=== PATIENT | male | born 1940 | race Caucasian/White ===

== ENCOUNTER 2017-02-25 21:48 | Emergency (ER) | payer BC ==
[~2017-02-25] VITALS: Ht 177.8 cm; Wt 108.8 kg
[2017-02-25 21:54] VITALS: TEMP 36.4; Ht 177.8 cm; Wt 108.8 kg
[2017-02-25 22:50] LABS: BASO % 0.1 %; BASO ABS # 0.01 K/uL (0-0.2); COMPLETE YES; EOS % 1.3 %; HEMATOCRIT 41.9 % (42-52); IG% 0.3 %; LYMPH % 16.7 %; LYMPH ABS # 1.24 K/uL (1.2-3.4); MEAN CELL VOLUME 100.7 fL (80-100); MEAN CORPUSCULAR HEMOGLOBIN 33.9 pg (25-34); MEAN CORPUSCULAR HGB CONC 33.7 g/dl (32-36); MEAN PLATELET VOLUME 8.9 fL (7.4-10.4); MONO % 9.5 %; NEUT % 72.1 %; PLATELET COUNT 187 K/uL (130-400); RED BLOOD COUNT 4.16 M/uL (4.7-6.1); WHITE BLOOD COUNT 7.44 K/uL (4.8-10.8)
[2017-02-25] MEDS ORDERED: ONDANSETRON INJ 2 MG/ML 2 ML VIAL IV STA (22:54)
[2017-02-25] MEDS ORDERED: MoRPHine SULFATE 4 MG/ML 1 ML CARP\\VIAL IV STA (22:54)
[2017-02-25 22:56] LABS: URINE APPEARANCE CLEAR (CLEAR); URINE BILIRUBIN NEG (NEG); URINE COLOR YELLOW; URINE EPITHELIAL CELL AUTO 0-5 /lpf (0-5); URINE NITRITE NEG (NEG); URINE SPECIFIC GRAVITY 1.021 (1.000-1.030); UROBILINOGEN NEG (NEG); ZZUR CULT IF INDIC CLEAN CATCH NO
[2017-02-25 22:57] LABS: MANUAL MICROSCOPIC REQUIRED? NO; REVIEW REQ? YES
[2017-02-25] MEDS ORDERED: FINA5TAB PO (23:01)
[2017-02-25] MEDS ORDERED: ONDA4TAB46 PO (23:01)
[2017-02-25] MEDS ORDERED: LISI-461 PO (23:01)
[2017-02-25] MEDS ORDERED: HYDR-5688 PO (23:01)
[2017-02-25] MEDS ORDERED: ALLO300T2 PO (23:01)
[2017-02-25] MEDS ORDERED: TAMS0.4C38 PO (23:01)
[2017-02-25 23:10] LABS: BUN/CREATININE RATIO 11.4 (10-20); CALCIUM 9.4 mg/dl (8.5-10.1); CREATININE 1.3 mg/dl (0.60-1.40); POTASSIUM 4.2 mmol/L (3.5-5.1)
--- NOTE | 2017-02-26 00:10 | DIAGNOSTIC IMAGING REPORT ---
ULTRASOUND KIDNEYS AND BLADDER CLINICAL HISTORY: Right flank pain. COMPARISON STUDY: KUB dated 02/25/2017. TECHNIQUE: Real-time, grayscale, and color flow sonography of the kidneys and bladder is performed. Images are reviewed in the transverse and longitudinal planes. FINDINGS: Kidneys: The kidneys demonstrate cortical. The right kidney measures 13.4 x 5.2 x 7.3 cm and the left kidney measures 12.7 x 4.5 x 6.0 cm. There is mild to moderate right-sided hydronephrosis secondary to an obstructing right ureteral calculus which was shown by x-ray. No hydronephrosis is seen on the left. Additional small calculi are suggested in both kidneys. Subcentimeter cysts are noted in both kidneys There is no sonographic evidence of solid mass lesion. No perinephric fluid is identified. Bladder: The bladder is decompressed and grossly normal in morphology. Only a left ureteral jet was seen. IMPRESSION: 1. There is mild to moderate right-sided hydronephrosis secondary to an obstructing right ureteral calculus. 2. There is no left-sided hydronephrosis. 3. Additional nonobstructing stones are suggested in both kidneys. Electronically signed by: Romain Victor M.D. 02/26/2017 12:09 AM Dictated Date/Time: 02/26/2017 12:06 AM
--- NOTE | 2017-02-26 00:12 | DIAGNOSTIC IMAGING REPORT ---
KUB CLINICAL HISTORY: Right sided nephrolithiasis. FINDINGS: 2 AP supine abdominal radiographs are obtained. No prior studies are available for comparison at the time of dictation. There is a nonobstructed abdominal bowel gas pattern. A 7 mm calculus projects along the course of the right ureter at the level of L3. This likely represents a ureteral stone. Additional nonobstructing calculi are present in both kidneys. No calcifications project over the left ureter. Pelvic phleboliths are observed. The skeletal structures are osteopenic. Lumbosacral spondylosis is noted. IMPRESSION: 1. A 7 mm right ureteral calculus projects at the level of L3. 2. Additional nonobstructing stones are seen in both kidneys. Electronically signed by: Romain Victor M.D. 02/26/2017 12:10 AM Dictated Date/Time: 02/26/2017 12:09 AM
[2017-02-26] MEDS ORDERED: OXYC1TAB3 PO (00:28)
[2017-02-26 00:46] VITALS: BP 128/70; PULSE 74; O2SAT 95
--- NOTE | 2017-02-26 00:46 | EMERGENCY ROOM VISIT NOTE ---
History Report prepared by Swetha: Timothy Nesbitt Under the Supervision of: Dr. Darian Dyson D.O. First contact with patient: 22:39 Chief Complaint: KIDNEY STONE Stated Complaint: KIDNEY STONE History of Present Illness The patient is a 76 year old male who presents to the Emergency Room with complaints of waxing and waning right sided flank pain starting two days ago due to a 5mm kidney stone. Patient was seen at [facility] had a CT done at that time which showed a 5 mm right ureteral stone with hydronephrosis. Following this he scheduled an appointment with his urologist on this coming Monday. The patient states that he has had a kidney stone before in 1988, and he still has his appendix and gall bladder. Additionally, he states that he had prostate cancer. Pt denies headache, change in vision, fevers, chest pain, shortness of breath, nausea, vomiting, diarrhea, pain with urination, hematuria , and melena. Source of History: patient Onset: two days ago Position: other (right flank) Quality: other (kidney stone) Timing: waxes/wanes Associated Symptoms: No fevers, No nausea, No vomiting, No urinary symptoms Review of Systems See HPI for pertinent positives & negatives. A total of 10 systems reviewed and were otherwise negative. Past Medical & Surgical Medical Problems: (1) Kidney stone Social History Smoking Status: Former Smoker Marital Status: Housing Status: lives with family Occupation Status: employed Current/Historical Medications Scheduled Allopurinol (Zyloprim), 300 MG PO DAILY Finasteride (Proscar), 5 MG PO DAILY Hydrocodone/Acetaminophen 5MG/325MG ([place] 5MG/325MG), 1 TABLET PO Q4 Lisinopril (Zestril), 10 MG PO DAILY Tamsulosin Hcl (Flomax), 0.4 MG PO DAILY Scheduled PRN Ondansetron Hcl (Zofran), 4 MG PO Q8 PRN for Nausea Oxycodone Immediate Rel Tab (Roxicodone Ir), 5 MG PO Q6H PRN for Pain Allergies Coded Allergies: NO KNOWN DRUG ALLERGIES (Verified Allergy, Unknown, none, 02/25/17) Physical Exam Vital Signs Date Time Temp Pulse Resp B/P (MAP) Pulse Ox O2 Delivery O2 Flow Rate FiO2 02/25/17 23:13 64 20 129/75 98 Room Air 02/25/17 21:54 36.4 68 18 163/88 96 Room Air Physical Exam GENERAL:Sitting up in bed, disheveled, no distress, non-toxic EYE EXAM: normal conjunctiva OROPHARYNX: no exudate, no erythema, lips, buccal mucosa, and tongue normal and mucous membranes are moist NECK: supple, no nuchal rigidity, no adenopathy, non-tender LUNGS: Clear to auscultation. Normal chest wall mechanics HEART: no murmurs, S1 normal and S2 normal ABDOMEN: abdomen soft, non-tender, normo-active bowel sounds, no masses, no rebound or guarding. BACK: Back is symmetrical on inspection and there is no deformity, no midline tenderness, no CVA tenderness. SKIN: no rashes and no bruising UPPER EXTREMITIES: upper extremities are grossly normal. LOWER EXTREMITIES: No pitting edema. NEURO EXAM: Normal sensorium, cranial nerves II-XII grossly intact, normal speech, no gross weakness of arms, no gross weakness of legs. Medical Decision & Procedures ER Provider Diagnostic Interpretation: Radiology report from [facility]: CT Abdomen: Kidneys and ureters: The right kidney shows mild pelviectasis with mild perinephric stranding, with a 5.8mm intraureteral calculus at the mid L3 level. Left mid-upper renal lateral 4.7mm calyceal calculus. Right mid renal lateral 2.0mm calyceal calculus. Focal low attenuation left renal lower pole nephrocalcinosis measuring 8mm. Radiology results as stated below per my review and the radiologist's interpretation: ULTRASOUND KIDNEYS AND BLADDER CLINICAL HISTORY: Right flank pain. COMPARISON STUDY: KUB dated 02/25/2017. TECHNIQUE: Real-time, grayscale, and color flow sonography of the kidneys and bladder is performed. Images are reviewed in the transverse and longitudinal planes. FINDINGS: Kidneys: The kidneys demonstrate cortical. The right kidney measures 13.4 x 5.2 x 7.3 cm and the left kidney measures 12.7 x 4.5 x 6.0 cm. There is mild to moderate right-sided hydronephrosis secondary to an obstructing right ureteral calculus which was shown by x-ray. No hydronephrosis is seen on the left. Additional small calculi are suggested in both kidneys. Subcentimeter cysts are noted in both kidneys There is no sonographic evidence of solid mass lesion. No perinephric fluid is identified. Bladder: The bladder is decompressed and grossly normal in morphology. Only a left ureteral jet was seen. IMPRESSION: 1. There is mild to moderate right-sided hydronephrosis secondary to an obstructing right ureteral calculus. 2. There is no left-sided hydronephrosis. 3. Additional nonobstructing stones are suggested in both kidneys. Electronically signed by: Romain Victor M.D. 02/26/2017 12:09 AM Dictated Date/Time: 02/26/2017 12:06 AM KUB CLINICAL HISTORY: Right sided nephrolithiasis. FINDINGS: 2 AP supine abdominal radiographs are obtained. No prior studies are available for comparison at the time of dictation. There is a nonobstructed abdominal bowel gas pattern. A 7 mm calculus projects along the course of the right ureter at the level of L3. This likely represents a ureteral stone. Additional nonobstructing calculi are present in both kidneys. No calcifications project over the left ureter. Pelvic phleboliths are observed. The skeletal structures are osteopenic. Lumbosacral spondylosis is noted. IMPRESSION: 1. A 7 mm right ureteral calculus projects at the level of L3. 2. Additional nonobstructing stones are seen in both kidneys. Electronically signed by: Romain Victor M.D. 02/26/2017 12:10 AM Dictated Date/Time: 02/26/2017 12:09 AM Laboratory Results 02/25/17 22:20 Red Blood Count 4.16, Mean Corpuscular Volume 100.7, Mean Corpuscular Hemoglobin 33.9, Mean Corpuscular Hemoglobin Concent 33.7, Mean Platelet Volume 8.9, Neutrophils (%) (Auto) 72.1, Lymphocytes (%) (Auto) 16.7, Monocytes (%) ( Auto) 9.5, Eosinophils (%) (Auto) 1.3, Basophils (%) (Auto) 0.1, Neutrophils # ( Auto) 5.36, Lymphocytes # (Auto) 1.24, Monocytes # (Auto) 0.71, Eosinophils # ( Auto) 0.10, Basophils # (Auto) 0.01 02/25/17 22:20 Test 02/25/17 22:05 02/25/17 22:20 Urine Color YELLOW Urine Appearance CLEAR (CLEAR) Urine pH 5.0 (4.5-7.5) Urine Specific [place] 1.021 (1.000-1.030) Urine Protein NEG (NEG) Urine Glucose (UA) NEG (NEG) Urine Ketones NEG (NEG) Urine Occult Blood TRACE (NEG) Urine Nitrite NEG (NEG) Urine Bilirubin NEG (NEG) Urine Urobilinogen NEG (NEG) Urine Leukocyte Esterase NEG (NEG) Urine WBC (Auto) 1-5 /hpf (0-5) Urine RBC (Auto) 0-4 /hpf (0-4) Urine Hyaline Casts (Auto) 0 /lpf (0-5) Urine Epithelial Cells (Auto) 0-5 /lpf (0-5) Urine Bacteria (Auto) NEG (NEG) Urine Crystals CALCIUM OXALATE (NONE White Blood Count 7.44 K/uL (4.8-10.8) Red Blood Count 4.16 M/uL (4.7-6.1) Hemoglobin 14.1 g/dL (14.0-18.0) Hematocrit 41.9 % (42-52) Mean Corpuscular Volume 100.7 fL (80-100) Mean Corpuscular Hemoglobin 33.9 pg (25-34) Mean Corpuscular Hemoglobin Concent 33.7 g/dl (32-36) Platelet Count 187 K/uL (130-400) Mean Platelet Volume 8.9 fL (7.4-10.4) Neutrophils (%) (Auto) 72.1 % Lymphocytes (%) (Auto) 16.7 % Monocytes (%) (Auto) 9.5 % Eosinophils (%) (Auto) 1.3 % Basophils (%) (Auto) 0.1 % Neutrophils # (Auto) 5.36 K/uL (1.4-6.5) Lymphocytes # (Auto) 1.24 K/uL (1.2-3.4) Monocytes # (Auto) 0.71 K/uL (0.11-0.59) Eosinophils # (Auto) 0.10 K/uL (0-0.5) Basophils # (Auto) 0.01 K/uL (0-0.2) RDW Standard Deviation 51.3 fL (36.4-46.3) RDW Coefficient of Variation 13.9 % (11.5-14.5) Immature Granulocyte % (Auto) 0.3 % Immature Granulocyte # (Auto) 0.02 K/uL (0.00-0.02) Anion Gap 2.0 mmol/L (3-11) Est Creatinine Clear Calc Drug Dose 60.6 ml/min Estimated GFR () 61.9 Estimated GFR (Non- 53.4 BUN/Creatinine Ratio 11.4 (10-20) Calcium Level 9.4 mg/dl (8.5-10.1) Total Bilirubin 0.5 mg/dl (0.2-1) Direct Bilirubin 0.1 mg/dl (0-0.2) Aspartate Amino Transf (AST/SGOT) 37 U/L (15-37) Alanine Aminotransferase (ALT/SGPT) 60 U/L (12-78) Alkaline Phosphatase 78 U/L (45-117) Total Protein 6.7 gm/dl (6.4-8.2) Albumin 3.3 gm/dl (3.4-5.0) Lipase 132 U/L (73-393) Laboratory results per my review. Medications Administered Medications (Trade) Dose Ordered Sig/[facility] Route Start Time Stop Time Status Last Admin Dose Admin Morphine Sulfate (MoRPHine SULFATE INJ) 4 mg NOW STAT IV 02/25/17 22:54 02/25/17 22:55 DC 02/25/17 23:10 4 MG Ondansetron HCl (Zofran Inj) 4 mg NOW STAT IV 02/25/17 22:54 02/25/17 22:55 DC 02/25/17 23:09 4 MG ED Course ED COURSE: Vital signs were reviewed and showed tachycardia The patients medical record was reviewed The above diagnostic studies were performed and reviewed. ED treatments and interventions as stated above. 2239: The patient was evaluated in room B2. A complete history and physical examination was performed. 2254: Zofran Inj 4mg IV, Morphine Sulfate 4mg IV 0024: Upon reevaluation, the patient is feeling better.I discussed my findings with the patient and he understands and agrees with the treatment plan. Based on the patients age, coexisting illnesses, exam and lab findings the decision to treat as an outpatient was made. The patient remained stable while under my care. The patient appeared well at the time of discharge. Medical Decision Differential diagnoses includes but is not limited to gastritis, peptic ulcer disease, GERD, gallbladder disease, pancreatitis, small bowel obstruction, acute coronary syndrome, pericarditis, ischemic bowel, irritable bowel disease, irritable bowel syndrome, appendicitis, diverticulitis, malignancy, hernia, urinary tract infection, torsion, perforation, trauma, infectious. Patient is a 76-year-old male who presents the ER for right sided flank pain. He notes this started several days ago and was evaluated at outside hospital and found to have a 5.8 mm right ureteral stone at the level of L3. He denies any fevers. He has been taking OxyIR intermittently with improvement of his pain. CBC along with BMP, LFTs, bilirubin and lipase is unremarkable. UA was unremarkable. No signs of infection. Pain was controlled with IV morphine. He had absolutely no pain on reevaluation. KUB showed stone at the level of L3 and renal ultrasound showed multiple moderate right hydro-process consistent with a right renal stone. He has an appointment with his urologist on Monday. PDMP was reviewed and showed 1 recent prescription for narcotics for 8 tabs. I do not believe this is enough to get him through for the next 3 days consequently he was given additional prescription for 10 tabs of OxyIR. Patient family were updated at bedside. He is discharged follow-up with urology on Monday and PCP on Monday. Discussed with Pt concerning signs and symptoms to watch out for. Pt was instructed to follow up with their PCP and discussed with the patient their option to return to the ED at anytime for persistent or worsening symptoms. The appropriate anticipatory guidance and out- patient management, including indications for return to the emergency department , were explained at length to the patient and understood. [place] Drug Monitoring Program Search Results: patient reviewed within database Drug Monitoring Findings: The patient got 8 Oxy IR on the Medication Reconcilliation Current Medication List: was personally reviewed by me Blood Pressure Screening Patient's blood pressure: Elevated blood pressure Blood pressure disposition: Elevated BP felt to be situational Impression Primary Impression: Renal colic Scribe Attestation The scribe's documentation has been prepared under my direction and personally reviewed by me in its entirety. I confirm that the note above accurately reflects all work, treatment, procedures, and medical decision making performed by me. Departure Information Dispostion Home / Self-Care Prescriptions Oxycodone Immediate Rel Tab (ROXICODONE IR) 5 Mg Tab 5 MG PO Q6H Y for Pain, #10 TAB Prov: Darian Dyson, DO 02/26/17 Referrals Mike Fitch M.D. (PCP) Forms HOME CARE DOCUMENTATION FORM, IMPORTANT VISIT INFORMATION Patient Instructions ED Stone Renal W Colic, My [facility] Additional Instructions Please follow up with your primary care doctor or if you are a student, [facility] with in the next 24 hours. Any worsening of your symptoms, please return to the ED immediately. This includes any fevers greater than 100.4, worsening pain, chest pain, shortness breath, persistent nausea, vomiting, unable to eat or drink, or any other concerning signs or symptoms from your standpoint. You were given medications during this visit that will inhibit your ability to drive, operate machinery and work. Please do NOT drive, operate machinery or work for the next 12hrs. You were also given a prescription for a narcotic. While taking this medication you should also not drive, operate machinery and or work. You were found to have a blood pressure greater than 120 systolic over 90 diastolic. Due to the new Medicare guidelines, we are now recommending that you follow up with your primary care doctor in regards to this elevated blood pressure. Please follow up with urology on Monday. Again any fevers greater than 100.4 please return immediately to the closest ER.
[2017-03-03] MEDS ORDERED: OXYC-57 PO (08:32)
== END 2017-02-26 00:48 | disposition home or self-care (01) ==
LOC: C.EDB 21:50
DX: N20.1 Calculus of ureter (principal); N13.30 Unspecified hydronephrosis; Z87.442 Personal history of urinary calculi; Z87.891 Personal history of nicotine dependence; Z79.899 Other long term (current) drug therapy

== ENCOUNTER → 2017-02-28 | Outpatient (CLI) | payer BC ==
[~2017-02-28] MED LIST: ALLO300T2 PO; FINA5TAB PO; HYDR-5688 PO; LISI-461 PO; ONDA4TAB46 PO; OXYC-57 PO; OXYC1TAB3 PO; TAMS0.4C38 PO
== END | disposition home or self-care (01) ==
LOC: C.LABSPEC 17:03
PROVIDERS: ATTEND Nurse Practitioner Family
DX: N20.0 Calculus of kidney (principal)

== ENCOUNTER → 2017-02-28 | Outpatient (CLI) | payer BC ==
--- NOTE | 2017-02-28 11:18 | DIAGNOSTIC IMAGING REPORT ---
CHEST 2 VIEWS ROUTINE CLINICAL HISTORY: 76 years-old Male presenting with nephrolithiasis. TECHNIQUE: PA and lateral views of the chest were obtained. COMPARISON: None. FINDINGS: Elevation of the right hemidiaphragm with resultant mildly low right lung volume. Tortuosity of the descending thoracic aorta. Lungs and pleural spaces clear. Degenerative changes of the thoracic spine. Upper abdomen normal. IMPRESSION: 1. No acute cardiopulmonary disease. Electronically signed by: Paulie Quintero M.D. 02/28/2017 11:17 AM Dictated Date/Time: 02/28/2017 11:16 AM
== END | disposition home or self-care (01) ==
LOC: C.CPL 10:34
PROVIDERS: ATTEND Nurse Practitioner Family
DX: N20.0 Calculus of kidney (principal)

== ENCOUNTER → 2017-03-02 | Outpatient (CLI) | payer BC ==
--- NOTE | 2017-03-02 18:28 | DIAGNOSTIC IMAGING REPORT ---
KUB CLINICAL HISTORY: Right sided nephrolithiasis. FINDINGS: 2 AP supine abdominal radiographs are compared to study dated 02/26/2017 and correlated with abdominal CT dated 02/23/2017. There is a nonobstructed abdominal bowel gas pattern. A 7 mm calculus projects along the course of the right ureter just below the right transverse process of L3. This is consistent with a ureteral stone. Additional nonobstructing calculi are present in both kidneys. No calcifications project over the left ureter. Pelvic phleboliths are observed. The skeletal structures are osteopenic. Lumbosacral spondylosis is noted. IMPRESSION: 1. No significant change in the appearance of a 7 mm right ureteral calculus which projects just below the transverse process of L3. 2. Additional nonobstructing stones are seen in both kidneys. Electronically signed by: Romain Victor M.D. 03/02/2017 6:27 PM Dictated Date/Time: 03/02/2017 6:25 PM
== END | disposition home or self-care (01) ==
LOC: C.RAD 17:45
PROVIDERS: ATTEND Nurse Practitioner Family
DX: N20.0 Calculus of kidney (principal)

== ENCOUNTER → 2017-03-03 | Day surgery (SDC) | payer BC ==
[2017-02-28 16:46] VITALS: Ht 177.8 cm; Wt 107.3 kg
[~2017-03-03] VITALS: Ht 177.8 cm; Wt 107.3 kg
[~2017-03-03] MED LIST changes: +ATROPINE SULFATE 0.1 MG/ML 5ML SYR IV PRN; +CIPROFLOXACIN 400MG / D5W IV SCH; +DEXAMETHASONE SOD INJ 4 MG/ML VIAL ONE; +EpHEDrine SULFATE INJ 50 MG/ML AMP IV PRN; +EpHEDrine SULFATE INJ 50 MG/ML AMP ONE; +FENTANYL CITRATE INJ 50 MCG/1 ML 2 ML VIAL IV PRN; +FENTANYL CITRATE INJ 50 MCG/1 ML 2 ML VIAL ONE; +FLUMAZENIL 0.1 MG/1 ML 10 ML VIAL IV PRN; +HYDROmorphone INJ 2 MG/ML SYR/VIAL IV PRN; +LABETALOL HCL IV 5 MG/ML 20ML IV PRN; +LACTATED RINGER'S 1000ML 1,000 ML IV SCH; +LIDOCAINE HCL 2% 2 ML VIAL (20MG/ML) ONE; +MEPERIDINE HCL 25 MG/ML CARP IV PRN; +NALOXONE HCL 0.4 MG/1 ML VIAL/CARP IV PRN; +ONDANSETRON INJ 2 MG/ML 2 ML VIAL IV PRN; +ONDANSETRON INJ 2 MG/ML 2 ML VIAL ONE; +PHENYLEPHRINE 100MCG/ML 5ML SYR IV PRN; +PROPOFOL IV EMULSION 10 MG/ML 20 ML VIAL IV ONE
--- NOTE | 2017-03-03 06:59 | History & Physical Bridge - SC ---
H&P Re-Evaluation Bridge Note: I have examined the patient, reviewed the History & Physical and in the interval since the performance of the History & Physical I have noted the following changes of clinical significance: No changes noted
--- NOTE | 2017-03-03 07:53 | Discharge Instructions-SurgCtr ---
Discharge Instructions Date of Service Mar 03, 2017. Visit Reason for Visit: Stones Discharge Discharge Diagnosis / Problem: right ureteral stone Discharge Goals Goal(s): Decrease discomfort, Improve function, Increase independence, Improve disease control Activity Recommendations Activity Limitations: per Instructions/Follow-up section (no driving on narcotics) Anesthesia . Post Anesthesia Instructions: If you have had General Anesthesia or IV Sedation: * Do not drive today. * Resume driving when surgeon permits. * Do not make important decisions or sign legal documents today. * Call surgeon for: 1. Temperature elevations greater than 101 degrees F. 2. Uncontrollable pain. 3. Excessive bleeding. 4. Persistent nausea and vomiting. 5. Medication intolerance (nausea, vomiting or rash). * For nausea and vomiting use only clear liquids such as: tea, soda, bouillon until nausea subsides, then gradually increase diet as tolerated. * If you have any concerns or questions, call your surgeon's office. If physician is unavailable and it is an emergency, call 911 or go to the nearest emergency room. . Diet Recommendations Home Diet: resume previous diet Procedures Procedures Performed: Right Extracorporeal Shock Wave Lithotripsy - Ureteral Pending Studies Studies pending at discharge: no Medical Emergencies . Who to Call and When: Medical Emergencies: If at any time you feel your situation is an emergency, please call 911 immediately. . Non-Emergent Contact Non-Emergency issues call your: Urologist . . "Provider Documentation" section prepared by Alvarado Israel. .
[2017-03-03 08:28] VITALS: TEMP 36.5
--- NOTE | 2017-03-03 08:53 | Anesthesia Progress Nt - [facility] ---
Anesthesia Post Op Note Date & Time Mar 03, 2017 at 08:52 Vital Signs Pain Intensity: 4 Vital Signs Past 12 Hours Date Time Temp Pulse Resp B/P (MAP) Pulse Ox O2 Delivery O2 Flow Rate FiO2 03/03/17 08:28 36.5 70 20 116/72 (87) 94 Room Air 03/03/17 08:22 73 14 94 03/03/17 08:22 73 14 03/03/17 08:21 36.8 18 94 Room Air 03/03/17 08:20 116/73 03/03/17 08:17 77 23 03/03/17 08:17 77 23 95 03/03/17 08:16 77 18 93 03/03/17 08:16 76 18 03/03/17 08:15 120/71 03/03/17 08:11 73 22 97 03/03/17 08:11 73 22 03/03/17 08:10 119/70 03/03/17 08:06 74 19 97 03/03/17 08:06 74 19 03/03/17 08:05 116/73 03/03/17 08:02 81 27 03/03/17 08:02 81 27 95 03/03/17 08:00 126/75 03/03/17 07:57 80 03/03/17 07:57 80 136/75 94 03/03/17 07:57 36.8 81 16 136/78 95 Mask 6 03/03/17 06:29 36.6 60 16 177/97 (123) 95 Notes Mental Status: alert / awake / arousable, participated in evaluation Pt Amnestic to Procedure: Yes Nausea / Vomiting: adequately controlled Pain: adequately controlled Airway Patency, RR, SpO2: stable & adequate BP & HR: stable & adequate Hydration State: stable & adequate Anesthetic Complications: no major complications apparent
--- NOTE | 2017-03-03 08:57 | [facility] Post Operative Brief Note ---
Immediate Operative Summary Operative Date Mar 03, 2017. Pre-Operative Diagnosis Right Ureteral Calculi Post-Operative Diagnosis Same as pre-op Procedure(s) Performed Right Extracorporeal Shock Wave Lithotripsy - Ureteral Surgeon Dr. Jamaal Israel Corpsman Surgeon(s) None Estimated Blood Loss 0 mL Findings l ureteral stone Specimens None Disposition Recovery Room / PACU
[2017-03-03 08:58] VITALS: BP 115/68; PULSE 66; O2SAT 95
--- NOTE | 2017-03-03 12:17 | OPERATIVE REPORT ---
DATE OF OPERATION: 03/03/2017 PREOPERATIVE DIAGNOSIS: Right ureteral stone. POSTOPERATIVE DIAGNOSIS: Same. SURGEON: Dr. Alvarado Israel. PROCEDURE PERFORMED: Right ureteral ESWL. ANESTHESIA: General. INDICATIONS: The patient is a 77-year-old male with a history of a right ureteral stone who was to elective ESWL. DESCRIPTION OF THE PROCEDURE: The patient was given Venodyne stockings prior to the procedure and IV antibiotics. He was taken to the operating room and placed on the operating table. He was in the supine position. He was given general anesthesia. The stone was visualized from above in 2 views and he was given 3000 shocks, 1500 at level 6. At the end of the procedure, the patient was transferred to the recovery room in stable condition. I attest to the content of the Intraoperative Record and any orders documented therein. Any exception s are noted below.
== END | disposition home or self-care (01) ==
LOC: X.SURG 06:09
PROVIDERS: ATTEND Urology
DX: N20.1 Calculus of ureter (principal); C61 Malignant neoplasm of prostate; I10 Essential (primary) hypertension; Z87.442 Personal history of urinary calculi

== ENCOUNTER → 2017-03-14 | Outpatient (CLI) | payer BC ==
[~2017-03-14] MED LIST changes: -ATROPINE SULFATE 0.1 MG/ML 5ML SYR IV PRN; -CIPROFLOXACIN 400MG / D5W IV SCH; -DEXAMETHASONE SOD INJ 4 MG/ML VIAL ONE; -EpHEDrine SULFATE INJ 50 MG/ML AMP IV PRN; -EpHEDrine SULFATE INJ 50 MG/ML AMP ONE; -FENTANYL CITRATE INJ 50 MCG/1 ML 2 ML VIAL IV PRN; -FENTANYL CITRATE INJ 50 MCG/1 ML 2 ML VIAL ONE; -FLUMAZENIL 0.1 MG/1 ML 10 ML VIAL IV PRN; -HYDROmorphone INJ 2 MG/ML SYR/VIAL IV PRN; -LABETALOL HCL IV 5 MG/ML 20ML IV PRN; -LACTATED RINGER'S 1000ML 1,000 ML IV SCH; -LIDOCAINE HCL 2% 2 ML VIAL (20MG/ML) ONE; -MEPERIDINE HCL 25 MG/ML CARP IV PRN; -NALOXONE HCL 0.4 MG/1 ML VIAL/CARP IV PRN; -ONDANSETRON INJ 2 MG/ML 2 ML VIAL IV PRN; -ONDANSETRON INJ 2 MG/ML 2 ML VIAL ONE; -PHENYLEPHRINE 100MCG/ML 5ML SYR IV PRN; -PROPOFOL IV EMULSION 10 MG/ML 20 ML VIAL IV ONE
--- NOTE | 2017-03-14 13:13 | DIAGNOSTIC IMAGING REPORT ---
KUB CLINICAL HISTORY: Nephrolithiasis. COMPARISON STUDY: KUB March 02, [address] of the abdomen and pelvis February 23, 2017. FINDINGS: Pelvic calcifications were shown to represent phleboliths on prior CT. Note is made of a 6 mm left renal calculus and a 4 mm right renal calculus. These are unchanged. The right ureteral calculus shown on exam of March 02, 2017 is no longer visualized. IMPRESSION: 1. Nonvisualization of the right ureteral calculus shown on prior exam of March 02, 2017. 2. Bilateral nephrolithiasis. Electronically signed by: Luis Vitale M.D. 03/14/2017 1:12 PM Dictated Date/Time: 03/14/2017 1:10 PM
== END | disposition home or self-care (01) ==
LOC: C.RAD 11:45
PROVIDERS: ATTEND Nurse Practitioner Family
DX: N20.0 Calculus of kidney (principal); N20.1 Calculus of ureter

== ENCOUNTER → 2017-03-14 | Outpatient (CLI) | payer BC | END | disposition home or self-care (01) | LOC: C.LABSPEC 17:10 | PROVIDERS: ATTEND Nurse Practitioner Family | DX: N20.1 Calculus of ureter (principal) ==

== ENCOUNTER 2017-06-03 10:33 | Emergency (ER) | payer BC ==
[~2017-06-03] VITALS: Ht 177.8 cm; Wt 110.7 kg
[2017-06-03 10:35] VITALS: TEMP 36.5; Ht 177.8 cm; Wt 110.7 kg
--- NOTE | 2017-06-03 11:45 | DIAGNOSTIC IMAGING REPORT ---
L WRIST MIN 3 VIEWS ROUTINE CLINICAL HISTORY: Left wrist pain and swelling following injury. COMPARISON: None FINDINGS: Alignment of the left wrist is anatomic. There is no acute fracture. There is severe arthritis of the left first carpometacarpal joint. There is mild arthritis of the radiocarpal articulation. Moderate vascular calcification is present. IMPRESSION: 1. No acute fracture or dislocation of the left wrist. 2. 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 Electronically signed by: Luis Vitale M.D. 06/03/2017 11:43 AM Dictated Date/Time: 06/03/2017 11:43 AM
--- NOTE | 2017-06-03 11:46 | DIAGNOSTIC IMAGING REPORT ---
L HAND MIN 3 VIEWS ROUTINE CLINICAL HISTORY: Left hand and wrist pain following injury. COMPARISON: None FINDINGS: There is severe osteoarthritis of the left first carpometacarpal joint. There is no acute fracture within the left hand. IMPRESSION: 1. No acute fracture or dislocation within the left hand. 2. 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 Electronically signed by: Luis Vitale M.D. 06/03/2017 11:45 AM Dictated Date/Time: 06/03/2017 11:44 AM
--- NOTE | 2017-06-03 12:10 | EMERGENCY ROOM VISIT NOTE ---
ED Visit Note First contact with patient: 10:40 I have seen and examined this patient with Yousif Patel and generally agree with the treatment plan as discussed. Current/Historical Medications Scheduled Allopurinol (Zyloprim), 300 MG PO QAM Finasteride (Proscar), 5 MG PO QAM Lisinopril (Zestril), 10 MG PO QAM Tamsulosin Hcl (Flomax), 0.4 MG PO QAM Allergies Coded Allergies: No Known Allergies (Unverified , 06/03/17) Vital Signs Date Time Temp Pulse Resp B/P (MAP) Pulse Ox O2 Delivery O2 Flow Rate FiO2 06/03/17 10:35 36.5 66 18 158/92 91 Room Air Departure Information Referrals Bg Burnette M.D. (PCP) Patient Instructions My [facility]
[2017-06-03 12:18] VITALS: BP 145/89; PULSE 68; O2SAT 96
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
== END 2017-06-03 12:32 | disposition home or self-care (01) ==
LOC: C.EDB 10:34 → C.EDC 12:32
DX: M79.642 Pain in left hand (principal); M25.532 Pain in left wrist; S60.222A Contusion of left hand, initial encounter; W22.8XXA Striking against or struck by other objects, initial encounter; M18.12 Unilateral primary osteoarthritis of first carpometacarpal joint, left hand; I10 Essential (primary) hypertension; Z87.442 Personal history of urinary calculi; Z85.46 Personal history of malignant neoplasm of prostate

== ENCOUNTER → 2017-10-02 | Outpatient (CLI) | payer BC ==
[~2017-10-02] MED LIST changes: -HYDR-5688 PO; -ONDA4TAB46 PO; -OXYC-57 PO; -OXYC1TAB3 PO
--- NOTE | 2017-10-02 12:21 | DIAGNOSTIC IMAGING REPORT ---
KUB CLINICAL HISTORY: Nephrolithiasis. COMPARISON STUDY: KUB March 14, 2017. FINDINGS: A 4 mm right renal calculus and a 5 mm left renal calculus are similar to previous exam of March 14, 2017. Pelvic calcifications reflect phleboliths. No ureteral calculi identified. Bowel gas pattern is normal. IMPRESSION: 1. No change in bilateral nephrolithiasis. 2. No ureteral calculi identified. Electronically signed by: Luis Vitale M.D. 10/02/2017 12:19 PM Dictated Date/Time: 10/02/2017 12:17 PM
== END | disposition home or self-care (01) ==
LOC: C.RAD 11:23
PROVIDERS: ATTEND Urology
DX: N20.0 Calculus of kidney (principal)

== ENCOUNTER 2021-11-02 23:29 | Inpatient (IN) ==
[2021-11-02] MEDS ORDERED: SODIUM CHLORIDE 0.9% 500 ML IV STA (23:47)
[2021-11-02] MEDS ORDERED: SODIUM CHLORIDE 0.9% 1000ML 1,000 ML IV ONE (23:47)
[2021-11-02] MEDS ORDERED: ONDANSETRON INJ 2 MG/ML 2 ML VIAL IV STA (23:47)
[2021-11-02] MEDS ORDERED: MoRPHine SULFATE 4 MG/ML 1 ML CARP\\VIAL IV STA (23:47)
--- NOTE | 2021-11-02 23:49 | Emergency Department Note ---
Impression & Plan Right kidney stone ADMIT ED Provider Note HPI: The patient is a 80-year-old gentleman who presents the emergency department with a chief complaint of right sided abdominal pain. Patient states that the pain began acutely about 3 to 4 hours prior to arrival to the emergency department. He states it occurred after he ate a large dinner including half a rack of barbecue ribs. On arrival patient states he does have some nausea but he has not had any vomiting, denies any diarrhea. He is noted to be hypertensive on arrival but otherwise is hemodynamically stable and in no acute distress on my initial evaluation. ROS: -GI: Right-sided abdominal pain *10 point review systems was conducted and is otherwise negative unless stated above *Outpatient medications and allergy history reviewed PE: General: Alert, NAD HEENT: Normocephalic, atraumatic Eyes: Extraocular eye movement is intact, no scleral erythema Pulmonary: Clear to auscultation bilaterally, no wheezing Cardio: Regular rate and rhythm GI: Abdomen is soft, there is tenderness to palpation in the right side of the abdomen and the right flank area : No suprapubic tenderness MSK: No evidence of trauma or malformation of the extremities, no edema Skin: No evidence of rash Neuro: Alert, no focal deficits 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 Mild bilateral lower lobe atelectasis. Normal cardiac size. Large cyst within the right temporal lobe measuring 9.4 x 8.5 cm, otherwise normal liver. Unremarkable gallbladder and biliary system. Normal pancreas, spleen and bilateral adrenal glands. Small bilateral simple renal cyst, largest on the right measuring 1.6 cm and on the left measuring 1.2 cm. Mild right hydronephrosis with enlargement of the right renal pelvis due to a stone at the right UP junction measuring 10.9 mm. No left hydronephrosis. Left upper renal pole stone measuring 4.3 mm. Atherosclerotic disease of aorta with no aneurysm. Unremarkable stomach and small bowel. Normal appendix. Diverticulosis more so through the sigmoid and descending colon with no signs of diverticulitis. No bowel obstruction. Unremarkable urinary bladder. Prostate enlargement. Degenerative disease of the spine. Radiologist: Deepika Quispe MD US GALLBLADDER: Exam is limited due to gas artifact in the bowel. The pancreas is obscured. The liver measures 16.2 cm with diffuse fatty infiltration. There is a large cyst within the right liver lobe measuring 8.2 x 9.4 x 7.7 cm. The gallbladder is over distended with no distinct stones. Gallbladder wall measures 2 mm. Negative Alaniz sign. The common bile that measures 3 mm, within normal limits. Right kidney measures 12.9 cm with mild fullness of the right renal pelvis suggestive of mild hydronephrosis. There is no evidence of intrarenal stone. Radiologist: Deepika Quispe MD Medical Decision Making: The patient is a very pleasant 80-year-old gentleman who presented to the emergency department with a chief complaint of right-sided abdominal pain. He states this began shortly after he ate a meal. IV was established, lab work obtained, ultrasound imaging of the gallbladder was ordered as well as CT imaging of the abdomen pelvis. CT imaging of the abdomen pelvis was obtained and shows evidence of a 11 mm kidney stone within the right UPJ, there is associated hydronephrosis, no evidence of acute kidney injury on the patient's lab work, urinalysis does not show any evidence of infection. Ultrasound imaging of the gallbladder does not show any evidence of acute cholecystitis. Patient was given IV morphine and IV Zofran for pain here in the ED, he did get some transient relief however pain returned and he was given a dose of IV Toradol. On my reassessment he states that he is continuing to have pain and therefore he will be admitted to the hospitalist service for further management, I did discuss all the above with on-call urology, Dr. Mcgowan, who stated that the patient can be admitted if he is having intractable pain. Patient states that this time he prefers admission for urology consultation as an inpatient given his ongoing pain. Patient was in agreement to the above plan he was admitted in stable condition. Diagnosis: 1. Acute onset abdominal pain 2. Right-sided kidney stone with associated hydronephrosis Disposition: Admission Josse Chacon DO Emergency Medicine Past Med/Surg History Medical History Cardiac murmur Diverticular disease Gout Hearing deficit Hypertension Kidney stones Prostate cancer Surgical History History of colonoscopy History of lithotripsy History of prostate biopsy History of tonsillectomy and adenoidectomy History of tooth extraction Family History Other No family history of adverse response to anesthesia Social History Smoking Status: Former smoker Tobacco Type: Cigarettes Second Hand Exposure: No; Hx Alcohol Use: Yes Alcohol type: beer Hx Substance Use: No Preferred Language: Romanian Communication Ability: Effective Puffer Tender Required: No Beliefs That Will Affect Care: None Current Living Situation: Spouse and Family Current Living Situation Comment: lives with and 1 son Feels Safe at Home: Yes Assistive Devices: Glasses and Hearing Aid - Bilateral Allergies Allergies Allergy/AdvReac Type Severity Reaction Status Date / Time No Known Allergies Allergy Verified 11/03/21 01:22 Home Meds Home Medications Medication Instructions Recorded Confirmed allopurinol 300 mg tablet 300 mg PO QAM 09/24/18 11/03/21 linaclotide 145 mcg capsule 145 mcg PO QAM 09/24/18 11/03/21 (Linzess) lisinopril 10 mg tablet 10 mg PO QAM 09/24/18 11/03/21 Previous Rx's Medication Instructions Recorded tamsulosin 0.4 mg capsule 0.4 mg PO DAILY #90 cap 05/12/21 Results & Data (ED) Vital Signs Vital Signs - 24 hr 11/02/21 23:32 11/03/21 00:00 11/03/21 01:20 Temperature 36.5 C Temperature Source Temporal Artery Scan Pulse Rate 73 70 Pulse Rate [Finger] 72 Respiratory Rate 16 18 18 Respiratory Effort / Characteristics Non-Labored Spontaneous Respiratory Depth Normal Blood Pressure 202/98 H Blood Pressure [Left Arm] 150/89 H Blood Pressure Mean 132 Blood Pressure Mean [Left Arm] 109 Pulse Oximetry 93 95 95 Oxygen Delivery Method Room Air Room Air Room Air Oxygen Flow Rate Sepsis Recent Fever Within 48 Hours No Sepsis New/Unexplained Change in Mental Status N/A Sepsis Action Taken by Nursing No Action Required Oxygen Flow Rate - Titration Pulse Oximetry Post Tiitration 11/03/21 02:23 11/03/21 02:47 11/03/21 03:16 Temperature Temperature Source Pulse Rate Pulse Rate [Finger] 80 84 Respiratory Rate 18 18 Respiratory Effort / Characteristics Respiratory Depth Blood Pressure Blood Pressure [Left Arm] 149/92 H 156/99 H Blood Pressure Mean Blood Pressure Mean [Left Arm] 111 118 Pulse Oximetry 91 88 L 95 Oxygen Delivery Method Room Air Nasal Cannula Nasal Cannula Oxygen Flow Rate 0 2 Sepsis Recent Fever Within 48 Hours Sepsis New/Unexplained Change in Mental Status Sepsis Action Taken by Nursing Oxygen Flow Rate - Titration 2 Pulse Oximetry Post Tiitration 93 Laboratory Data Result diagrams: 11/02/21 00:05 11/03/21 00:05 Lab Results 11/02/21 11/03/21 11/03/21 Range/Units 00:05 00:05 00:05 WBC 8.27 (4.8-10.8) K/uL RBC 4.52 L (4.7-6.1) M/uL Hgb 15.3 (14.0-18.0) g/dL Hct 46.5 (42-52) % MCV 102.9 H (80-100) fL MCH 33.8 (25-34) pg MCHC 32.9 (32-36) g/dL RDW Std Deviation 53.4 H (36.4-46.3) fL RDW Coeff of Kalani 14.2 (11.5-14.5) % Plt Count 219 (130-400) K/uL MPV 9.3 (7.4-10.4) fL Immature Gran % (Auto) 0.4 % Neut % (Auto) 80.9 % Lymph % (Auto) 11.2 % Archuleta % (Auto) 6.8 % Eos % (Auto) 0.6 % Baso % (Auto) 0.1 % Neut # (Auto) 6.69 H (1.4-6.5) K/uL Lymph # (Auto) 0.93 L (1.2-3.4) K/uL Archuleta # (Auto) 0.56 (0.11-0.59) K/uL Eos # (Auto) 0.05 (0-0.5) K/uL Baso # (Auto) 0.01 (0-0.2) K/uL Immature Gran # (Auto) 0.03 H (0.00-0.02) K/uL PT 10.4 (9.0-12.0) Seconds INR 1.0 (0.9-1.1) Sodium 142 (136-145) mmol/L Potassium 4.0 (3.5-5.1) mmol/L Chloride 104 (98-107) mmol/L Carbon Dioxide 32 (21-32) mmol/L Anion Gap 6 (3-11) BUN 14 (6-23) mg/dl Creatinine 1.08 (0.6-1.4) mg/dl Est Cr Clr Drug Dosing 68.6 ml/min Est GFR ( Amer) 75.3 ml/min Est GFR (Non-Af Amer) 64.9 ml/min BUN/Creatinine Ratio 13.0 (10-20) Glucose 132 H (70-99(Fasting)) mg/dl Calcium 10.9 H (8.5-10.1) mg/dl Total Bilirubin 0.5 (0.2-1.0) mg/dl AST 20 (13-39) U/L ALT 22 (7-52) U/L Alkaline Phosphatase 66 (34-104) U/L Total Protein 7.2 (6.0-8.3) gm/dl Albumin 4.2 (3.4-5.0) gm/dl Globulin 3.0 (2.5-4.0) gm/dl Albumin/Globulin Ratio 1.4 (0.9-2) Lipase 21 (11-82) U/L Urine Color Urine Appearance (Clear) Urine pH (4.5-7.5) Ur Specific [place] (1.000-1.030) Urine Protein (Negative) Urine Glucose (UA) (Negative) Urine Ketones (Negative) Urine Blood (Negative) Urine Nitrite (Negative) Urine Bilirubin (Negative) Urine Urobilinogen (Negative) Ur Leukocyte Esterase (Negative) Urine WBC (Auto) (0-5) /hpf Urine RBC (Auto) (0-4) /hpf U Hyaline Cast (Auto) (0-5) /lpf U Epithel Cells (Auto) (0-5) /lpf Urine Bacteria (Auto) (Negative) Urine Crystals Calcium Oxalate Crystal (None Prsent) Urine Mucus (None Prsent) SARS-CoV-2, RNA, NAAT (NEGATIVE) 11/03/21 11/03/21 Range/Units 00:05 02:18 WBC (4.8-10.8) K/uL RBC (4.7-6.1) M/uL Hgb (14.0-18.0) g/dL Hct (42-52) % MCV (80-100) fL MCH (25-34) pg MCHC (32-36) g/dL RDW Std Deviation (36.4-46.3) fL RDW Coeff of Kalani (11.5-14.5) % Plt Count (130-400) K/uL MPV (7.4-10.4) fL Immature Gran % (Auto) % Neut % (Auto) % Lymph % (Auto) % Archule[place] % (Auto) % Eos % (Auto) % Baso % (Auto) % Neut # (Auto) (1.4-6.5) K/uL Lymph # (Auto) (1.2-3.4) K/uL [place] # (Auto) (0.11-0.59) K/uL Eos # (Auto) (0-0.5) K/uL Baso # (Auto) (0-0.2) K/uL Immature Gran # (Auto) (0.00-0.02) K/uL PT (9.0-12.0) Seconds INR (0.9-1.1) Sodium (136-145) mmol/L Potassium (3.5-5.1) mmol/L Chloride (98-107) mmol/L Carbon Dioxide (21-32) mmol/L Anion Gap (3-11) BUN (6-23) mg/dl Creatinine (0.6-1.4) mg/dl Est Cr Clr Drug Dosing ml/min Est GFR ( Amer) ml/min Est GFR (Non-Af Amer) ml/min BUN/Creatinine Ratio (10-20) Glucose (70-99(Fasting)) mg/dl Calcium (8.5-10.1) mg/dl Total Bilirubin (0.2-1.0) mg/dl AST (13-39) U/L ALT (7-52) U/L Alkaline Phosphatase (34-104) U/L Total Protein (6.0-8.3) gm/dl Albumin (3.4-5.0) gm/dl Globulin (2.5-4.0) gm/dl Albumin/Globulin Ratio (0.9-2) Lipase (11-82) U/L Urine Color Yellow Urine Appearance Clear (Clear) Urine pH 5.5 (4.5-7.5) Ur Specific [place] 1.024 (1.000-1.030) Urine Protein 1+ H (Negative) Urine Glucose (UA) Negative (Negative) Urine Ketones Trace H (Negative) Urine Blood 1+ H (Negative) Urine Nitrite Negative (Negative) Urine Bilirubin Negative (Negative) Urine Urobilinogen Negative (Negative) Ur Leukocyte Esterase Negative (Negative) Urine WBC (Auto) 1-5 (0-5) /hpf Urine RBC (Auto) 5-10 H (0-4) /hpf U Hyaline Cast (Auto) 0 (0-5) /lpf U Epithel Cells (Auto) 20-30 H (0-5) /lpf Urine Bacteria (Auto) Negative (Negative) Urine Crystals Not Reportable Calcium Oxalate Crystal Present A (None Prsent) Urine Mucus Present A (None Prsent) SARS-CoV-2, RNA, NAAT NEGATIVE (NEGATIVE) Administered Medications Discontinued Medications Sodium Chloride (Nss 1000ml) 1,000 mls @ 999 mls/hr IV .Q1H1M ONE Stop: 11/03/21 00:47 Last Infusion: 11/03/21 00:42 Dose: 0 mls/hr Documented by: [id number] Admin: 11/03/21 00:03 Dose: 999 mls/hr Documented by: [id number] Sodium Chloride (Nss) 500 mls @ 999 mls/hr IV .Q31M STA Stop: 11/03/21 00:17 Last Infusion: 11/03/21 01:19 Dose: 0 mls/hr Documented by: [id number] Admin: 11/03/21 00:42 Dose: 999 mls/hr Documented by: [id number] Ioversol (Optiray 320 100ml) 100 ml IV ONCE ONE Stop: 11/03/21 01:25 Last Admin: 11/03/21 01:24 Dose: 93 ml Documented by: [id number] Ketorolac Tromethamine (Ketorolac Tromethamine 15 Mg/Ml Vial) 15 mg IV NOW ONE Stop: 11/03/21 03:01 Last Admin: 11/03/21 03:15 Dose: 15 mg Documented by: [id number] Morphine Sulfate (Morphine Sulfate 4 Mg/Ml 1 Ml Carp\Vial) 4 mg IV NOW STA Stop: 11/02/21 23:48 Last Admin: 11/03/21 00:03 Dose: 4 mg Documented by: [id number] Ondansetron HCl (Ondansetron Inj 2 Mg/Ml 2 Ml Vial) 4 mg IV NOW STA Stop: 11/02/21 23:48 Last Admin: 11/03/21 00:03 Dose: 4 mg Documented by: [id number] Discharge Plan Visit Data Chief Complaint: Flank Pain Stated Complaint: FLANK PAIN ED Provider: Josse Chacon Discharge Problem: Right kidney stone Forms Stand Alone Forms: [facility] Prescriptions Prescriptions: No Action tamsulosin 0.4 mg capsule 0.4 mg PO DAILY Qty: 90 RF: 3 allopurinol 300 mg Tablet 300 mg PO QAM RF: 0 Linzess 145 mcg Capsule 145 mcg PO QAM RF: 0 lisinopril 10 mg Tablet 10 mg PO QAM RF: 0 Referrals Referrals: Bobby Diaz, ASHLEE [Primary Care Provider] -
[2021-11-03 00:25] LABS: Basophils # (auto) 0.01 K/uL (0-0.2); Basophils % (auto) 0.1 %; Eosinophils # (auto) 0.05 K/uL (0-0.5); Eosinophils % (auto) 0.6 %; Hematocrit (blood only) 46.5 % (42-52); Hemoglobin 15.3 g/dL (14.0-18.0); Immature Granulocytes # (auto) 0.03 K/uL (0.00-0.02); Immature Granulocytes % (auto) 0.4 %; Lymphocytes # (auto) 0.93 K/uL (1.2-3.4); Lymphocytes % (auto) 11.2 %; Mean Corpuscular Hemoglobin 33.8 pg (25-34); Mean Corpuscular Hgb Conc 32.9 g/dL (32-36); Mean Corpuscular Volume 102.9 fL (80-100); Mean Platelet Volume 9.3 fL (7.4-10.4); Monocytes # (auto) 0.56 K/uL (0.11-0.59); Monocytes % (auto) 6.8 %; Neutrophils # (auto) 6.69 K/uL (1.4-6.5); Neutrophils % (auto) 80.9 %; Platelet Count 219 K/uL (130-400); RDW Coefficient of Variation 14.2 % (11.5-14.5); RDW Standard Deviation 53.4 fL (36.4-46.3); Red Blood Count 4.52 M/uL (4.7-6.1); White Blood Count 8.27 K/uL (4.8-10.8)
[2021-11-03 00:47] LABS: Prothrombin Time 10.4 Seconds (9.0-12.0)
[2021-11-03 00:57] LABS: Albumin Globulin Ratio 1.4 (0.9-2); Albumin Level 4.2 gm/dl (3.4-5.0); Bilirubin,Total 0.5 mg/dl (0.2-1.0); Calcium 10.9 mg/dl (8.5-10.1); Creatinine Clr Calc Pharmacy 68.6 ml/min; Est GFR (African American) 75.3 ml/min; Est GFR (Non-African American) 64.9 ml/min; Total Protein 7.2 gm/dl (6.0-8.3)
[2021-11-03 01:15] LABS: Appearance Urine Clear (Clear); Bacteria Urine Automated Negative (Negative); Bilirubin Urine Negative (Negative); Blood Urine 1+ (Negative); Cast Urine Automated 0 /lpf (0-5); Color Urine Yellow; Epithelial Cell Urine Auto 20-30 /lpf (0-5); Glucose Urine UA Negative (Negative); Ketones Urine Trace (Negative); Leukocyte Esterase Urine Negative (Negative); Nitrite Urine Negative (Negative); Protein Urine 1+ (Negative); Specific Gravity Urine 1.024 (1.000-1.030); Urobilinogen Urine Negative (Negative); pH Urine 5.5 (4.5-7.5)
[2021-11-03] MEDS ORDERED: OPTIRAY 320 100ml IV ONE (01:24)
[2021-11-03 01:53] LABS: Calcium Oxalate Crystals Urine Present (None Prsent)
[2021-11-03 01:54] LABS: Mucus Urine Present (None Prsent)
[2021-11-03] MEDS ORDERED: KETOROLAC TROMETHAMINE 15 MG/ML VIAL IV ONE (03:00)
--- NOTE | 2021-11-03 04:14 | History & Physical Report ---
Date of Service November 03, 2021 Assessment & Plan (1) Right kidney stone: Plan: Right ureteropelvic junction calculus 10.9 mm/mild right hydronephrosis- N.p.o. for possible ureteral stent procedure Follow urine culture and sensitivity Ceftriaxone 2 g IV daily Zofran 4 mg IV every 6 hours as needed Famotidine 20 mg IV every 12 hours IV fluids Ilfeld 5/325, 1 p.o. every 6 hours as needed moderate pain Ilfeld 5/325, 2 p.o. every 6 hours as needed severe pain Dilaudid 0.25 mg IV every 3 hours as needed moderate pain Dilaudid 0.5 mg IV every 3 hours as needed severe pain Consult urology, follows with Dr. Mcgowan as an outpatient (2) Ureteropelvic junction calculus: Plan: See above (3) Hydronephrosis of right kidney: Plan: See above (4) Hypertension: Plan: Hold lisinopril (5) Irritable bowel syndrome with constipation: Plan: Hold Linzess (6) Gout: Plan: Resume allopurinol after no longer n.p.o. (7) Liver cyst: Plan: Can be followed with serial imaging studies as outpatient (8) Prostate cancer: History of Present Illness Chief Complaint: The patient presents to the emergency department after he had acute onset of right flank pain and nausea after eating out at a local restaurant earlier this evening Primary Care Provider: Bobby Diaz This is a 80-year-old male with a history of prostate cancer, nephrolithiasis, hypertension, gout who presented to [facility] for evaluation of flank pain. In the ED, patient was found to be hypertensive to 200/100 with otherwise normal vital signs. Afebrile. He was found to have a normal white count. Chemistries revealing of BUN 14/creatinine 1.08. Urinalysis demonstrating 1+ protein, trace ketones, 1+ blood, 5-10 RBCs, calcium oxalate crystal, urine mucus. STAT Rad CT- A/P: " Large cyst within the right lobe measuring 9.4X 8.5 cm, otherwise normal liver Unremarkable gallbladder and biliary system Small bilateral simple renal cysts, largest on the right measuring 1.6 cm and on the left measuring 1.2 cm. Mild right hydronephrosis with enlargement of the right renal pelvis due to stone at the right UP junction measuring 10.9 mm. No left hydronephrosis. Left upper renal pole stone measuring 4.3 cm. Prostate enlargement." STAT Rad US RUQ: " The liver measures 16.2 cm with diffuse fatty infiltration. There is a large cyst within the right liver lobe measuring 8.2 X9.4X 7.7 cm. The gallbladder is overdistended with no distinct stones... Negative Alaniz sign. Right kidney measures 12.9 cm with mild fullness on the right renal pelvis suggestive mild hydronephrosis." He was given morphine, Zofran, 1500 cc NSS, Toradol. Allergies Allergy/AdvReac Type Severity Reaction Status Date / Time No Known Allergies Allergy Verified 11/03/21 01:22 Home Medications Medication Instructions Recorded Confirmed Type allopurinol 300 mg tablet 300 mg PO QAM 09/24/18 11/03/21 History linaclotide 145 mcg capsule 145 mcg PO QAM 09/24/18 11/03/21 History (Linzess) lisinopril 10 mg tablet 10 mg PO QAM 09/24/18 11/03/21 History tamsulosin 0.4 mg capsule 0.4 mg PO DAILY #90 cap 05/12/21 11/03/21 Rx Past Med/Surg History Medical History (Updated 11/03/21 @ 05:08 by Nathanael Diaz MD) Cardiac murmur Diverticular disease Gout Hearing deficit Hypertension Kidney stones 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 Surgical History History of colonoscopy History of lithotripsy History of prostate biopsy malignant History of tonsillectomy and adenoidectomy History of tooth extraction Family History Other No family history of adverse response to anesthesia Social History Smoking Status: Former smoker Tobacco Type: Cigarettes Second Hand Exposure: No; Hx Alcohol Use: Yes Alcohol type: beer Hx Substance Use: No Preferred Language: Malian Communication Ability: Effective Medical Records Library Professor Required: No Beliefs That Will Affect Care: None Current Living Situation: Spouse and Family Current Living Situation Comment: lives with and 1 son Feels Safe at Home: Yes Assistive Devices: Glasses and Hearing Aid - Bilateral Review of Systems Review of Systems: The patient denies chest pain, palpitations, shortness of breath, dyspnea on exertion, cough, lower extremity swelling, sore throat, fevers, chills, sweats, vomiting, diarrhea , constipation, blood in stool, lightheadedness, dizziness, headache, memory loss, loss of consciousness, rash, imbalance, focal or generalized weakness, numbness or tingling in arms or legs, generalized arthralgias or myalgias, neck pain, or night sweats. The review of systems is otherwise negative other than for that already noted above, and at least 10 systems have been reviewed. Physical Exam Physical Exam: The patient is awake, alert and oriented 3, well developed and well nourished, normocephalic and atraumatic, lying in bed and in no acute distress after receiving IV pain medications HEENT--PERRL, EOMI, mucous membranes and oropharynx normal. Neck--supple. No JVD. No bruits. Thyroid normal, trachea midline, no adenopathy. Heart--normal S1 and S2. No murmurs, rubs or gallops. Lungs--clear bilaterally, no respiratory distress, no accessory muscle use. Abdomen--normal bowel sounds and soft. Nontender. Nondistended. Morbidly obese Extremities--no cyanosis or clubbing. No edema. Dermatologic--normal skin turgor, normal color, no abnormal lymph nodes, no rash. Neurologic--cranial nerves II through XII grossly intact. Rheumatologic--normal range of motion. Psychiatric--normal affect. Results & Data Results & Data ([facility]) Vital Signs (Past 12 Hours) Vital Signs Temp Pulse Pulse Resp BP BP Pulse Ox 11/03/21 03:16 84 18 156/99 H 95 11/03/21 02:47 88 L 11/03/21 02:23 80 18 149/92 H 91 11/03/21 01:20 72 18 150/89 H 95 11/03/21 00:00 70 18 95 11/02/21 23:32 36.5 C 73 16 202/98 H 93 Laboratory Results Laboratory Results WBC 8.27 K/uL (4.8-10.8) 11/02/21 00:05 RBC 4.52 M/uL (4.7-6.1) L 11/02/21 00:05 Hgb 15.3 g/dL (14.0-18.0) 11/02/21 00:05 Hct 46.5 % (42-52) 11/02/21 00:05 MCV 102.9 fL (80-100) H 11/02/21 00:05 MCH 33.8 pg (25-34) 11/02/21 00:05 MCHC 32.9 g/dL (32-36) 11/02/21 00:05 RDW Std Deviation 53.4 fL (36.4-46.3) H 11/02/21 00:05 RDW Coeff of Kalani 14.2 % (11.5-14.5) 11/02/21 00:05 Plt Count 219 K/uL (130-400) 11/02/21 00:05 MPV 9.3 fL (7.4-10.4) 11/02/21 00:05 Immature Gran % (Auto) 0.4 % 11/02/21 00:05 Neut % (Auto) 80.9 % 11/02/21 00:05 Lymph % (Auto) 11.2 % 11/02/21 00:05 [place] % (Auto) 6.8 % 11/02/21 00:05 Eos % (Auto) 0.6 % 11/02/21 00:05 Baso % (Auto) 0.1 % 11/02/21 00:05 Neut # (Auto) 6.69 K/uL (1.4-6.5) H 11/02/21 00:05 Lymph # (Auto) 0.93 K/uL (1.2-3.4) L 11/02/21 00:05 [place] # (Auto) 0.56 K/uL (0.11-0.59) 11/02/21 00:05 Eos # (Auto) 0.05 K/uL (0-0.5) 11/02/21 00:05 Baso # (Auto) 0.01 K/uL (0-0.2) 11/02/21 00:05 Immature Gran # (Auto) 0.03 K/uL (0.00-0.02) H 11/02/21 00:05 PT 10.4 Seconds (9.0-12.0) 11/03/21 00:05 INR 1.0 (0.9-1.1) 11/03/21 00:05 Sodium 142 mmol/L (136-145) 11/03/21 00:05 Potassium 4.0 mmol/L (3.5-5.1) 11/03/21 00:05 Chloride 104 mmol/L (98-107) 11/03/21 00:05 Carbon Dioxide 32 mmol/L (21-32) 11/03/21 00:05 Anion Gap 6 (3-11) 11/03/21 00:05 BUN 14 mg/dl (6-23) 11/03/21 00:05 Creatinine 1.08 mg/dl (0.6-1.4) 11/03/21 00:05 Est Cr Clr Drug Dosing 68.6 ml/min 11/03/21 00:05 Est GFR ( Amer) 75.3 ml/min 11/03/21 00:05 Est GFR (Non-Af Amer) 64.9 ml/min 11/03/21 00:05 BUN/Creatinine Ratio 13.0 (10-20) 11/03/21 00:05 Glucose 132 mg/dl (70-99(Fasting)) H 11/03/21 00:05 Calcium 10.9 mg/dl (8.5-10.1) H 11/03/21 00:05 Total Bilirubin 0.5 mg/dl (0.2-1.0) 11/03/21 00:05 AST 20 U/L (13-39) 11/03/21 00:05 ALT 22 U/L (7-52) 11/03/21 00:05 Alkaline Phosphatase 66 U/L (34-104) 11/03/21 00:05 Total Protein 7.2 gm/dl (6.0-8.3) 11/03/21 00:05 Albumin 4.2 gm/dl (3.4-5.0) 11/03/21 00:05 Globulin 3.0 gm/dl (2.5-4.0) 11/03/21 00:05 Albumin/Globulin Ratio 1.4 (0.9-2) 11/03/21 00:05 Lipase 21 U/L (11-82) 11/03/21 00:05 Urine Color Yellow 11/03/21 00:05 Urine Appearance Clear (Clear) 11/03/21 00:05 Urine pH 5.5 (4.5-7.5) 11/03/21 00:05 Ur Specific [place] 1.024 (1.000-1.030) 11/03/21 00:05 Urine Protein 1+ (Negative) H 11/03/21 00:05 Urine Glucose (UA) Negative (Negative) 11/03/21 00:05 Urine Ketones Trace (Negative) H 11/03/21 00:05 Urine Blood 1+ (Negative) H 11/03/21 00:05 Urine Nitrite Negative (Negative) 11/03/21 00:05 Urine Bilirubin Negative (Negative) 11/03/21 00:05 Urine Urobilinogen Negative (Negative) 11/03/21 00:05 Ur Leukocyte Esterase Negative (Negative) 11/03/21 00:05 Urine WBC (Auto) 1-5 /hpf (0-5) 11/03/21 00:05 Urine RBC (Auto) 5-10 /hpf (0-4) H 11/03/21 00:05 U Hyaline Cast (Auto) 0 /lpf (0-5) 11/03/21 00:05 U Epithel Cells (Auto) 20-30 /lpf (0-5) H 11/03/21 00:05 Urine Bacteria (Auto) Negative (Negative) 11/03/21 00:05 Urine Crystals Not Reportable 11/03/21 00:05 Calcium Oxalate Crystal Present (None Prsent) A 11/03/21 00:05 Urine Mucus Present (None Prsent) A 11/03/21 00:05 SARS-CoV-2, RNA, NAAT NEGATIVE (NEGATIVE) 11/03/21 02:18 Diagnostic Findings [facility] Patient: FLAVIA NEGRO (Male) : 42 Status: ER Date: 11/03/21 02:16 Room #: History: RUQ pain Slices: 49 Priors: Tech: Kenia Mckay @ [phone] Exams: US GALLBLADDER Contrast: Accession Numbers: [id number] Referring Physician: REFERRED SELF Preliminary Findings Only See Final Report For Complete Findings US GALLBLADDER: Exam is limited due to gas artifact in the bowel. The pancreas is obscured. The liver measures 16.2 cm with diffuse fatty infiltration. There is a large cyst within the right liver lobe measuring 8.2 x 9.4 x 7.7 cm. The gallbladder is over distended with no distinct stones. Gallbladder wall measures 2 mm. Negative Alaniz sign. The common bile that measures 3 mm, within normal limits. Right kidney measures 12.9 cm with mild fullness of the right renal pelvis suggestive of mild hydronephrosis. There is no evidence of intrarenal stone. Radiologist: Deepika Quispe MD Study ready at 02:20 and initial results transmitted at 03:13 *This report constitutes a preliminary interpretation only. Non-acute findings felt to be unrelated to the clinical presentation may not be discussed in this report. The study will be interpreted and a final report will be generated by the local Radiologist the following shift. To reach the [facility] radiology department call [phone]. If a discrepancy is found between the preliminary and final interpretations of this study, please notify us via our Client Portal at [email or web address], under QA Exams. You can also fax this report with a description of the discrepancy, or include the final report, to our daytime fax number [phone]. If faxing, please indicate the severity of discrepancy using one of the following categories: [ ] 1 - Agree/Informational [ ] 2 - Unlikely to Affect Management [ ] 3 - Possible Eventual Change of Management [ ] 4 - Probable Immediate Change of Management For all other patient related information, please fax us at [phone]. [id number] [facility] Patient: FLAVIA NEGRO (Male) : 42 Status: ER Date: 11/03/21 01:27 Room #: History: PAIN AT RIGHT SIDE OF ABD, DIARRHEA Slices: 825 Priors: Tech: Mario Donaldson @ [phone] Exams: CT ABDOMEN & PELVIS With Contrast Contrast: IV Amt: 93 ML OPTIRAY 320 Accession Numbers: [id number] Referring Physician: REFERRED SELF Preliminary Findings Only See Final Report For Complete Findings CT ABDOMEN & PELVIS With Contrast: Comparison: . Mild bilateral lower lobe atelectasis. Normal cardiac size. Large cyst within the right temporal lobe measuring 9.4 x 8.5 cm, otherwise normal liver. Unremarkable gallbladder and biliary system. Normal pancreas, spleen and bilateral adrenal glands. Small bilateral simple renal cyst, largest on the right measuring 1.6 cm and on the left measuring 1.2 cm. Mild right hydronephrosis with enlargement of the right renal pelvis due to a stone at the right UP junction measuring 10.9 mm. No left hydronephrosis. Left upper renal pole stone measuring 4.3 mm. Atherosclerotic disease of aorta with no aneurysm. Unremarkable stomach and small bowel. Normal appendix. Diverticulosis more so through the sigmoid and descending colon with no signs of diverticulitis. No bowel obstruction. Unremarkable urinary bladder. Prostate enlargement. Degenerative disease of the spine. Radiologist: Deepika Quispe MD Study ready at 01:36 and initial results transmitted at 01:55 *This report constitutes a preliminary interpretation only. Non-acute findings felt to be unrelated to the clinical presentation may not be discussed in this report. The study will be interpreted and a final report will be generated by the local Radiologist the following shift. To reach the [facility] radiology department call [phone]. If a discrepancy is found between the preliminary and final interpretations of this study, please notify us via our Client Portal at [email or web address], under QA Exams. You can also fax this report with a description of the discrepancy, or include the final report, to our daytime fax number [phone]. If faxing, please indicate the severity of discrepancy using one of the following categories: [ ] 1 - Agree/Informational [ ] 2 - Unlikely to Affect Management [ ] 3 - Possible Eventual Change of Management [ ] 4 - Probable Immediate Change of Management For all other patient related information, please fax us at [phone]. [id number] Code Status & VTE Plan Code Status Full code
[2021-11-03] MEDS ORDERED: HYDROCODONE/ACETAMOPHEN 5/325MG TAB PO PRN ×2 (05:10)
[2021-11-03] MEDS ORDERED: HYDROmorphone INJ 0.5 MG/0.5 ML SYR IV PRN ×2 (05:10)
[2021-11-03] MEDS ORDERED: KETOROLAC TROMETHAMINE 15 MG/ML VIAL IV PRN (05:12)
--- NOTE | 2021-11-03 05:13 | Billing Data ---
Date of Service November 03, 2021 Coding Level of Care Code 48261 Initial Inpt Care Lvl 3
[2021-11-03] MEDS: cefTRIAXone SODIUM 2,000 MG in DEXTROSE 5% 50 ML IV SCH (06:07)
--- NOTE | 2021-11-03 07:31 | Ultrasound Report ---
ULTRASOUND RIGHT UPPER QUADRANT ABDOMEN CLINICAL HISTORY: Right upper quadrant abdominal pain. COMPARISON STUDY: Abdominal CT performed the same day 11/03/2021. TECHNIQUE: Real-time, grayscale, and color flow sonography of the right upper quadrant of the abdomen was performed. Images are reviewed in the transverse and longitudinal planes. FINDINGS: Liver: The liver is normal in size and demonstrates heterogeneously increased echotexture suggesting steatosis. There is no intrahepatic biliary ductal dilatation. The main portal vein is patent. A 9.4 cm hepatic cyst is seen in the right lobe. Gallbladder: The gallbladder is distended. No shadowing gallstones are identified. There is no gallbl adder wall thickening or pericholecystic fluid. A sonographic Alaniz's sign is reportedly absent. The common bile duct measures up to 0.3 cm in diameter. Pancreas: Not visualized due to overlying bowel gas. Right kidney: Survey images of the right kidney demonstrate mild cortical atrophy. Echotexture is nor mal. There is no hydronephrosis. Ascites: None. IMPRESSION: 1. Distended gallbladder with no shadowing gallstones identified and no sonographic evidence of acute cholecystitis. 2. Hepatic steatosis. 3. Nonvisualization of the pancreas. ACT 112: Negative or not required by law. Electronically signed by: Romain Victor M.D. 11/03/2021 7:30 AM
--- NOTE | 2021-11-03 08:24 | CT Scan Report ---
CT SCAN OF THE ABDOMEN AND PELVIS WITH IV CONTRAST CLINICAL HISTORY: Right-sided abdominal pain. COMPARISON STUDY: Abdominal CT dated 02/23/2017. TECHNIQUE: Following the IV administration of 93 cc of Optiray 320, CT scan of the abdomen and pelvi s is performed from the lung bases to the proximal femora. Images are reviewed in the axial, sagittal , and coronal planes. IV contrast was administered without complication. A dose lowering technique wa s utilized adhering to the principles of ALARA. CT DOSE: 1409.51 mGy.cm FINDINGS: Lung bases: The heart is enlarged and without pericardial effusion. The coronary arteries are densely calcified. There is elevation of the right hemidiaphragm with bibasilar scarring/atelectasis. No air space consolidation typical for pneumonia or pleural effusion is identified. Liver: The contrast-enhanced liver is normal in size, contour, and attenuation. There is no intrahepa tic biliary ductal dilatation. The hepatic veins and portal veins are patent. A 9.7 cm simple cyst is noted in the right lobe. Gallbladder: The gallbladder is distended with mild surrounding infiltration. Spleen: Normal in size and attenuation. Pancreas: Moderately atrophic and grossly unremarkable. Adrenal glands: Unremarkable. Kidneys: The contrast enhanced kidneys demonstrate cortical atrophy and are without hydronephrosis. T here is a 13 mm calculus at the right ureteropelvic junction seen on image #274. There is fullness of the right renal pelvis, with associated urothelial thickening and surrounding inflammation. A 6 mm n onobstructing calculus is noted in the left kidney. The kidneys enhance symmetrically. There is a 2.1 cm indeterminant lesion in the anterior interpolar right kidney seen on image #263. Enhancing lesion is not excluded. Renal cysts measure up to 2.2 cm. Additional subcentimeter cortical hypodensities a lso likely represent cysts but are too small for definitive characterization. Abdominal vasculature: The abdominal aorta is normal in course and caliber noting moderate atheroscle rotic calcification. Bowel: There is moderate colonic diverticulosis without CT evidence of acute diverticulitis. No bowel obstruction is seen. Mild fecal retention is seen throughout the colon. The appendix is well-visual ized and normal. Peritoneum: There is no intraperitoneal free air or abdominal ascites. Lymphadenopathy: None. Pelvic viscera: The prostate gland is enlarged and heterogeneous noting median lobe hypertrophy. The bladder wall is thickened and trabeculated indicating chronic outlet obstruction. Skeletal structures: The skeletal structures are osteopenic. There is [id number] lumbosacral sp ondylosis. No lytic or blastic lesions are seen. IMPRESSION: 1. There is a 13 mm calculus at the right ureteropelvic junction. There is associated fullness of the right renal pelvis with urothelial thickening/enhancement and surrounding inflammation. This may cau se low-grade/intermittent obstruction. Correlate with clinical findings and urinalysis for evidence o f superimposed urinary tract infection. 2. There is no hydronephrosis. 3. There is an additional nonobstructing left renal calculus. 4. The gallbladder is distended with minimal surrounding infiltration. Correlate with right upper marsha drant ultrasound. 5. There is a subtle 2.1 cm indeterminant lesion in the anterior interpolar right kidney. An enhancin g renal lesion/mass is not excluded. Follow-up with a nonemergent renal protocol MRI is recommended f or further evaluation. 6. Prostatomegaly with evidence of chronic bladder outlet obstruction. 7. Colonic diverticulosis without CT evidence of acute diverticulitis. 8. Cardiomegaly. 9. Additional findings as above. ACT 112: Positive. There are findings on this exam that require communication between the performing entity and the patient following Patient Test Result Information Act ([place] Act 112) guidelines. Electronically signed by: Romain Victor M.D. 11/03/2021 8:22 AM
--- NOTE | 2021-11-03 08:28 | Urology Consultation ---
Date of Consultation November 03, 2021 Assessment & Plan (1) Ureteropelvic junction calculus: 80yo M admitted with right flank pain and associated nausea secondary to a right UPJ stone - Plan of care reviewed with Dr. Mcgowan, on-call urologist. - CTAP reviewed and notable for a 13 mm calculus at the right UPJ with associated fullness of the right renal pelvis with urothelial thickening/enhancement and surrounding inflammation which may cause low- grade/intermittent obstruction. - KUB this AM noted interval stability of multiple stones including a right UPJ stone. - Pt afebrile, hemodynamically stable, non-toxic appearing. - Labs reviewed - Wbc and creatinine normal. - UA on admission demonstrated 1+ blood, 5-10 RBCs, calcium oxalate crystal, urine mucus, Urine culture pending. On IV Ceftriaxone, follow culture. - Discussed options for acute stone management with cystoscopy and stent placement. Discussed ESWL. Risks and benefits of each were discussed. - Stone free rates were also discussed as well as possibility of multiple procedures. Ureteral stents were discussed as well as post-operative issues and pain management. - Patient prefers to proceed with outpatient ESWL. - No acute intervention planned today. Ok to have a diet back. - Will schedule him for Right ESWL this Monday. - Reviewed risks/benefits of ESWL as per consent, all questions were answered. - Pt not currently on any anticoagulants. Advised him to hold off on taking any further NSAIDS. Pt verbalized an understanding. - Ok for discharge from perspective. Recommend home with Tamsulosin and prn pain control. - Reviewed in detail signs/symptoms that would warrant return to the hospital, patient verbalized an understanding. - Pt agreeable to plan, all questions were answered. Thank you for allowing us to participate in the acute care of Mr. Roman. Please reconsult us with additional questions, concerns or changes in patient status. History of Present Illness Reason for Consultation: Kidney stone Attending Physician: Ozzie Santos History of Present Illness 80 year-old male with a past medical history of prostate cancer, nephrolithiasis, hypertension, gout who presented to the ED for evaluation of flank pain with associated nausea. On presentation, the patient was found to be hypertensive with otherwise normal vital signs. He was afebrile with a normal white count and creatinine. Urinalysis demonstrated 1+ protein, trace ketones, 1+ blood, 5-10 RBCs, calcium oxalate crystal, urine mucus. A CT abdomen pelvis was obtained and notable for a 13 mm calculus at the right ureteropelvic junction with associated fullness of the right renal pelvis with urothelial thickening/enhancement and surrounding inflammation, no hydronephrosis. He was given morphine, Zofran, IVF, and Toradol and admitted by medicine service for further management. CT abdomen pelvis - 1. There is a 13 mm calculus at the right ureteropelvic junction. There is associated fullness of the right renal pelvis with urothelial thickening/enhancement and surrounding inflammation. This may cause low-grade/intermittent obstruction. Correlate with clinical findings and urinalysis for evidence of superimposed urinary tract infection. 2. There is no hydronephrosis. 3. There is an additional nonobstructing left renal calculus. 4. The gallbladder is distended with minimal surrounding infiltration. Correlate with right upper quadrant ultrasound. 5. There is a subtle 2.1 cm indeterminant lesion in the anterior interpolar right kidney. An enhancing renal lesion/mass is not excluded. Follow-up with a nonemergent renal protocol MRI is recommended for further evaluation. 6. Prostatomegaly with evidence of chronic bladder outlet obstruction. 7. Colonic diverticulosis without CT evidence of acute diverticulitis. 8. Cardiomegaly. Urology consulted for kidney stone. Pt is known to our service, follows with Dr. Mcgowan. Hx of Prostate cancer status post radiation and Nephrolithiasis with prior ESWL. Pt examined at bedside this AM. Awake, resting in bed on arrival. No acute distress. Still with right flank discomfort, but reports pain has improved. Currently rates pain 4/10. No fevers or chills. Denies nausea or vomiting. Has been NPO. Voiding without issues. No hematuria or dysuria. Feels he is emptying his bladder well. Offered no additional complaints at time of exam. Allergies Allergy/AdvReac Type Severity Reaction Status Date / Time No Known Allergies Allergy Verified 11/03/21 01:22 Home Medications Medication Instructions Recorded Confirmed Type allopurinol 300 mg tablet 300 mg PO QAM 09/24/18 11/03/21 History linaclotide 145 mcg capsule 145 mcg PO QAM 09/24/18 11/03/21 History (Linzess) lisinopril 10 mg tablet 10 mg PO QAM 09/24/18 11/03/21 History tamsulosin 0.4 mg capsule 0.4 mg PO DAILY #90 cap 05/12/21 11/03/21 Rx Patient History Medical History Cardiac murmur Diverticular disease Gout Hearing deficit Hypertension Kidney stones 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 Surgical History History of colonoscopy History of lithotripsy History of prostate biopsy malignant History of tonsillectomy and adenoidectomy History of tooth extraction Family History Other No family history of adverse response to anesthesia Social History Smoking Status: Former smoker Tobacco Type: Cigarettes Second Hand Exposure: No; Hx Alcohol Use: No Hx Substance Use: No Preferred Language: Pakistani Communication Ability: Effective 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 Feels Safe at Home: Yes Assistive Devices: None Review of Systems Review of Systems: All systems reviewed & are unremarkable except as noted in HPI & below Physical Exam Constitutional: well developed and well nourished; no acute distress and not ill appearing Neck: normal visual inspection Respiratory: normal respiratory effort and able to speak in complete sentences; no labored breathing and no audible wheezes Cardiovascular: Extremities: no calf tenderness Gastrointestinal (Abdomen): Inspection/Auscultation: abdomen normal to inspection; abdomen not distended Percussion/Palpation: abdomen soft; abdomen nontender and no guarding Musculoskeletal: Head/Neck/Chest: normocephalic Skin: No visible rashes or lesions to exposed skin areas Neurologic: moves all extremities and awake Psychiatric: Orientation: alert, oriented x 3 and cooperative Genitourinary: Mild right flank tenderness with palpation Results & Data ([facility]) Vital Signs (Past 12 Hours) Vital Signs Temp Pulse Pulse Resp BP BP Pulse Ox 11/03/21 05:15 36.7 C 93 H 18 145/92 H 93 11/03/21 04:30 90 24 122/86 97 11/03/21 04:00 93 H 24 147/89 H 94 11/03/21 03:16 84 18 156/99 H 95 11/03/21 02:47 88 L 11/03/21 02:23 80 18 149/92 H 91 11/03/21 01:20 72 18 150/89 H 95 11/03/21 00:00 70 18 95 11/02/21 23:32 36.5 C 73 16 202/98 H 93 PG Care Time/CCT Total # of Minutes Spent Total Time Spent with Patient: Total time spent is greater than 50% in coordination of care (as documented) at patient's floor/unit and/or counseling patient: Coding Level of Care Code 74678 Initial Inpt Care Lvl 2 Diagnoses Ureteropelvic junction calculus N20.1
[2021-11-03] MEDS ORDERED: lisinopril 10 MG TAB PO SCH (09:00)
--- NOTE | 2021-11-03 09:38 | XRay Report ---
XR KUB/Abdomen 1 view CLINICAL HISTORY: Right UPJ stone TECHNIQUE: 1 view of the abdomen was obtained. Comparison: Comparison is made to abdomen radiograph 10/12/2018 FINDINGS: Calcific densities are unchanged from prior exam including the right UPJ stone. Phleboliths are noted in the pelvis. The osseous structures are grossly unremarkable. The bowel gas pattern is nonobstruct quiana. A moderate amount of stool is noted within the large bowel. IMPRESSION: Interval stability of multiple stones including a right UPJ stone. ACT 112: Negative or not required by law. Electronically signed by: Martin Ellis M.D. 11/03/2021 9:37 AM
[2021-11-03] MEDS: FAMOTIDINE 20 MG in SYRINGE 3 ML IV SCH ×2 (10:06→20:47)
[2021-11-03] MEDS: LINACLOTIDE 145 MCG CAPSULE PO SCH (10:06)
[2021-11-03] MEDS: allopurinoL 300 MG TAB PO SCH (10:06)
[2021-11-03] MEDS: TAMSULOSIN HCL 0.4 MG CAP PO SCH (10:06)
--- NOTE | 2021-11-03 14:03 | XRay Report ---
XR chest 2V PA/lateral CLINICAL HISTORY: pre op. Evaluate cardiopulmonary status COMPARISON STUDY: No previous studies for comparison. TECHNIQUE: 2 views of the chest FINDINGS: Frontal and lateral radiographs of the chest demonstrate the cardiomediastinal silhouette to be withi n normal limits. There is asymmetric elevation of the right hemidiaphragm. The lungs are clear of liza eolar opacities. There is no evidence for effusion bilaterally. There is no evidence for vascular con gestion. There is no acute osseous pathology. IMPRESSION: 1. No acute cardiopulmonary disease. ACT 112: Negative or not required by law. Electronically signed by: Jordon Bauer M.D. 11/03/2021 2:02 PM
[2021-11-03] MEDS: SODIUM CHLORIDE 0.9% 1000ML 1,000 ML IV SCH (15:24)
[2021-11-03 16:11] LABS: Hematocrit (blood only) 44.4 % (42-52); Hemoglobin 15.1 g/dL (14.0-18.0); Mean Corpuscular Hemoglobin 34.6 pg (25-34); Mean Corpuscular Volume 101.6 fL (80-100); Mean Platelet Volume 9.1 fL (7.4-10.4); Platelet Count 177 K/uL (130-400); RDW Coefficient of Variation 14.2 % (11.5-14.5); RDW Standard Deviation 52.6 fL (36.4-46.3); Red Blood Count 4.37 M/uL (4.7-6.1); White Blood Count 11.34 K/uL (4.8-10.8)
[2021-11-03 16:33] LABS: BUN Creatinine Ratio 14.4 (10-20); Creatinine Clr Calc Pharmacy 81.9 ml/min; Est GFR (African American) 93.8 ml/min; Est GFR (Non-African American) 80.9 ml/min
--- NOTE | 2021-11-03 17:15 | Electrocardiogram Report ---
Test Reason : Blood Pressure : / mmHG Vent. Rate : 081 BPM Atrial Rate : 081 BPM P-R Int : 198 ms QRS Dur : 108 ms QT Int : 352 ms P-R-T Axes : 036 -27 061 degrees QTc Int : 408 ms Sinus rhythm with occasional Premature ventricular complexes Leftward axis Nonspecific ST abnormality Abnormal ECG When compared with ECG of 28-FEB-2017 11:16, Premature ventricular complexes are now Present T wave inversion no longer evident in Inferior leads Confirmed by Kristofer Carter ([id number]) on 11/03/2021 5:14:29 PM Referred By: REFERRED SELF Confirmed By:Kristofer Carter
--- NOTE | 2021-11-03 20:57 | Hospitalist Progress Note ---
Date of Service November 03, 2021 Assessment & Plan (1) Ureteropelvic junction calculus: Plan: 13mm stone at the UPJ on right. mild inflammation of the right urinary tract from such. low-grade fever this afternoon worrisome for brewing UTI in the setting of this stone. initial plan was d/c home with outpatient lithotripsy on Monday. however, given the temperature elevation, plan to cancel d/c, keep NPO after MN tonight, and potential urological intervention in the am by [facility] urology. in meantime - IV fluids, IV antibiotics, send blood cx's x 2 sets, pain meds, flomax. (2) UTI (urinary tract infection): Plan: suspected based on low-grade fever. continue rocephin 2gm IV daily. follow urine cx. send blood cx's. (3) Hypercalcemia: Plan: total calcium level of 10.9 at time of admission. I don't have previous BMPs to compare except for 1 scanned document from 12/2020 showing normal calcium at that time. repeat total calcium level this afternoon is improved s/p copious hydration since admission. trend the calcium. given #1 it may be dey to check an intact PTH level as this could predispose him to stone formation. (4) Hypertension: Plan: Hold lisinopril (5) Irritable bowel syndrome with constipation: Plan: Hold Linzess (6) Gout: Plan: Cont allopurinol (7) Liver cyst: Plan: Can be followed with serial imaging studies as outpatient (8) Prostate cancer: (9) MARIBEL (obstructive sleep apnea): Plan: BIPAP ordered until brings his home unit Admission and Anticipated Discharge Date Admission Date: November 03, 2021 Subjective c/o ongoing, mild, right lower quadrant abd pain appetite is poor today no vomiting feels tired states he is on BIPAP at home for MARIBEL - he is uncertain about his pressures states she can bring home unit tomorrow he is unaware of any prior high calcium level Physical Exam Physical Exam: gen - obese, flushed, tired appearing mouth - MM dry neck - no JVD heart - RRR, s1 s2 lungs - CTA b/l abd - modest amount of tenderness RLQ, otherwise soft, BS+, ND ext - no edema, pulses 2+ b/l Results & Data Results & Data ([facility]) Vital Signs (Past 12 Hours) Vital Signs Temp Pulse Resp BP Pulse Ox 11/03/21 14:26 37.6 C H 93 H 16 135/71 90 11/03/21 11:52 36.7 C 86 20 152/87 H 89 L Laboratory Results Laboratory Results - last 24 hr 11/02/21 11/03/21 11/03/21 00:05 00:05 00:05 WBC 8.27 RBC 4.52 L Hgb 15.3 Hct 46.5 MCV 102.9 H MCH 33.8 MCHC 32.9 RDW Std Deviation 53.4 H RDW Coeff of Kalani 14.2 Plt Count 219 MPV 9.3 Immature Gran % (Auto) 0.4 Neut % (Auto) 80.9 Lymph % (Auto) 11.2 Alfalfa % (Auto) 6.8 Eos % (Auto) 0.6 Baso % (Auto) 0.1 Neut # (Auto) 6.69 H Lymph # (Auto) 0.93 L Alfalfa # (Auto) 0.56 Eos # (Auto) 0.05 Baso # (Auto) 0.01 Immature Gran # (Auto) 0.03 H PT 10.4 INR 1.0 Sodium 142 Potassium 4.0 Chloride 104 Carbon Dioxide 32 Anion Gap 6 BUN 14 Creatinine 1.08 Est Cr Clr Drug Dosing 68.6 Est GFR ( Amer) 75.3 Est GFR (Non-Af Amer) 64.9 BUN/Creatinine Ratio 13.0 Glucose 132 H POC Glucose Calcium 10.9 H Total Bilirubin 0.5 AST 20 ALT 22 Alkaline Phosphatase 66 Total Protein 7.2 Albumin 4.2 Globulin 3.0 Albumin/Globulin Ratio 1.4 Lipase 21 Urine Color Urine Appearance Urine pH Ur Specific [place] Urine Protein Urine Glucose (UA) Urine Ketones Urine Blood Urine Nitrite Urine Bilirubin Urine Urobilinogen Ur Leukocyte Esterase Urine WBC (Auto) Urine RBC (Auto) U Hyaline Cast (Auto) U Epithel Cells (Auto) Urine Bacteria (Auto) Urine Crystals Calcium Oxalate Crystal Urine Mucus SARS-CoV-2, RNA, NAAT 11/03/21 11/03/21 11/03/21 00:05 02:18 12:02 WBC RBC Hgb Hct MCV MCH MCHC RDW Std Deviation RDW Coeff of Kalani Plt Count MPV Immature Gran % (Auto) Neut % (Auto) Lymph % (Auto) Alfalfa % (Auto) Eos % (Auto) Baso % (Auto) Neut # (Auto) Lymph # (Auto) Alfalfa # (Auto) Eos # (Auto) Baso # (Auto) Immature Gran # (Auto) PT INR Sodium Potassium Chloride Carbon Dioxide Anion Gap BUN Creatinine Est Cr Clr Drug Dosing Est GFR ( Amer) Est GFR (Non-Af Amer) BUN/Creatinine Ratio Glucose POC Glucose 104 H Calcium Total Bilirubin AST ALT Alkaline Phosphatase Total Protein Albumin Globulin Albumin/Globulin Ratio Lipase Urine Color Yellow Urine Appearance Clear Urine pH 5.5 Ur Specific [place] 1.024 Urine Protein 1+ H Urine Glucose (UA) Negative Urine Ketones Trace H Urine Blood 1+ H Urine Nitrite Negative Urine Bilirubin Negative Urine Urobilinogen Negative Ur Leukocyte Esterase Negative Urine WBC (Auto) 1-5 Urine RBC (Auto) 5-10 H U Hyaline Cast (Auto) 0 U Epithel Cells (Auto) 20-30 H Urine Bacteria (Auto) Negative Urine Crystals Not Reportable Calcium Oxalate Crystal Present A Urine Mucus Present A SARS-CoV-2, RNA, NAAT NEGATIVE 11/03/21 11/03/21 15:44 15:44 WBC 11.34 H RBC 4.37 L Hgb 15.1 Hct 44.4 MCV 101.6 H MCH 34.6 H MCHC 34.0 RDW Std Deviation 52.6 H RDW Coeff of Kalani 14.2 Plt Count 177 MPV 9.1 Immature Gran % (Auto) Neut % (Auto) Lymph % (Auto) Alfalfa % (Auto) Eos % (Auto) Baso % (Auto) Neut # (Auto) Lymph # (Auto) Alfalfa # (Auto) Eos # (Auto) Baso # (Auto) Immature Gran # (Auto) PT INR Sodium 140 Potassium 4.0 Chloride 106 Carbon Dioxide 28 Anion Gap 6 BUN 13 Creatinine 0.90 Est Cr Clr Drug Dosing 81.9 Est GFR ( Amer) 93.8 Est GFR (Non-Af Amer) 80.9 BUN/Creatinine Ratio 14.4 Glucose 130 H POC Glucose Calcium 10.0 Total Bilirubin AST ALT Alkaline Phosphatase Total Protein Albumin Globulin Albumin/Globulin Ratio Lipase Urine Color Urine Appearance Urine pH Ur Specific [place] Urine Protein Urine Glucose (UA) Urine Ketones Urine Blood Urine Nitrite Urine Bilirubin Urine Urobilinogen Ur Leukocyte Esterase Urine WBC (Auto) Urine RBC (Auto) U Hyaline Cast (Auto) U Epithel Cells (Auto) Urine Bacteria (Auto) Urine Crystals Calcium Oxalate Crystal Urine Mucus SARS-CoV-2, RNA, NAAT PG Care Time/CCT Total # of Minutes Spent Total Time Spent with Patient: Total time spent is greater than 50% in coordination of care (as documented) at patient's floor/unit and/or counseling patient: Coding Level of Care Code None Diagnoses Ureteropelvic junction calculus N20.1 Hypertension I10 Irritable bowel syndrome with constipation K58.1 Gout M10.9 Liver cyst K76.89 Prostate cancer C61 UTI (urinary tract infection) N39.0 Hypercalcemia E83.52 MARIBEL (obstructive sleep apnea) G47.33
[2021-11-04] MEDS: SODIUM CHLORIDE 0.9% 1000ML 1,000 ML IV SCH ×2 (00:49→10:34)
[2021-11-04] MEDS: cefTRIAXone SODIUM 2,000 MG in DEXTROSE 5% 50 ML IV SCH (05:23)
[2021-11-04 06:32] LABS: Basophils # (auto) 0.01 K/uL (0-0.2); Basophils % (auto) 0.1 %; Eosinophils # (auto) 0.02 K/uL (0-0.5); Eosinophils % (auto) 0.2 %; Hemoglobin 13.2 g/dL (14.0-18.0); Immature Granulocytes # (auto) 0.04 K/uL (0.00-0.02); Immature Granulocytes % (auto) 0.3 %; Lymphocytes # (auto) 1.14 K/uL (1.2-3.4); Lymphocytes % (auto) 8.7 %; Mean Corpuscular Hemoglobin 33.8 pg (25-34); Mean Corpuscular Volume 102.3 fL (80-100); Mean Platelet Volume 9.2 fL (7.4-10.4); Monocytes % (auto) 9.9 %; Neutrophils # (auto) 10.65 K/uL (1.4-6.5); Neutrophils % (auto) 80.8 %; Platelet Count 162 K/uL (130-400); RDW Coefficient of Variation 14.3 % (11.5-14.5); Red Blood Count 3.91 M/uL (4.7-6.1); White Blood Count 13.16 K/uL (4.8-10.8)
[2021-11-04 06:54] LABS: BUN Creatinine Ratio 14.6 (10-20); Calcium 8.8 mg/dl (8.5-10.1); Creatinine Clr Calc Pharmacy 89.9 ml/min; Est GFR (African American) 97.5 ml/min; Est GFR (Non-African American) 84.1 ml/min; Potassium 3.8 mmol/L (3.5-5.1)
[2021-11-04 07:28] LABS: Estimated Average Glucose 123 mg/dl; Hemoglobin A1C 5.9 % (4.5-5.6)
[2021-11-04] MEDS: HYDROCODONE/ACETAMOPHEN 5/325MG TAB PO PRN ×3 (08:00→20:53)
[2021-11-04] MEDS: LINACLOTIDE 145 MCG CAPSULE PO SCH (08:01)
[2021-11-04] MEDS: allopurinoL 300 MG TAB PO SCH (08:01)
[2021-11-04] MEDS: FAMOTIDINE 20 MG in SYRINGE 3 ML IV SCH ×2 (08:01→20:47)
--- NOTE | 2021-11-04 08:52 | Urology Progress Note ---
Date of Service November 04, 2021 Assessment & Plan (1) Ureteropelvic junction calculus: Plan: 80yo M admitted with right flank pain and associated nausea secondary to a right UPJ stone. Initial plan was d/c home yesterday with outpatient lithotripsy on Monday. However, pt developed low-grade fever of 37.6 yesterday afternoon worrisome for UTI in the setting of the stone. - Plan of care reviewed with Dr. Gregg, on-call urologist. - Pt afebrile this morning, hemodynamically stable. - Labs reviewed - Wbc 13.16 this morning, Creatinine 0.82 - Urine and blood cultures pending, on IV Ceftriaxone, follow cultures. - Given the concern for possible infection in the context of a 13mm right UPJ stone, will proceed with OR for cystoscopy, right retrograde pyelogram, right ureteral stent insertion. - Risks and benefits to be reviewed with patient by Dr. Gregg. OR notified. Preoperative CXR and EKG in chart. Covid test negative. Covered with scheduled IV Ceftriaxone. - Keep NPO. - Continue supportive care, antibiotic therapy, and pain management. - Will continue to follow Admission and Anticipated Discharge Date Admission Date: November 03, 2021 Supervising Physician Co-Signing Physician Notes I have discussed Jessie's case with ALISA De Luna and agree with the above documentation. In the setting of increasing leukocytosis and low- grade fevers, obstructed infection cannot be ruled out even though initial urinalysis was not terribly suspicious for infection. We discussed cystoscopy, right retrograde pyelogram and right ureteral stent placement. We reviewed the risks and benefits of this procedure. Specifically we discussed the risks of bleeding, infection, injury to the urinary tract, inability to place stent. He expressed understanding and agreed to proceed with this surgery. We will plan for right ureteral stent placement today. Subjective Pt examined at bedside this AM. Awake, resting in bed on arrival. No acute distress. No fevers overnight. Still with mild right flank/ RLQ pain. Denies nausea/vomiting. Voiding without issue. No hematuria. Reports mild dysuria this morning with first void. Has been NPO. Review of Systems Constitutional: as per Subjective / HPI Gastrointestinal: as per Subjective / HPI Genitourinary: + as per Subjective / HPI Physical Exam Constitutional: well developed and well nourished; no acute distress and not ill appearing Neck: normal visual inspection Respiratory: normal respiratory effort and able to speak in complete sentences; no labored breathing and no audible wheezes Cardiovascular: Extremities: no calf tenderness Gastrointestinal (Abdomen): Percussion/Palpation: abdomen soft Mild RLQ tenderness with palpation Musculoskeletal: Head/Neck/Chest: normocephalic Skin: No visible rashes or lesions to exposed skin areas Neurologic: moves all extremities and awake Psychiatric: Orientation: alert, oriented x 3 and cooperative Genitourinary: Mild right flank tenderness with palpation Results & Data ([facility]) Vital Signs (Past 12 Hours) Vital Signs Temp Pulse Resp BP Pulse Ox 11/04/21 07:29 37.1 C 72 16 119/62 91 11/03/21 22:26 37.0 C 72 16 102/55 L 91 PG Care Time/CCT Total # of Minutes Spent Total Time Spent with Patient: Total time spent is greater than 50% in coordination of care (as documented) at patient's floor/unit and/or counseling patient: Coding Level of Care Code 50356 Subseq Hosp Care Lvl 2 Diagnoses Ureteropelvic junction calculus N20.1
[2021-11-04] MEDS: TAMSULOSIN HCL 0.4 MG CAP PO SCH (09:02)
[2021-11-04] MEDS ORDERED: PROPOFOL IV EMULSION 10 MG/ML 20 ML VIAL IV ONE (12:03)
[2021-11-04] MEDS ORDERED: fentaNYL citrate 100 MCG/2 ML VIAL ONE (12:03)
--- NOTE | 2021-11-04 12:03 | Anesthesiology Consultation ---
Date of Service November 04, 2021 Assessment & Plan (1) Encounter for pre-operative examination: Chart Review Chart Review: Acceptable Risk for Surgery History Surgery Operation Date: 11/04/21 09:15 Proposed Procedures p Cystoscopy, Right Retrograde Pyelogram, Right Stent Insertion - Pradip Gregg MD Height/Weight Height: 5 ft 10 in Weight: 108 kg Allergies Allergy/AdvReac Type Severity Reaction Status Date / Time No Known Allergies Allergy Verified 11/03/21 01:22 Medications Home Medications Medication Instructions Recorded Confirmed Last Taken allopurinol 300 mg tablet 300 mg PO QAM 09/24/18 11/03/21 04/27/20 linaclotide 145 mcg capsule 145 mcg PO QAM 09/24/18 11/03/21 04/27/20 (Linzess) lisinopril 10 mg tablet 10 mg PO QAM 09/24/18 11/03/21 04/27/20 tamsulosin 0.4 mg capsule 0.4 mg PO DAILY #90 cap 05/12/21 11/03/21 Unknown Active Medications Generic Name Dose Route Start Last Admin Trade Name Freq PRN Reason Stop Dose Admin Hydrocodone Bitart/Acetaminophen 1 tab 11/03/21 20:58 11/04/21 08:00 Hydrocodone/Acetamophen 5/325mg Tab PO 11/17/21 05:09 1 tab Q4H PRN Administration Pain Allopurinol 300 mg 11/03/21 09:00 11/04/21 08:01 Allopurinol 300 Mg Tab PO 12/03/21 08:59 300 mg QAM GWEN Administration Famotidine 20 mg/ Syringe 5 mls @ 2.5 mls/min 11/03/21 09:00 11/04/21 08:01 IV 12/03/21 08:59 2.5 mls/min Q12 GWEN Administration Ceftriaxone Sodium 2,000 mg/ 70 mls @ 100 mls/hr 11/03/21 06:00 11/04/21 06:07 Dextrose IV 11/13/21 05:59 Infused Q24H GWEN Infusion Protocol Sodium Chloride 1,000 mls @ 100 mls/hr 11/03/21 15:15 11/04/21 10:34 Nss 1000ml IV 12/03/21 15:14 100 mls/hr .Q10H GWEN Administration Linaclotide 145 mcg 11/03/21 09:00 11/04/21 08:01 Linaclotide 145 Mcg Capsule PO 12/03/21 08:59 145 mcg DAILY GWEN Administration Lisinopril 10 mg 11/03/21 09:00 11/03/21 10:06 Lisinopril 10 Mg Tab PO 12/03/21 08:59 10 mg QAM GWEN Administration Tamsulosin HCl 0.4 mg 11/03/21 09:00 11/04/21 09:02 Tamsulosin Hcl 0.4 Mg Cap PO 12/03/21 08:59 0.4 mg DAILY GWEN Administration Past Medical History Medical History Cardiac murmur Diverticular disease Gout Hearing deficit Hypertension Kidney stones 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 Past Family History Family History Other No family history of adverse response to anesthesia Past Surgical History Surgical History History of colonoscopy History of lithotripsy History of prostate biopsy malignant History of tonsillectomy and adenoidectomy History of tooth extraction Social History Smoking Status: Former smoker Hx Alcohol Use: No Alcohol type: beer alcohol intake frequency: holidays/special occasions only Hx Substance Use: No substance use type: does not use Physical Exam Vital Signs Last Vital Signs Temp 37.1 C 11/04/21 07:29 Pulse 72 11/04/21 07:29 Resp 16 11/04/21 07:29 BP 119/62 11/04/21 07:29 Pulse Ox 91 11/04/21 07:29 Testing Laboratory Results 11/04/21 05:39 11/04/21 05:39 PT 10.4 Seconds (9.0-12.0) 11/03/21 00:05 INR 1.0 (0.9-1.1) 11/03/21 00:05 Hemoglobin A1c 5.9 % (4.5-5.6) H 11/04/21 05:39 Urine Color Yellow 11/03/21 00:05 Urine Appearance Clear (Clear) 11/03/21 00:05 Urine pH 5.5 (4.5-7.5) 11/03/21 00:05 Ur Specific [place] 1.024 (1.000-1.030) 11/03/21 00:05 Urine Protein 1+ (Negative) H 11/03/21 00:05 Urine Glucose (UA) Negative (Negative) 11/03/21 00:05 Urine Ketones Trace (Negative) H 11/03/21 00:05 Urine Nitrite Negative (Negative) 11/03/21 00:05 Ur Leukocyte Esterase Negative (Negative) 11/03/21 00:05 Urine WBC (Auto) 1-5 /hpf (0-5) 11/03/21 00:05 Urine RBC (Auto) 5-10 /hpf (0-4) H 11/03/21 00:05 U Hyaline Cast (Auto) 0 /lpf (0-5) 11/03/21 00:05 U Epithel Cells (Auto) 20-30 /lpf (0-5) H 11/03/21 00:05 Urine Bacteria (Auto) Negative (Negative) 11/03/21 00:05 11/03/21 11:06 Urine Culture - Preliminary Urine,Clean Catch Electrocardiogram Date: 11/03/21 Findings: + NSR @ (81 with PVC's) Echocardiogram Date: 12/21/20 LV Function: normal Valvular Disease: + no significant valvular disease
[2021-11-04] MEDS ORDERED: fentaNYL citrate 100 MCG/2 ML VIAL IV PRN (12:41)
[2021-11-04] MEDS ORDERED: ATROPINE SULFATE 0.1 MG/ML 10ML SYR IV PRN (12:41)
[2021-11-04] MEDS ORDERED: ONDANSETRON INJ 2 MG/ML 2 ML VIAL IV PRN (12:41)
[2021-11-04] MEDS ORDERED: PHENYLEPHRINE HCL 10 MG/ML VIAL ONE (13:05)
[2021-11-04] MEDS ORDERED: DIATRIZOATE MEGLUMINE 30% 100ML VIAL INSTIL ONE (13:10)
--- NOTE | 2021-11-04 13:15 | Post Operative Brief Note ---
PG Immediate Post Op with CF Date of Surgery November 04, 2021 Pre & Post Diagnosis Operation Date: 11/04/21 09:15 Pre-Op Diagnosis: Nephrolithiasis Post-Op Diagnosis: Nephrolithiasis I identified the patient and participated in the time-out.: Yes Procedure Operation Date: 11/04/21 09:15 Actual Procedures p Cystoscopy, Right Retrograde Pyelogram, Right Stent Insertion(Right) - Pradip Gregg MD Surgeon Pradip Gregg MD Medical Detail Representative none Estimated Blood Loss 0 Findings Consistent with Post-Op Diagnosis Specimens Specimen Description: None per surgeon Anesthesia Type MAC Complications none Disposition Disposition: Recovery Room
--- NOTE | 2021-11-04 13:17 | Operative Report ---
PG Post Operative Report Pre & Post Diagnosis Operation Date: 11/04/21 09:15 Pre-Op Diagnosis: Nephrolithiasis Post-Op Diagnosis: Nephrolithiasis I identified the patient and participated in the time-out.: Yes Procedure Operation Date: 11/04/21 09:15 Actual Procedures p Cystoscopy, Right Retrograde Pyelogram, Right Stent Insertion(Right) - Pradip Gregg MD Surgeon Pradip Gregg MD Gullet Slitter none Estimated Blood Loss 0 Findings Consistent with Post-Op Diagnosis Specimens None Drains 6 Finnish by 26 cm double-J ureteral stent in the right ureter Anesthesia Type MAC Complications none Disposition Disposition: Recovery Room Indications This is a 80-year-old male with history of nephrolithiasis, recently admitted to the hospital with right-sided flank pain. White count has been gradually increasing and he had a low-grade fever, raising concern for possible obstructed urinary tract infection. He is being brought to the OR for right ureteral stent placement to allow maximal drainage of the right kidney. Description of Procedure The patient was identified in the holding area and informed consent was confirmed. They were marked on the right side, then were taken to the operating room where general anesthesia was initiated. They were placed in the dorsal lithotomy position with all pressure points appropriately padded. They were prepped and draped in the usual sterile fashion and a preoperative timeout was performed. A well-lubricated cystoscope was inserted per urethra and panendoscopy was performed. The pendulous urethra was normal with no strictures or mucosal abnormalities. His prostate was somewhat enlarged. His bladder was mildly enlarged as well mildly trabeculated. Ureteral orifices were in orthotopic position. The right ureteral orifice was identified and cannulated with a 5 Finnish open- ended catheter. A retrograde pyelogram was performed demonstrating normal course and caliber of the right ureter. There was some mild hydronephrosis and there was a filling defect suspicious for the stone A 0.038" ZIPwire was advanced to the level of the kidney under fluoroscopic guidance. Over the wire, a 6 Finnish x 26 centimeter double-J ureteral stent was advanced. When the wire was removed, the proximal curl was visualized in the kidney with x-ray, and the distal curl visualized in the bladder with the cystoscope. At this point the bladder was drained and all instrumentation was removed. The patient was then awakened from anesthesia and was brought to the PACU in stable condition. I attest to the content of the Intraoperative Record and any orders documented therein. Any exceptions are noted below.
--- NOTE | 2021-11-04 13:21 | Fluoroscopy Report ---
FL retrograde includes kub CLINICAL HISTORY: RT CYSTO STENT COMPARISON STUDY: Abdomen and pelvis CT 11/03/2021. FLUOROSCOPY TIME: 5.5 seconds. FINDINGS: A single fluoroscopic spot images of the abdomen demonstrates opacification of the right re nal collecting system with placement of a right ureteral stent. Only proximal portion of the stent is identified but likely good position. IMPRESSION: Fluoroscopic assistance provided for right ureteral stent placement. ACT 112: Negative or not required by law. Electronically signed by: Yung Fulton M.D. 11/04/2021 1:20 PM
--- NOTE | 2021-11-04 14:49 | Anesthesiology Progress Note ---
Date of Service November 04, 2021 Anesthesia Post Procedure Vital Signs Vital Signs: Temp Pulse Pulse Resp BP BP Pulse Ox 11/04/21 14:43 36.6 C 80 18 120/73 96 11/04/21 14:15 36.8 C 82 18 120/72 97 11/04/21 14:00 36.9 C 79 16 164/60 H 95 11/04/21 13:40 37.4 C 74 24 118/69 95 11/04/21 13:30 81 24 121/63 97 11/04/21 13:20 38 C H 80 12 108/61 92 11/04/21 11:50 37.1 C 78 20 115/65 92 11/04/21 07:29 37.1 C 72 16 119/62 91 11/03/21 22:26 37.0 C 72 16 102/55 L 91 Pain Intensity Right Flank: Pain Intensity: 3 Transfer of Care Handoff Completed per policy Notes Mental Status: alert / awake / arousable Patient Amnestic to Procedure: Yes Nausea / Vomiting: adequately controlled Pain: adequately controlled Airway Patency, RR, SpO2: stable & adequate BP & HR: stable & adequate Hydration State: stable & adequate Anesthetic Complications: no major complications apparent
--- NOTE | 2021-11-04 18:59 | Hospitalist Progress Note ---
Date of Service November 04, 2021 Assessment & Plan (1) Ureteropelvic junction calculus: Plan: 13mm stone at the UPJ on right. s/p cystoscopy today with ureteral stent placement on right by Dr Gregg - appreciate his assistance. remains on IV rocephin for possible UTI. thus far urine/blood cx's are negative. continue pain meds. continue supportive care, IV abx, etc. repeat BMP in am. (2) UTI (urinary tract infection): Plan: suspected based on low-grade fever hospital day #1, leukocytosis, etc. continue rocephin 2gm IV daily. follow urine cx. follow blood cx's. (3) Hypercalcemia: Plan: total calcium level of 10.9 at time of admission. I don't have previous BMPs to compare except for 1 scanned document from 12/2020 showing normal calcium at that time. repeat total calcium following IV fluids was 10. today it is even better. intact PTH normal. phos mildly low. trend the calcium. (4) Hypertension: Plan: cont to hold lisinopril (5) Irritable bowel syndrome with constipation: Plan: Hold Linzess (6) Gout: Plan: Cont allopurinol (7) Liver cyst: Plan: Can be followed with serial imaging studies as outpatient (8) Prostate cancer: (9) MARIBEL (obstructive sleep apnea): Plan: BIPAP from home HS (10) Macrocytosis: Plan: check b12/folate in am for completeness sake Plan: home tomorrow if doing well and ok with urology?? suspect lithotripsy would be outpatient in near-future Admission and Anticipated Discharge Date Admission Date: November 03, 2021 Subjective saw the patient post-cystoscopy was resting comfortably the "sharp" pains he had been having in the RLQ are resolved he is just having some mild achiness/stent pain in the RLQ had a couple episodes of mild gross hematuria and has had frequency/urgency with urination no fevers did eat dinner and kept everything down without difficulty Review of Systems Review of Systems: gen - no fevers or chills today cv - no cp, no orthopnea pulm - no cough or dyspnea; did bring BIPAP unit in from home GI - no N/V Physical Exam Physical Exam: gen - obese, NAD mouth - MMM neck - no JVD heart - RRR, s1 s2, no murmur lungs - CTA b/l abd - mild distension but NT, BS+, no HSM ext - no edema, pulses 2+ b/l psych - a/o x 3 Results & Data Results & Data ([facility]) Vital Signs (Past 12 Hours) Vital Signs Temp Pulse Pulse Resp BP BP Pulse Ox 11/04/21 17:06 70 16 105/63 92 11/04/21 15:58 37.4 C 16 130/67 92 11/04/21 15:07 79 16 124/63 97 11/04/21 14:43 36.6 C 80 18 120/73 96 11/04/21 14:15 36.8 C 82 18 120/72 97 11/04/21 14:00 36.9 C 79 16 164/60 H 95 11/04/21 13:40 37.4 C 74 24 118/69 95 11/04/21 13:30 81 24 121/63 97 11/04/21 13:20 38 C H 80 12 108/61 92 11/04/21 11:50 37.1 C 78 20 115/65 92 11/04/21 07:29 37.1 C 72 16 119/62 91 Laboratory Results WBC 13 Cr 0.8 calcium well below 10 MCV > 100 urine cx pending blood cx's negative to date PG Care Time/CCT Total # of Minutes Spent Total Time Spent with Patient: Total time spent is greater than 50% in coordination of care (as documented) at patient's floor/unit and/or counseling patient: Coding Level of Care Code 16445 Subseq Hosp Care Lvl 3 Diagnoses Ureteropelvic junction calculus N20.1 UTI (urinary tract infection) N39.0 Hypercalcemia E83.52 Hypertension I10 Irritable bowel syndrome with constipation K58.1 Gout M10.9 Liver cyst K76.89 Prostate cancer C61 MARIBEL (obstructive sleep apnea) G47.33 Macrocytosis D75.89
[2021-11-05] MEDS: HYDROCODONE/ACETAMOPHEN 5/325MG TAB PO PRN (03:37)
[2021-11-05 06:09] LABS: Hematocrit (blood only) 40.3 % (42-52); Hemoglobin 13.1 g/dL (14.0-18.0); Mean Corpuscular Hemoglobin 34.1 pg (25-34); Mean Corpuscular Hgb Conc 32.5 g/dL (32-36); Mean Corpuscular Volume 104.9 fL (80-100); Mean Platelet Volume 9.5 fL (7.4-10.4); Platelet Count 164 K/uL (130-400); RDW Coefficient of Variation 14.4 % (11.5-14.5); RDW Standard Deviation 55.5 fL (36.4-46.3); Red Blood Count 3.84 M/uL (4.7-6.1); White Blood Count 12.55 K/uL (4.8-10.8)
[2021-11-05] MEDS: cefTRIAXone SODIUM 2,000 MG in DEXTROSE 5% 50 ML IV SCH (06:25)
[2021-11-05 06:35] LABS: BUN Creatinine Ratio 21.3 (10-20); Calcium 8.9 mg/dl (8.5-10.1); Creatinine Clr Calc Pharmacy 120.8 ml/min; Est GFR (African American) 110.1 ml/min; Potassium 3.9 mmol/L (3.5-5.1)
[2021-11-05 06:57] LABS: Folate (Folic Acid) 10.59 ng/ml (>5.38)
--- NOTE | 2021-11-05 08:04 | Urology Progress Note ---
Date of Service November 05, 2021 Assessment & Plan (1) Ureteropelvic junction calculus: (2) S/P ureteral stent placement: Plan: 80yo M admitted with right flank pain and associated nausea secondary to a right UPJ stone. Initial plan was d/c home with outpatient lithotripsy, however pt developed low-grade fever of 37.6 worrisome for UTI in the setting of the stone. - POD #1 s/p Cystoscopy, Right Retrograde Pyelogram, Right Stent Insertion with Dr. Gregg. - Tolerating the ureteral stent with minimal bother. - Afebrile, hemodynamically stable. - Labs reviewed - Wbc 12.55, Creatinine 0.61 - UCx final no growth; BCx prelim no growth x 24 hours. On IV Ceftriaxone, follow cultures. - OK for discharge from perspective. -Recommend Tamsulosin, prn Pyridium and prn pain medication for stent management. - Will arrange outpatient follow-up with our service for definitive stone management. - Expected clinical course reviewed, all questions answered. - Of note, a 2.1 cm indeterminant lesion in the anterior interpolar right kidney was noted on CT imaging. A non urgent renal protocol MRI is recommended. Discussed with pt. Will work-up as outpatient. - Thank you for allowing us to participate in the acute care of Mr. Roman. Please reconsult us with additional questions, concerns or changes in patient status. Admission and Anticipated Discharge Date Admission Date: November 03, 2021 Subjective Pt examined at bedside this AM. Awake, resting in bed on arrival. No acute distress. No fevers. Reports an improvement in his right sided pain today. Still with some right flank/RLQ discomfort, but the sharp pains he was having have resolved. Voiding without issue. Feels he is emptying his bladder well. Denies hematuria or dysuria this morning. Denies urgency/freq. Tolerating diet, no nausea or vomiting. Feels he needs to move his bowels, reports last BM was Monday. Review of Systems Constitutional: as per Subjective / HPI Gastrointestinal: as per Subjective / HPI Genitourinary: + as per Subjective / HPI Physical Exam Constitutional: well developed and well nourished; no acute distress Respiratory: no respiratory distress and no labored breathing Cardiovascular: Extremities: no calf tenderness Gastrointestinal (Abdomen): Mild RLQ tenderness with palpation Musculoskeletal: Head/Neck/Chest: normocephalic Skin: No visible rashes or lesions to exposed skin areas Neurologic: moves all extremities and awake Psychiatric: Orientation: alert, oriented x 3 and cooperative Genitourinary: no CVA tenderness Results & Data ([facility]) Vital Signs (Past 12 Hours) Vital Signs Temp Pulse Resp BP BP Pulse Ox 11/05/21 07:41 36.8 C 67 18 122/73 97 11/05/21 03:41 36.8 C 83 18 146/75 H 93 11/04/21 22:15 36.9 C 76 18 107/67 87 L PG Care Time/CCT Total # of Minutes Spent Total Time Spent with Patient: Total time spent is greater than 50% in coordination of care (as documented) at patient's floor/unit and/or counseling patient: Coding Level of Care Code 81877 Subseq Hosp Care Lvl 2 Diagnoses Ureteropelvic junction calculus N20.1 S/P ureteral stent placement Z96.0
[2021-11-05] MEDS: TAMSULOSIN HCL 0.4 MG CAP PO SCH (09:42)
[2021-11-05] MEDS: FAMOTIDINE 20 MG in SYRINGE 3 ML IV SCH ×3 (09:42→21:29)
[2021-11-05] MEDS: allopurinoL 300 MG TAB PO SCH (09:42)
[2021-11-05] MEDS: CYANOCOBALAMIN (B-12) 500 MCG TABLET PO SCH (09:42)
[2021-11-05] MEDS: LINACLOTIDE 145 MCG CAPSULE PO SCH (09:42)
[2021-11-05] MEDS: ACETAMINOPHEN 500 MG TAB PO PRN (14:10)
--- NOTE | 2021-11-05 14:39 | Hospitalist Progress Note ---
Date of Service November 05, 2021 Assessment & Plan (1) Cholecystitis: Plan: no obvious gallstones on CT x 2 or his recent RUQ u/s. [id number] could have acalculous cholecystitis. his ongoing low-grade fevers, persistent leukocytosis, poor appetite, and pain did not seem to fit with ongoing urinary tract issues especially since urine cx was negative. the CT today showing the cholecystitis would explain the above symptoms. lactate, lfts, lipase did return normal this afternoon. Plan - I spoke with Dr Ohara from gen surgery who will consult. Unfortunately unable to obtain HIDA over the weekend. NPO except meds. Restart IV fluids. Change rocephin IV to zosyn q8h. Repeat labs am. Pain meds prn. Gen surg PA to see patient this evening in consult. I tried to call the pt's x 2 this evening to update her w/ care plan. no answer either time. I did leave a message stating I would attempt to call her tomorrow. (2) Ureteropelvic junction calculus: Plan: 13mm stone at the UPJ on right. POD #1 - s/p cystoscopy with ureteral stent placement on right by Dr Gregg - appreciate his assistance. urine cx neg and blood cx's neg. due to low-grade fever today I repeated his ua - there is bacteria on that microscopy. repeat urine cx sent. he will be on zosyn for #1 above which will provide more than enough urinary coverage. continue pain meds. continue supportive care. repeat BMP in am. (3) UTI (urinary tract infection): Plan: suspected but initial culture negative. repeat culture sent today. see above. (4) Hypercalcemia: Plan: total calcium level of 10.9 at time of admission. I don't have previous BMPs to compare except for 1 scanned document from 12/2020 showing normal calcium at that time. repeat total calcium since the initial one has been normal. intact PTH wnl. will need a BMP with calcium after d/c to ensure it stays normal. (5) Hypertension: Plan: cont to hold lisinopril (6) Irritable bowel syndrome with constipation: Plan: Hold Linzess (7) Gout: Plan: Cont allopurinol (8) Liver cyst: Plan: Can be followed with serial imaging studies as outpatient (9) Prostate cancer: Plan: noted history of (10) MARIBEL (obstructive sleep apnea): Plan: BIPAP from home HS (11) Macrocytosis: Plan: folate wnl b12 deficient - see below (12) Vitamin B12 deficiency: Plan: likely the cause of #11 start Vitamin B12 1000mcg daily will need Rx for 1 year (13) Acute respiratory distress: Plan: suspect this is due to SIRS in the setting of #1 above CTA chest without definitive PE No acute CHF No acute pneumonia He has significant crowding of the right lung with atelectasis as a result of #14 below ordered flutter + incentive sandro NC o2 as needed ?left-sided PE but likely artifactual could consider a repeat CTA study later on or dopplers of legs but suspicion for VTE is very low (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 When I entered his room he was visibly dyspneic. He seemed a little confused. He had just returned from the bathroom. He endorsed feeling short of breath but blamed it "on the bed." He admitted to simply feeling unwell. He has little appetite. He continues with mild lower right-sided abdominal pain but no nausea/vomiting. He continues with urinary urgency. Hematuria has resolved. During my assessment he was tachycardic. Temp was 37.8. He was satting upper 80s in room air, improving to mid 90s with 2 L NC O2. Review of Systems Review of Systems: gen - fever, feels unwell, no appetite cv - no chest pain pulm - pt reports long-standing dyspnea on exertion with heavy exertion, hunting in the [place], etc; he has been short of breath today but no cough GI - mild right-sided abd pain, bloating - hematuria improved Physical Exam Physical Exam: gen - obese, looks unwell, mildly confused, dyspneic, flushed mouth - MMM neck - no JVD heart - RRR, s1 s2, no murmur lungs - CTA b/l except mild bilateral basilar dry rales; mild tachypnea but no retractions/accessory muscle use abd - mild distension, mild tenderness RLQ over location of his renal stone; mild RUQ pain but neg Alaniz's; BS+, no HSM ext - no edema, pulses 2+ b/l psych - awake, alert - but slightly confused skin - no icterus Results & Data Results & Data ([facility]) Vital Signs (Past 12 Hours) Vital Signs Temp Pulse Resp BP BP Pulse Ox 11/05/21 14:03 37.8 C H 113 H 22 153/75 H 92 11/05/21 11:40 78 18 91 11/05/21 11:22 37.6 C H 81 24 129/76 94 11/05/21 07:41 36.8 C 67 18 122/73 97 11/05/21 03:41 36.8 C 83 18 146/75 H 93 Laboratory Results CBC - leukocytosis Creatinine stable LFTs wnl lipase wnl lactate wnl Diagnostic Findings Chest X-Ray 11/05/21 14:37 XR chest 1V portable HISTORY: Right-sided chest pain. dyspnea, hypoxia COMPARISON: Chest 11/03/2021. FINDINGS: No pneumothorax. Low lung volumes with chronic elevation of the right hemidiaphragm. A few bibasilar linear densities consistent with subsegmental atelectasis. This is similar to the prior study. No new focal lung consolidations to suggest pneumonia. The heart remains mildly enlarged. No evidence for pulmonary edema. IMPRESSION: No significant change compared to the prior study. No acute process. Low lung volumes and chronic elevation of the right hemidiaphragm persists. ACT 112: Negative or not required by law. Electronically signed by: Yung Fulton M.D. 11/05/2021 2:56 PM Chest CTA 11/05/21 16:00 CT ANGIOGRAM OF THE CHEST CLINICAL HISTORY: Dyspnea. Hypoxia. Recent surgery. COMPARISON STUDY: Chest x-ray dated 11/05/2021. Abdominal CT dated 11/03/2021. TECHNIQUE: Following the IV administration of 120 cc of Optiray 320, CT angiogram of the chest was performed from the upper abdomen to the thoracic inlet utilizing the pulmonary embolus protocol. Images are reviewed in the axial, sagittal, and coronal planes. 3-D MIPS images are created and assessed. IV contrast was administered without complication. A dose lowering technique was utilized adhering to the principles of ALARA. CT DOSE: 698.39 mGy.cm FINDINGS: Thyroid: Imaged portions of the thyroid gland are normal in size and attenuation. Thoracic aorta: There is atherosclerotic calcification of the thoracic aorta, which is normal in caliber and demonstrates bovine variant arch anatomy. No dissection is seen. Pulmonary vasculature: The main pulmonary arteries are dilated suggesting pulmonary artery hypertension. Examination is significantly degraded by motion artifact. There is an apparent filling defect within a branch of the left upper lobe pulmonary artery on image #147. This may be artifactual as there is significant motion in this region. No additional filling defects identified in the main, lobar, or proximal segmental vessels to suggest pulmonary embolus. The segmental and subsegmental vessels are not well assessed due to significant motion artifact. Heart: The heart is enlarged and and without pericardial effusion. There are coronary artery calcifications. Lungs and pleural spaces: Evaluation of the lung parenchyma is significantly degraded by motion artifact. The trachea and central airways appear clear. There is chronic elevation and bibasilar scarring/atelectasis. Trace pleural effusions are noted. No airspace consolidation is seen typical for pneumonia. Mediastinum: There is no mediastinal lymphadenopathy. Nia: Clear. Axillae: There is no axillary lymphadenopathy. Upper abdomen: The gallbladder is distended and thick-walled. There is surrounding inflammation and fluid. Findings are consistent with acute cholecystitis. There is a tiny hiatal hernia. A 10 cm cyst is noted in the right lobe of liver. Skeletal structures: The skeletal structures are osteopenic. Degenerative changes noted throughout the thoracic spine. No lytic or blastic bony lesions are seen. IMPRESSION: 1. Acute cholecystitis. Surgical assessment is advised. 2. There is no definitive evidence of central pulmonary embolus in the main, lobar, or proximal segmental pulmonary arteries. An apparent filling defect within a branch of the left upper lobe pulmonary artery is likely related to motion artifact. If there is strong clinical concern for pulmonary embolus a short-term follow-up examination should be considered. 3. Cardiomegaly and trace pleural effusions. Pleural effusions are new from 11/03/2021. 4. There is no airspace consolidation typical for pneumonia. 5. Additional findings as above. ACT 112: Negative or not required by law. Electronically signed by: Romain Victor M.D. 11/05/2021 6:27 PM PG Care Time/CCT Total # of Minutes Spent Total Time Spent with Patient: Total time spent is greater than 50% in coordination of care (as documented) at patient's floor/unit and/or counseling patient: Prolonged Care Time Prolonged Care Time: Yes 75 Coding Level of Care Code 82429 Subseq Hosp Care Lvl 3 (25 - SIGNIFICANT, SEPARATELY IDENTIFIABLE ) Diagnoses Ureteropelvic junction calculus N20.1 UTI (urinary tract infection) N39.0 Hypercalcemia E83.52 Hypertension I10 Irritable bowel syndrome with constipation K58.1 Gout M10.9 Liver cyst K76.89 Prostate cancer C61 MARIBEL (obstructive sleep apnea) G47.33 Macrocytosis D75.89 Cholecystitis K81.9 Vitamin B12 deficiency E53.8 Acute respiratory distress R06.03 Elevated hemidiaphragm J98.6 Additional Codes Prolonged Care Time - Prolonged Care Time: Yes ([id number]) Time Spent (min) 75
--- NOTE | 2021-11-05 14:57 | XRay Report ---
XR chest 1V portable HISTORY: Right-sided chest pain. dyspnea, hypoxia COMPARISON: Chest 11/03/2021. FINDINGS: No pneumothorax. Low lung volumes with chronic elevation of the right hemidiaphragm. A few bibasilar linear densities consistent with subsegmental atelectasis. This is similar to the prior blaine dy. No new focal lung consolidations to suggest pneumonia. The heart remains mildly enlarged. No evid ence for pulmonary edema. IMPRESSION: No significant change compared to the prior study. No acute process. Low lung volumes and chronic katherine vation of the right hemidiaphragm persists. ACT 112: Negative or not required by law. Electronically signed by: Yung Fulton M.D. 11/05/2021 2:56 PM
[2021-11-05 15:18] LABS: Appearance Urine Clear (Clear); Bilirubin Urine Negative (Negative); Blood Urine 3+ (Negative); Color Urine Dark Yellow; Epithelial Cell Urine Auto >30 /lpf (0-5); Glucose Urine UA Negative (Negative); Ketones Urine Trace (Negative); Leukocyte Esterase Urine Trace (Negative); Nitrite Urine Negative (Negative); Protein Urine 2+ (Negative); RBC Urine Automated >30 /hpf (0-4); Specific Gravity Urine 1.022 (1.000-1.030); Urobilinogen Urine Negative (Negative); pH Urine 5.5 (4.5-7.5)
[2021-11-05 15:34] LABS: Bacteria Urine Automated 1+ (Negative)
--- NOTE | 2021-11-05 16:02 | Electrocardiogram Report ---
Test Reason : Blood Pressure : / mmHG Vent. Rate : 113 BPM Atrial Rate : 113 BPM P-R Int : 172 ms QRS Dur : 108 ms QT Int : 308 ms P-R-T Axes : -01 -30 065 degrees QTc Int : 422 ms Sinus tachycardia with Premature supraventricular complexes Left axis deviation Left ventricular hypertrophy with repolarization abnormality Abnormal ECG When compared with ECG of 03-NOV-2021 15:36, Premature ventricular complexes are no longer Present Premature supraventricular complexes are now Present Confirmed by Kristofer Carter ([id number]) on 11/05/2021 4:01:51 PM Referred By: REFERRED SELF Confirmed By:Kristofer Carter
[2021-11-05] MEDS ORDERED: OPTIRAY 320 125ml IV ONE (17:39)
--- NOTE | 2021-11-05 18:29 | CT Scan Report ---
CT ANGIOGRAM OF THE CHEST CLINICAL HISTORY: Dyspnea. Hypoxia. Recent surgery. COMPARISON STUDY: Chest x-ray dated 11/05/2021. Abdominal CT dated 11/03/2021. TECHNIQUE: Following the IV administration of 120 cc of Optiray 320, CT angiogram of the chest was pe rformed from the upper abdomen to the thoracic inlet utilizing the pulmonary embolus protocol. Images are reviewed in the axial, sagittal, and coronal planes. 3-D MIPS images are created and assessed. I V contrast was administered without complication. A dose lowering technique was utilized adhering to the principles of ALARA. CT DOSE: 698.39 mGy.cm FINDINGS: Thyroid: Imaged portions of the thyroid gland are normal in size and attenuation. Thoracic aorta: There is atherosclerotic calcification of the thoracic aorta, which is normal in [place] yolanda and demonstrates bovine variant arch anatomy. No dissection is seen. Pulmonary vasculature: The main pulmonary arteries are dilated suggesting pulmonary artery hypertensi on. Examination is significantly degraded by motion artifact. There is an apparent filling defect wit hin a branch of the left upper lobe pulmonary artery on image #147. This may be artifactual as there is significant motion in this region. No additional filling defects identified in the main, lobar, or proximal segmental vessels to suggest pulmonary embolus. The segmental and subsegmental vessels are not well assessed due to significant motion artifact. Heart: The heart is enlarged and and without pericardial effusion. There are coronary artery calcific ations. Lungs and pleural spaces: Evaluation of the lung parenchyma is significantly degraded by motion artif act. The trachea and central airways appear clear. There is chronic elevation and bibasilar scarring/ atelectasis. Trace pleural effusions are noted. No airspace consolidation is seen typical for pneumon ia. Mediastinum: There is no mediastinal lymphadenopathy. Nia: Clear. Axillae: There is no axillary lymphadenopathy. Upper abdomen: The gallbladder is distended and thick-walled. There is surrounding inflammation and f luid. Findings are consistent with acute cholecystitis. There is a tiny hiatal hernia. A 10 cm cyst i s noted in the right lobe of liver. Skeletal structures: The skeletal structures are osteopenic. Degenerative changes noted throughout th e thoracic spine. No lytic or blastic bony lesions are seen. IMPRESSION: 1. Acute cholecystitis. Surgical assessment is advised. 2. There is no definitive evidence of central pulmonary embolus in the main, lobar, or proximal segme ntal pulmonary arteries. An apparent filling defect within a branch of the left upper lobe pulmonary artery is likely related to motion artifact. If there is strong clinical concern for pulmonary embolu s a short-term follow-up examination should be considered. 3. Cardiomegaly and trace pleural effusions. Pleural effusions are new from 11/03/2021. 4. There is no airspace consolidation typical for pneumonia. 5. Additional findings as above. ACT 112: Negative or not required by law. Electronically signed by: Romain Victor M.D. 11/05/2021 6:27 PM
[2021-11-05] MEDS ORDERED: PIPERACILL/TAZOBAC CONSULT ACTIVE PRN (18:49)
[2021-11-05] MEDS ORDERED: PIPERACILLIN/TAZOBACTAM 3.375 GM in DEXTROSE 5% 100 ML IV STA (19:08)
[2021-11-05] MEDS: LACTATED RINGER'S 1,000 ML IV SCH (19:23)
[2021-11-05 20:01] LABS: Bilirubin Direct 0.1 mg/dl (0-0.2); Bilirubin,Total 0.6 mg/dl (0.2-1.0); Total Protein 5.7 gm/dl (6.0-8.3)
[2021-11-05] MEDS: HYDROmorphone INJ 0.5 MG/0.5 ML SYR IV PRN (20:07)
--- NOTE | 2021-11-05 21:20 | Surgery Consultation ---
Date of Consultation November 05, 2021 Assessment & Plan (1) Cholecystitis: It appears that the patient's abdominal pain be related to cholecystitis. We therefore recommend proceeding as follows: Provide analgesics Provide antiemetics Hydration measures with IV fluids to be employed N.p.o. status to be maintained Antibiotics have been initiated in the form of Zosyn which should continue We will tentatively plan on cholecystectomy tomorrow with Dr. Ohara. Prior to proceeding with cholecystectomy will discuss further with the medical service to make sure that there are no contraindications. It is nowhere the mention that the patient has had recent general anesthesia due to his urologic condition and he tolerated this well. Additional recommendations be forthcoming based on his clinical course as it unfolds Supervising Physician Co-Signing Physician Notes I personally saw and evaluated the patient with Vito Kam PA-C and agree with the assessment and plan. 80-year-old male with recent kidney stone status post ureteral stent, now with CT findings concerning for acute cholecystitis CT chest images and results personally viewed by me He does have inflammation around the gallbladder however this is not completely visualized We will order a CT abdomen pelvis for further clarification and to make sure the kidney does not look any worse We will follow-up these results History of Present Illness Reason for Consultation: Cholecystitis Attending Physician: Ozzie Santos History of Present Illness This is a 80-year-old male who was admitted to [facility] on 11/02/2021. Patient was admitted secondary to a right kidney stone causing hydronephrosis. Patient ultimately underwent a cystoscopy with a right ureteral stent placement by Dr. Gregg on 11/04/2021. Patient was doing well following his urologic procedure and tentative plans were in place for patient to be discharged home on 11/06/2021, however, the patient developed some vague abdominal pain that he notes was greatest in the right upper quadrant with some radiation up to his chest with associated shortness of breath prompting further diagnostic evaluation. It should be noted that when patient originally came into the hospital he underwent a CT scan of the abdomen and pelvis that showed the patient had a distended gallbladder with some infiltration surrounding it. He was also noted to have a 13 mm kidney stone at the right ureteropelvic junction. Patient did also have a gallbladder ultrasound on this date that showed a distended gallbladder with no gallstones noted. There is no sonographic evidence of kurt cystitis at this time. He did have a chest x-ray that showed no evidence of pneumonia. Due to the patient's abdominal pain radiating to his chest with shortness of breath he did undergo a CT angiogram of the chest on 11/05/2021. This study showed findings concerning for acute cholecystitis. The gallbladder was noted to be distended and thick-walled on this study. Is also noteworthy mention that there is no definitive evidence of pulmonary emboli on this study. Patient has had EKGs performed this admission with one earlier today that showed sinus tachycardia. I did question patient on his abdominal pain and he notes that he has never had abdominal surgery before. He does note that over the past several months he would get some intermittent abdominal pain that would self resolve. He notes it has been unrelated to meals and he never sought medical attention for it. He notes with his current episode of pain he had pain most pronounced in the right upper quadrant of his abdomen with radiation up into his chest and substernal area. He did have associated shortness of breath with this. He noted that his pain this time was unrelated to meals. He did not note any modifying factors other than pain medications that were administered. Patient's labs were reviewed and his most recent labs were from today revealing a CBC with a white blood cell count of 12.5. His hemoglobin and hematocrit were 13.1 and 40.3. His platelet count was noted to be normal. Chemistry profile showed sodium, potassium, BUN, and creatinine were all normal. He did not have an elevated lactic acid level. His total and direct bilirubin were both normal. His transaminases and alkaline phosphatase were also noted to be normal. There is no elevation of his lipase. Patient has had a COVID test on 11/03/2021 which was noted to be negative. At the time of my interview he was resting comfortably in bed and he was in no distress. 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 Surgical History History of colonoscopy History of lithotripsy History of prostate biopsy malignant History of tonsillectomy and adenoidectomy History of tooth extraction Family History Other No family history of adverse response to anesthesia Social History Smoking Status: Former smoker Tobacco Type: Cigarettes Second Hand Exposure: No; Hx Alcohol Use: No Hx Substance Use: No Preferred Language: Malaysian Communication Ability: Effective 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 Feels Safe at Home: Yes Assistive Devices: None Review of Systems Constitutional: no fever and no chills Eyes: no diplopia Ear, Nose, Mouth, Throat: no ear pain Respiratory: + dyspnea; no cough Cardiovascular: + chest pain (Radiating from his abdomen) Gastrointestinal: + abdominal pain; no nausea and no vomiting Genitourinary: no dysuria Musculoskeletal: no back pain Integumentary: no rash Neurologic: no localized weakness Physical Exam Constitutional: WD/WN, vitals as above Eyes: no conjunctival abnormality ENMT: Ears: no hearing impairment and no external ear abnormality Mouth: no oropharynx abnormality Neck: trachea midline Respiratory: normal respiratory effort; no respiratory distress and no labored breathing Cardiovascular: Rate/Rhythm: regular rate and regular rhythm Gastrointestinal (Abdomen): Abdomen is noted to have minimal distention. Bowel sounds are present. Patient did have marked tenderness with palpation in the right upper quadrant. Musculoskeletal: No calf tenderness Skin: no rashes Neurologic: moves all extremities Psychiatric: A+Ox3, euthymic affect Results & Data ([facility]) Vital Signs (Past 12 Hours) Vital Signs Temp Pulse Resp BP BP Pulse Ox 11/05/21 19:48 79 141/77 H 94 11/05/21 15:44 37.4 C 88 18 125/66 91 11/05/21 14:03 37.8 C H 113 H 22 153/75 H 92 11/05/21 11:40 78 18 91 11/05/21 11:22 37.6 C H 81 24 129/76 94 PG Care Time/CCT Total # of Minutes Spent Total Time Spent with Patient: Total time spent is greater than 50% in coordination of care (as documented) at patient's floor/unit and/or counseling patient: Coding Level of Care Code 46804 Inpt Consult Level 5 Diagnoses Cholecystitis K81.9
[2021-11-06] MEDS: HYDROmorphone INJ 0.5 MG/0.5 ML SYR IV PRN (00:03)
[2021-11-06] MEDS: PIPERACILLIN/TAZOBACTAM 3.375 GM in DEXTROSE 5% 100 ML IV SCH ×3 (00:04→16:10)
[2021-11-06] MEDS: LACTATED RINGER'S 1,000 ML IV SCH ×3 (02:14→23:53)
--- NOTE | 2021-11-06 05:29 | Surgery Progress Note ---
Date of Service November 06, 2021 Assessment & Plan (1) Cholecystitis: Plan: The patient had initial imaging at time of presentation did not reveal cholecystitis, but due to the events of last evening he had a CT scan of the chest which showed concern for cholecystitis. We recommend proceeding as follows: Continue analgesics Continue antiemetics Continue hydration measures with IV fluids Continue n.p.o. status Continue antibiotics in the form of Zosyn Repeat labs for this morning are pending which we will follow up on Patient has tentatively been placed on the operating room schedule for a cholecystectomy today by Dr. Ohara. Admission and Anticipated Discharge Date Admission Date: November 03, 2021 Supervising Physician Co-Signing Physician Notes I personally saw and evaluated the patient with Vito Kam PA-C and agree with the assessment and plan. 80-year-old male with recent kidney stone status post ureteral stent, now with CT findings concerning for acute cholecystitis CT abdomen pelvis images and results personally viewed by me He does look like he has acute cholecystitis, acalculus in nature We will proceed with laparoscopic cholecystectomy, possible open, possible intraoperative cholangiogram Consent obtained, risks discussed including bleeding, infection, bile leak, kami mary anne injury Subjective Since my initial surgical consultation with this patient he has not had any recurrent episodes of his abdominal pain. He denies any shortness of breath. He denies any fevers, shakes, chills. He denies any nausea or vomiting. Physical Exam Gastrointestinal (Abdomen): Abdomen is soft with minimal distention. Bowel sounds are present. At the time of my exam this morning the patient did not have any pain with palpation of the right upper quadrant. Results & Data ([facility]) Vital Signs (Past 12 Hours) Vital Signs Temp Pulse Resp BP BP Pulse Ox 11/05/21 22:45 36.5 C 64 18 139/82 95 11/05/21 19:48 79 141/77 H 94 PG Care Time/CCT Total # of Minutes Spent Total Time Spent with Patient: Total time spent is greater than 50% in coordination of care (as documented) at patient's floor/unit and/or counseling patient: Coding Level of Care Code 73212 Subseq Hosp Care Lvl 1 Diagnoses Cholecystitis K81.9
[2021-11-06 06:38] LABS: Basophils # (auto) 0.01 K/uL (0-0.2); Basophils % (auto) 0.1 %; Eosinophils # (auto) 0.03 K/uL (0-0.5); Eosinophils % (auto) 0.3 %; Hematocrit (blood only) 39.2 % (42-52); Hemoglobin 12.7 g/dL (14.0-18.0); Immature Granulocytes # (auto) 0.03 K/uL (0.00-0.02); Immature Granulocytes % (auto) 0.3 %; Lymphocytes # (auto) 0.92 K/uL (1.2-3.4); Lymphocytes % (auto) 7.7 %; Mean Corpuscular Hemoglobin 32.9 pg (25-34); Mean Corpuscular Volume 101.6 fL (80-100); Mean Platelet Volume 9.4 fL (7.4-10.4); Monocytes # (auto) 0.86 K/uL (0.11-0.59); Monocytes % (auto) 7.2 %; Neutrophils # (auto) 10.11 K/uL (1.4-6.5); Neutrophils % (auto) 84.4 %; Platelet Count 176 K/uL (130-400); RDW Coefficient of Variation 14.2 % (11.5-14.5); RDW Standard Deviation 52.5 fL (36.4-46.3); Red Blood Count 3.86 M/uL (4.7-6.1); White Blood Count 11.96 K/uL (4.8-10.8)
[2021-11-06 06:45] LABS: Mean Corpuscular Hgb Conc 32.4 g/dL (32-36)
[2021-11-06 07:08] LABS: Albumin Level 2.9 gm/dl (3.4-5.0); BUN Creatinine Ratio 14.6 (10-20); Bilirubin,Total 0.9 mg/dl (0.2-1.0); Creatinine Clr Calc Pharmacy 89.9 ml/min; Est GFR (African American) 97.5 ml/min; Est GFR (Non-African American) 84.1 ml/min; Globulin 2.8 gm/dl (2.5-4.0); Total Protein 5.7 gm/dl (6.0-8.3)
[2021-11-06] MEDS: CYANOCOBALAMIN (B-12) 500 MCG TABLET PO SCH (07:42)
[2021-11-06] MEDS: LINACLOTIDE 145 MCG CAPSULE PO SCH (07:43)
[2021-11-06] MEDS: TAMSULOSIN HCL 0.4 MG CAP PO SCH (07:43)
[2021-11-06] MEDS: allopurinoL 300 MG TAB PO SCH (07:43)
[2021-11-06] MEDS ORDERED: ROCURONIUM BROMIDE 10 MG/ML 5 ML VIAL IV ONE (08:00)
[2021-11-06] MEDS ORDERED: LIDOCAINE 2% 2 ML VIAL/AMP(20MG/ML) INFIL ONE (08:00)
[2021-11-06] MEDS ORDERED: PROPOFOL IV EMULSION 10 MG/ML 20 ML VIAL IV ONE (08:00)
[2021-11-06] MEDS ORDERED: fentaNYL citrate 100 MCG/2 ML VIAL ONE ×5 (08:01→13:17)
[2021-11-06] MEDS ORDERED: OPTIRAY 320 100ml IV ONE (08:48)
[2021-11-06] MEDS ORDERED: cephALEXin 500 MG CAP PO SCH (09:00)
[2021-11-06] MEDS ORDERED: cefTRIAXone SODIUM 2,000 MG in DEXTROSE 5% 50 ML IV SCH (09:00)
[2021-11-06] MEDS ORDERED: ONDANSETRON INJ 2 MG/ML 2 ML VIAL ONE (09:13)
[2021-11-06] MEDS ORDERED: NEOSTIGMINE METHYLSULFATE 1 MG/ML 10ML VIAL ONE (09:13)
[2021-11-06] MEDS ORDERED: GLYCOPYRROLATE 0.2 MG/ML VIAL ONE (09:13)
--- NOTE | 2021-11-06 09:15 | CT Scan Report ---
ABDOMEN AND PELVIS CT WITH IV CONTRAST CT DOSE: 1405.95 mGy.cm HISTORY: Acute generalized abdominal pain with distention abdomnal pain/distended GB TECHNIQUE: Multiaxial CT images of the abdomen and pelvis were performed following the IV administrat ion of 94 cc of Optiray, A dose lowering technique was utilized adhering to the principles of ALARA. COMPARISON STUDY: CTA chest 11/05/2021, CT abdomen and pelvis 11/03/2021 FINDINGS: Cardiomegaly with trace pericardial effusion and coronary artery calcifications. Trace pleu ral effusions with bibasilar opacities suggestive of atelectasis. Mild right hemidiaphragmatic elevat ion no pneumatosis or pneumoperitoneum. The spleen, adrenal glands and mildly atrophic pancreas are unremarkable. Distended gallbladder demon strates wall thickening with pericholecystic edema. There is trace free fluid along the left hepatic lobe. Unchanged 1.7 cm cyst of the posterior right hepatic lobe. Patency of the portal vein. There is circumferential wall thickening involving the distal stomach and proximal duodenum with adjacent inf lammatory stranding. This is new from the prior study. There are a few cysts noted within the bilateral kidneys measuring up to 2.3 cm within the inferior p ole right kidney. 9 mm nonobstructing calculus of the superior pole left kidney. Punctate layering ca lcifications noted involving a cyst within the inferior pole right kidney. Mild right-sided pelviecta sis with persistent urothelial thickening and mild peripelvic stranding. Unchanged positioning of the 1.3 cm calculus within the right renal pelvis. Satisfactory positioning of the right ureteral stent. Prostamegaly. Urinary bladder wall thickening suggestive of chronic bladder outlet obstruction. Athe rosclerosis of the aorta without aneurysm. No lymphadenopathy. No bowel obstruction. Colonic diverticulosis without acute diverticulitis. Mild wall thickening of th e hepatic flexure. Normal appendix. Unremarkable soft tissues. The bones appear grossly intact. Degen erative changes of the spine, pelvis and hips. IMPRESSION: 1. Distended gallbladder with mild wall thickening and pericholecystic infiltration redemonstrated. A dditionally, there is wall thickening involving the distal stomach and proximal duodenum with adjacen t inflammatory stranding. Findings may be secondary to an acute gastritis/duodenitis and could be cor related with endoscopy. Reactive changes secondary to acute cholecystitis is an additional differenti al consideration. Correlate clinically. 2. Satisfactory positioning of the right ureteral stent with persistent pelvocaliectasis and urotheli al thickening. There is unchanged positioning of the 1.3 cm calculus of the right renal pelvis. 3. Nonobstructing left nephrolithiasis. 4. Trace pleural effusions with mild bibasilar atelectasis. 5. Colonic diverticulosis. ACT 112: Negative or not required by law. The above report was generated using voice recognition software. It may contain grammatical, syntax o r spelling errors. Electronically signed by: Cleveland Meyer M.D. 11/06/2021 9:13 AM
[2021-11-06] MEDS: FAMOTIDINE 20 MG in SYRINGE 3 ML IV SCH ×2 (11:04→21:45)
[2021-11-06] MEDS ORDERED: BUPIVACAINE/EPINEPHRINE 0.25% 1:200,000 30 ML VIAL ONE (11:46)
--- NOTE | 2021-11-06 11:58 | Hospitalist Progress Note ---
Date of Service November 06, 2021 Assessment & Plan (1) Cholecystitis: Plan: concern for acalculous cholecystitis. CT a/p x [address] chest along with RUQ u/s without stones. CT a/p from this am with ongoing signs of acute cholecystitis. There is now gastric & duodenal inflammation - suspect reactive to the cholecystitis. No evidence radiographically or clinically/biochemically of acute pancreatitis. WBC count still high this am. remains on zosyn IV with IVF. lactate, lfts, lipase all remain normal/negative. plan - To OR this am with Dr Ohara from gen surgery for lap kurt From a cardiopulmonary standpoint he is optimized for surgery He reports chronic TELLEZ during hunting trips and peak activity but no prior history of CAD EKG without ischemic changes I believe that pausing to pursue additional cardiac w/u (stress test, etc) could place him in harm's way as it appears that the gall bladder disease may be severe based on imaging it may be prudent to place him on PCU post-op as a precautionary measure (2) Ureteropelvic junction calculus: Plan: 13mm stone at the UPJ on right. POD #2 - s/p cystoscopy with ureteral stent placement on right by Dr Gregg - appreciate his assistance. urine cx neg and blood cx's neg. CT a/p with properly positioned stent and unchanged position of stone; no other urological changes seen continue pain meds. continue supportive care. Creatinine remains stable. (3) UTI (urinary tract infection): Plan: suspected but initial culture negative. repeat culture from 11/05 pending. remains on zosyn for #1 which will cover the urine just fine. (4) Acute respiratory distress: Plan: developed such on 11/05/21 in the midst of fever/SIRS he has mild tachypnea at times - suspect it is reactive to #1, due to SIRS, due to pain, etc CTA chest without definitive PE No acute CHF No acute pneumonia He has significant crowding of the right lung with atelectasis as a result of his right hemidiaphragmatic elevation cont flutter + incentive sandro NC o2 as needed ?left-sided PE but likely artifactual per radiology could consider a repeat CTA study later on or dopplers of legs but suspicion for VTE is still very low (5) Hypercalcemia: Plan: resolved, transient total calcium level of 10.9 at time of admission. 1 scanned document from 12/2020 from his PCP's office showed normal calcium at that time. repeat total calcium levels since the initial one have been normal. intact PTH wnl. BMP today again wnl. 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 also with this discussed this with patient and his incentive sandro flutter valve Plan: care d/w gen surg care d/w pt's at bedside this am to the OR shortly for lap kurt depending on intra-op findings may need GI consult for the gastric/duodenal inflammation seen on CT this am Admission and Anticipated Discharge Date Admission Date: November 03, 2021 Subjective last evening pt had an episode b/l shoulder pain, then the left shoulder pain stopped, then went to the right shoulder EKG obtained - my reading - NSR, no ST changes, PACs slept ok overnight used his BIPAP from home this am his abdominal pain is similar to yesterday - no better, no worse pain is in 2 locations - RLQ, and upper abdomen (high epigastric region/RUQ) no nausea no emesis no orthopnea no no cough he has mild dyspnea with moving around - no change no urinary symptoms today was present at bedside and she is up to date with plan of care Review of Systems Review of Systems: gen - no fever/chills overnight; fatigued cv - no orthopnea; no chest pain pulm - no cough, mild dyspnea GI - abd pain, bloating; no N/V/D - no gross hematuria Physical Exam Physical Exam: gen - obese, looks similar to yesterday; laying flat in bed comfortably without orthopnea; ?minimal dyspnea but speaks in full sentences mouth - MMM neck - no JVD heart - RRR, s1 s2, no murmur lungs - mild bilateral basilar dry rales; decreased BS right base; no wheezes; no increased work of breathing abd - mild distension, mild tenderness RLQ over location of his renal stone; mild RUQ and high epigastric discomfort - unchanged; no peritoneal signs ext - no edema, pulses 2+ b/l psych - awake, alert, oriented today Results & Data Results & Data ([facility]) Vital Signs (Past 12 Hours) Vital Signs Temp Pulse Resp BP Pulse Ox 11/06/21 07:32 37.5 C 67 18 138/81 94 Laboratory Results Laboratory Results - last 24 hr 11/05/21 11/05/21 11/05/21 15:00 19:32 19:32 WBC RBC Hgb Hct MCV MCH MCHC RDW Std Deviation RDW Coeff of Kalani Plt Count MPV Immature Gran % (Auto) Neut % (Auto) Lymph % (Auto) [place] % (Auto) Eos % (Auto) Baso % (Auto) Neut # (Auto) Lymph # (Auto) [place] # (Auto) Eos # (Auto) Baso # (Auto) Immature Gran # (Auto) Sodium Potassium Chloride Carbon Dioxide Anion Gap BUN Creatinine Est Cr Clr Drug Dosing Est GFR ( Amer) Est GFR (Non-Af Amer) BUN/Creatinine Ratio Glucose Lactate 1.4 Calcium Total Bilirubin 0.6 Direct Bilirubin 0.1 AST 14 ALT 12 Alkaline Phosphatase 55 Total Protein 5.7 L Albumin 3.0 L Globulin Albumin/Globulin Ratio Lipase 14 Urine Color Dark Yellow Urine Appearance Clear Urine pH 5.5 Ur Specific [place] 1.022 Urine Protein 2+ H Urine Glucose (UA) Negative Urine Ketones Trace H Urine Blood 3+ H Urine Nitrite Negative Urine Bilirubin Negative Urine Urobilinogen Negative Ur Leukocyte Esterase Trace H Urine WBC (Auto) 1-5 Urine RBC (Auto) >30 H U Hyaline Cast (Auto) 1-5 U Epithel Cells (Auto) >30 H Urine Bacteria (Auto) 1+ H Ur Renal Epithelial Cell Not Reportable 11/06/21 11/06/21 06:15 06:15 WBC 11.96 H RBC 3.86 L Hgb 12.7 L Hct 39.2 L MCV 101.6 H MCH 32.9 MCHC 32.4 RDW Std Deviation 52.5 H RDW Coeff of Kalani 14.2 Plt Count 176 MPV 9.4 Immature Gran % (Auto) 0.3 Neut % (Auto) 84.4 Lymph % (Auto) 7.7 [place] % (Auto) 7.2 Eos % (Auto) 0.3 Baso % (Auto) 0.1 Neut # (Auto) 10.11 H Lymph # (Auto) 0.92 L [place] # (Auto) 0.86 H Eos # (Auto) 0.03 Baso # (Auto) 0.01 Immature Gran # (Auto) 0.03 H Sodium 139 Potassium 4.0 Chloride 104 Carbon Dioxide 30 Anion Gap 5 BUN 12 Creatinine 0.82 Est Cr Clr Drug Dosing 89.9 Est GFR ( Amer) 97.5 Est GFR (Non-Af Amer) 84.1 BUN/Creatinine Ratio 14.6 Glucose 127 H Lactate Calcium 9.0 Total Bilirubin 0.9 Direct Bilirubin AST 14 ALT 11 Alkaline Phosphatase 51 Total Protein 5.7 L Albumin 2.9 L Globulin 2.8 Albumin/Globulin Ratio 1.0 Lipase 8 L Urine Color Urine Appearance Urine pH Ur Specific [place] Urine Protein Urine Glucose (UA) Urine Ketones Urine Blood Urine Nitrite Urine Bilirubin Urine Urobilinogen Ur Leukocyte Esterase Urine WBC (Auto) Urine RBC (Auto) U Hyaline Cast (Auto) U Epithel Cells (Auto) Urine Bacteria (Auto) Ur Renal Epithelial Cell Diagnostic Findings blood cx's from admission neg urine cx from admissioni neg urine cx from 11/05 pending PG Care Time/CCT Total # of Minutes Spent Total Time Spent with Patient: Total time spent is greater than 50% in coordination of care (as documented) at patient's floor/unit and/or counseling patient: Coding Level of Care Code 46138 Subseq Hosp Care Lvl 3 Diagnoses Cholecystitis K81.9 Ureteropelvic junction calculus N20.1 UTI (urinary tract infection) N39.0 Hypercalcemia E83.52 Hypertension I10 Irritable bowel syndrome with constipation K58.1 Gout M10.9 Liver cyst K76.89 Prostate cancer C61 MARIBEL (obstructive sleep apnea) G47.33 Macrocytosis D75.89 Vitamin B12 deficiency E53.8 Acute respiratory distress R06.03 Elevated hemidiaphragm J98.6
--- NOTE | 2021-11-06 12:06 | Anesthesiology Consultation ---
Date of Service November 06, 2021 Assessment & Plan Chart Review Chart Review: Acceptable Risk for Surgery and Patient NOT seen in Pre Admission Testing Consults Requested none ASA ASA4 Proposed Anesthesia Anesthesia Type: General Risk / Benefits Reviewed With: PT / POA / Parent / Guardian, Accepts Plan and Informed Consent Obtained Additional Comments: covid test neg. History Surgery Operation Date: 11/04/21 09:15 Proposed Procedures p Cystoscopy, Right Retrograde Pyelogram, Right Stent Insertion - Pradip Gregg MD Operation Date: 11/06/21 15:00 Proposed Procedures p Laparoscopic Cholecystectomy - Akin Ohara DO Height/Weight Height: 5 ft 10 in Weight: 108 kg Allergies Allergy/AdvReac Type Severity Reaction Status Date / Time No Known Allergies Allergy Verified 11/03/21 01:22 Medications Home Medications Medication Instructions Recorded Confirmed Last Taken allopurinol 300 mg tablet 300 mg PO QAM 09/24/18 11/03/21 04/27/20 linaclotide 145 mcg capsule 145 mcg PO QAM 09/24/18 11/03/21 04/27/20 (Linzess) lisinopril 10 mg tablet 10 mg PO QAM 09/24/18 11/03/21 04/27/20 Active Medications Generic Name Dose Route Start Last Admin Trade Name Freq PRN Reason Stop Dose Admin Acetaminophen 1,000 mg 11/03/21 19:11 11/05/21 14:10 Acetaminophen 500 Mg Tab PO 12/03/21 19:10 1,000 mg Q6H PRN Administration pain or temp >38 C Hydrocodone Bitart/Acetaminophen 1 tab 11/03/21 20:58 11/05/21 03:37 Hydrocodone/Acetamophen 5/325mg Tab PO 11/17/21 05:09 1 tab Q4H PRN Administration Pain Allopurinol 300 mg 11/03/21 09:00 11/06/21 07:43 Allopurinol 300 Mg Tab PO 12/03/21 08:59 300 mg QAM GWEN Administration Cyanocobalamin 1,000 mcg 11/05/21 09:00 11/06/21 07:42 Cyanocobalamin (B-12) 500 Mcg Tablet PO 12/05/21 08:59 1,000 mcg QAM GWEN Administration Hydromorphone HCl 0.5 mg 11/03/21 05:12 11/06/21 00:03 Hydromorphone Inj 0.5 Mg/0.5 Ml Syr IV 11/17/21 05:11 0.5 mg Q4H PRN Administration Severe Pain Lactated Ringer's 1,000 mls @ 125 mls/hr 11/05/21 19:00 11/06/21 11:33 Lr IV 12/05/21 18:59 0 mls/hr .Q8H GWEN Infusion Piperacillin Sod/Tazobactam 115 mls @ 28.75 mls/hr 11/06/21 00:00 11/06/21 11:32 Sod 3.375 gm/ Dextrose IV 11/15/21 00:00 Infused Q8H GWEN Infusion Protocol Famotidine 20 mg/ Syringe 5 mls @ 2.5 mls/min 11/05/21 21:00 11/06/21 11:04 IV 12/05/21 20:59 2.5 mls/min BID GWEN Administration Linaclotide 145 mcg 11/03/21 09:00 11/06/21 07:43 Linaclotide 145 Mcg Capsule PO 12/03/21 08:59 145 mcg DAILY GWEN Administration Lisinopril 10 mg 11/03/21 09:00 11/03/21 10:06 Lisinopril 10 Mg Tab PO 12/03/21 08:59 10 mg QAM GWEN Administration Tamsulosin HCl 0.4 mg 11/03/21 09:00 11/06/21 07:43 Tamsulosin Hcl 0.4 Mg Cap PO 12/03/21 08:59 0.4 mg DAILY GWEN Administration NPO Date Last Intake of Fluids: 11/05/21 Time Last Intake of Fluids: 22:00 Date Last Intake of Solids: 11/05/21 Time Last Intake of Solids: 22:00 Past Medical History Medical History Cardiac murmur Diverticular disease Gout Hearing deficit Hypertension Kidney stones 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 Exercise / Class Metabolic Activity III < 4 Walking/Shop/Light housework Past Family History Family History Other No family history of adverse response to anesthesia Past Surgical History Surgical History History of colonoscopy History of lithotripsy History of prostate biopsy malignant History of tonsillectomy and adenoidectomy History of tooth extraction Past Anesthesia History No Hx of Anesthesia Complications and No Family Hx of Anesthesia Complications History of PONV No Hx of PONV and No Hx of Motion Sickness Social History Smoking Status: Former smoker Hx Alcohol Use: No Alcohol type: beer alcohol intake frequency: holidays/special occasions only Hx Substance Use: No substance use type: does not use Physical Exam Vital Signs Last Vital Signs Temp 37.5 C 11/06/21 07:32 Pulse 67 11/06/21 07:32 Resp 18 11/06/21 07:32 BP 138/81 11/06/21 07:32 Pulse Ox 94 11/06/21 07:32 Constitutional + obese ENMT Mouth: no dentition abnormality Thyromental Distance: < 3.5 Finger Breadths Mallampati Class: III Neck normal visual inspection and trachea midline; neck extension not limited Respiratory normal respiratory effort Auscultation: + diminished lung sounds and + wheezes Cardiovascular Rate/Rhythm: regular rate and regular rhythm Heart Sounds: no murmur Vessels: no carotid bruit Musculoskeletal Spine: normal cervical ROM Extremities: extremities normal to inspection Neurologic moves all extremities Motor/Sensory: no sensory deficit Psychiatric Orientation: alert and oriented x 3 Testing Laboratory Results 11/06/21 06:15 11/06/21 06:15 PT 10.4 Seconds (9.0-12.0) 11/03/21 00:05 INR 1.0 (0.9-1.1) 11/03/21 00:05 Hemoglobin A1c 5.9 % (4.5-5.6) H 11/04/21 05:39 Urine Color Dark Yellow 11/05/21 15:00 Urine Appearance Clear (Clear) 11/05/21 15:00 Urine pH 5.5 (4.5-7.5) 11/05/21 15:00 Ur Specific [place] 1.022 (1.000-1.030) 11/05/21 15:00 Urine Protein 2+ (Negative) H 11/05/21 15:00 Urine Glucose (UA) Negative (Negative) 11/05/21 15:00 Urine Ketones Trace (Negative) H 11/05/21 15:00 Urine Nitrite Negative (Negative) 11/05/21 15:00 Ur Leukocyte Esterase Trace (Negative) H 11/05/21 15:00 Urine WBC (Auto) 1-5 /hpf (0-5) 11/05/21 15:00 Urine RBC (Auto) >30 /hpf (0-4) H 11/05/21 15:00 U Hyaline Cast (Auto) 1-5 /lpf (0-5) 11/05/21 15:00 U Epithel Cells (Auto) >30 /lpf (0-5) H 11/05/21 15:00 Urine Bacteria (Auto) 1+ (Negative) H 11/05/21 15:00 11/03/21 15:56 Aerobic Blood Culture - Preliminary Blood No growth in Aerobic bottle after 48 hours. Anaerobic Blood Culture - Preliminary No growth in Anaerobic bottle after 48 hours. 11/03/21 15:53 Aerobic Blood Culture - Preliminary Blood No growth in Aerobic bottle after 48 hours. Anaerobic Blood Culture - Preliminary No growth in Anaerobic bottle after 48 hours. 11/03/21 11:06 Urine Culture - Final Urine,Clean Catch No growth - less than 1,000 colonies/mL. Electrocardiogram Date: 11/05/21 Findings: + NSR @ (@ 74 w / occas. PVC's), + LVH and + NSST changes Chest X-Ray Date: 11/05/21 Findings: + NAD and + cardiomegaly Echocardiogram Date: 12/21/20 EF: 55% LV Function: normal RWMA: + none Other Findings: + LVH Valvular Disease: + AI (mild) TR-mild mild Ao root dilation
[2021-11-06] MEDS ORDERED: CISATRACURIUM BESYLATE IV SOLN 2 MG/ML 10 ML VIAL IV ONE (12:49)
[2021-11-06] MEDS ORDERED: DEXAMETHASONE SOD INJ 4 MG/ML VIAL ONE (12:50)
[2021-11-06] MEDS ORDERED: ESMOLOL HCL INJ 10 MG/ML 10ML VIAL IV ONE (12:58)
--- NOTE | 2021-11-06 13:52 | Post Operative Brief Note ---
PG Immediate Post Op with CF Date of Surgery November 06, 2021 Pre & Post Diagnosis Operation Date: 11/06/21 15:00 Pre-Op Diagnosis: Acute acalculous cholecystitis Post-Op Diagnosis: Acute gangrenous acalculous cholecystitis I identified the patient and participated in the time-out.: Yes Procedure Operation Date: 11/06/21 15:00 Actual Procedures p Laparoscopic Fenestrated Cholecystectomy(Not Applicable) - Akin Ohara DO Surgeon Akin Ohara DO Children'S Entertainer none Estimated Blood Loss 50 Findings See Below Acutely inflamed gangrenous gallbladder with phlegmon at the martin hepatis Specimens Specimen Description: a. Gallbladder Drains Jt-[place] Drain (19 akin) Anesthesia Type MAC Complications none None Disposition Disposition: Recovery Room
--- NOTE | 2021-11-06 13:57 | Operative Report ---
PG Post Operative Report Pre & Post Diagnosis Operation Date: 11/06/21 15:00 Pre-Op Diagnosis: Acute acalculous cholecystitis Post-Op Diagnosis: Acute acalculous gangrenous cholecystitis I identified the patient and participated in the time-out.: Yes Procedure Operation Date: 11/06/21 15:00 Actual Procedures p Laparoscopic Fenestrated Cholecystectomy(Not Applicable) - Akin Ohara DO Surgeon Akin Ohara DO Chief Librarian Extension Department none Estimated Blood Loss 50 Findings See Below Acutely inflamed thickened, gangrenous gallbladder wall with phlegmon at the martin hepatis Fluids see anesthesia record Specimens Gallbladder to pathology Drains 19 Finnish Akin drain in the gallbladder fossa Anesthesia Type MAC Complications none Disposition Disposition: Recovery Room Indications 80-year-old male with acute acalculous cholecystitis Description of Procedure The patient was brought to the operating room and placed in the supine position with both arms extended. At this time she underwent general endotracheal anesthesia without any problems. He was given appropriate pre-operative antibiotics. His abdomen prepped and draped in the usual sterile fashion. A timeout was called, the procedure was verified as Laparoscopic cholecystectomy, possible open, possible intra-operative cholangiogram. Surgical, nursing and anesthesia teams agreed and the procedure was begun. After injection of 0.25% Marcaine with epinephrine, a supraumbilical vertical incision was made and carried down to the fascia using S-retractors. The abdominal wall was then elevated with towel clamps and abdomen entered using the Veress needle confirming position using the saline drop test. Pneumoperitoneum was established. 5mm trocar was placed. Laparoscope was introduced. No injury from entry into the abdomen was visualized after inspection of the abdomen. Three further ports were placed under direct visualization. One 11mm in the subxiphoid region and two 5mm in the RUQ. At this time the abdomen was inspected and the gallbladder identified. There were dense omental adhesions to the fundus of the gallbladder that were carefully peeled down bluntly off of the gallbladder. The gallbladder fundus was grasped and retracted cephalad. We got about two th[address] way down the gallbladder until we reached a rockhard phlegmonous area that was extending into the martin. This was unable to be dissected with a [place] dissector or bluntly with suction. At this point the decision was made to proceed with a fenestrated cholecystectomy. The anterior portion of the gallbladder wall was transected using a harmonic scalpel. This was taken back to the liver bed. The rest the gallbladder was then removed using a combination of the harmonic scalpel and electrocautery. A portion of the gallbladder remaining in the abdomen was left open. The portion of the ga llbladder removed was placed in Endo Catch bag and removed through the subxiphoid port. Any oozing from the liver bed was stopped using electrocautery. The liver bed was then inspected and no bile leak or bleeding was evident. A 19 Finnish Akin drain was placed in the abdomen from the xiphoid port and brought out through the right lateral abdominal stab incision and placed into the gallbladder fossa. The trocars were then removed under direct visualization and no bleeding was present. The subxiphoid port was then closed using 0-Vicryl at the fascial level. The skin was then closed using 4-0 Monocryl in a subcuticular fashion. Surgical glue was applied. Needle and sponge counts were correct x 2. At this time the patient was awoken from anesthesia and extubated having remained stable throughout the entire case. The patient was then transported to PACU in stable condition. I attest to the content of the Intraoperative Record and any orders documented therein. Any exceptions are noted below.
[2021-11-06] MEDS ORDERED: LABETALOL HCL IV 5 MG/ML 20ML IV PRN (14:17)
[2021-11-06] MEDS ORDERED: NALOXONE HCL 0.4 MG/1 ML VIAL/CARP IV PRN (14:17)
[2021-11-06] MEDS ORDERED: ATROPINE SULFATE 0.1 MG/ML 10ML SYR IV PRN (14:17)
[2021-11-06] MEDS ORDERED: ONDANSETRON INJ 2 MG/ML 2 ML VIAL IV PRN (14:17)
[2021-11-06] MEDS ORDERED: PROMETHAZINE HCL 12.5 MG in SODIUM CHLORIDE 0.9% 50 ML IV PRN (14:17)
[2021-11-06] MEDS ORDERED: ePHEDrine sulfate 50 MG/ML AMP IV PRN (14:17)
[2021-11-06] MEDS: fentaNYL citrate 100 MCG/2 ML VIAL IV PRN ×2 (14:55→15:00)
--- NOTE | 2021-11-06 15:57 | Anesthesiology Progress Note ---
Date of Service November 06, 2021 Anesthesia Post Procedure Vital Signs Vital Signs: Temp Pulse Pulse Resp BP BP Pulse Ox 11/06/21 15:50 37.7 C H 83 20 128/82 89 L 11/06/21 15:25 88 18 121/75 92 11/06/21 15:15 36.9 C 90 18 119/74 92 11/06/21 15:05 92 H 18 125/68 91 11/06/21 14:55 101 H 19 147/84 H 91 11/06/21 14:45 118 H 20 113/56 L 91 11/06/21 14:35 96 H 20 129/80 90 11/06/21 14:25 111 H 18 151/90 H 90 11/06/21 14:15 105 H 18 148/95 H 90 11/06/21 14:09 37.2 C 110 H 18 161/85 H 90 11/06/21 07:32 37.5 C 67 18 138/81 94 11/05/21 22:45 36.5 C 64 18 139/82 95 11/05/21 19:48 79 141/77 H 94 Pain Intensity Right Flank: Pain Intensity: 3 Transfer of Care Handoff Completed per policy Notes Mental Status: alert / awake / arousable and participated in evaluation Patient Amnestic to Procedure: Yes Nausea / Vomiting: adequately controlled Pain: adequately controlled Airway Patency, RR, SpO2: stable & adequate BP & HR: stable & adequate Hydration State: stable & adequate Anesthetic Complications: no major complications apparent and Pt Satisfied with anesthetic care
[2021-11-06] MEDS: ACETAMINOPHEN 500 MG TAB PO PRN (18:50)
[2021-11-06 19:16] LABS: Hemoglobin 12.7 g/dL (14.0-18.0); Mean Corpuscular Hemoglobin 33.1 pg (25-34); Mean Corpuscular Hgb Conc 32.6 g/dL (32-36); Mean Corpuscular Volume 101.6 fL (80-100); Mean Platelet Volume 9.4 fL (7.4-10.4); Platelet Count 185 K/uL (130-400); RDW Standard Deviation 51.9 fL (36.4-46.3); Red Blood Count 3.84 M/uL (4.7-6.1); White Blood Count 11.14 K/uL (4.8-10.8)
[2021-11-06 19:21] LABS: Base Excess VBG 3.3 mEq/L; Oxygen Saturation VBG 71.7 %; pH VBG 7.37 (7.36-7.41)
[2021-11-06] MEDS: HYDROCODONE/ACETAMOPHEN 5/325MG TAB PO PRN (19:33)
[2021-11-06 19:42] LABS: BUN Creatinine Ratio 17.1 (10-20); Calcium 8.9 mg/dl (8.5-10.1); Creatinine Clr Calc Pharmacy 89.9 ml/min; Est GFR (African American) 97.5 ml/min; Est GFR (Non-African American) 84.1 ml/min; Potassium 4.1 mmol/L (3.5-5.1)
[2021-11-06 19:45] LABS: Troponin I High Sensitivity 85.5 pg/ml (0-20)
[2021-11-07] MEDS: PIPERACILLIN/TAZOBACTAM 3.375 GM in DEXTROSE 5% 100 ML IV SCH ×3 (00:20→17:04)
[2021-11-07] MEDS: HYDROCODONE/ACETAMOPHEN 5/325MG TAB PO PRN (01:24)
[2021-11-07] MEDS: HYDROmorphone INJ 0.5 MG/0.5 ML SYR IV PRN (03:55)
--- NOTE | 2021-11-07 05:41 | Surgery Progress Note ---
Date of Service November 07, 2021 Assessment & Plan (1) Cholecystitis: Plan: Patient is status post laparoscopic cholecystectomy on 11/06/2021 (postop day #1) Continue clear liquid for the present time Continue analgesics Continue antiemetics Continue BAN drain which is draining serosanguineous fluid I suspect patient's left shoulder pain may be related to CO2 that was insufflated into his abdomen. Elevated troponin noted on postoperative labs. This is being managed by the medical service but appears to be downtrending at the present time. Will await further recommendations from medical service. Admission and Anticipated Discharge Date Admission Date: November 03, 2021 Supervising Physician Co-Signing Physician Notes I personally saw and evaluated the patient with Vito Kam PA-C and agree with the assessment and plan. 80-year-old male with acute acalculous gangrenous cholecystitis, status post laparoscopic fenestrated cholecystectomy Continue clears for today and monitor drain output His labs are all stable and he is feeling pretty well If he does well with the clears today we will likely advance him to regular diet tomorrow and will still continue to monitor the drain output If this turns frankly bilious, we will get GI involved for consideration of an ERCP and stent placement Subjective Patient is resting comfortably in bed. He denies any nausea or vomiting. He does note pain at his surgical incisions. He does note pain in his left shoulder. Physical Exam Gastrointestinal (Abdomen): Abdomen is noted to be slightly distended. Pat ient has appropriate pain near surgical incisions. Results & Data ([facility]) Vital Signs (Past 12 Hours) Vital Signs Temp Pulse Pulse Pulse Resp BP Pulse Ox 11/07/21 03:00 36.5 C 71 20 159/88 H 94 11/06/21 23:00 36.5 C 60 61 20 130/75 94 11/06/21 19:03 36.5 C 71 18 122/75 91 11/06/21 18:44 94 11/06/21 18:20 69 20 162/83 H 95 PG Care Time/CCT Total # of Minutes Spent Total Time Spent with Patient: Total time spent is greater than 50% in coordination of care (as documented) at patient's floor/unit and/or counseling patient: Coding Level of Care Code None Diagnoses Cholecystitis K81.9
[2021-11-07] MEDS: LACTATED RINGER'S 1,000 ML IV SCH ×2 (06:47→12:11)
[2021-11-07 06:57] LABS: Albumin Level 2.8 gm/dl (3.4-5.0); BUN Creatinine Ratio 22.4 (10-20); Bilirubin,Total 0.5 mg/dl (0.2-1.0); Calcium 8.8 mg/dl (8.5-10.1); Est GFR (African American) 100.6 ml/min; Est GFR (Non-African American) 86.8 ml/min; Globulin 2.7 gm/dl (2.5-4.0); Potassium 4.2 mmol/L (3.5-5.1); Total Protein 5.5 gm/dl (6.0-8.3)
[2021-11-07] MEDS: allopurinoL 300 MG TAB PO SCH (08:08)
[2021-11-07] MEDS: LINACLOTIDE 145 MCG CAPSULE PO SCH (08:08)
[2021-11-07] MEDS: TAMSULOSIN HCL 0.4 MG CAP PO SCH (08:08)
[2021-11-07] MEDS: CYANOCOBALAMIN (B-12) 500 MCG TABLET PO SCH (08:08)
[2021-11-07] MEDS: FAMOTIDINE 20 MG in SYRINGE 3 ML IV SCH ×2 (08:10→20:16)
--- NOTE | 2021-11-07 12:40 | Hospitalist Progress Note ---
Date of Service November 07, 2021 Assessment & Plan (1) Gangrenous cholecystitis: Plan: POD #1 s/p lap kurt for acalculous gangrenous cholecystitis. Entirety of gall bladder unable to be completely removed due to the severe nature of the gall bladder. Fortunately he remains stable, not septic, hemodynamically stable, and no peritonitis. Remains on zosyn IV with IVF. Appreciate all of gen surg efforts/assistance. Clears started by surgery. Cont IVF but lower rate to 75cc/hr. Pain meds. (2) Chest discomfort: Plan: May have been subdiaphragmatic irritation from insufflated air from his laparoscopy with referred pain but need to r/o PE, etc. Recheck Chest CTA, r/o PE. Trop was scantly elevated - peaked, quickly came down, and EKG w/o ischemic changes. I don't believe the pain was ischemic. [id number] obtain echo - check LV function and wall motion. I did talk to him about outpatient stress test (+family history, chronic TELLEZ, etc). Await chest CT. (3) Ureteropelvic junction calculus: Plan: 13mm stone at the UPJ on right. POD #3 - s/p cystoscopy with ureteral stent placement on right by Dr Gregg - appreciate his assistance. urine cx neg and blood cx's neg. most recent CT a/p with properly positioned stent and unchanged position of stone; no other urological changes seen continue pain meds. continue supportive care. Creatinine remains stable. (4) UTI (urinary tract infection): Plan: suspected but initial culture and repeat culture negative. remains on zosyn for #1 which will cover the urine easily. (5) Acute respiratory distress: Plan: developed such on 11/05/21 in the midst of fever/SIRS resolved. CTA chest without definitive PE (?SCOTT filling defect but felt to be artifactual per radiology) on 11/05 No acute CHF No acute pneumonia He has significant crowding of the right lung with atelectasis as a result of his right hemidiaphragmatic elevation cont flutter + incentive sandro NC o2 as needed obtaining repeat Chest CTA today due to #2 and this will also clear up issue of the ?SCOTT abnormality (6) Hypercalcemia: Plan: resolved, transient total calcium level of 10.9 at time of admission. 1 scanned document from 12/2020 from his PCP's office showed normal calcium at that time. repeat total calcium levels since the initial one have been normal. intact PTH wnl. BMP today again wnl. 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 also with this discussed this with patient and his incentive sandro flutter valve (16) Multifocal atrial tachycardia: Plan: as seen on EKG yesterday nothing recurrent since cont tele no a.fib or flutter seen monitor (17) Elevated troponin: Plan: likely myocardial demand ischemia in setting of #1 and his surgery I do not believe he had ACS see above discussion Plan: updated pt's by phone this evening needs PT/OT Admission and Anticipated Discharge Date Admission Date: November 03, 2021 Subjective tele with episodes of tachycardia and ectopy (PVCs) no junctional rhythm (reported by anesthesia during his lap kurt & in PACU but I have not seen any strips of such) patient had an episode last night of significant abd pain this was followed by b/l shoulder pain and upper L chest pain pleuritic the L shoulder pain resolved but the R shoulder pain lasted a bit longer finally resolved, and has had no shoulder/chest symptoms since his original RLQ abd pain is resolved no RUQ pain this am just mild incisional pain no nausea or emesis breathing is comfortable today passing some flatus but no stool tolerating clears Review of Systems Review of Systems: gen - no fevers or chills cv - see HPI pulm - no cough GI - no vomiting; no stool yet Physical Exam Physical Exam: gen - obese, looks better today, comfortable, no dyspnea mouth - MMM neck - no JVD heart - RRR, s1 s2, no murmur lungs - mild bilateral basilar dry rales unchanged; decreased BS right base; no wheezes; no increased work of breathing abd - mild-moderate distension, BS+; no tenderness ext - no edema, pulses 2+ b/l psych - awake, alert, oriented x 3 today Results & Data Results & Data ([facility]) Vital Signs (Past 12 Hours) Vital Signs Temp Pulse Pulse Resp BP BP Pulse Ox 11/07/21 12:15 36.4 C L 64 16 124/73 91 11/07/21 08:02 37.0 C 63 20 125/78 96 11/07/21 03:00 36.5 C 71 20 159/88 H 94 Laboratory Results cbc acceptable bmp acceptable trop - scantly high EKG - yesterday afternoon - MAT PG Care Time/CCT Total # of Minutes Spent Total Time Spent with Patient: Total time spent is greater than 50% in coordination of care (as documented) at patient's floor/unit and/or counseling patient: Coding Level of Care Code 21110 Subseq Hosp Care Lvl 3 Diagnoses Ureteropelvic junction calculus N20.1 UTI (urinary tract infection) N39.0 Acute respiratory distress R06.03 Hypercalcemia E83.52 Hypertension I10 Irritable bowel syndrome with constipation K58.1 Gout M10.9 Liver cyst K76.89 Prostate cancer C61 MARIBEL (obstructive sleep apnea) G47.33 Macrocytosis D75.89 Vitamin B12 deficiency E53.8 Elevated hemidiaphragm J98.6 Multifocal atrial tachycardia I47.1 Elevated troponin R77.8 Gangrenous cholecystitis K81.0 Chest discomfort R07.89
[2021-11-07] MEDS ORDERED: OPTIRAY 320 125ml IV ONE (12:58)
--- NOTE | 2021-11-07 13:34 | CT Scan Report ---
CT ANGIOGRAM OF THE CHEST CLINICAL HISTORY: Atypical chest pain. Follow-up chest CT. COMPARISON STUDY: Chest CT dated 11/05/2021. TECHNIQUE: Following the IV administration of 120 cc of Optiray 320, CT angiogram of the chest was pe rformed from the upper abdomen to the thoracic inlet utilizing the pulmonary embolus protocol. Images are reviewed in the axial, sagittal, and coronal planes. 3-D MIPS images are created and assessed. I V contrast was administered without complication. A dose lowering technique was utilized adhering to the principles of ALARA. The examination is degraded by motion artifact. CT DOSE: 766.81 mGy.cm FINDINGS: Thyroid: Imaged portions of the thyroid gland are normal in size and attenuation. Thoracic aorta: There is atherosclerotic calcification of the thoracic aorta, which is normal in [place] yolanda and demonstrates bovine variant arch anatomy. No dissection is seen. Pulmonary vasculature: The pulmonary trunk is dilated measuring 4.2 cm diameter. This suggests pulmon mayelin artery hypertension. There are no filling defects identified within the main, lobar, or segmental pulmonary branches to indicate pulmonary embolus. Heart: The heart is enlarged and and without pericardial effusion. There are coronary artery calcific ations. Lungs and pleural spaces: Evaluation of the lung parenchyma is degraded by motion artifact. The trach ea and central airways appear clear. There is chronic elevation of the right hemidiaphragm with bibas ilar scarring/atelectasis. There are trace pleural effusions, right larger than left. No airspace con solidation is seen typical for pneumonia. Mediastinum: There is no mediastinal lymphadenopathy. Nia: Clear. Axillae: There is no axillary lymphadenopathy. Upper abdomen: There is postoperative change from interval cholecystectomy. Inflammatory stranding an d a surgical drain are present in the gallbladder fossa. There is a tiny hiatal hernia. A 10 cm cyst is again noted in the right lobe of the liver. Tiny foci of intraperitoneal free air in the upper abd omen are likely due to recent surgery. Skeletal structures: The skeletal structures are osteopenic. Degenerative change is noted throughout the thoracic spine. No lytic or blastic bony lesions are seen. IMPRESSION: 1. There is no evidence of pulmonary embolus in the main, lobar, or segmental pulmonary arteries. The left upper lobe filling defect questioned on 11/05/2021 was artifactual. 2. There is no airspace consolidation typical for pneumonia. 3. Cardiomegaly and trace pleural effusions. 4. There is evidence of interval cholecystectomy. Inflammatory change and a surgical drain are presen t in the gallbladder fossa. 5. Tiny foci of intraperitoneal free air in the upper abdomen are likely related to recent surgery. 6. Additional findings as above. ACT 112: Negative or not required by law. Electronically signed by: Romain Victor M.D. 11/07/2021 1:32 PM
--- NOTE | 2021-11-07 21:46 | XCELERA ---
[id number]
[2021-11-08] MEDS: PIPERACILLIN/TAZOBACTAM 3.375 GM in DEXTROSE 5% 100 ML IV SCH ×4 (01:23→23:13)
[2021-11-08] MEDS: LACTATED RINGER'S 1,000 ML IV SCH ×3 (06:10→20:51)
--- NOTE | 2021-11-08 06:12 | Electrocardiogram Report ---
Test Reason : Blood Pressure : / mmHG Vent. Rate : 073 BPM Atrial Rate : 073 BPM P-R Int : 192 ms QRS Dur : 114 ms QT Int : 374 ms P-R-T Axes : 025 -28 028 degrees QTc Int : 412 ms Poor data quality, interpretation may be adversely affected Sinus rhythm with occasional Premature ventricular complexes Moderate voltage criteria for LVH, may be normal variant Nonspecific ST abnormality Abnormal ECG When compared with ECG of 05-NOV-2021 14:18, Premature ventricular complexes are now Present Premature supraventricular complexes are no longer Present Vent. rate has decreased BY 40 BPM Confirmed by Alvarado Barakat ([id number]) on 11/08/2021 6:12:03 AM Referred By: REFERRED SELF Confirmed By:Alvarado Barakat
--- NOTE | 2021-11-08 06:35 | Electrocardiogram Report ---
Test Reason : Blood Pressure : / mmHG Vent. Rate : 110 BPM Atrial Rate : 110 BPM P-R Int : 188 ms QRS Dur : 108 ms QT Int : 334 ms P-R-T Axes : 012 -35 064 degrees QTc Int : 452 ms Multifocal atrial tachycardia with occasional , and consecutive Premature ventricular complexes and F usion complexes Left axis deviation Left ventricular hypertrophy with repolarization abnormality Abnormal ECG When compared with ECG of 05-NOV-2021 20:02, (unconfirmed) Fusion complexes are now Present Multifocal atrial tachycardia is now Present Vent. rate has increased BY 37 BPM Confirmed by Alvarado Barakat ([id number]) on 11/08/2021 6:35:06 AM Referred By: REFERRED SELF Confirmed By:Alvarado Barakat
[2021-11-08 06:57] LABS: Hematocrit (blood only) 36.1 % (42-52); Hemoglobin 11.7 g/dL (14.0-18.0); Mean Corpuscular Hemoglobin 32.5 pg (25-34); Mean Corpuscular Hgb Conc 32.4 g/dL (32-36); Mean Corpuscular Volume 100.3 fL (80-100); Mean Platelet Volume 9.6 fL (7.4-10.4); Platelet Count 227 K/uL (130-400); RDW Standard Deviation 51.3 fL (36.4-46.3); White Blood Count 9.75 K/uL (4.8-10.8)
[2021-11-08 07:21] LABS: BUN Creatinine Ratio 24.3 (10-20); Calcium 8.6 mg/dl (8.5-10.1); Creatinine Clr Calc Pharmacy 99.6 ml/min; Est GFR (African American) 101.7 ml/min; Est GFR (Non-African American) 87.7 ml/min; Potassium 3.8 mmol/L (3.5-5.1)
[2021-11-08] MEDS: FAMOTIDINE 20 MG in SYRINGE 3 ML IV SCH ×2 (08:17→20:51)
[2021-11-08] MEDS: LINACLOTIDE 145 MCG CAPSULE PO SCH (08:17)
[2021-11-08] MEDS: CYANOCOBALAMIN (B-12) 500 MCG TABLET PO SCH (08:17)
[2021-11-08] MEDS: TAMSULOSIN HCL 0.4 MG CAP PO SCH (08:17)
[2021-11-08] MEDS: allopurinoL 300 MG TAB PO SCH (08:17)
[2021-11-08] MEDS: HYDROCODONE/ACETAMOPHEN 5/325MG TAB PO PRN (10:04)
--- NOTE | 2021-11-08 10:37 | Surgery Progress Note ---
Date of Service November 08, 2021 Assessment & Plan (1) Gangrenous cholecystitis: Plan: Patient is POD#2 laparoscopic fenestrated cholecystectomy for gangrenous cholecystititis Today WBC 9 BAN drain starting to put out bilious drainage and he is having + pain in the RUQ Will consult GI for consideration of ERCP + stent placement given fenestrated lap kurt and + bile in drain He is on clear liquids for now Continue IV abx Admission and Anticipated Discharge Date Admission Date: November 03, 2021 Supervising Physician Co-Signing Physician Notes I personally saw and evaluated the patient with Tiffany Richard PA-C and agree with the assessment and plan. 80-year-old male with acute acalculous gangrenous cholecystitis, status post laparoscopic fenestrated cholecystectomy Can continue clear liquids His drain output has increased over the last 24 hours and is bilious His labs are all stable and he is feeling pretty well We will consult GI for consideration of ERCP and stent placement for his bile leak considering fenestrated cholecystectomy was performed We will continue to follow Subjective Patient having some abdominal pain on the R side, but is feeling better overall. Tolerating clear liquids. Physical Exam Physical Exam: awake/alert, sitting up in chair Gastrointestinal (Abdomen): Inspection/Auscultation: + abdomen distended and + abdominal surgical incision Percussion/Palpation: + abdomen tender (dereck incisionally and RUQ region) and abdomen soft BAN drain with bilious output Results & Data ([facility]) Vital Signs (Past 12 Hours) Vital Signs Temp Pulse Pulse Resp BP Pulse Ox 11/08/21 07:41 36.8 C 59 L 18 134/69 97 11/08/21 05:02 36.6 C 59 L 18 138/84 91 11/08/21 00:10 36.6 C 58 L 19 167/86 H 90 11/07/21 23:00 56 L PG Care Time/CCT Total # of Minutes Spent Total Time Spent with Patient: Total time spent is greater than 50% in coordination of care (as documented) at patient's floor/unit and/or counseling patient: Coding Level of Care Code None Diagnoses Gangrenous cholecystitis K81.0
--- NOTE | 2021-11-08 10:54 | Gastrointestinal Consultation ---
Date of Consultation November 08, 2021 Assessment & Plan (1) Gangrenous cholecystitis: 80 year old male s/p CCY for gangrenous cholecystitis, GI asked to evaluate given concern for bile in drain NPO Tentative ERCP today Supervising Physician Co-Signing Physician Notes Patient sitting up in chair near [place], in no acute distress. PE - slightly reddened face in no acute distress, no jaundice noted, abd soft nt nd, ofelia drain with dark fluid draining Labs reviewed - lft's normal including bilirubin Admitted late october for flank pain found to have a kidney stone with plans initially for outpt lithotripsy but then developed a fever, so right ureteral stent placed on 11/04, then with continued abdominal pain and s/p fenestrated cholecystectomy on 11/06, with ofelia drain output thereafter with dark fluid. Abdomen without peritoneal signs. Op note reviewed- multiple adhesions noted with the gallbladder. ? Bile leak. Will plan for ercp later today, please keep npo. Not on blood thinners. History of Present Illness Reason for Consultation: ercp Requesting Physician: Tom Attending Physician: Ozzie Santos History of Present Illness 80 year old male with history of prostate cancer, nephrolithiasis, hypertension, gout admitted with ureter stone, cholecystitis, POD #2 for gangrenous gb. GI asked to evaluate for ERCP given bile in OFELIA drain. Pt notes that he did have abd pain post ccy but since has been feeling better. He notes since the procedure he has had dark output in drain. No abd pain, nausea, vomiting. Passing gas but no BM. Ate liquid breakfast, broth, jello and juice at 0900 LFTs normal Not on AC CTA 2021: There is no evidence of pulmonary embolus in the main, lobar, or segmental pulmonary arteries. The left upper lobe filling defect questioned on 11/05/2021 was artifactual. There is no airspace consolidation typical for pneumonia.Cardiomegaly and trace pleural effusions. There is evidence of interval cholecystectomy. Inflammatory change and a surgical drain are present in the gallbladder fossa. Tiny foci of intraperitoneal free air in the upper abdomen are likely related to recent surgery. Additional findings as above. CTAP 2021: . Distended gallbladder with mild wall thickening and pericholecystic infiltration redemonstrated. Additionally, there is wall thickening involving the distal stomach and proximal duodenum with adjacent inflammatory stranding. Findings may be secondary to an acute gastritis/duodenitis and could be correlated with endoscopy. Reactive changes secondary to acute cholecystitis is an additional differential consideration. Correlate clinically.Satisfactory positioning of the right ureteral stent with persistent pelvocaliectasis and urothelial thickening. There is unchanged positioning of the 1.3 cm calculus of the right renal pelvis. Nonobstructing left nephrolithiasis. Trace pleural effusions with mild bibasilar atelectasis. Colonic diverticulosis. 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 Surgical History History of colonoscopy History of lithotripsy History of prostate biopsy malignant History of tonsillectomy and adenoidectomy History of tooth extraction Family History Other No family history of adverse response to anesthesia Social History Smoking Status: Former smoker Tobacco Type: Cigarettes Second Hand Exposure: No; Hx Alcohol Use: No Hx Substance Use: No Preferred Language: Argentine Communication Ability: Effective Operational Review Sergeant Required: No Beliefs That Will Affect Care: None Current Living Situation: Spouse Current Living Situation Comment: 1 story house with . Feels Safe at Home: Yes Assistive Devices: None Review of Systems Review of Systems: All systems reviewed & are unremarkable except as noted in HPI & below Physical Exam Constitutional: WD/WN, vitals as above Neck: trachea midline, no thyromegaly Respiratory: normal respiratory effort, lungs clear to auscultation Chest (Breasts): normal inspection/palpation of breasts Gastrointestinal (Abdomen): normal bowel sounds, soft, nontender, no hepatosplenomegaly OFELIA drain in place, dark output noted Skin: no rashes, warm and dry Results & Data ([facility]) Vital Signs (Past 12 Hours) Vital Signs Temp Pulse Pulse Resp BP Pulse Ox 11/08/21 07:41 36.8 C 59 L 18 134/69 97 11/08/21 05:02 36.6 C 59 L 18 138/84 91 11/08/21 00:10 36.6 C 58 L 19 167/86 H 90 11/07/21 23:00 56 L Laboratory Results 11/08/21 11/08/21 Range/Units 05:49 05:49 WBC 9.75 (4.8-10.8) K/uL RBC 3.60 L (4.7-6.1) M/uL Hgb 11.7 L (14.0-18.0) g/dL Hct 36.1 L (42-52) % MCV 100.3 H (80-100) fL MCH 32.5 (25-34) pg MCHC 32.4 (32-36) g/dL RDW Std Deviation 51.3 H (36.4-46.3) fL RDW Coeff of Kalani 14.0 (11.5-14.5) % Plt Count 227 (130-400) K/uL MPV 9.6 (7.4-10.4) fL Sodium 143 (136-145) mmol/L Potassium 3.8 (3.5-5.1) mmol/L Chloride 107 (98-107) mmol/L Carbon Dioxide 33 H (21-32) mmol/L Anion Gap 3 (3-11) BUN 18 (6-23) mg/dl Creatinine 0.74 (0.6-1.4) mg/dl Est Cr Clr Drug Dosing 99.6 ml/min Est GFR ( Amer) 101.7 ml/min Est GFR (Non-Af Amer) 87.7 ml/min BUN/Creatinine Ratio 24.3 H (10-20) Glucose 94 (70-99(Fasting)) mg/dl Calcium 8.6 (8.5-10.1) mg/dl
[2021-11-08] MEDS: ACETAMINOPHEN 500 MG TAB PO PRN (14:03)
[2021-11-08] MEDS ORDERED: DEXAMETHASONE SOD INJ 4 MG/ML VIAL ONE (14:50)
[2021-11-08] MEDS ORDERED: MIDAZOLAM HCL 1 MG/ML 2ML VIAL ONE (14:50)
[2021-11-08] MEDS ORDERED: ONDANSETRON INJ 2 MG/ML 2 ML VIAL ONE (14:50)
[2021-11-08] MEDS ORDERED: LIDOCAINE 2% 2 ML VIAL/AMP(20MG/ML) INFIL ONE (14:50)
[2021-11-08] MEDS ORDERED: PROPOFOL IV EMULSION 10 MG/ML 20 ML VIAL IV ONE (14:50)
[2021-11-08] MEDS ORDERED: fentaNYL citrate 100 MCG/2 ML VIAL ONE (14:50)
--- NOTE | 2021-11-08 15:09 | Anesthesiology Consultation ---
Date of Service November 08, 2021 Assessment & Plan (1) Encounter for pre-operative examination: Chart Review Chart Review: Acceptable Risk for Surgery and Patient NOT seen in Pre Admission Testing Consults Requested none History Surgery Operation Date: 11/04/21 09:15 Proposed Procedures p Cystoscopy, Right Retrograde Pyelogram, Right Stent Insertion - Pradip Gregg MD Operation Date: 11/06/21 15:00 Proposed Procedures p Laparoscopic Cholecystectomy - Akin Ohara DO Operation Date: 11/08/21 14:15 Proposed Procedures p Endoscopic Retrograde Cholangiopancreatogram - Alex Anne MD Height/Weight Height: 5 ft 10 in Weight: 108 kg Allergies Allergy/AdvReac Type Severity Reaction Status Date / Time No Known Allergies Allergy Verified 11/03/21 01:22 Medications Home Medications Medication Instructions Recorded Confirmed Last Taken allopurinol 300 mg tablet 300 mg PO QAM 09/24/18 11/03/21 04/27/20 linaclotide 145 mcg capsule 145 mcg PO QAM 09/24/18 11/03/21 04/27/20 (Linzess) lisinopril 10 mg tablet 10 mg PO QAM 09/24/18 11/03/21 04/27/20 Active Medications Generic Name Dose Route Start Last Admin Trade Name Freq PRN Reason Stop Dose Admin Acetaminophen 1,000 mg 11/03/21 19:11 11/08/21 14:03 Acetaminophen 500 Mg Tab PO 12/03/21 19:10 1,000 mg Q6H PRN Administration pain or temp >38 C Hydrocodone Bitart/Acetaminophen 1 tab 11/03/21 20:58 11/08/21 10:04 Hydrocodone/Acetamophen 5/325mg Tab PO 11/17/21 05:09 1 tab Q4H PRN Administration Pain Allopurinol 300 mg 11/03/21 09:00 11/08/21 08:17 Allopurinol 300 Mg Tab PO 12/03/21 08:59 300 mg QAM GWEN Administration Cyanocobalamin 1,000 mcg 11/05/21 09:00 11/08/21 08:17 Cyanocobalamin (B-12) 500 Mcg Tablet PO 12/05/21 08:59 1,000 mcg QAM GWEN Administration Hydromorphone HCl 0.5 mg 11/03/21 05:12 11/07/21 03:55 Hydromorphone Inj 0.5 Mg/0.5 Ml Syr IV 11/17/21 05:11 0.5 mg Q4H PRN Administration Severe Pain Lactated Ringer's 1,000 mls @ 75 mls/hr 11/05/21 19:00 11/08/21 12:45 Lr IV 12/05/21 18:59 125 mls/hr .[id number] GWEN Administration Piperacillin Sod/Tazobactam 115 mls @ 28.75 mls/hr 11/06/21 00:00 11/08/21 12:30 Sod 3.375 gm/ Dextrose IV 11/15/21 00:00 Infused Q8H GWEN Infusion Protocol Famotidine 20 mg/ Syringe 5 mls @ 2.5 mls/min 11/05/21 21:00 11/08/21 08:17 IV 12/05/21 20:59 2.5 mls/min BID GWEN Administration Linaclotide 145 mcg 11/03/21 09:00 11/08/21 08:17 Linaclotide 145 Mcg Capsule PO 12/03/21 08:59 145 mcg DAILY GWEN Administration Tamsulosin HCl 0.4 mg 11/03/21 09:00 11/08/21 08:17 Tamsulosin Hcl 0.4 Mg Cap PO 12/03/21 08:59 0.4 mg DAILY GWEN Administration NPO Date Last Intake of Fluids: 11/05/21 Time Last Intake of Fluids: 22:00 Date Last Intake of Solids: 11/05/21 Time Last Intake of Solids: 22:00 Past Medical History Medical History Cardiac murmur Diverticular disease Gout Hearing deficit Hypertension Kidney stones 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 Past Family History Family History Other No family history of adverse response to anesthesia Past Surgical History Surgical History History of colonoscopy History of lithotripsy History of prostate biopsy malignant History of tonsillectomy and adenoidectomy History of tooth extraction Social History Smoking Status: Former smoker Hx Alcohol Use: No Alcohol type: beer alcohol intake frequency: holidays/special occasions only Hx Substance Use: No substance use type: does not use Physical Exam Vital Signs Last Vital Signs Temp 98.2 F 11/08/21 12:07 Pulse 77 11/08/21 12:07 Resp 20 11/08/21 12:07 BP 129/66 11/08/21 12:07 Pulse Ox 98 11/08/21 12:07 Testing Laboratory Results 11/08/21 05:49 11/08/21 05:49 PT 10.4 Seconds (9.0-12.0) 11/03/21 00:05 INR 1.0 (0.9-1.1) 11/03/21 00:05 Hemoglobin A1c 5.9 % (4.5-5.6) H 11/04/21 05:39 Urine Color Dark Yellow 11/05/21 15:00 Urine Appearance Clear (Clear) 11/05/21 15:00 Urine pH 5.5 (4.5-7.5) 11/05/21 15:00 Ur Specific Reeder 1.022 (1.000-1.030) 11/05/21 15:00 Urine Protein 2+ (Negative) H 11/05/21 15:00 Urine Glucose (UA) Negative (Negative) 11/05/21 15:00 Urine Ketones Trace (Negative) H 11/05/21 15:00 Urine Nitrite Negative (Negative) 11/05/21 15:00 Ur Leukocyte Esterase Trace (Negative) H 11/05/21 15:00 Urine WBC (Auto) 1-5 /hpf (0-5) 11/05/21 15:00 Urine RBC (Auto) >30 /hpf (0-4) H 11/05/21 15:00 U Hyaline Cast (Auto) 1-5 /lpf (0-5) 11/05/21 15:00 U Epithel Cells (Auto) >30 /lpf (0-5) H 11/05/21 15:00 Urine Bacteria (Auto) 1+ (Negative) H 11/05/21 15:00 11/05/21 14:41 Urine Culture - Final Urine,Clean Catch No growth - less than 1,000 colonies/mL. 11/03/21 15:56 Aerobic Blood Culture - Preliminary Blood No growth in Aerobic bottle after 48 hours. Anaerobic Blood Culture - Preliminary No growth in Anaerobic bottle after 48 hours. 11/03/21 15:53 Aerobic Blood Culture - Preliminary Blood No growth in Aerobic bottle after 48 hours. Anaerobic Blood Culture - Preliminary No growth in Anaerobic bottle after 48 hours. 11/03/21 11:06 Urine Culture - Final Urine,Clean Catch No growth - less than 1,000 colonies/mL.
--- NOTE | 2021-11-08 15:15 | History & Physical Bridge Note ---
Date of Service November 08, 2021 History & Physical Bridge Note I have examined the patient, reviewed the History & Physical and in the interval since the performance of the History & Physical I have noted the following changes of clinical significance: no changes noted ERCP for bile leak Patient was explained in detail regarding risks, benefits, limitations and alternatives of the above endoscopic procedure. Risks of intravenous sedation used for procedure were also explained. Risks include, but not limited to perforation, bleeding, infection, respiratory distress, cardiac arrest and . Patient is also aware about the possibility of missed lesion. Patient's questions were answered. The patient verbalized understanding the information and agreed to undergo the procedure.
[2021-11-08] MEDS ORDERED: fentaNYL citrate 100 MCG/2 ML VIAL IV PRN (15:16)
[2021-11-08] MEDS ORDERED: ONDANSETRON INJ 2 MG/ML 2 ML VIAL IV PRN (15:16)
[2021-11-08] MEDS ORDERED: ePHEDrine sulfate 50 MG/ML AMP IV PRN (15:16)
[2021-11-08] MEDS ORDERED: ATROPINE SULFATE 0.1 MG/ML 10ML SYR IV PRN (15:16)
[2021-11-08] MEDS ORDERED: INDOMETHACIN 50 MG SUPP PR ONE (15:45)
[2021-11-08] MEDS ORDERED: SUCCINYLCHOLINE CHLORIDE 20 MG/ML 10 ML VIAL IV ONE (15:53)
--- NOTE | 2021-11-08 16:17 | Operative Report ---
Post Operative Report Pre & Post Diagnosis Operation Date: 11/04/21 09:15 Pre-Op Diagnosis: Nephrolithiasis Post-Op Diagnosis: Nephrolithiasis Operation Date: 11/06/21 15:00 Pre-Op Diagnosis: (1) Cholecystitis: Post-Op Diagnosis: (1) Cholecystitis: Operation Date: 11/08/21 14:15 <No data on this case meets the specified criteria> I identified the patient and participated in the time-out.: Yes Procedure Operation Date: 11/04/21 09:15 Actual Procedures p Cystoscopy, Right Retrograde Pyelogram, Right Stent Insertion(Right) - Pradip Gregg MD Operation Date: 11/06/21 15:00 Actual Procedures p Laparoscopic Fenestrated Cholecystectomy(Not Applicable) - Akin Ohara DO Operation Date: 11/08/21 14:15 <No data on this case meets the specified criteria> Surgeon Alex Anne MD Technical Delivery Manager none Estimated Blood Loss 50 Findings See Below (Bile leak from the Gallbladder remnant. Stent placed.) Specimens None Description of Procedure ERCP I attest to the content of the Intraoperative Record and any orders documented therein. Any exceptions are noted below.
--- NOTE | 2021-11-08 16:24 | GI REPORT ---
Patient Name: Aleks Roman Procedure Date: 11/08/2021 3:34 PM Date of : 1940 Admit Type: Inpatient Age: 80 Gender: Male Attending MD: Alex Anne MD Procedure: ERCP Providers: Alex Anne MD Referring MD: Vito Kam Indications: Treatment of bile leak Medicines: General Anesthesia Complications: No immediate complications. Estimated Blood Loss: Estimated blood loss: none. Procedure: Pre-Anesthesia Assessment: - Prior to the procedure, a History and Physical was performed, and patient medications, allergies and sensitivities were reviewed. The patient's tolerance of previous anesthesia was reviewed. - The risks and benefits of the procedure and the sedation options and risks were discussed with the patient. All questions were answered and informed consent was obtained. - Patient identification and proposed procedure were verified prior to the procedure by the physician and the nurse. The procedure was verified in the procedure room. - Pre-procedure physical examination revealed no contraindications to sedation. After obtaining informed consent, the scope was passed under direct vision. Throughout the procedure, the patient's blood pressure, pulse, and oxygen saturations were monitored continuously. The Duodenoscope was introduced through the mouth, and advanced to the duodenum and used to inject contrast into the bile duct. The ERCP was accomplished without difficulty. The patient tolerated the procedure well. Findings: A statistical analyst film of the abdomen was obtained. One percutaneous drain ending in the Right upper quadrant was seen. The esophagus was successfully intubated under direct vision. The scope was advanced to a normal major papilla in the descending duodenum without detailed examination of the pharynx, larynx and associated structures, and upper GI tract. The upper GI tract was grossly normal. A 0.035 inch straight standard wire was passed into the ventral pancreatic duct. The ventral pancreatic duct was then deeply cannulated with the short-nosed traction sphincterotome. Contrast was injected. I personally interpreted the pancreatic duct images. A 0.025 inch x 270 cm angled Visiglide wire was passed into the biliary tree. The Fusion OMNI sphincterotome was passed over the guidewire and the bile duct was then deeply cannulated. Contrast was injected. Opacification of the entire biliary tree was successful. The maximum diameter of the ducts was 6 mm. Extravasation of contrast originating from the gallbladder was observed. Biliary sphincterotomy was made with a monofilament traction (standard) sphincterotome using ERBE electrocautery. There was no post-sphincterotomy bleeding. The biliary tree was swept with a 12 mm balloon starting at the bifurcation. Nothing was found. Dilation of the common bile duct with a 6 mm balloon dilator was successful. One 5 Fr by 9 cm plastic pancreatic stent with a single external pigtail and no internal flaps was placed into the ventral pancreatic duct. Clear fluid flowed through the stent. The stent was in good position. One 10 Fr by 9 cm plastic biliary stent with a single external flap and a single internal flap was placed into the common bile duct. Bile flowed through the stent. The stent was in good position. Indomethacin 100 mg was given via suppository to decrease the risk of post-ERCP pancreatitis (PEP). Impression: - A bile leak was found from the gallbladder remnant. - A biliary sphincterotomy was performed. - One plastic pancreatic stent was placed into the ventral pancreatic duct. - One plastic biliary stent was placed into the common bile duct. Recommendation: - [facility]. - Repeat ERCP in 8 weeks to remove stent. Alex Anne MD 11/08/2021 4:23:52 PM This report has been signed electronically. Note Initiated On: 11/08/2021 3:34 PM Number of Addenda: 0 I attest to the content of the Intraoperative Record and orders documented therein, exceptions below {[id number]}
--- NOTE | 2021-11-08 16:49 | Anesthesiology Progress Note ---
Date of Service November 08, 2021 Anesthesia Post Procedure Vital Signs Vital Signs: Temp Pulse Pulse Pulse Resp BP BP 11/08/21 15:05 98.1 F 56 L 20 149/91 H 11/08/21 12:07 98.2 F 77 20 129/66 11/08/21 07:41 98.2 F 59 L 18 134/69 11/08/21 05:02 97.9 F 59 L 18 138/84 11/08/21 00:10 97.9 F 58 L 19 167/86 H 11/07/21 23:00 56 L 11/07/21 19:00 98.2 F 61 20 166/92 H 11/07/21 17:48 98.1 F 60 20 114/96 Pulse Ox 11/08/21 15:05 92 11/08/21 12:07 98 11/08/21 07:41 97 11/08/21 05:02 91 11/08/21 00:10 90 11/07/21 23:00 11/07/21 19:00 91 11/07/21 17:48 92 Pain Intensity Right Flank: Pain Intensity: 2 Transfer of Care Handoff Completed per policy Notes Mental Status: alert / awake / arousable and participated in evaluation Patient Amnestic to Procedure: Yes Nausea / Vomiting: adequately controlled Pain: adequately controlled Airway Patency, RR, SpO2: stable & adequate BP & HR: stable & adequate Hydration State: stable & adequate Anesthetic Complications: no major complications apparent and Pt Satisfied with anesthetic care
--- NOTE | 2021-11-08 17:14 | Fluoroscopy Report ---
[place] ERCP biliary ductal CLINICAL HISTORY: ERCP COMPARISON STUDY: CT of the abdomen and pelvis October 10, 2021. FLUOROSCOPY TIME: 3 minutes and 20 seconds. FLUOROSCOPIC IMAGES: 10 FINDINGS: Fluoroscopy was provided during ERCP. These images demonstrate cannulation of the common bi le duct as well as the main pancreatic duct. Filling defects within the cystic duct are noted. These could reflect gas bubbles or calculi. There is contrast extravasation from the remaining portion of t he gallbladder. Surgical drain is in place. There are suspected contrast within the drain. Subsequent images demonstrate placement of stents within the common bile duct and the main pancreatic duct. IMPRESSION: Fluoroscopy provided during ERCP. Images demonstrate contrast extravasation from remaini ng portions of the gallbladder. Placement of biliary and pancreatic stents. ACT 112: Negative or not required by law. Electronically signed by: Luis Vitale M.D. 11/08/2021 5:13 PM
--- NOTE | 2021-11-09 | Hospitalist Progress Note ---
Date of Service November 08, 2021 Assessment & Plan (1) Gangrenous cholecystitis: Plan: POD #2 s/p lap kurt for acalculous gangrenous cholecystitis. Entirety of gall bladder unable to be completely removed due to the severe nature of the gall bladder. Remains on zosyn IV with IVF. Unfortunately has developed a bile leak - see below. Appreciate all of gen surg efforts/assistance. NPO for ERCP today. Cont IVF at 75/hr. Diet advancement per gen surg/GI. (2) Bile leak, postoperative: Plan: [facility] GI to perform ERCP today with likely stent placement to contain the leak. Check LFTs in am. (3) Chest discomfort: Plan: On POD #1 developed b/l shoulder pain and left upper chest discomfort. May have been subdiaphragmatic irritation from insufflated air from his laparoscopy with referred pain. CTA chest yesterday without PE or other pathology to explain those symptoms. Trop was scantly elevated - peaked, quickly came down, and EKG w/o ischemic changes. echo - EF and wall motion wnl. Symptoms have not recurred. I did talk to him about outpatient stress test (+family history, chronic TELLEZ, etc). (4) Ureteropelvic junction calculus: Plan: 13mm stone at the UPJ on right. POD #4 - s/p cystoscopy with ureteral stent placement on right by Dr Gregg - yulisa preciate his assistance. urine cx neg and blood cx's neg. most recent CT a/p with properly positioned stent and unchanged position of stone; no other urological changes seen continue pain meds. continue supportive care. creatinine remains stable. (5) UTI (urinary tract infection): Plan: suspected but initial culture and repeat culture negative. remains on zosyn for #1 which will cover the urine easily. (6) Acute respiratory distress: Plan: developed such on 11/05/21 in the midst of fever/SIRS resolved. has not recurred. CTA chest without definitive PE (?SCOTT filling defect but felt to be artifactual per radiology) on 11/05/21 No acute CHF No acute pneumonia He has significant crowding of the right lung with atelectasis as a result of his right hemidiaphragmatic elevation repeat Chest CTA yesterday did NOT show any PE or other pathology (7) Hypercalcemia: Plan: resolved, transient total calcium level of 10.9 at time of admission. 1 scanned document from 12/2020 from his PCP's office showed normal calcium at that time. repeat total calcium levels since the initial one have been normal. intact PTH wnl. BMP today again wnl. 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 from several years ago also with this incentive sandro flutter valve (17) Multifocal atrial tachycardia: Plan: as seen on EKG on the day of his lap kurt nothing recurrent since on telemetry no a.fib or flutter seen monitor (18) Elevated troponin: Plan: likely myocardial demand ischemia in setting of his illness & surgery no evidence of ACS Plan: updated pt's by phone this evening once again needs PT/OT labs in am Admission and Anticipated Discharge Date Admission Date: November 03, 2021 Subjective patient developed recurrent RUQ pain overnight this am gen surg detected that his BAN drain showed bilious fluid he has not had any nausea/emesis is passing flatus but no stool yet tele overnight wnl ; no dysrhythmia Review of Systems Review of Systems: gen - no fever cv - no cp pulm - no dyspnea at rest GI - no RLQ abd pain - no hematuria Physical Exam Physical Exam: gen - obese, comfortable, awake/alert mouth - MMM neck - no JVD heart - RRR, s1 s2, no murmur lungs - minimal bilateral basilar dry rales unchanged; decreased BS right base; no wheezes; no increased work of breathing abd - mild-moderate distension, tender RUQ to palpation, BS+ ext - no edema, pulses 2+ b/l psych - awake, alert, oriented x 3 skin - no jaundice, abdominal wall incisions c/d/i Results & Data Results & Data ([facility]) Vital Signs (Past 12 Hours) Vital Signs Temp Pulse Pulse Resp BP BP Pulse Ox 11/08/21 22:30 36.5 C 58 L 18 157/89 H 94 11/08/21 18:56 36.6 C 58 L 18 139/69 97 11/08/21 17:56 36.8 C 58 L 20 142/78 H 92 11/08/21 17:05 36.4 C L 63 21 142/87 H 93 11/08/21 16:55 36.4 C L 69 23 146/87 H 93 11/08/21 16:45 75 24 130/84 95 11/08/21 16:35 72 22 144/88 H 94 11/08/21 16:26 36 C L 70 23 152/87 H 93 11/08/21 15:05 36.7 C 56 L 20 149/91 H 92 11/08/21 12:07 36.8 C 77 20 129/66 98 Laboratory Results Laboratory Results - last 24 hr 11/08/21 11/08/21 05:49 05:49 WBC 9.75 RBC 3.60 L Hgb 11.7 L Hct 36.1 L MCV 100.3 H MCH 32.5 MCHC 32.4 RDW Std Deviation 51.3 H RDW Coeff of Kalani 14.0 Plt Count 227 MPV 9.6 Sodium 143 Potassium 3.8 Chloride 107 Carbon Dioxide 33 H Anion Gap 3 BUN 18 Creatinine 0.74 Est Cr Clr Drug Dosing 99.6 Est GFR ( Amer) 101.7 Est GFR (Non-Af Amer) 87.7 BUN/Creatinine Ratio 24.3 H Glucose 94 Calcium 8.6 PG Care Time/CCT Total # of Minutes Spent Total Time Spent with Patient: Total time spent is greater than 50% in coordination of care (as documented) at patient's floor/unit and/or counseling patient: Coding Level of Care Code 87088 Subseq Hosp Care Lvl 2 Diagnoses Gangrenous cholecystitis K81.0 Chest discomfort R07.89 Ureteropelvic junction calculus N20.1 UTI (urinary tract infection) N39.0 Acute respiratory distress R06.03 Hypercalcemia E83.52 Hypertension I10 Irritable bowel syndrome with constipation K58.1 Gout M10.9 Liver cyst K76.89 Prostate cancer C61 MARIBEL (obstructive sleep apnea) G47.33 Macrocytosis D75.89 Vitamin B12 deficiency E53.8 Elevated hemidiaphragm J98.6 Multifocal atrial tachycardia I47.1 Elevated troponin R77.8 Bile leak, postoperative K91.89; K83.8
[2021-11-09 06:05] LABS: Hematocrit (blood only) 34.7 % (42-52); Hemoglobin 11.4 g/dL (14.0-18.0); Mean Corpuscular Hemoglobin 32.7 pg (25-34); Mean Corpuscular Hgb Conc 32.9 g/dL (32-36); Mean Corpuscular Volume 99.4 fL (80-100); Mean Platelet Volume 9.3 fL (7.4-10.4); Platelet Count 234 K/uL (130-400); RDW Coefficient of Variation 13.8 % (11.5-14.5); RDW Standard Deviation 49.5 fL (36.4-46.3); Red Blood Count 3.49 M/uL (4.7-6.1)
[2021-11-09 06:38] LABS: Albumin Globulin Ratio 1.1 (0.9-2); Albumin Level 2.5 gm/dl (3.4-5.0); Bilirubin,Total 0.5 mg/dl (0.2-1.0); Calcium 8.4 mg/dl (8.5-10.1); Creatinine Clr Calc Pharmacy 92.6 ml/min; Est GFR (Non-African American) 86.3 ml/min; Globulin 2.3 gm/dl (2.5-4.0); Phosphorus 3.5 mg/dl (2.5-4.9); Potassium 4.1 mmol/L (3.5-5.1); Total Protein 4.8 gm/dl (6.0-8.3)
[2021-11-09] MEDS: LACTATED RINGER'S 1,000 ML IV SCH (08:11)
[2021-11-09] MEDS: TAMSULOSIN HCL 0.4 MG CAP PO SCH (08:12)
[2021-11-09] MEDS: LINACLOTIDE 145 MCG CAPSULE PO SCH (08:12)
[2021-11-09] MEDS: CYANOCOBALAMIN (B-12) 500 MCG TABLET PO SCH (08:12)
[2021-11-09] MEDS: allopurinoL 300 MG TAB PO SCH (08:12)
[2021-11-09] MEDS: PIPERACILLIN/TAZOBACTAM 3.375 GM in DEXTROSE 5% 100 ML IV SCH ×2 (08:14→17:05)
[2021-11-09] MEDS: FAMOTIDINE 20 MG in SYRINGE 3 ML IV SCH ×2 (08:14→19:53)
--- NOTE | 2021-11-09 08:42 | Gastroenterology Progress Note ---
Date of Service November 09, 2021 Assessment & Plan (1) Bile leak, postoperative: Plan: 80 year old male s/p CCY for gangrenous cholecystitis s/p ERCP yesterday for bile leak, clinically improving, requesting diet No GI contraindication to advancing diet Repeat ERCP for stent removal in 8 weeks GI to sign off Thank you for allowing us to participate in the care of this patient. Please call with any acute changes, questions or concerns. Please see addendum below with additional recommendation from my supervising physician. Admission and Anticipated Discharge Date Admission Date: November 03, 2021 Supervising Physician Co-Signing Physician Notes s/p ercp yesterday PE - well nourished male in nad, abd soft ofelia drain with mild drainage labs reviewed agree with further plan of care. Subjective Feeling well s/p ERCP yesterday. Did initially have some discomfort, since resolved. Is pain free, denies nausea, vomiting. Is hungry. ERCP 2021: - A bile leak was found from the gallbladder remnant. - A biliary sphincterotomy was performed. - One plastic pancreatic stent was placed into the ventral pancreatic duct. - One plastic biliary stent was placed into the common bile duct. Review of Systems Review of Systems: All systems reviewed & are unremarkable except as noted in HPI & below Physical Exam Constitutional: WD/WN, vitals as above Respiratory: normal respiratory effort, lungs clear to auscultation Cardiovascular: RRR, no murmur, no edema Gastrointestinal (Abdomen): normal bowel sounds, soft, nontender, no hepatosplenomegaly Skin: no rashes, warm and dry Results & Data ([facility]) Vital Signs (Past 12 Hours) Vital Signs Temp Pulse Pulse Resp BP BP Pulse Ox 11/09/21 06:58 36.9 C 54 L 20 125/70 98 11/09/21 03:56 36.5 C 52 L 20 141/70 H 95 11/09/21 00:05 56 L 11/08/21 22:30 36.5 C 58 L 18 157/89 H 94 Laboratory Results 11/09/21 11/09/21 Range/Units 05:51 05:51 WBC 8.60 (4.8-10.8) K/uL RBC 3.49 L (4.7-6.1) M/uL Hgb 11.4 L (14.0-18.0) g/dL Hct 34.7 L (42-52) % MCV 99.4 (80-100) fL MCH 32.7 (25-34) pg MCHC 32.9 (32-36) g/dL RDW Std Deviation 49.5 H (36.4-46.3) fL RDW Coeff of Kalani 13.8 (11.5-14.5) % Plt Count 234 (130-400) K/uL MPV 9.3 (7.4-10.4) fL Sodium 144 (136-145) mmol/L Potassium 4.1 (3.5-5.1) mmol/L Chloride 108 H (98-107) mmol/L Carbon Dioxide 32 (21-32) mmol/L Anion Gap 4 (3-11) BUN 20 (6-23) mg/dl Creatinine 0.77 (0.6-1.4) mg/dl Est Cr Clr Drug Dosing 92.6 ml/min Est GFR ( Amer) 100.0 ml/min Est GFR (Non-Af Amer) 86.3 ml/min BUN/Creatinine Ratio 26.0 H (10-20) Glucose 104 H (70-99(Fasting)) mg/dl Calcium 8.4 L (8.5-10.1) mg/dl Phosphorus 3.5 (2.5-4.9) mg/dl Magnesium 2.0 (1.7-2.4) mg/dl Total Bilirubin 0.5 (0.2-1.0) mg/dl AST 13 (13-39) U/L ALT 14 (7-52) U/L Alkaline Phosphatase 43 (34-104) U/L Total Protein 4.8 L (6.0-8.3) gm/dl Albumin 2.5 L (3.4-5.0) gm/dl Globulin 2.3 L (2.5-4.0) gm/dl Albumin/Globulin Ratio 1.1 (0.9-2)
--- NOTE | 2021-11-09 09:00 | Surgery Progress Note ---
Date of Service November 09, 2021 Assessment & Plan (1) Gangrenous cholecystitis: Plan: POD 1 ERCP POD 3 lap kurt/fenestration WBC 8 continue BAN begin advancing diet seen with Dr. Ohara Admission and Anticipated Discharge Date Admission Date: November 03, 2021 Supervising Physician Co-Signing Physician Notes I personally saw and evaluated the patient with Miguel Angel Dejesus PA-C and agree with the assessment and plan. 80-year-old male with acute acalculous gangrenous cholecystitis, status post laparoscopic fenestrated cholecystectomy and ERCP for bile leak Advance diet as tolerated Monitor drain output and character He is stable status post laparoscopic fenestrated cholecystectomy and ERCP We will continue to follow Subjective no complaints, hungry Physical Exam Gastrointestinal (Abdomen): Inspection/Auscultation: + abdominal surgical incision (clean, dry) and + abdominal surgical drain present (25 cc overnight, bilious) Results & Data ([facility]) Vital Signs (Past 12 Hours) Vital Signs Temp Pulse Pulse Resp BP BP Pulse Ox 11/09/21 06:58 36.9 C 54 L 20 125/70 98 11/09/21 03:56 36.5 C 52 L 20 141/70 H 95 11/09/21 00:05 56 L 11/08/21 22:30 36.5 C 58 L 18 157/89 H 94 PG Care Time/CCT Total # of Minutes Spent Total Time Spent with Patient: Total time spent is greater than 50% in coordination of care (as documented) at patient's floor/unit and/or counseling patient: Coding Level of Care Code None Diagnoses Gangrenous cholecystitis K81.0
--- NOTE | 2021-11-09 14:26 | Hospitalist Progress Note ---
Date of Service November 09, 2021 Assessment & Plan (1) Gangrenous cholecystitis: Plan: S/p lap kurt for acalculous gangrenous cholecystitis on 11/[address] Ohara. Entirety of gall bladder unable to be completely removed due to the severe nature of the gall bladder. - Remains on zosyn IV with IVF. - Unfortunately has developed a bile leak - see below. - S/p ERCP with Dr. Anne on 11/08 with 2 stents placed. Plan to remove them in 8 weeks. Advancing diet as able. (2) Bile leak, postoperative: Plan: S/p ERCP with likely stent placement to contain the leak. - Check LFTs in am. (3) Chest discomfort: Plan: On POD #1 developed b/l shoulder pain and left upper chest discomfort. May have been subdiaphragmatic irritation from insufflated air from his laparoscopy with referred pain. CTA chest without PE or other pathology to explain those symptoms. Trop was scantly elevated - peaked, quickly came down, and EKG w/o ischemic changes. Echo - EF and wall motion wnl. - Can consider outpatient stress test (+family history, chronic TELLEZ, etc) with PCP. (4) Ureteropelvic junction calculus: Plan: 13mm stone at the UPJ on right. S/p cystoscopy with ureteral stent placement on right by Dr Gregg on 11/04 - appreciate his assistance. urine cx neg and blood cx's neg. most recent CT a/p with properly positioned stent and unchanged position of stone; no other urological changes seen continue pain meds. continue supportive care. creatinine remains stable. (5) UTI (urinary tract infection): Plan: suspected but initial culture and repeat culture negative. remains on zosyn for #1 which will cover the urine easily. (6) Acute respiratory distress: Plan: developed such on 11/05/21 in the midst of fever/SIRS resolved. has not recurred. (7) Hypercalcemia: Plan: Resolved, transient. Total calcium level of 10.9 at time of admission. 1 scanned document from 12/2020 from his PCP's office showed normal calcium at that time. repeat total calcium levels since the initial one have been normal. intact PTH wnl. BMP today again wnl. (8) Hypertension: Plan: BP today is 145/80. - Cont to hold lisinopril -> Will restart tomorrow if he is tolerating diet. (9) Irritable bowel syndrome with constipation: Plan: Hold Linzess (10) Gout: Plan: Cont allopurinol (11) Liver cyst: Plan: Can be followed with serial imaging studies as outpatient (12) Prostate cancer: Plan: noted history of (13) MARIBEL (obstructive sleep apnea): Plan: cont BIPAP from home HS (14) Macrocytosis: Plan: folate wnl b12 deficient - see below (15) Vitamin B12 deficiency: Plan: likely the cause of anemia. 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 Minimal pain. Drain has some bilious drainage. Hungry. Reports no fevers/chills, chest pain, shortness of breath, nausea, or vomiting. Physical Exam Constitutional: WD/WN, vitals as above Eyes: EOM intact bilaterally; no conjunctival abnormality ENMT: external ear and nose normal, oropharynx normal Neck: trachea midline, no thyromegaly normal visual inspection Respiratory: normal respiratory effort, lungs clear to auscultation no respiratory distress Cardiovascular: RRR, no murmur, no edema Gastrointestinal (Abdomen): Inspection/Auscultation: + abdominal surgical incision and + abdominal surgical drain present; abdomen not distended Percussion/Palpation: abdomen soft; abdomen nontender, no guarding and abdomen not rigid Musculoskeletal: no cyanosis or clubbing, extremities motor strength 5/5 Skin: no rashes, warm and dry Neurologic: moves all extremities and awake Psychiatric: Orientation: alert, oriented to person and cooperative Results & Data Results & Data ([facility]) Vital Signs (Past 12 Hours) Vital Signs Temp Pulse Pulse Resp BP Pulse Ox 11/09/21 11:07 36.9 C 51 L 18 144/81 H 96 05/03/22 06:58 36.9 C 54 L 20 125/70 98 11/09/21 06:13 52 L 11/09/21 03:56 36.5 C 52 L 20 141/70 H 95 PG Care Time/CCT Total # of Minutes Spent Total Time Spent with Patient: Total time spent is greater than 50% in coordination of care (as documented) at patient's floor/unit and/or counseling patient: Coding Level of Care Code 46632 Subseq Hosp Care Lvl 3 Diagnoses Gangrenous cholecystitis K81.0 Bile leak, postoperative K91.89; K83.8 Chest discomfort R07.89 Ureteropelvic junction calculus N20.1 UTI (urinary tract infection) N39.0 Acute respiratory distress R06.03 Hypercalcemia E83.52 Hypertension I10 Irritable bowel syndrome with constipation K58.1 Gout M10.9 Liver cyst K76.89 Prostate cancer C61 MARIBEL (obstructive sleep apnea) G47.33 Macrocytosis D75.89 Vitamin B12 deficiency E53.8 Elevated hemidiaphragm J98.6 Multifocal atrial tachycardia I47.1 Elevated troponin R77.8
[2021-11-09] MEDS: ACETAMINOPHEN 500 MG TAB PO PRN (21:29)
[2021-11-09] MEDS ORDERED: PANTOprazole 40 MG in SYRINGE 0 ML IV ONE (22:00)
[2021-11-10] MEDS: PIPERACILLIN/TAZOBACTAM 3.375 GM in DEXTROSE 5% 100 ML IV SCH ×4 (00:11→23:59)
[2021-11-10 07:19] LABS: Hematocrit (blood only) 38.1 % (42-52); Hemoglobin 12.4 g/dL (14.0-18.0); Mean Corpuscular Hemoglobin 32.7 pg (25-34); Mean Corpuscular Hgb Conc 32.5 g/dL (32-36); Mean Corpuscular Volume 100.5 fL (80-100); Mean Platelet Volume 9.4 fL (7.4-10.4); Platelet Count 309 K/uL (130-400); RDW Coefficient of Variation 14.2 % (11.5-14.5); RDW Standard Deviation 51.7 fL (36.4-46.3); Red Blood Count 3.79 M/uL (4.7-6.1); White Blood Count 8.07 K/uL (4.8-10.8)
[2021-11-10 07:42] LABS: Albumin Globulin Ratio 1.1 (0.9-2); Albumin Level 2.7 gm/dl (3.4-5.0); BUN Creatinine Ratio 18.3 (10-20); Bilirubin,Total 0.7 mg/dl (0.2-1.0); Calcium 8.4 mg/dl (8.5-10.1); Creatinine Clr Calc Pharmacy 91.5 ml/min; Est GFR (African American) 97.5 ml/min; Est GFR (Non-African American) 84.1 ml/min; Globulin 2.4 gm/dl (2.5-4.0); Potassium 3.5 mmol/L (3.5-5.1); Total Protein 5.1 gm/dl (6.0-8.3)
[2021-11-10] MEDS: LINACLOTIDE 145 MCG CAPSULE PO SCH (08:13)
[2021-11-10] MEDS: allopurinoL 300 MG TAB PO SCH (08:13)
[2021-11-10] MEDS: TAMSULOSIN HCL 0.4 MG CAP PO SCH (08:13)
[2021-11-10] MEDS: CYANOCOBALAMIN (B-12) 500 MCG TABLET PO SCH (08:13)
[2021-11-10] MEDS: FAMOTIDINE 20 MG in SYRINGE 3 ML IV SCH ×2 (08:17→20:50)
[2021-11-10] MEDS ORDERED: oxyCODONE/ACETAMINOPHEN 5mg/325mg TAB PO PRN ×2 (08:58)
--- NOTE | 2021-11-10 09:00 | Surgery Progress Note ---
Date of Service November 10, 2021 Assessment & Plan (1) Gangrenous cholecystitis: Plan: POD 2 ERCP POD 4 lap kurt/fenestration continue BAN until less than 40 cc/day advance diet seen with Dr. Ohara Admission and Anticipated Discharge Date Admission Date: November 03, 2021 Supervising Physician Co-Signing Physician Notes I personally saw and evaluated the patient with Miguel Angel Dejesus PA-C and agree with the assessment and plan. 80-year-old male with acute acalculous gangrenous cholecystitis, status post laparoscopic fenestrated cholecystectomy and ERCP for bile leak Advance diet as tolerated Monitor drain output and character He is recovering well, if he tolerates his diet today we will he stable for discharge from a surgical standpoint We will leave drain in place until output is less than 35 mL in a 24-hour period. We will continue to follow Subjective multiple BMs, some pain last night, on clears Physical Exam Gastrointestinal (Abdomen): Inspection/Auscultation: + abdominal surgical drain present (10 cc overnight); abdomen not distended Results & Data ([facility]) Vital Signs (Past 12 Hours) Vital Signs Temp Pulse Pulse Resp BP BP Pulse Ox 11/10/21 07:57 36.6 C 62 20 149/60 H 97 11/10/21 03:55 36.4 C L 53 L 18 159/85 H 96 11/10/21 00:18 56 L 11/09/21 23:03 36.7 C 57 L 18 150/80 H 92 PG Care Time/CCT Total # of Minutes Spent Total Time Spent with Patient: Total time spent is greater than 50% in coordination of care (as documented) at patient's floor/unit and/or counseling patient: Coding Level of Care Code None Diagnoses Gangrenous cholecystitis K81.0
--- NOTE | 2021-11-10 13:59 | Hospitalist Progress Note ---
Date of Service November 10, 2021 Assessment & Plan (1) Gangrenous cholecystitis: Plan: S/p lap kurt for acalculous gangrenous cholecystitis on 11/[address] Ohara. Entirety of gall bladder unable to be completely removed due to the severe nature of the gall bladder. - Remains on Zosyn IV. - Unfortunately has developed a bile leak - see below. - S/p ERCP with Dr. Anne on 11/08 with 2 stents placed. Plan to remove them in 8 weeks. Advanced diet to low fiber today per surgery. Likely discharge home tomorrow with HH and close surgery follow-up. (2) Bile leak, postoperative: Plan: S/p ERCP with likely stent placement to contain the leak. - Improving; drain seems to be outputting less. Surgery will remove when it is <60 mL/day. (3) Chest discomfort: Plan: On POD #1 developed b/l shoulder pain and left upper chest discomfort. May have been subdiaphragmatic irritation from insufflated air from his laparoscopy with referred pain. CTA chest without PE or other pathology to explain those symptoms. Trop was scantly elevated - peaked, quickly came down, and EKG w/o ischemic changes. Echo - EF and wall motion wnl. - Can consider outpatient stress test (+family history, chronic TELLEZ, etc) with PCP. (4) Ureteropelvic junction calculus: Plan: 13mm stone at the UPJ on right. S/p cystoscopy with ureteral stent placement on right by Dr Gregg on 11/04 - appreciate his assistance. urine cx neg and blood cx's neg. most recent CT a/p with properly positioned stent and unchanged position of stone; no other urological changes seen continue pain meds. continue supportive care. creatinine remains stable. -> outpatient follow up. (5) UTI (urinary tract infection): Plan: suspected but initial culture and repeat culture negative. remains on zosyn for #1 which will cover the urine easily. (6) Acute respiratory distress: Plan: developed such on 11/05/21 in the midst of fever/SIRS resolved. has not recurred. (7) Hypercalcemia: Plan: Resolved, transient. Total calcium level of 10.9 at time of admission. 1 scanned document from 12/2020 from his PCP's office showed normal calcium at that time. repeat total calcium levels since the initial one have been normal. intact PTH wnl. BMP today again wnl. (8) Hypertension: Plan: BP today is 130/60. - Restart lisinopril (9) Irritable bowel syndrome with constipation: Plan: Hold Linzess (10) Gout: Plan: Cont allopurinol (11) Liver cyst: Plan: Can be followed with serial imaging studies as outpatient (12) Prostate cancer: Plan: noted history of (13) MARIBEL (obstructive sleep apnea): Plan: Cont BIPAP from home HS (14) Macrocytosis: Plan: folate wnl b12 deficient - see below (15) Vitamin B12 deficiency: Plan: likely the cause of anemia. started Vitamin B12 1000mcg daily will need Rx for 1 year (16) Elevated hemidiaphragm: Plan: RIGHT sided chronic previous cxr from several years ago also with this incentive sandro flutter valve (17) Multifocal atrial tachycardia: Plan: as seen on EKG on the day of his lap kurt nothing recurrent since on telemetry no a.fib or flutter seen monitor (18) Elevated troponin: Plan: likely myocardial demand ischemia in setting of his illness & surgery no evidence of ACS Admission and Anticipated Discharge Date Admission Date: November 03, 2021 Subjective Doing great today. Have some BMs and doing well. Reports no fevers/chills, chest pain, shortness of breath, abdominal pain, nausea, or vomiting. Physical Exam Constitutional: WD/WN, vitals as above Eyes: EOM intact bilaterally; no conjunctival abnormality ENMT: external ear and nose normal, oropharynx normal Neck: trachea midline, no thyromegaly normal visual inspection Respiratory: normal respiratory effort, lungs clear to auscultation no respiratory distress Cardiovascular: RRR, no murmur, no edema Gastrointestinal (Abdomen): Inspection/Auscultation: + abdominal surgical incision and + abdominal surgical drain present; abdomen not distended Percussion/Palpation: abdomen soft; abdomen nontender, no guarding and abdomen not rigid Musculoskeletal: no cyanosis or clubbing, extremities motor strength 5/5 Skin: no rashes, warm and dry Neurologic: moves all extremities and awake Psychiatric: Orientation: alert, oriented to person and cooperative Results & Data Results & Data ([facility]) Vital Signs (Past 12 Hours) Vital Signs Temp Pulse Pulse Resp BP BP Pulse Ox 11/10/21 12:00 36.7 C 65 16 127/60 97 11/10/21 07:57 36.6 C 62 20 149/60 H 97 11/10/21 06:13 55 L 11/10/21 03:55 36.4 C L 53 L 18 159/85 H 96 PG Care Time/CCT Total # of Minutes Spent Total Time Spent with Patient: Total time spent is greater than 50% in coordination of care (as documented) at patient's floor/unit and/or counseling patient: Coding Level of Care Code 56983 Subseq Hosp Care Lvl 2 Diagnoses Gangrenous cholecystitis K81.0 Bile leak, postoperative K91.89; K83.8 Chest discomfort R07.89 Ureteropelvic junction calculus N20.1 UTI (urinary tract infection) N39.0 Acute respiratory distress R06.03 Hypercalcemia E83.52 Hypertension I10 Irritable bowel syndrome with constipation K58.1 Gout M10.9 Liver cyst K76.89 Prostate cancer C61 MARIBEL (obstructive sleep apnea) G47.33 Macrocytosis D75.89 Vitamin B12 deficiency E53.8 Elevated hemidiaphragm J98.6 Multifocal atrial tachycardia I47.1 Elevated troponin R77.8
[2021-11-11] MEDS: PIPERACILLIN/TAZOBACTAM 3.375 GM in DEXTROSE 5% 100 ML IV SCH (07:48)
[2021-11-11] MEDS: FAMOTIDINE 20 MG in SYRINGE 3 ML IV SCH (07:50)
[2021-11-11] MEDS: allopurinoL 300 MG TAB PO SCH (07:54)
[2021-11-11] MEDS: LINACLOTIDE 145 MCG CAPSULE PO SCH (07:55)
[2021-11-11] MEDS: CYANOCOBALAMIN (B-12) 500 MCG TABLET PO SCH (07:55)
[2021-11-11] MEDS: TAMSULOSIN HCL 0.4 MG CAP PO SCH (07:56)
--- NOTE | 2021-11-11 09:44 | Surgery Progress Note ---
Date of Service November 11, 2021 Assessment & Plan (1) Gangrenous cholecystitis: Plan: POD 3 ERCP POD 5 lap kurt/fenestration tolerating diet. pain controlled per RN drain put out 40cc overnight, will likely keep in place and can f/u in clinic when <35cc over 24 hours f/u in clinic with Dr. Ohara in 1-2 weeks otherwise okay for discharge Admission and Anticipated Discharge Date Admission Date: November 03, 2021 Supervising Physician Co-Signing Physician Notes I personally saw and evaluated the patient with Tiffany Richard PA-C and agree with the assessment and plan. 80-year-old male with acute acalculous gangrenous cholecystitis, status post laparoscopic fenestrated cholecystectomy and ERCP for bile leak Continue diet as tolerated Monitor drain output and character Stable for discharge from a surgical standpoint We will leave drain in place upon discharge and have him follow-up with me next week to evaluate for removal We will continue to follow Subjective Patient feeling well. Tolerating a diet. Pain is controlled. No nausea. Physical Exam Physical Exam: awake/alert Gastrointestinal (Abdomen): Inspection/Auscultation: + abdomen distended and + abdominal surgical incision (c/d/i with steri strips) Percussion/Palpation: abdomen soft BAN drain bilious Results & Data ([facility]) Vital Signs (Past 12 Hours) Vital Signs Temp Pulse Pulse Resp BP BP Pulse Ox 11/11/21 08:51 62 11/11/21 07:40 36.6 C 65 20 172/93 H 95 11/11/21 03:00 36.5 C 55 L 22 165/79 H 93 11/10/21 22:52 57 L 11/10/21 22:49 36.4 C L 64 18 153/83 H 92 PG Care Time/CCT Total # of Minutes Spent Total Time Spent with Patient: Total time spent is greater than 50% in coordination of care (as documented) at patient's floor/unit and/or counseling patient: Coding Level of Care Code None Diagnoses Gangrenous cholecystitis K81.0
--- NOTE | 2021-11-11 18:26 | Discharge Summary ---
Date of Service November 11, 2021 Principal Diagnosis Gangrenous cholecystitis Discharge Exam gen - obese, comfortable, awake/alert mouth - MMM neck - no JVD heart - RRR, s1 s2, no murmur lungs - minimal bilateral basilar dry rales unchanged; decreased BS right base; no wheezes; no increased work of breathing abd - mild-moderate distension, tender RUQ to palpation, BS+ ext - no edema, pulses 2+ b/l psych - awake, alert, oriented x 3 skin - no jaundice, abdominal wall incisions c/d/i Constitutional WD/WN, vitals as above Eyes EOM intact bilaterally; no conjunctival abnormality ENMT external ear and nose normal, oropharynx normal Neck trachea midline, no thyromegaly normal visual inspection Respiratory normal respiratory effort, lungs clear to auscultation no respiratory distress Cardiovascular RRR, no murmur, no edema Gastrointestinal (Abdomen) Inspection/Auscultation: + abdominal surgical incision and + abdominal surgical drain present; abdomen not distended Percussion/Palpation: abdomen soft; abdomen nontender, no guarding and abdomen not rigid Musculoskeletal no cyanosis or clubbing, extremities motor strength 5/5 Skin no rashes, warm and dry Neurologic moves all extremities and awake Psychiatric Orientation: alert, oriented to person and cooperative Discharge Data Allergies Allergy/AdvReac Type Severity Reaction Status Date / Time No Known Allergies Allergy Verified 11/03/21 01:22 Consultations 11/03/21 03:42 ED Decision to Admit Stat 11/03/21 03:43 Consult Urology Routine 11/05/21 19:07 Consult General Surgery Routine 11/08/21 10:30 Consult Gastroenterology Routine Procedures Performed Operation Date: 11/04/21 09:15 Actual Procedures p Cystoscopy, Right Retrograde Pyelogram, Right Stent Insertion(Right) - Pradip Gregg MD Operation Date: 11/06/21 15:00 Actual Procedures p Laparoscopic Fenestrated Cholecystectomy(Not Applicable) - Akin Ohara DO Operation Date: 11/08/21 14:15 Actual Procedures p Endoscopic Retrograde Cholangiopancreato - Alex Anne MD Ordered Studies 11/02/21 23:46 CT abd pelvis IV con only Urgent 11/02/21 23:53 US gallbladder Urgent 11/04/21 09:22 FL retrograde includes kub Routine 11/05/21 16:00 CT angio chest PE protocol Stat 11/06/21 08:18 CT abd pelvis IV con only Stat 11/07/21 12:42 CT angio chest PE protocol Routine 11/08/21 15:39 FL ERCP biliary ductal Routine Hospital Course (1) Gangrenous cholecystitis: S/p lap kurt for acalculous gangrenous cholecystitis on 11/[address] Ohara. Entirety of gall bladder unable to be completely removed due to the severe nature of the gall bladder. -- Unfortunately has developed a bile leak - see below. - S/p ERCP with Dr. Anne on 11/08 with 2 stents placed. Plan to remove them in 8 weeks. discharged on Augmentin will follow with GI Advanced diet to low fiber today per surgery. Likely discharge home tomorrow with and close surgery follow-up. (2) Bile leak, postoperative: S/p ERCP with likely stent placement to contain the leak. - Improving; drain seems to be outputting less. Surgery will remove when it is <60 mL/day. (3) Chest discomfort: developed b/l shoulder pain and left upper chest discomfort. May have been subdiaphragmatic irritation from insufflated air from his laparoscopy with referred pain. CTA chest without PE or other pathology to explain those symptoms. Trop was scantly elevated - peaked, quickly came down, and EKG w/o ischemic changes. Echo - EF and wall motion wnl. - Can consider outpatient stress test (+family history, chronic TELLEZ, etc) with PCP. (4) Ureteropelvic junction calculus: 13mm stone at the UPJ on right. S/p cystoscopy with ureteral stent placement on right by Dr Gregg on 11/04 - appreciate his assistance. urine cx neg and blood cx's neg. most recent CT a/p with properly positioned stent and unchanged position of stone; no other urological changes seen continue pain meds. continue supportive care. creatinine remains stable. -> outpatient follow up. (5) UTI (urinary tract infection): suspected but initial culture and repeat culture negative. remains on zosyn for #1 which will cover the urine easily. (6) Acute respiratory distress: developed such on 11/05/21 in the midst of fever/SIRS resolved. has not recurred. (7) Hypercalcemia: Resolved, transient. Total calcium level of 10.9 at time of admission. 1 scanned document from 12/2020 from his PCP's office showed normal calcium at that time. repeat total calcium levels since the initial one have been normal. intact PTH wnl. BMP today again wnl. (8) Hypertension: BP today is 130/60. - Restart lisinopril (9) Irritable bowel syndrome with constipation: Hold Linzess (10) Gout: Cont allopurinol (11) Liver cyst: Can be followed with serial imaging studies as outpatient (12) Prostate cancer: noted history of (13) MARIBEL (obstructive sleep apnea): Cont BIPAP from home HS (14) Macrocytosis: folate wnl b12 deficient - see below (15) Vitamin B12 deficiency: likely the cause of anemia. 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 also with this incentive sandro flutter valve (17) Multifocal atrial tachycardia: as seen on EKG on the day of his lap kurt nothing recurrent since on telemetry no a.fib or flutter seen monitor (18) Elevated troponin: likely myocardial demand ischemia in setting of his illness & surgery no evidence of ACS Total Time Total Time Spent Total Time Spent (In Minutes): 45 min Discharge Plan Discharge Items Patient Disposition: Home - Self-Care Reason For Visit: NEPHROLITHIASIS Discharge Diagnosis: Gangrenous acute cholecystitis, B12 deficiency Condition on Discharge: Fair Activity: Per Instructions section Lifting: No more than 10 pounds Bathing Comment: may shower; no soaking in tubs/pools Exercise/Sports: Wait until after follow-up appointment Driving/Machine Use: no driving while taking narcotics for pain Non-emergency contact: Surgeon Call non-emergency contact if: you have any medication questions Follow-up/Referrals: Rikki Mcgowan MD [Physician] - 11/15/21 11:20 am Akin Ohara DO [Physician] - (Please follow up in clinic next Monday11/17/[address] Ohara for drain removal) Bobby Diaz PA-C [Primary Care Provider] - Diet: Heart Healthy Addtl Attending Provider Instructions: Please Addtl [employer] Provider Instructions: Please call the urology office at [phone] with any questions, concerns or to reschedule appointments for any reason. We are happy to assist you. While you have a ureteral stent in place: Some discomfort is normal. Certain movements may trigger pain or a feeling that you need to urinate. You may also feel mild soreness or pressure before or during urination. These symptoms should go away a few days after the stent is removed. Your urine may be slightly pink or red. This is due to bleeding caused by minor irritation from the stent. This may happen on and off while you have the stent, it is not harmful and is to be expected. Medication to help minimize stent discomfort or bladder spasms. Take this as directed. Drink plenty of fluids to help flush out your urinary tract. When to call [facility] at [phone]: Your urine contains heavy blood clots or you are unable to urinate. Fever of 101F or higher, chills, nausea, or vomiting Your pain is not relieved with medication You will be discharged with your surgical drain in place. Empty drain 2-3x/day and record output. Please follow up in clinic with Dr. Ohara next 11/17/21, for drain removal. Pending Studies at Discharge: Yes Studies:: surgical pathology Stand-Alone Forms: My [facility] CD Diagnostics, Smoking Cessation Medications and DC Order Prescriptions: New tamsulosin 0.4 mg Capsule 0.4 mg PO DAILY Qty: 30 RF: 0 cyanocobalamin (vitamin B-12) 500 mcg Tablet 1,000 mcg PO QAM Qty: 90 RF: 0 amoxicillin-pot clavulanate 875-125 mg tablet 1 tab PO BID Qty: 20 RF: 0 Continued allopurinol 300 mg Tablet 300 mg PO QAM RF: 0 Linzess 145 mcg Capsule 145 mcg PO QAM RF: 0 lisinopril 10 mg Tablet 10 mg PO QAM RF: 0 Discharge Orders: Discharge Order (Routine); Ordered 11/11/21 Ordered By: Steve Melvin/Other Patient Handouts: Low-Fat Cooking Tips, Adding Flavor to Low-Fat Meals Admission Data Admit Date/Time: 11/03/21 04:15 Attending Provider: Steve Lozano Admit Provider: Darian Lal Primary Care Provider: Bobby Diaz Other Providers: Rikki Mcgowan ; Akin Ohara ; Alex Anne ; Randal Phillips Other Interventions: Discharge Summary Assessment (RN) Last Done: 11/11/21 15:22 Coding Level of Care Code D/C DAY MANAGEMENT >30 MINS Diagnoses Gangrenous cholecystitis K81.0 Bile leak, postoperative K91.89; K83.8 Chest discomfort R07.89 Ureteropelvic junction calculus N20.1 UTI (urinary tract infection) N39.0 Acute respiratory distress R06.03 Hypercalcemia E83.52 Hypertension I10 Irritable bowel syndrome with constipation K58.1 Gout M10.9 Liver cyst K76.89 Prostate cancer C61 MARIBEL (obstructive sleep apnea) G47.33 Macrocytosis D75.89 Vitamin B12 deficiency E53.8 Elevated hemidiaphragm J98.6 Multifocal atrial tachycardia I47.1 Elevated troponin R77.8
== END 2021-11-11 16:13 | disposition home or self-care (01) | DRG 660 ==
LOC: ED 23:29 → SUATTDRO 11-03 04:15 → 3N 11-03 04:15 → 2S 11-06 14:53

== ENCOUNTER 2022-02-12 15:55 | Inpatient (IN) ==
[2022-02-12 16:15] LABS: Basophils # (auto) 0.01 K/uL (0-0.2); Basophils % (auto) 0.2 %; Eosinophils # (auto) 0.03 K/uL (0-0.50); Eosinophils % (auto) 0.5 %; Hematocrit (blood only) 44.3 % (40.1-51.0); Hemoglobin 14.4 g/dl (14.0-18.0); Immature Granulocytes # (auto) 0.04 K/uL (0.00-0.02); Immature Granulocytes % (auto) 0.6 %; Lymphocytes # (auto) 0.86 K/uL (1.2-3.4); Lymphocytes % (auto) 13.5 %; Mean Corpuscular Hemoglobin 32.2 pg (25.0-34.0); Mean Corpuscular Hgb Conc 32.5 g/dL (32.0-36.0); Mean Corpuscular Volume 99.1 fL (80.0-100.0); Mean Platelet Volume 8.6 fL (9.4-12.4); Monocytes # (auto) 0.83 K/uL (0.24-0.82); Monocytes % (auto) 13.1 %; Neutrophils # (auto) 4.59 K/uL (1.4-6.5); Neutrophils % (auto) 72.1 %; Platelet Count 210 K/uL (130-400); RDW Coefficient of Variation 13.5 % (11.5-14.5); RDW Standard Deviation 49.9 fL (36.4-46.3); Red Blood Count 4.47 M/uL (4.63-6.08); White Blood Count 6.36 K/ul (4.8-10.8)
[2022-02-12 16:35] LABS: Albumin Globulin Ratio 1.3 (0.9-2); Albumin Level 3.8 gm/dl (3.4-5.0); BUN Creatinine Ratio 14.7 (10-20); Bilirubin,Total 0.7 mg/dl (0.2-1.0); Calcium 9.7 mg/dl (8.5-10.1); Creatinine Clr Calc Pharmacy 61.5 ml/min; Est GFR (African American) 68.6 ml/min; Est GFR (Non-African American) 59.1 ml/min; Total Protein 6.8 gm/dl (6.0-8.3)
--- NOTE | 2022-02-12 16:40 | Emergency Department Note ---
History of Present Illness General Chief complaint: Rib Injury/Pain Stated complaint: RIB PAIN, JUST HAD STENT TAKEN OUT Time Seen by Provider: 02/12/22 16:21 Source: patient, family ( who is at the bedside), RN notes reviewed and old records reviewed Mode of arrival: ambulatory Limitations: no limitations History of Present Illness Maximum Pain Intensity: 9 This patient comes in after complaint of right upper quadrant/flank/right lower chest pain since Monday evening. His gallbladder was removed by Dr. Ohara on November 04. He subsequently had EGD with a stent in place which was removed by Dr. Inocencia Dahl on February 01. He was doing fine until Monday. He says that he has pain it hurts with movement and breathing. No shortness of breath or cough he questionably felt warm at home but no documented fever. Occasional nausea. No emesis. No chest pain or shortness of breath he has had no blood in his stool. He had negative stress test done on July 31 according to . He has had diarrhea for the last couple weeks Home Medications Medication Instructions Recorded Confirmed Type allopurinol 300 mg tablet 300 mg PO QAM 09/24/18 02/12/22 History linaclotide 145 mcg capsule 145 mcg PO QAM 09/24/18 02/12/22 History (Linzess) lisinopril 10 mg tablet 10 mg PO QAM 09/24/18 02/12/22 History cyanocobalamin (vitamin B-12) 500 1,000 mcg PO QAM #90 tabs 11/11/21 02/12/22 Rx mcg tablet tamsulosin 0.4 mg capsule 0.4 mg PO QAM 11/22/21 02/12/22 History Allergies Allergy/AdvReac Type Severity Reaction Status Date / Time No Known Allergies Allergy Verified 02/12/22 18:09 Past Med/Surg History Medical History Cardiac murmur FOLLOWS WITH PCP FOR MURMUR 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 Diverticular disease Hearing deficit Kidney stones Liver cyst Right kidney stone Surgical History History of colonoscopy History of lithotripsy History of prostate biopsy malignant History of tonsillectomy and adenoidectomy History of tooth extraction S/P cholecystectomy 10/2021 Family History Other No family history of adverse response to anesthesia Social History Smoking Status: Never smoker Tobacco Type: Cigarettes Second Hand Exposure: No; Hx Alcohol Use: Yes Alcohol type: beer Hx Substance Use: No Preferred Language: Divehi Communication Ability: Effective 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 Feels Safe at Home: Yes Assistive Devices: Glasses and Hearing Aid - Bilateral Review of Systems A total of 10 systems reviewed and were otherwise negative Physical Exam Vital Signs Vital Signs - 24 hr 02/12/22 15:59 02/12/22 18:23 Temperature 36.8 C Temperature Source Temporal Artery Scan Pulse Rate 84 Pulse Rate [Radial] 62 Respiratory Rate 20 16 Respiratory Effort / Characteristics Non-Labored Respiratory Depth Normal Blood Pressure 106/79 Blood Pressure [Right Arm] 112/61 Blood Pressure Mean 88 Blood Pressure Mean [Right Arm] 78 Blood Pressure Position [Right Arm] Lying Pulse Oximetry 93 94 Oxygen Delivery Method Room Air Room Air Sepsis Recent Fever Within 48 Hours No Sepsis New/Unexplained Change in Mental Status N/A Sepsis Action Taken by Nursing No Action Required General: Well developed well nourished older male who appears in no acute distress, breathing comfortably on room air. Normal speech HEENT: Normal cephalic atraumatic. Pupils are equal round and reactive to light. Sclera anicteric. extraocular movements are intact. Oropharynx is pink with moist mucous membranes. No swelling of the mouth lips or tongue. Neck: Supple with a midline trachea. No meningeal signs or stiffness, no JVD or bruits. No Stridor. Chest: Clear to auscultation bilaterally. No wheezes or rhonchi. No increased work of breathing. Heart: Regular rate and rhythm without murmurs or gallops. Abdomen: Soft, mildly tender in the right upper quadrant and into the right lower chest. No rash. Nondistended without rebound guarding or rigidity. Extremities: No cyanosis clubbing or edema. No calf tenderness or assymetry Spine/Back. Non tender to palpation. No CVA tenderness Skin: Good turgor without rashes. Neurologic exam: Cranial nerves two through 12 are intact. Motor and sensation are intact and symmetrical throughout. Course Administered Medications Sodium Chloride (Nss) 500 mls @ 125 mls/hr IV .Q4H GWEN Stop: 03/14/22 18:44 Last Admin: 02/12/22 19:23 Dose: 125 mls/hr Documented By: MICHELLE Discontinued Medications Piperacillin Sod/Tazobactam Sod (Zosyn) 4.5 gm in 120 mls @ 240 mls/hr IV NOW ONE Stop: 02/12/22 18:44 Last Infusion: 02/12/22 18:56 Dose: 0 mls/hr Documented By: Admin: 02/12/22 18:25 Dose: 240 mls/hr Documented By: AYAKA Sodium Chloride (Nss 1000ml) 250 mls @ 999 mls/hr IV .Q16M ONE Stop: 02/12/22 18:47 Last Infusion: 02/12/22 19:18 Dose: 0 mls/hr Documented By: Admin: 02/12/22 18:45 Dose: 999 mls/hr Documented By: AYAKA Medical Decision Making Differential Diagnosis Postop complication, biliary abnormality or bile leak, liver disease, pancreatitis, PE, pneumothorax, kidney stone, infection Medical Records Attestation: I reviewed the patient's medical records. Home Medications Current Medication List: was personally reviewed by me Laboratory Data Result diagrams: 02/12/22 16:05 02/12/22 16:05 Lab Results 02/12/22 02/12/22 02/12/22 Range/Units 16:05 16:05 16:44 WBC 6.36 (4.8-10.8) K/ul RBC 4.47 L (4.63-6.08) M/uL Hgb 14.4 (14.0-18.0) g/dl Hct 44.3 (40.1-51.0) % MCV 99.1 (80.0-100.0) fL MCH 32.2 (25.0-34.0) pg MCHC 32.5 (32.0-36.0) g/dL RDW Std Deviation 49.9 H (36.4-46.3) fL RDW Coeff of Kalani 13.5 (11.5-14.5) % Plt Count 210 (130-400) K/uL MPV 8.6 L (9.4-12.4) fL Immature Gran % (Auto) 0.6 % Neut % (Auto) 72.1 % Lymph % (Auto) 13.5 % [place] % (Auto) 13.1 % Eos % (Auto) 0.5 % Baso % (Auto) 0.2 % Neut # (Auto) 4.59 (1.4-6.5) K/uL Lymph # (Auto) 0.86 L (1.2-3.4) K/uL [place] # (Auto) 0.83 H (0.24-0.82) K/uL Eos # (Auto) 0.03 (0-0.50) K/uL Baso # (Auto) 0.01 (0-0.2) K/uL Immature Gran # (Auto) 0.04 H (0.00-0.02) K/uL Sodium 137 (136-145) mmol/L Potassium 4.0 (3.5-5.1) mmol/L Chloride 102 (98-107) mmol/L Carbon Dioxide 30 (21-32) mmol/L Anion Gap 5 (3-11) BUN 17 (6-23) mg/dl Creatinine 1.16 (0.6-1.4) mg/dl Est Cr Clr Drug Dosing 61.5 ml/min Est GFR ( Amer) 68.6 ml/min Est GFR (Non-Af Amer) 59.1 ml/min BUN/Creatinine Ratio 14.7 (10-20) Glucose 114 H (70-99(Fasting)) mg/dl Calcium 9.7 (8.5-10.1) mg/dl Total Bilirubin 0.7 (0.2-1.0) mg/dl AST 14 (13-39) U/L ALT 14 (7-52) U/L Alkaline Phosphatase 66 (34-104) U/L Total Protein 6.8 (6.0-8.3) gm/dl Albumin 3.8 (3.4-5.0) gm/dl Globulin 3.0 (2.5-4.0) gm/dl Albumin/Globulin Ratio 1.3 (0.9-2) Lipase 15 (11-82) U/L Urine Color Dark Yellow Urine Appearance Cloudy A (Clear) Urine pH 5.0 (4.5-7.5) Ur Specific [place] 1.029 (1.000-1.030) Urine Protein 1+ H (Negative) Urine Glucose (UA) Negative (Negative) Urine Ketones Trace H (Negative) Urine Blood Negative (Negative) Urine Nitrite Negative (Negative) Urine Bilirubin 1+ H (Negative) Urine Urobilinogen Negative (Negative) Ur Leukocyte Esterase Trace H (Negative) Urine WBC (Auto) 1-5 (0-5) /hpf Urine RBC (Auto) 5-10 H (0-4) /hpf U Hyaline Cast (Auto) 1-5 (0-5) /lpf U Epithel Cells (Auto) >30 H (0-5) /lpf Urine Bacteria (Auto) Negative (Negative) Ur Renal Epithelial Cell Not Reportable SARS-CoV-2, RNA, NAAT (NEGATIVE) 02/12/22 Range/Units 18:52 WBC (4.8-10.8) K/ul RBC (4.63-6.08) M/uL Hgb (14.0-18.0) g/dl Hct (40.1-51.0) % MCV (80.0-100.0) fL MCH (25.0-34.0) pg MCHC (32.0-36.0) g/dL RDW Std Deviation (36.4-46.3) fL RDW Coeff of Kalani (11.5-14.5) % Plt Count (130-400) K/uL MPV (9.4-12.4) fL Immature Gran % (Auto) % Neut % (Auto) % Lymph % (Auto) % [place] % (Auto) % Eos % (Auto) % Baso % (Auto) % Neut # (Auto) (1.4-6.5) K/uL Lymph # (Auto) (1.2-3.4) K/uL [place] # (Auto) (0.24-0.82) K/uL Eos # (Auto) (0-0.50) K/uL Baso # (Auto) (0-0.2) K/uL Immature Gran # (Auto) (0.00-0.02) K/uL Sodium (136-145) mmol/L Potassium (3.5-5.1) mmol/L Chloride (98-107) mmol/L Carbon Dioxide (21-32) mmol/L Anion Gap (3-11) BUN (6-23) mg/dl Creatinine (0.6-1.4) mg/dl Est Cr Clr Drug Dosing ml/min Est GFR ( Amer) ml/min Est GFR (Non-Af Amer) ml/min BUN/Creatinine Ratio (10-20) Glucose (70-99(Fasting)) mg/dl Calcium (8.5-10.1) mg/dl Total Bilirubin (0.2-1.0) mg/dl AST (13-39) U/L ALT (7-52) U/L Alkaline Phosphatase (34-104) U/L Total Protein (6.0-8.3) gm/dl Albumin (3.4-5.0) gm/dl Globulin (2.5-4.0) gm/dl Albumin/Globulin Ratio (0.9-2) Lipase (11-82) U/L Urine Color Urine Appearance (Clear) Urine pH (4.5-7.5) Ur Specific [place] (1.000-1.030) Urine Protein (Negative) Urine Glucose (UA) (Negative) Urine Ketones (Negative) Urine Blood (Negative) Urine Nitrite (Negative) Urine Bilirubin (Negative) Urine Urobilinogen (Negative) Ur Leukocyte Esterase (Negative) Urine WBC (Auto) (0-5) /hpf Urine RBC (Auto) (0-4) /hpf U Hyaline Cast (Auto) (0-5) /lpf U Epithel Cells (Auto) (0-5) /lpf Urine Bacteria (Auto) (Negative) Ur Renal Epithelial Cell SARS-CoV-2, RNA, NAAT NEGATIVE (NEGATIVE) Imaging Data Radiologist's Impression: Abdomen/Pelvis CT 02/12/22 16:[address] WITH IV CONTRAST CT DOSE: HISTORY: ruq pain s/p biliary stent removal 02/02 TECHNIQUE: Multiaxial CT images of the abdomen and pelvis were performed following the use of intravenous contrast. A dose lowering technique was utilized adhering to the principles of ALARA. COMPARISON STUDY: Abdomen and pelvis CT 11/06/2021. FINDINGS: There is chronic elevation of the right hemidiaphragm with bibasilar linear densities consistent with subsegmental atelectasis. No pneumoperitoneum. No pneumatosis. No fractures within the visualized osseous structures. Stable 10 cm cyst at the right hepatic dome. By report the patient is status post cholecystectomy. There appears to be a gallbladder remnant remaining at the gallbladder fossa. This gallbladder remnant demonstrates a thickened wall and mild surrounding inflammatory change. There is also inflammatory change near the fundus of the gallbladder remnant which surrounds the adjacent hepatic flexure of the colon. Best seen on axial images 132 there is 1.9 cm peripheral enhancing phlegmon/developing abscess which abuts the fundus of the gallbladder remnant. There is mild enhancement of the nondilated common bile duct. Therefore, this raises the possibility of an ascending cholangitis. Mild thickening of the hepatic flexure of the colon is likely reactive to the adjacent inflammatory change at the gallbladder fossa. Left-sided nephrolithiasis. There are few bilateral renal hypodense lesions which remain stable. These favor cysts. No hydronephrosis. The adrenal glands, pancreas, and spleen are unremarkable. Bladder wall thickening appears to be secondary to underdistention. The prostate gland is mildly enlarged. Colonic diverticulosis. No evidence for acute d iverticulitis. No evidence for bowel obstruction. Normal appendix. IMPRESSION: 1. By report the patient is status post cholecystectomy. There appears to be a gallbladder remnant within the gallbladder fossa. This gallbladder remnant demonstrates a thickened wall and mild surrounding inflammatory change suggesting a residual cholecystitis. In addition, this could represent a small biloma with superimposed infection given the adjacent inflammatory change. 2. There is also inflammatory change near the fundus of the gallbladder remnant which surrounds the adjacent hepatic flexure of the colon with a 1.9 cm peripheral enhancing phlegmon/developing abscess which abuts the fundus of the gallbladder remnant as described above. 3. There is mild enhancement of the nondilated common bile duct. Therefore, this raises the possibility of an ascending cholangitis. 4. Mild thickening of the hepatic flexure of the colon is likely reactive to the adjacent inflammatory change at the gallbladder fossa. ACT 112: Negative or not required by law. Electronically signed by: Yung Fulton M.D. 02/12/2022 6:03 PM Chest CTA 02/12/22 16:35 CHEST CTA for PULMONARY ARTERIES CT DOSE: 2820.58 mGy.cm HISTORY: PE, rt chest/abd pain TECHNIQUE: Multiaxial CT images of the chest were performed following the intravenous administration of contrast to evaluate the pulmonary arteries. Ma ximal intensity projection images were also obtained. A dose lowering technique was utilized adhering to the principles of ALARA. COMPARISON STUDY: Chest CTA 11/07/2021. FINDINGS: The thyroid gland enhances normally. Stable prominent right hilar lym ph node measuring 1.4 cm. No mediastinal or left hilar lymphadenopathy. There is chronic elevation of the right hemidiaphragm. Please refer to the same day abdomen and pelvis CT for further evaluation of the abdominal structures. The heart is normal in size. Normal caliber esophagus. Trace right pleural effusion has improved. No significant pericardial effusion. No evidence for an aortic dissection or pulmonary embolus. No acute fractures identified. No pneumothorax. The central airways are patent. Mild dependent changes/atelectasis at the lung bases. Otherwise, no focal lung consolidations to suggest pneumonia. No evidence for pulmonary edema. IMPRESSION: 1. No evidence for pulmonary embolus. 2. Chronic elevation of the right hemidiaphragm. 3. Bibasilar densities favor atelectasis. Otherwise, no focal lung cons olidations to suggest pneumonia. 4. Please refer to the same day abdomen and pelvis CT for further evaluation of the abdominal structures. ACT 112: Negative or not required by law. Electronically signed by: Yung Fulton M.D. 02/12/2022 5:50 PM [facility] Narrative This patient comes in as described above. He was placed in room A2. He is having some right upper quad abdominal pain after having stent removed on 01 February. He looks well and has stable vital signs. IV access was established and blood work was obtained. he has no white count or fever discussed infection. He has no severe electrolyte or metabolic abnormalities. His LFTs and lipase are normal. I did order a CT to make sure there is no problem with any sort of bile leak or postop complication. I also had him do a CTA of his chest as he is somewhat pleuritic to make sure he is not having a PE or other pathology. He was reassessed and remained stable. His CAT scan showed significant abnormalities. There is some residual remnants from his gallbladder surgery there is also some inflammatory changes concerning for infection or possible small abscess I talked to Dr. Fulton at length and he said that there is nothing that he would think to be amenable to draining by interventional radiology. The common bile duct is mildly dilated though clinically he has nothing to suggest: GI it is at this point as he has no fever or white count. The rest of his labs are also unremarkable. I did talk to Dr. Gonzales who is on-call for GI. He feels that the patient needs IV fluids and antibiotics and there is no indication for acute stenting or GI intervention. I also talked to Dr. Richards and also read him the report and the labs. He does not feel there is an acute surgical process and agrees with IV antibiotics and fluids. The patient did receive IV fluid bolus and maintenance fluids as well as IV Zosyn for antibiotic coverage. I then talked to Dr. Nesbitt's PA and they will be admitting the patient for further treatment and evaluation. Impression & Plan Abdominal pain, S/P laparoscopic cholecystectomy, Cholecystitis, Lab test negative for COVID-19 virus Discharge Plan Visit Data Chief Complaint: Rib Injury/Pain Stated Complaint: RIB PAIN, JUST HAD STENT TAKEN OUT ED Provider: Tyler Fischer Discharge Problem: Abdominal pain, S/P laparoscopic cholecystectomy, Cholecystitis, Lab test negative for COVID-19 virus Patient Disposition: Admitted As Inpatient Discharge Instructions Interventions: ED Discharge Assessment Last Done: 02/12/22 19:36
[2022-02-12 17:00] LABS: Appearance Urine Cloudy (Clear); Bacteria Urine Automated Negative (Negative); Blood Urine Negative (Negative); Color Urine Dark Yellow; Epithelial Cell Urine Auto >30 /lpf (0-5); Glucose Urine UA Negative (Negative); Ketones Urine Trace (Negative); Leukocyte Esterase Urine Trace (Negative); Nitrite Urine Negative (Negative); Protein Urine 1+ (Negative); Specific Gravity Urine 1.029 (1.000-1.030); Urobilinogen Urine Negative (Negative)
[2022-02-12 17:18] LABS: Bilirubin Urine 1+ (Negative)
[2022-02-12] MEDS ORDERED: OPTIRAY 320 125ml IV ONE (17:23)
--- NOTE | 2022-02-12 17:52 | CT Scan Report ---
CHEST CTA for PULMONARY ARTERIES CT DOSE: 2820.58 mGy.cm HISTORY: PE, rt chest/abd pain TECHNIQUE: Multiaxial CT images of the chest were performed following the intravenous administration of contrast to evaluate the pulmonary arteries. Maximal intensity projection images were also obtaine d. A dose lowering technique was utilized adhering to the principles of ALARA. COMPARISON STUDY: Chest CTA 11/07/2021. FINDINGS: The thyroid gland enhances normally. Stable prominent right hilar lymph node measuring 1.4 cm. No mediastinal or left hilar lymphadenopathy. There is chronic elevation of the right hemidiaphra gm. Please refer to the same day abdomen and pelvis CT for further evaluation of the abdominal struct ures. The heart is normal in size. Normal caliber esophagus. Trace right pleural effusion has improve d. No significant pericardial effusion. No evidence for an aortic dissection or pulmonary embolus. No acute fractures identified. No pneumothorax. The central airways are patent. Mild dependent changes/ atelectasis at the lung bases. Otherwise, no focal lung consolidations to suggest pneumonia. No evide nce for pulmonary edema. IMPRESSION: 1. No evidence for pulmonary embolus. 2. Chronic elevation of the right hemidiaphragm. 3. Bibasilar densities favor atelectasis. Otherwise, no focal lung consolidations to suggest pneumoni a. 4. Please refer to the same day abdomen and pelvis CT for further evaluation of the abdominal structu res. ACT 112: Negative or not required by law. Electronically signed by: Yung Fulton M.D. 02/12/2022 5:50 PM
--- NOTE | 2022-02-12 18:06 | CT Scan Report ---
ABDOMEN AND PELVIS CT WITH IV CONTRAST CT DOSE: HISTORY: ruq pain s/p biliary stent removal 02/02 TECHNIQUE: Multiaxial CT images of the abdomen and pelvis were performed following the use of intrave nous contrast. A dose lowering technique was utilized adhering to the principles of ALARA. COMPARISON STUDY: Abdomen and pelvis CT 11/06/2021. FINDINGS: There is chronic elevation of the right hemidiaphragm with bibasilar linear densities consi stent with subsegmental atelectasis. No pneumoperitoneum. No pneumatosis. No fractures within the vis ualized osseous structures. Stable 10 cm cyst at the right hepatic dome. By report the patient is sta tus post cholecystectomy. There appears to be a gallbladder remnant remaining at the gallbladder lloyd a. This gallbladder remnant demonstrates a thickened wall and mild surrounding inflammatory change. T here is also inflammatory change near the fundus of the gallbladder remnant which surrounds the adjac ent hepatic flexure of the colon. Best seen on axial images 132 there is 1.9 cm peripheral enhancing phlegmon/developing abscess which abuts the fundus of the gallbladder remnant. There is mild enhancem ent of the nondilated common bile duct. Therefore, this raises the possibility of an ascending cholan gitis. Mild thickening of the hepatic flexure of the colon is likely reactive to the adjacent inflamm atory change at the gallbladder fossa. Left-sided nephrolithiasis. There are few bilateral renal hypo dense lesions which remain stable. These favor cysts. No hydronephrosis. The adrenal glands, pancreas , and spleen are unremarkable. Bladder wall thickening appears to be secondary to underdistention. Th e prostate gland is mildly enlarged. Colonic diverticulosis. No evidence for acute diverticulitis. No evidence for bowel obstruction. Normal appendix. IMPRESSION: 1. By report the patient is status post cholecystectomy. There appears to be a gallbladder remnant wi thin the gallbladder fossa. This gallbladder remnant demonstrates a thickened wall and mild surroundi ng inflammatory change suggesting a residual cholecystitis. In addition, this could represent a small biloma with superimposed infection given the adjacent inflammatory change. 2. There is also inflammatory change near the fundus of the gallbladder remnant which surrounds the a djacent hepatic flexure of the colon with a 1.9 cm peripheral enhancing phlegmon/developing abscess w hich abuts the fundus of the gallbladder remnant as described above. 3. There is mild enhancement of the nondilated common bile duct. Therefore, this raises the possibili ty of an ascending cholangitis. 4. Mild thickening of the hepatic flexure of the colon is likely reactive to the adjacent inflammator y change at the gallbladder fossa. ACT 112: Negative or not required by law. Electronically signed by: Yung Fulton M.D. 02/12/2022 6:03 PM
[2022-02-12] MEDS ORDERED: PIPERACILLIN/TAZOBACTAM 4.5 GM/120 ML BAG IV ONE (18:15)
[2022-02-12] MEDS ORDERED: SODIUM CHLORIDE 0.9% 1000ML 250 ML IV ONE (18:32)
[2022-02-12] MEDS ORDERED: SODIUM CHLORIDE 0.9% 500 ML IV SCH (18:45)
--- NOTE | 2022-02-12 19:06 | History & Physical Report ---
Date of Service February 12, 2022 Assessment & Plan (1) Cholecystitis: Plan: - Patient is s/p fenestrated cholecystectomy for acalculous gangrenous cholecystitis in October. - Remnant of the gallbladder appears infected, cholecystitis versus cholangitis. Vital signs within normal limits and stable, does not have an elevated WBC, LFTs WNL. Patient is feeling well other than his RUQ pain he has been experiencing for the past 4 days. - Case discussed by ED provider with both general surgery and GIfor now, will provide IVF and antibiotics. Could consider MRCP, will discuss with GI. - We will hold patient's lisinopril, make him n.p.o. at midnight in case there is need for surgical intervention tomorrow. (2) Hypertension: Plan: - Holding lisinopril as above pending possible surgical intervention. (3) B12 deficiency: Plan: - Continue B12 supplementation daily. (4) Gout: Plan: - Continue allopurinol 30 mg prophylactically. 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 Patient has been experiencing diarrhea for several weeks, so will hold Linzess to see if it helps. (6) MARIBEL treated with BiPAP: Plan: - Continue BIPAP at night. 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 Plan - Admit to Med[facility]. - SCDs for VTE PPx. Defer chemo PPx for now due to possible surgery tomorrow. - Full code. History of Present Illness [facility]: Bobby Roman is an 81-year-old male with a past medical history of hypertension, IBSC, MARIBEL, vitamin B12 deficiency, BPH, prostate CA's s/p radiation therapy, and cholecystectomy in October for gangrenous cholecystitis who presents today with right upper quadrant pain. In October he had a fenestrated cholecystectomy for acalculous gangrenous cholecystitis, as well as stent placed and removed February 01, as well as ureteral stents for stones. Had been feeling well up until 4 days ago, when he developed right-sided abdominal pain that waxes and wanes, better with lying still but worse with moving around. He is slightly nauseous without vomiting. He attributed this when it started on Monday to the meal he ate, which was pizza. He has been taking Tylenol with alleviation. [place] warm a couple days this week, but no reported fevers, no chills, weakness, myalgias, Allergies Allergy/AdvReac Type Severity Reaction Status Date / Time No Known Allergies Allergy Verified 02/12/22 18:09 Home Medications Medication Instructions Recorded Confirmed Type allopurinol 300 mg tablet 300 mg PO QAM 09/24/18 02/12/22 History linaclotide 145 mcg capsule 145 mcg PO QAM 09/24/18 02/12/22 History (Linzess) lisinopril 10 mg tablet 10 mg PO QAM 09/24/18 02/12/22 History cyanocobalamin (vitamin B-12) 500 1,000 mcg PO QAM #90 tabs 11/11/21 02/12/22 Rx mcg tablet tamsulosin 0.4 mg capsule 0.4 mg PO QAM 11/22/21 02/12/22 History Past Med/Surg History Medical History Cardiac murmur FOLLOWS WITH PCP FOR MURMUR NO 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 Diverticular disease Hearing deficit Kidney stones Liver cyst Right kidney stone Surgical History History of colonoscopy History of lithotripsy History of prostate biopsy malignant History of tonsillectomy and adenoidectomy History of tooth extraction S/P cholecystectomy 10/2021 Family History Other No family history of adverse response to anesthesia Social History Smoking Status: Never smoker Tobacco Type: Cigarettes Second Hand Exposure: No; Hx Alcohol Use: Yes Alcohol type: beer Hx Substance Use: No Preferred Language: Setswana Communication Ability: Effective Knife Changer Required: No Beliefs That Will Affect Care: None Current Living Situation: Spouse Current Living Situation Comment: 1 story house with . Feels Safe at Home: Yes Assistive Devices: Glasses and Hearing Aid - Bilateral Review of Systems Review of Systems: Constitutional: felt warm a few nights this week, no recorded fever/chills, weakness, fatigue, myalgias, anorexia, night sweats Eyes: No diplopia, no worsening or blurred vision ENT: normal hearing, no trouble swallowing Respiratory: No cough, sputum, dyspnea at rest or on exertion Cardiovascular: No chest pain, tightness or palpitations Abdomen: right sided abdmooonal pain x 4 days with nausea; diarrhea x weeks; no vomiting or constipation, or blood in stool : Denies dysuria, hematuria, increased urgency/frequency, urinary retention Musculoskeletal: No joint pain, calf pain, swelling Neurologic: No weakness, numbness/tingling, or balance problems Psychiatric: No anxiety or depression Skin: No rash or itch Physical Exam Physical Exam: General: awake, alert, no apparent distress Head: Normocephalic, atraumatic ENT: PERRL, EOMI, no pharyngeal exudate, mucous membranes moist Chest: Clear to auscultation, on room air, no adventitious breath sounds Cardiac: Regular rate and rhythm, no murmur, no JVD, normal peripheral pulses, good capillary refill Abdominal: mildly TTP in RUQ, RLQ without guarding; NABS x 4 quadrants, soft, no rebound, guarding or tenderness Extremities: Normal inspection, no peripheral edema or erythema, calfs nontender to palpation Psych: Normal mood and affect Neuro: AAO x 3, strength intact bilaterally and rated 5/5, no motor deficits, speech is clear, no peripheral sensory deficits Skin: no rash or erythema Results & Data Results & Data ([facility]) Vital Signs (Past 12 Hours) Vital Signs Temp Pulse Pulse Resp BP BP Pulse Ox 02/12/22 18:23 62 16 112/61 94 02/12/22 15:59 36.8 C 84 20 106/79 93 O2 Del Method 02/12/22 18:23 Room Air 02/12/22 15:59 Room Air Laboratory Results Abnormal lab results 02/12/22 02/12/22 02/12/22 Range/Units 16:05 16:05 16:44 RBC 4.47 L (4.63-6.08) M/uL RDW Std Deviation 49.9 H (36.4-46.3) fL MPV 8.6 L (9.4-12.4) fL Lymph # (Auto) 0.86 L (1.2-3.4) K/uL Hood # (Auto) 0.83 H (0.24-0.82) K/uL Immature Gran # (Auto) 0.04 H (0.00-0.02) K/uL Glucose 114 H (70-99(Fasting)) mg/dl Urine Appearance Cloudy A (Clear) Urine Protein 1+ H (Negative) Urine Ketones Trace H (Negative) Urine Bilirubin 1+ H (Negative) Ur Leukocyte Esterase Trace H (Negative) Urine RBC (Auto) 5-10 H (0-4) /hpf U Epithel Cells (Auto) >30 H (0-5) /lpf Diagnostic Findings Abdomen/Pelvis CT 02/12/22 16:[address] WITH IV CONTRAST CT DOSE: HISTORY: ruq pain s/p biliary stent removal 02/02 TECHNIQUE: Multiaxial CT images of the abdomen and pelvis were performed following the use of intravenous contrast. A dose lowering technique was utilized adhering to the principles of ALARA. COMPARISON STUDY: Abdomen and pelvis CT 11/06/2021. FINDINGS: There is chronic elevation of the right hemidiaphragm with bibasilar linear densities consistent with subsegmental atelectasis. No pneumoperitoneum. No pneumatosis. No fractures within the visualized osseous structures. Stable 10 cm cyst at the right hepatic dome. By report the patient is status post cholecystectomy. There appears to be a gallbladder remnant remaining at the gallbladder fossa. This gallbladder remnant demonstrates a thickened wall and mild surrounding inflammatory change. There is also inflammatory change near the fundus of the gallbladder remnant which surrounds the adjacent hepatic flexure of the colon. Best seen on axial images 132 there is 1.9 cm peripheral enhancing phlegmon/developing abscess which abuts the fundus of the gallbladder remnant. There is mild enhancement of the nondilated common bile duct. Therefore, this raises the possibility of an ascending cholangitis. Mild thickening of the hepatic flexure of the colon is likely reactive to the adjacent inflammatory change at the gallbladder fossa. Left-sided nephrolithiasis. There are few bilateral renal hypodense lesions which remain stable. These favor cysts. No hydronephrosis. The adrenal glands, pancreas, and spleen are unremarkable. Bladder wall thickening appears to be secondary to underdistention. The prostate gland is mildly enlarged. Colonic diverticulosis. No evidence for acute diverticulitis. No evidence for bowel obstruction. Normal appendix. IMPRESSION: 1. By report the patient is status post cholecystectomy. There appears to be a gallbladder remnant within the gallbladder fossa. This gallbladder remnant demonstrates a thickened wall and mild surrounding inflammatory change suggesting a residual cholecystitis. In addition, this could represent a small biloma with superimposed infection given the adjacent inflammatory change. 2. There is also inflammatory change near the fundus of the gallbladder remnant which surrounds the adjacent hepatic flexure of the colon with a 1.9 cm peripheral enhancing phlegmon/developing abscess which abuts the fundus of the gallbladder remnant as described above. 3. There is mild enhancement of the nondilated common bile duct. Therefore, this raises the possibility of an ascending cholangitis. 4. Mild thickening of the hepatic flexure of the colon is likely reactive to the adjacent inflammatory change at the gallbladder fossa. ACT 112: Negative or not required by law. Electronically signed by: Yung Fulton M.D. 02/12/2022 6:03 PM Chest CTA 02/12/22 16:35 CHEST CTA for PULMONARY ARTERIES CT DOSE: 2820.58 mGy.cm HISTORY: PE, rt chest/abd pain TECHNIQUE: Multiaxial CT images of the chest were performed following the intravenous administration of contrast to evaluate the pulmonary arteries. Maximal intensity projection images were also obtained. A dose lowering technique was utilized adhering to the principles of ALARA. COMPARISON STUDY: Chest CTA 11/07/2021. FINDINGS: The thyroid gland enhances normally. Stable prominent right hilar lymph node measuring 1.4 cm. No mediastinal or left hilar lymphadenopathy. There is chronic elevation of the right hemidiaphragm. Please refer to the same day abdomen and pelvis CT for further evaluation of the abdominal structures. The heart is normal in size. Normal caliber esophagus. Trace right pleural effusion has improved. No significant pericardial effusion. No evidence for an aortic dissection or pulmonary embolus. No acute fractures identified. No pneumothorax. The central airways are patent. Mild dependent changes/atelectasis at the lung bases. Otherwise, no focal lung consolidations to suggest pneumonia. No evidence for pulmonary edema. IMPRESSION: 1. No evidence for pulmonary embolus. 2. Chronic elevation of the right hemidiaphragm. 3. Bibasilar densities favor atelectasis. Otherwise, no focal lung consolidations to suggest pneumonia. 4. Please refer to the same day abdomen and pelvis CT for further evaluation of the abdominal structures. ACT 112: Negative or not required by law. Electronically signed by: Yung Fulton M.D. 02/12/2022 5:50 PM Code Status & VTE Plan Code Status Full code. Supervising Physician Co-Signing Physician Notes Patient seen and examined, chart reviewed, case discussed with Jenna Casiano PA-C and I agree with the assessment and plan as above except as otherwise noted. Breathing is unlabored, lungs are clear, heart rate is regular with a faint systolic murmur. Patient is tender in the right lower and slightly in the right upper quadrant of the abdomen, without rebound or guarding. Labs and images reviewed Aleks is an 81-year-old male with a past medical history of diverticulitis, lap cholecystectomy, and kidney stones who presents with right upper quadrant/flank/right lower chest pain for 3 days. Did undergo a lap cholecystectomy with Dr. Ohara on 11/04/2021. Had a follow-up EGD with stent in place which was removed on 02/01/2022. No shortness of breath, no fever. Diarrhea for several weeks. Residual gallbladder remnant with cholecystitis/cholangitis CTA: No evidence of PE, chronic right hemidiaphragm elevation, bibasilar densities suggestive of atelectasis with no consolidations to suggest pneumonia CTA/P: Gallbladder remnant appreciated in gallbladder fossa, gallbladder remnant demonstrating thickened wall and mild surrounding laboratory changes dressing residual cholecystitis versus small biliOma with superimposed infection with inflammatory change. Inflammatory change near the fundus of the gallbladder remnant with hepatic flexure and enhancing phlegmon/developing abscess which abuts the fundus of the gallbladder. Mild enhancement of the nondilated common gallbladder duct. Concern is raised for a sending cholangitis. Mild thickening of hepatic flexure. No leukocytosis, hemoglobin normal on admission. Creatinine normal on admission. No transaminitis or elevated bilirubin on admission. Discussed with surgery and GI, recommending antibiotic treatment at this time and will continue to follow. Patient n.p.o. with fluids as above. Continue Zosyn. 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
[2022-02-12] MEDS ORDERED: ONDANSETRON INJ 2 MG/ML 2 ML VIAL IV PRN (21:02)
[2022-02-12] MEDS ORDERED: POLYETHYLENE (MIRALAX) 17 GM PACK PO PRN (21:02)
[2022-02-12] MEDS: LACTATED RINGER'S 1,000 ML IV SCH (21:45)
[2022-02-12] MEDS: ACETAMINOPHEN 1,000 MG/100 ML VIAL IV PRN (21:48)
[2022-02-12] MEDS: PIPERACILLIN/TAZOBACTAM 3.375 GM in DEXTROSE 5% 100 ML IV SCH (22:14)
[2022-02-13] MEDS: LACTATED RINGER'S 1,000 ML IV SCH (06:01)
[2022-02-13] MEDS: PIPERACILLIN/TAZOBACTAM 3.375 GM in DEXTROSE 5% 100 ML IV SCH ×3 (06:01→22:52)
[2022-02-13 07:25] LABS: Basophils # (auto) 0.02 K/uL (0-0.2); Basophils % (auto) 0.3 %; Eosinophils # (auto) 0.11 K/uL (0-0.50); Eosinophils % (auto) 1.8 %; Hematocrit (blood only) 40.9 % (40.1-51.0); Hemoglobin 13.2 g/dl (14.0-18.0); Immature Granulocytes # (auto) 0.03 K/uL (0.00-0.02); Immature Granulocytes % (auto) 0.5 %; Lymphocytes # (auto) 0.99 K/uL (1.2-3.4); Lymphocytes % (auto) 16.5 %; Mean Corpuscular Hemoglobin 31.8 pg (25.0-34.0); Mean Corpuscular Hgb Conc 32.3 g/dL (32.0-36.0); Mean Corpuscular Volume 98.6 fL (80.0-100.0); Monocytes # (auto) 0.82 K/uL (0.24-0.82); Monocytes % (auto) 13.7 %; Neutrophils # (auto) 4.02 K/uL (1.4-6.5); Neutrophils % (auto) 67.2 %; Platelet Count 201 K/uL (130-400); RDW Coefficient of Variation 13.6 % (11.5-14.5); RDW Standard Deviation 49.2 fL (36.4-46.3); Red Blood Count 4.15 M/uL (4.63-6.08); White Blood Count 5.99 K/ul (4.8-10.8)
[2022-02-13 07:57] LABS: Albumin Globulin Ratio 1.2 (0.9-2); Albumin Level 3.1 gm/dl (3.4-5.0); BUN Creatinine Ratio 16.3 (10-20); Bilirubin,Total 0.6 mg/dl (0.2-1.0); Calcium 8.7 mg/dl (8.5-10.1); Creatinine Clr Calc Pharmacy 89.2 ml/min; Est GFR (African American) 97.8 ml/min; Est GFR (Non-African American) 84.4 ml/min; Globulin 2.6 gm/dl (2.5-4.0); Magnesium 1.9 mg/dl (1.7-2.4); Potassium 3.9 mmol/L (3.5-5.1); Total Protein 5.7 gm/dl (6.0-8.3)
[2022-02-13] MEDS: allopurinoL 300 MG TAB PO SCH (08:04)
[2022-02-13] MEDS: CYANOCOBALAMIN (B-12) 500 MCG TABLET PO SCH (08:05)
[2022-02-13] MEDS: TAMSULOSIN HCL 0.4 MG CAP PO SCH (08:05)
--- NOTE | 2022-02-13 10:30 | Surgery Consultation ---
Date of Consultation February 13, 2022 Assessment & Plan (1) S/P laparoscopic cholecystectomy: partial cholecystectomy CT scan changes likely post-op changes agree with MRCP no stones seen if MRCP normal, may benefit fron HIDA to see if bikle leak present agree with antibiotics no obvious reason yet to reoperate History of Present Illness Attending Physician: Yuko Nava MD History of Present Illness This is a 81YO male patient admitted from ED with right upper quadrant/flank/right lower chest pain since Monday evening. He had partial cholecystectomy by Dr. Ohara on October 2021. He had ERCP with a stent placed and subsequently removed by Dr. Anne in January.. He was doing fine until Monday and then began having RUQ pain especially withmovement and breathin g.He has some mild nausea, no vomiting. No shortness of breath or cough he questionably felt warm at home but no documented fever.No chest pain or shortness of breath he has had no blood in his stool. He had negative stress test done on July 31 according to . He has had diarrhea for the last couple weeks. A CT scan was done which is consistent with partial cholecystectomy. MRCP is pending. Allergies Allergy/AdvReac Type Severity Reaction Status Date / Time No Known Allergies Allergy Verified 02/12/22 18:09 Home Medications Medication Instructions Recorded Confirmed Type allopurinol 300 mg tablet 300 mg PO QAM 09/24/18 02/12/22 History linaclotide 145 mcg capsule 145 mcg PO QAM 09/24/18 02/12/22 History (Linzess) lisinopril 10 mg tablet 10 mg PO QAM 09/24/18 02/12/22 History cyanocobalamin (vitamin B-12) 500 1,000 mcg PO QAM #90 tabs 11/11/21 02/12/22 Rx mcg tablet tamsulosin 0.4 mg capsule 0.4 mg PO QAM 11/22/21 02/12/22 History Patient History Medical History Cardiac murmur FOLLOWS WITH 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 Diverticular disease Hearing deficit Kidney stones Liver cyst Right kidney stone Surgical History History of colonoscopy History of lithotripsy History of prostate biopsy malignant History of tonsillectomy and adenoidectomy History of tooth extraction S/P cholecystectomy 10/2021 Family History Other No family history of adverse response to anesthesia Social History Smoking Status: Never smoker Tobacco Type: Cigarettes Second Hand Exposure: No; Hx Alcohol Use: No Hx Substance Use: No Preferred Language: Cuban Communication Ability: Effective Park Superintendent Required: No Beliefs That Will Affect Care: None Current Living Situation: Spouse and Family Current Living Situation Comment: , stepson, and grandson Other Information That Helps Us Care for You: No Feels Safe at Home: Yes Safety Concerns: Feels Safe At This Time Assistive Devices: BiPap and Hearing Aid - Bilateral Review of Systems Constitutional: no fever, no chills, no weakness and no anorexia Eyes: no problem reported Ear, Nose, Mouth, Throat: no problem reported Respiratory: no cough and no dyspnea Cardiovascular: no chest pain Gastrointestinal: + abdominal pain and + nausea; no vomiting, no change in bowel habits and no blood in stools Genitourinary: no dysuria Musculoskeletal: no back pain and no joint pain Integumentary: no rash and no lesions Neurologic: no localized weakness and no generalized weakness Psychiatric: no behavioral changes Physical Exam Constitutional: WD/WN, vitals as above Eyes: PERRL, conjunctivae normal, anicteric sclerae Neck: trachea midline Respiratory: normal respiratory effort, lungs clear to auscultation Cardiovascular: RRR, no murmur, no edema Gastrointestinal (Abdomen): Inspection/Auscultation: abdomen normal to inspection and normal bowel sounds; abdomen not distended and no abdominal surgical scar Percussion/Palpation: + abdomen tender (mild) and abdomen soft; no guarding and abdomen not rigid Musculoskeletal: Head/Neck/Chest: normocephalic and head atraumatic Skin: no rashes, warm and dry Results & Data ([facility]) Vital Signs (Past 12 Hours) Vital Signs Temp Pulse Resp BP Pulse Ox O2 Del Method O2 Flow Rate 02/13/22 07:52 36.5 C 65 16 113/72 94 02/13/22 07:05 Nasal Cannula 2 Diagnostic Findings ABDOMEN AND PELVIS CT WITH IV CONTRAST CT DOSE: HISTORY: ruq pain s/p biliary stent removal 02/02 TECHNIQUE: Multiaxial CT images of the abdomen and pelvis were performed following the use of intravenous contrast. A dose lowering technique was utilized adhering to the principles of ALARA. COMPARISON STUDY: Abdomen and pelvis CT 11/06/2021. FINDINGS: There is chronic elevation of the right hemidiaphragm with bibasilar linear densities consistent with subsegmental atelectasis. No pneumoperitoneum. No pneumatosis. No fractures within the visualized osseous structures. Stable 10 cm cyst at the right hepatic dome. By report the patient is status post cholecystectomy. There appears to be a gallbladder remnant remaining at the gallbladder fossa. This gallbladder remnant demonstrates a thickened wall and mild surrounding inflammatory change. There is also inflammatory change near the fundus of the gallbladder remnant which surrounds the adjacent hepatic flexure of the colon. Best seen on axial images 132 there is 1.9 cm peripheral enhancing phlegmon/developing abscess which abuts the fundus of the gallbladder remnant. There is mild enhancement of the nondilated common bile duct. Therefore, this raises the possibility of an ascending cholangitis. Mild thickening of the hepatic flexure of the colon is likely reactive to the adjacent inflammatory change at the gallbladder fossa. Left-sided nephrolithiasis. There are few bilateral renal hypodense lesions which remain stable. These favor cysts. No hydronephrosis. The adrenal glands, pancreas, and spleen are unremarkable. Bladder wall thickening appears to be secondary to underdistention. The prostate gland is mildly enlarged. Colonic diverticulosis. No evidence for acute diverticulitis. No evidence for bowel obstruction. Normal appendix. IMPRESSION: 1. By report the patient is status post cholecystectomy. There appears to be a gallbladder remnant within the gallbladder fossa. This gallbladder remnant demonstrates a thickened wall and mild surrounding inflammatory change suggesting a residual cholecystitis. In addition, this could represent a small biloma with superimposed infection given the adjacent inflammatory change. 2. There is also inflammatory change near the fundus of the gallbladder remnant which surrounds the adjacent hepatic flexure of the colon with a 1.9 cm peripheral enhancing phlegmon/developing abscess which abuts the fundus of the gallbladder remnant as described above. 3. There is mild enhancement of the nondilated common bile duct. Therefore, this raises the possibility of an ascending cholangitis. 4. Mild thickening of the hepatic flexure of the colon is likely reactive to the adjacent inflammatory change at the gallbladder fossa.
--- NOTE | 2022-02-13 11:56 | Gastrointestinal Consultation ---
Date of Consultation February 13, 2022 Assessment & Plan (1) Abdominal pain: (2) Cholecystitis: Plan RUQ abd pains with past acalculous cholecystitis and partial CCY: now with possible biloma, abscess, cholecystitis recs: continue IV abx zosyn f/u blood cultures agree with MRCP to further evaluate trend LFTs daily supportive care, diet as tolerated appreciate surgical evaluation Thank you for allowing me to participate in the care of this patient History of Present Illness Attending Physician: Yuko Nava MD History of Present Illness 81 yo male with hx HTN, IBS-C, MARIBEL, gangrenous acalculous cholecystitis s/p partial cholecystectomy, ERCP with stent placement and removal here with RUQ pains. He had his biliary stent removed by Dr. Anne on 02/01 and notes 3 days ago he developed RUQ pains with movement and on palpation. No n/v, change in appetite or bowel habits. vital signs stable and no leukocytosis. His CT scan does show possible abscess and biloma developing however. He is scheduled to get MRCP today, seen by general surgery already. CBC and CMP reviewed, normal LFTs. Allergies Allergy/AdvReac Type Severity Reaction Status Date / Time No Known Allergies Allergy Verified 02/12/22 18:09 Home Medications Medication Instructions Recorded Confirmed Type allopurinol 300 mg tablet 300 mg PO QAM 09/24/18 02/12/22 History linaclotide 145 mcg capsule 145 mcg PO QAM 09/24/18 02/12/22 History (Linzess) lisinopril 10 mg tablet 10 mg PO QAM 09/24/18 02/12/22 History cyanocobalamin (vitamin B-12) 500 1,000 mcg PO QAM #90 tabs 11/11/21 02/12/22 Rx mcg tablet tamsulosin 0.4 mg capsule 0.4 mg PO QAM 11/22/21 02/12/22 History Patient History Medical History Cardiac murmur FOLLOWS WITH PCP FOR MURMUR NO FISHING GAME WARDEN Diverticular disease Hearing deficit Kidney stones Liver cyst Right kidney stone Surgical History History of colonoscopy History of lithotripsy History of prostate biopsy malignant History of tonsillectomy and adenoidectomy History of tooth extraction S/P cholecystectomy 10/2021 Family History Other No family history of adverse response to anesthesia Social History Smoking Status: Never smoker Tobacco Type: Cigarettes Second Hand Exposure: No; Hx Alcohol Use: No Hx Substance Use: No Preferred Language: Prydeinig Communication Ability: Effective Snow Technician Required: No Beliefs That Will Affect Care: None Current Living Situation: Spouse and Family Current Living Situation Comment: , stepson, and grandson Other Information That Helps Us Care for You: No Feels Safe at Home: Yes Safety Concerns: Feels Safe At This Time Assistive Devices: BiPap and Hearing Aid - Bilateral Review of Systems Constitutional: no fever, no chills and no weight loss Eyes: as per Subjective / HPI Ear, Nose, Mouth, Throat: as per Subjective / HPI Respiratory: no dyspnea and no dyspnea on exertion Cardiovascular: no chest pain and no palpitations Gastrointestinal: as per Subjective / HPI Musculoskeletal: no joint pain and no swelling Integumentary: no rash and no lesions Neurologic: no numbness and no paresthesia Psychiatric: no depression and no anxiety Endocrine: no fatigue Hematologic / Lymphatic: no easy bleeding and no easy bruising Physical Exam Constitutional: WD/WN, vitals as above Eyes: EOM intact bilaterally Neck: normal visual inspection Respiratory: normal respiratory effort, lungs clear to auscultation Cardiovascular: RRR, no murmur, no edema Gastrointestinal (Abdomen): Inspection/Auscultation: abdomen normal to inspection; abdomen not distended Percussion/Palpation: + abdomen tender (mild RUQ) and abdomen soft; no hepatosplenomegaly Musculoskeletal: Extremities: no cyanosis Gait: normal gait Skin: no rashes, warm and dry Neurologic: moves all extremities Psychiatric: A+Ox3, euthymic affect Results & Data ([facility]) Vital Signs (Past 12 Hours) Vital Signs Temp Pulse Resp BP Pulse Ox O2 Del Method O2 Flow Rate 02/13/22 07:52 36.5 C 65 16 113/72 94 02/13/22 07:05 Nasal Cannula 2 PG Care Time/CCT Total # of Minutes Spent Total Time Spent with Patient: Total time spent is greater than 50% in coordination of care (as documented) at patient's floor/unit and/or counseling patient: Coding Level of Care Code 16866 Initial Inpt Care Lvl 3 Diagnoses Abdominal pain R10.9 Cholecystitis K81.9
--- NOTE | 2022-02-13 16:17 | Hospitalist Progress Note ---
Date of Service February 13, 2022 Assessment & Plan (1) Cholecystitis: Plan: - Presets to the hospital on account of RUQ pain -Patient is s/p fenestrated cholecystectomy for acalculous gangrenous cholecystitis in October. - CT abdomen and pelvios shows some Remnant of the gallbladder which appears infected, cholecystitis versus cholangitis. - Vital signs within normal limits and stable, does not have an elevated WBC, LFTs WNL. Patient is feeling well other than his RUQ pain he has been experiencing for the past 4 days. - He is now s/p MRCP, result pending -GI and gen surgery on consult, appreciate recs -May need HIDA scan on Monday - We will hold patient's lisinopril, make him n.p.o. at midnight in case there is need for surgical intervention tomorrow. (2) Hypertension: Plan: - Holding lisinopril as above pending possible surgical intervention. (3) B12 deficiency: Plan: - Continue B12 supplementation daily. (4) Gout: Plan: - Continue allopurinol 30 mg prophylactically. 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 Patient has been experiencing diarrhea for several weeks, so will hold Linzess to see if it helps. (6) MARIBEL treated with BiPAP: Plan: - Continue BIPAP at night. 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 Plan - Admit to [facility]. - SCDs for VTE PPx. Defer chemo PPx for now due to possible surgery tomorrow. - Full code. Admission and Anticipated Discharge Date Admission Date: February 12, 2022 Subjective patient seen and examined, on his way to [facility] Review of Systems Review of Systems: All systems reviewed are negative, apart from the ones contained in the history. Physical Exam Physical Exam: The patient is awake, alert and oriented 3, well developed and well nourished, normocephalic and atraumatic, lying in bed and in no acute distress. HEENT--PERRL, EOMI, mucous membranes and oropharynx mildly dry Neck--supple. No JVD. No bruits. Thyroid normal, trachea midline, no adenopathy. Heart--normal S1 and S2. No murmurs, rubs or gallops. Lungs--clear bilaterally, no respiratory distress, no accessory muscle use. Abdomen--RUQ pain Extremities--no cyanosis or clubbing. No edema. Dermatologic--normal skin turgor, normal color, no abnormal lymph nodes, no rash. Neurologic--cranial nerves II through XII grossly intact. Rheumatologic--normal range of motion. Psychiatric--normal affect. Results & Data Results & Data ([facility]) Vital Signs (Past 12 Hours) Vital Signs Temp Pulse Resp BP Pulse Ox O2 Del Method O2 Flow Rate 02/13/22 15:12 97.9 F 57 L 16 124/65 92 02/13/22 07:52 97.7 F 65 16 113/72 94 02/13/22 07:05 Nasal Cannula 2 PG Care Time/CCT Total # of Minutes Spent Total Time Spent with Patient: Total time spent is greater than 50% in coordination of care (as documented) at patient's floor/unit and/or counseling patient: Coding Level of Care Code 37424 Subseq Hosp Care Lvl 2 Diagnoses Cholecystitis K81.9 Hypertension I10 B12 deficiency E53.8 Gout M10.9 Constipation K59.00 MARIBEL treated with BiPAP G47.33 Elevated hemidiaphragm J98.6 Time Spent (min) 35
--- NOTE | 2022-02-13 17:00 | Magnetic Resonance Report ---
MR MRCP HISTORY: 81 years-old Male cholecystitis vs cholangitis of remant gb acute right upper quadrant abdo cristine pain COMPARISON: CT abdomen and pelvis 2021 TECHNIQUE: MRCP was obtained without the use of IV contrast according to institutional protocol. FINDINGS: No gross extra abdominal abnormality identified on the assembler lay ups localizer images. Moderate right hemidia phragmatic elevation. Cardiomegaly. Patient obesity limits the study. 9.5 cm T2 hyperintense cystic focus of the abdomen redemonstrated. There is a T2 hyperintense structu re within the martin hepatis suggestive of a gallbladder remnant in this patient with reported cholecy stectomy which measures up to approximately 5.8 cm in length. This contains intraluminal sludge versu s cholelithiasis. The study is motion degraded. There is a 2 cm T2 hyperintense structure noted adjac ent to the gallbladder fundus and adjacent hepatic flexure. Edema with small volume of free fluid is noted within the martin hepatis tracking along the right hepatic lobe and right pericolic gutter. Ther e is a linear 1.1 cm filling defect noted within the distal cystic duct. Common bile duct measures up to 6 mm transversely and demonstrates no intraluminal filling defects. No pancreatic ductal dilation . Wall thickening of the biliary tree as described on comparison CT is not appreciated by MR MRCP. Bilateral perinephric stranding with renal cysts again noted. Indeterminate 2 cm intermediate density lesion of the anterior interpolar right kidney. No abdominal aortic aneurysm or bowel obstruction. C olonic diverticulosis. IMPRESSION: 1. Motion degraded exam. 2. Gallbladder remnant is present in this patient with reported prior cholecystectomy. Inflammatory s tranding within the martin hepatis with trace free fluid is suggestive of a residual acute cholecystit is. 3. Debris within the remnant gallbladder may represent blood products, sludge or cholelithiasis. Ther e is a linear filling defect within the distal cystic duct which may represent blood products. 4. No choledocholithiasis or common bile duct dilation. 5. 2 cm fluid collection within the martin hepatis adjacent to the hepatic flexure and gallbladder fun dus is again noted which may represent developing phlegmon or abscess. ACT 112: Negative or not required by law. The above report was generated using voice recognition software. It may contain grammatical, syntax o r spelling errors. Electronically signed by: Cleveland Meyer M.D. 02/13/2022 4:57 PM
[2022-02-13] MEDS: ACETAMINOPHEN 1,000 MG/100 ML VIAL IV PRN (21:09)
[2022-02-14] MEDS: PIPERACILLIN/TAZOBACTAM 3.375 GM in DEXTROSE 5% 100 ML IV SCH ×3 (06:39→22:06)
[2022-02-14 07:17] LABS: Hematocrit (blood only) 41.8 % (40.1-51.0); Hemoglobin 13.4 g/dl (14.0-18.0); Mean Corpuscular Hemoglobin 31.6 pg (25.0-34.0); Mean Corpuscular Hgb Conc 32.1 g/dL (32.0-36.0); Mean Corpuscular Volume 98.6 fL (80.0-100.0); Mean Platelet Volume 8.6 fL (9.4-12.4); Platelet Count 195 K/uL (130-400); RDW Coefficient of Variation 13.5 % (11.5-14.5); RDW Standard Deviation 48.9 fL (36.4-46.3); Red Blood Count 4.24 M/uL (4.63-6.08); White Blood Count 6.09 K/ul (4.8-10.8)
[2022-02-14 07:39] LABS: BUN Creatinine Ratio 14.9 (10-20); Est GFR (African American) 94.5 ml/min; Est GFR (Non-African American) 81.5 ml/min
--- NOTE | 2022-02-14 08:57 | Surgery Consultation ---
Date of Consultation February 14, 2022 Assessment & Plan (1) S/P laparoscopic cholecystectomy: White count and LFTs are normal. Likely chronic inflammation, any additional surgery would be difficult with high probability of requiring open procedure. Continue to treat conservatively with Zosyn. HIDA is pending. Not sure if there is any indication for ERCP unless he has a bile leak, but it is interesting that he remained asymptomatic for the past 3 months.l as above. no pain currently but does have some right mid abdominal and RUQ tenderness to palpation. symptoms began approx 1 week after biliary stent removed. continue antibiotics. surgery for resection of residual gallbladder could be difficult with increased risks. if no improvement after 48 hours of antibiotics, will d/w GI regarding potential replacement of biliary stent. no urgent or emergent indication for surgical intervention at this time. will continue to follow closely. History of Present Illness Attending Physician: Yuko Nava MD History of Present Illness 81 y/o male had partial cholecystectomy on 11/06/21 for acalculous cholecystitis. Three days later had ERCP and stent placement for bile leak. Stent was removed on 02/01. A week later (02/09) he had some RUQ pain after eating pizza. This persisted for several days and he was admitted over the weekend. Had a "large" meal last night, feels about the same this morning. Allergies Allergy/AdvReac Type Severity Reaction Status Date / Time No Known Allergies Allergy Verified 02/12/22 18:09 Home Medications Medication Instructions Recorded Confirmed Type allopurinol 300 mg tablet 300 mg PO QAM 09/24/18 02/12/22 History linaclotide 145 mcg capsule 145 mcg PO QAM 09/24/18 02/12/22 History (Linzess) lisinopril 10 mg tablet 10 mg PO QAM 09/24/18 02/12/22 History cyanocobalamin (vitamin B-12) 500 1,000 mcg PO QAM #90 tabs 11/11/21 02/12/22 Rx mcg tablet tamsulosin 0.4 mg capsule 0.4 mg PO QAM 11/22/21 02/12/22 History Patient History Medical History Cardiac murmur FOLLOWS WITH PCP FOR MURMUR NO EMAIL MARKETING INTERN Diverticular disease Hearing deficit Kidney stones Liver cyst Right kidney stone Surgical History History of colonoscopy History of lithotripsy History of prostate biopsy malignant History of tonsillectomy and adenoidectomy History of tooth extraction S/P cholecystectomy 10/2021 Family History Other No family history of adverse response to anesthesia Social History Smoking Status: Never smoker Tobacco Type: Cigarettes Second Hand Exposure: No; Hx Alcohol Use: No Hx Substance Use: No Preferred Language: Syriac Communication Ability: Effective Solar/Ren[employer] Required: No Beliefs That Will Affect Care: None Current Living Situation: Spouse and Family Current Living Situation Comment: , stepson, and grandson Other Information That Helps Us Care for You: No Feels Safe at Home: Yes Safety Concerns: Feels Safe At This Time Assistive Devices: BiPap and Hearing Aid - Bilateral Review of Systems Constitutional: + anorexia (-Monday); no fever and no chills Gastrointestinal: no bloating, no nausea and no vomiting Physical Exam Constitutional: WD/WN, vitals as above Gastrointestinal (Abdomen): Inspection/Auscultation: abdomen not distended Percussion/Palpation: + abdomen tender (loacalized RUQ) and abdomen soft Results & Data ([facility]) Vital Signs (Past 12 Hours) Vital Signs Temp Pulse Resp BP Pulse Ox O2 Del Method 02/14/22 07:59 36.7 C 57 L 16 135/79 92 02/13/22 21:00 Room Air 02/13/22 23:00 37 C 64 16 104/66 90 Room Air PG Care Time/CCT Total # of Minutes Spent Total Time Spent with Patient: Total time spent is greater than 50% in coordination of care (as documented) at patient's floor/unit and/or counseling patient: Coding Level of Care Code 33875 Initial Inpt Care Lvl 3 Diagnoses S/P laparoscopic cholecystectomy Z90.49
[2022-02-14] MEDS: CYANOCOBALAMIN (B-12) 500 MCG TABLET PO SCH (10:16)
[2022-02-14] MEDS: TAMSULOSIN HCL 0.4 MG CAP PO SCH (10:17)
[2022-02-14] MEDS: allopurinoL 300 MG TAB PO SCH (10:17)
--- NOTE | 2022-02-14 10:40 | Communication Note ---
Date of Service: February 14, 2022 GI Note: Received consult to evaluate patient for cholecystitis versus cholangitis. I was unable to see patient, he was undergoing HIDA scan. Chart reviewed. Noted that he had a history of cholecystectomy but remnant gallbladder in place. Patient had a bile leak treated with pancreatic and biliary stent placements in November, stents were removed in February 01, 2022. He presented with complaints of right upper quadrant abdominal pain without nausea or vomiting. CT scan and MRCP concerning for residual acute cholecystitis there may be also phlegmon versus abscess and biloma. LFTs are normal, no signs of choledocholithiasis or CBD dilatation noted. No indication for repeat ERCP at this time, though will review the results of the HIDA scan. Reviewed the above with my attending physician Dr. Derian Childress
--- NOTE | 2022-02-14 11:04 | Nuclear Medicine Report ---
NUCLEAR MEDICINE HEPATOBILIARY SCAN CLINICAL HISTORY: Abdominal pain status post cholecystectomy. Evaluate for bile leak. COMPARISON: CT of the abdomen and pelvis February 12, 2022. MRCP February 13, 2022. TECHNIQUE: 5.4 mCi of technetium 99m Choletec IV was injected at 8:54 AM on February 14, 2022. Immedia tely following injection, imaging of the abdomen was carried out for 60 minutes in the anterior proje ction. FINDINGS: Radiotracer is noted within the common bile duct and small bowel at 10 minutes. Hepatic up take of radiotracer is prompt and homogeneous. Radiotracer is noted within the distal stomach as well . There is no scintigraphic evidence for a bile leak. IMPRESSION: No scintigraphic evidence for a bile leak. ACT 112: Negative or not required by law. Electronically signed by: Luis Vitale M.D. 02/14/2022 11:02 AM
--- NOTE | 2022-02-14 15:18 | Hospitalist Progress Note ---
Date of Service February 14, 2022 Assessment & Plan (1) Cholecystitis: Plan: - Presets to the hospital on account of RUQ pain -Patient is s/p fenestrated cholecystectomy for acalculous gangrenous cholecystitis in October. - CT abdomen and pelvios shows some Remnant of the gallbladder which appears infected, cholecystitis versus cholangitis. - Vital signs within normal limits and stable, does not have an elevated WBC, LFTs WNL. - He is now s/p MRCP, which hsows Gallbladder remnant is present in this patient with reported prior cholecystectomy and also Inflammatory stranding within the martin hepatis with trace free fluid is suggestive of a residual acute c holecystitis. Debris within the remnant gallbladder may represent blood products, sludge or cholelithiasis. There is a linear filling defect within the distal cystic duct which may represent blood products. No choledocholithiasis or common bile duct dilation. also shows a 2 cm fluid collection within the martin hepatis adjacent to the hepatic flexure and gallbladder fundus is again noted which may represent developing phlegmon or abscess. -GI and gen surgery on consult, appreciate recs -HIDA scan did not show any evidence of bile leak - Appreciate GI and surgery recs -Continue antibiotics (2) Hypertension: Plan: - Holding lisinopril as above pending possible surgical intervention. (3) B12 deficiency: Plan: - Continue B12 supplementation daily. (4) Gout: Plan: - Continue allopurinol 30 mg prophylactically. 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 Patient has been experiencing diarrhea for several weeks, so will hold Linzess to see if it helps. (6) MARIBEL treated with BiPAP: Plan: - Continue BIPAP at night. 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 Plan - Admit to [facility]. - SCDs for VTE PPx. Defer chemo PPx for now due to possible surgery tomorrow. - Full code. Admission and Anticipated Discharge Date Admission Date: February 12, 2022 Subjective patient seen and examined, on his way to HIDA scan Review of Systems Review of Systems: All systems reviewed are negative, apart from the ones contained in the history. Physical Exam Physical Exam: The patient is awake, alert and oriented 3, well developed and well nourished, normocephalic and atraumatic, lying in bed and in no acute distress. HEENT--PERRL, EOMI, mucous membranes and oropharynx mildly dry Neck--supple. No JVD. No bruits. Thyroid normal, trachea midline, no adenopathy. Heart--normal S1 and S2. No murmurs, rubs or gallops. Lungs--clear bilaterally, no respiratory distress, no accessory muscle use. Abdomen--RUQ pain Extremities--no cyanosis or clubbing. No edema. Dermatologic--normal skin turgor, normal color, no abnormal lymph nodes, no rash. Neurologic--cranial nerves II through XII grossly intact. Rheumatologic--normal range of motion. Psychiatric--normal affect. Results & Data Results & Data ([facility]) Vital Signs (Past 12 Hours) Vital Signs Temp Pulse Resp BP Pulse Ox 02/14/22 07:59 98.1 F 57 L 16 135/79 92 PG Care Time/CCT Total # of Minutes Spent Total Time Spent with Patient: Total time spent is greater than 50% in coordination of care (as documented) at patient's floor/unit and/or counseling patient: Coding Level of Care Code 42820 Subseq Hosp Care Lvl 2 Diagnoses Cholecystitis K81.9 Hypertension I10 B12 deficiency E53.8 Gout M10.9 Constipation K59.00 MARIBEL treated with BiPAP G47.33 Elevated hemidiaphragm J98.6 Time Spent (min) 35
[2022-02-15] MEDS: PIPERACILLIN/TAZOBACTAM 3.375 GM in DEXTROSE 5% 100 ML IV SCH (06:17)
[2022-02-15] MEDS: allopurinoL 300 MG TAB PO SCH (08:19)
[2022-02-15] MEDS: TAMSULOSIN HCL 0.4 MG CAP PO SCH (08:19)
[2022-02-15] MEDS: CYANOCOBALAMIN (B-12) 500 MCG TABLET PO SCH (08:19)
--- NOTE | 2022-02-15 08:43 | Surgery Progress Note ---
Date of Service February 15, 2022 Assessment & Plan (1) Cholecystitis: Plan: Not much improvement after 48 hours of antibiotics. Again I believe surgery would be the last resort. I will reach out to GI and see if they would be willing to put a stent and to see if this is will improve his symptoms. We will call and discuss with his daughter Admission and Anticipated Discharge Date Admission Date: February 12, 2022 Subjective Patient seen. Feeling okay. Still having right upper quadrant pain with movement deep inspirations etc. Not much change since yesterday. He is able to tolerate a diet. Physical Exam Constitutional: WD/WN, vitals as above no acute distress and not ill appearing Eyes: PERRL, conjunctivae normal, anicteric sclerae EOM intact bilaterally ENMT: external ear and nose normal, oropharynx normal Ears: no hearing impairment Neck: trachea midline, no thyromegaly Respiratory: normal respiratory effort; no respiratory distress and does not use accessory muscles Cardiovascular: Rate/Rhythm: regular rate and regular rhythm Gastrointestinal (Abdomen): Soft. Positive right upper quadrant tenderness to palpation. No peritonitis. Skin: no rashes, warm and dry Psychiatric: Orientation: alert, oriented x 3 and cooperative Results & Data ([facility]) Vital Signs (Past 12 Hours) Vital Signs Temp Pulse Resp BP Pulse Ox O2 Del Method 02/15/22 05:37 36.7 C 66 16 133/84 92 Room Air 02/14/22 22:12 37.0 C 53 L 18 147/76 H 92 Room Air PG Care Time/CCT Total # of Minutes Spent Total Time Spent with Patient: Total time spent is greater than 50% in coordination of care (as documented) at patient's floor/unit and/or counseling patient: Coding Level of Care Code 70439 Subseq Hosp Care Lvl 2 Diagnoses Cholecystitis K81.9
--- NOTE | 2022-02-15 11:18 | Gastroenterology Progress Note ---
Date of Service February 15, 2022 Assessment & Plan (1) S/P laparoscopic cholecystectomy: (2) Abdominal pain: Plan: Pt is a 81 yo male w a history of cholecystectomy 10/2021 but remnant gallbladder in place. Patient had a bile leak treated with pancreatic and biliary stent placements in November, stents were removed in February 01, 2022. He presented with complaints of right upper quadrant abdominal pain without nausea or vomiting. CT scan and MRCP concerning for residual acute cholecystitis there may be also phlegmon versus abscess and biloma. LFTs are normal, no signs of choledocholithiasis or CBD dilatation noted. HIDA wo signs of bile leak. Is clinically doing quite well, states that his right upper quadrant abdominal area is uncomfortable but not painful. Is tolerating solid diet. No nausea or vomiting, no fever or chills. - Plan for pt to get DC'd home today; f/u at [facility] tomorrow for outpt ERCP by Dr. Nicci Sanchez to replace biliary stent. Please DC pt on Cipro/Flagyl PO antibiotics to cover 10 days. He had also been advised to be NPO after midnight for the procedure tomorrow. Admission and Anticipated Discharge Date Admission Date: February 12, 2022 Supervising Physician Co-Signing Physician Notes I have personally seen and examined the patient with ALISA Velázquez. Her note reflects my exam and findings. I agree with her impression and plan. Doing well post ERCP. Derian Childress M.D. Subjective Pt up in bedside, eating solid breakfast. He is having mild RUQ abd discomfort, not painful. He states eating doesn't make discomfort worse. Denies fever, chills, CP, SOB, n/v. Review of Systems Review of Systems: All systems reviewed & are unremarkable except as noted in HPI & below Physical Exam Constitutional: WD/WN, vitals as above well groomed, cooperative and comfortable Eyes: PERRL, conjunctivae normal, anicteric sclerae ENMT: external ear and nose normal, oropharynx normal Respiratory: normal respiratory effort, lungs clear to auscultation Cardiovascular: RRR, no murmur, no edema Gastrointestinal (Abdomen): normal bowel sounds, soft, nontender, no hepatosplenomegaly Skin: no rashes, warm and dry no jaundice Psychiatric: A+Ox3, euthymic affect Lymphatic: no lymphedema Results & Data ([facility]) Vital Signs (Past 12 Hours) Vital Signs Temp Pulse Resp BP Pulse Ox O2 Del Method 02/15/22 05:37 36.7 C 66 16 133/84 92 Room Air
--- NOTE | 2022-02-15 15:03 | Discharge Summary ---
Date of Service February 15, 2022 Admission HPI Per Admitting Provider Aleks Roman is an 81-year-old male with a past medical history of hypertension, IBSC, MARIBEL, vitamin B12 deficiency, BPH, prostate CA's s/p radiation therapy, and cholecystectomy in October for gangrenous cholecystitis who presents today with right upper quadrant pain. In October he had a fenestrated cholecystectomy for acalculous gangrenous cholecystitis, as well as stent placed and removed February 01, as well as ureteral stents for stones. Had been feeling well up until 4 days ago, when he developed right-sided abdominal pain that waxes and wanes, better with lying still but worse with moving around. He is slightly nauseous without vomiting. He attributed this when it started on Monday to the meal he ate, which was pizza. He has been taking Tylenol with alleviation. [place] warm a couple days this week, but no reported fevers, no chills, weakness, myalgias, Principal Diagnosis cholecystitis Discharge Exam The patient is awake, alert and oriented 3, well developed and well nourished, normocephalic and atraumatic, lying in bed and in no acute distress. HEENT--PERRL, EOMI, mucous membranes and oropharynx mildly dry Neck--supple. No JVD. No bruits. Thyroid normal, trachea midline, no adenopathy. Heart--normal S1 and S2. No murmurs, rubs or gallops. Lungs--clear bilaterally, no respiratory distress, no accessory muscle use. Abdomen--RUQ pain Extremities--no cyanosis or clubbing. No edema. Dermatologic--normal skin turgor, normal color, no abnormal lymph nodes, no rash. Neurologic--cranial nerves II through XII grossly intact. Rheumatologic--normal range of motion. Psychiatric--normal affect. Discharge Data Allergies Allergy/AdvReac Type Severity Reaction Status Date / Time No Known Allergies Allergy Verified 02/12/22 18:09 Consultations 02/12/22 18:59 ED Decision to Admit Stat 02/12/22 21:02 Consult Gastroenterology Routine Consult General Surgery Routine Ordered Studies 02/12/22 16:35 CT Abd and Pelvis [CT abd pelvis IV con only] Stat CT angio chest PE protocol Stat 02/13/22 21:02 MR MRCP Routine Hospital Course (1) Cholecystitis: - Presets to the hospital on account of RUQ pain -Patient is s/p fenestrated cholecystectomy for acalculous gangrenous cholecystitis in October. - CT abdomen and pelvis shows some Remnant of the gallbladder which appears infected, cholecystitis versus cholangitis. - Vital signs within normal limits and stable, does not have an elevated WBC, LFTs WNL. - He is now s/p MRCP, which shows Gallbladder remnant is present in this patient with reported prior cholecystectomy and also Inflammatory stranding within the martin hepatis with trace free fluid is suggestive of a residual acute cholecystitis. Debris within the remnant gallbladder may represent blood products, sludge or cholelithiasis. There is a linear filling defect within the distal cystic duct which may represent blood products. No choledocholithiasis or common bile duct dilation. also shows a 2 cm fluid collection within the martin hepatis adjacent to the hepatic flexure and gallbladder fundus is again noted which may represent developing phlegmon or abscess. -GI and gen surgery on consult, appreciate recs -HIDA scan did not show any evidence of bile leak - Appreciate GI and surgery recs -Continue antibiotics -Discharge to follow up with GI for stent removal tomorrow (2) Hypertension: - Holding lisinopril as above pending possible surgical intervention. (3) B12 deficiency: - Continue B12 supplementation daily. (4) Gout: - Continue allopurinol 30 mg prophylactically. 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 Patient has been experiencing diarrhea for several weeks, so will hold Linzess to see if it helps. (6) MARIBEL treated with BiPAP: - Continue BIPAP at night. (7) Elevated hemidiaphragm: - Right sided, chronic, seen on CXR from years ago. Plan - Admit to [facility]. - SCDs for VTE PPx. Defer chemo PPx for now due to possible surgery tomorrow. - Full code. Total Time Total Time Spent Total Time Spent (In Minutes): 35 Discharge Plan Discharge Items Patient Disposition: Home - Self-Care Reason For Visit: REMNANT GALLBLADDER, CHOLECYSTITIS VS CHOLANGITIS Discharge Diagnosis: cholecystitis Activity: Resume your previous activity Non-emergency contact: Primary Care Provider and Summer Sessions Director Call non-emergency contact if: you have any medication questions Follow-up/Referrals: Nicci Sanchez DO [Physician] - 02/16/22 (WILL HAVE ERCP DONE TOMORROW 02/16/22 AT [facility].) Bobby Diaz, ASHLEE [Primary Care Provider] - 02/23/22 10:00 am Diet: Regular Addtl Attending Provider Instructions: please make appointment to follow up with gastroenterology Pending Studies at Discharge: No Stand-Alone Forms: [facility], Smoking Cessation Medications and DC Order Prescriptions: New ciprofloxacin HCl 500 mg tablet 500 mg PO BID 5 Days Qty: 10 0RF metronidazole [Flagyl] 375 mg capsule 375 mg PO BID 5 Days Qty: 10 0RF Continued allopurinol 300 mg Tablet 300 mg PO QAM Linzess 145 mcg Capsule 145 mcg PO QAM lisinopril 10 mg Tablet 10 mg PO QAM cyanocobalamin (vitamin B-12) 500 mcg Tablet 1,000 mcg PO QAM Qty: 90 0RF tamsulosin 0.4 mg capsule 0.4 mg PO QAM Discharge Orders: Discharge Order (Routine); Ordered 02/15/22 Ordered By: Yuko Melvin/Other Patient Handouts: Anatomy of the Digestive System Admission Data Admit Date/Time: 02/12/22 19:10 Attending Provider: Yuko Nava Admit Provider: Paulie Rosales Primary Care Provider: Bobby Diaz Other Providers: Paulie Rosales ; Faustino Gonzales ; Shashank Richards Other Interventions: Discharge Summary Assessment (RN) Last Done: 02/15/22 11:24 Coding Level of Care Code D/C DAY MANAGEMENT >30 MINS Diagnoses Cholecystitis K81.9 Hypertension I10 B12 deficiency E53.8 Gout M10.9 Constipation K59.00 MARIBEL treated with BiPAP G47.33 Elevated hemidiaphragm J98.6 Time Spent (min) 35
== END 2022-02-15 12:21 | disposition home or self-care (01) | DRG 921 ==
LOC: ED 15:55 → SUATTDRO 19:10 → 3N 19:10
DX: K66.8 Other specified disorders of peritoneum; K59.00 Constipation, unspecified; K81.9 Cholecystitis, unspecified; G47.33 Obstructive sleep apnea (adult) (pediatric); Z90.49 Acquired absence of other specified parts of digestive tract; I10 Essential (primary) hypertension; Y82.8 Other medical devices associated with adverse incidents; T81.89XA Other complications of procedures, not elsewhere classified, initial encounter; J98.6 Disorders of diaphragm; E53.8 Deficiency of other specified B group vitamins; M10.9 Gout, unspecified

== ENCOUNTER 2022-03-19 13:02 | Inpatient (IN) ==
[2022-03-19] MEDS ORDERED: CEFEPIME 2,000 MG/20 ML VIAL IV STA (13:50)
--- NOTE | 2022-03-19 13:56 | Emergency Department Note ---
Impression & Plan Fever, Rigors, History of biliary duct stent placement ED Provider Note NAME: FLAVIA NEGRO AGE: 81 SEX: M : 1940 ARRIVES VIA: Walk-In INFORMANT: [Patient] ED PROVIDER(S): [Romain Pavon MD] CHIEF COMPLAINT: Flulike symptoms HISTORY OF PRESENT ILLNESS: The patient is an 81-year-old male who has had 3 days of a fever. He has some mild upper abdominal pain but that has been since after his stent placement. He has a biliary stent in place. The stent was placed a month ago. The patient complains of some runny nose, no shortness of breath, no cough. No urinary complaints. He does have diarrhea but this is chronic. He has not noticed a rash. No sick contacts. The patient was told that if he had a fever, he should report to the ER for evaluation. He did take Tylenol before arrival. REVIEW OF SYSTEMS: See HPI for pertinent positives and negatives. A total of ten systems were reviewed and were otherwise negative. PMHx/PSHx: See Below SOCIAL HISTORY: See Below. PHYSICAL EXAM: GENERAL: Patient is in no acute distress. HEENT: No acute trauma, normocephalic atraumatic, mucous membranes moist, no nasal congestion, no scleral icterus. NECK: No stridor, no adenopathy, no meningismus, trachea is midline. LUNGS: Clear to auscultation bilaterally, no wheeze, no rhonchi, breath sounds equal. HEART: 2/6 systolic murmur, regular rate and rhythm. ABDOMEN: Soft, nontender, bowel sounds positive, no peritonitis. EXTREMITIES: No cyanosis, full range of motion of all the joints without pain or difficulty, no signs for acute trauma. NEUROLOGIC: Oriented x 3, no acute motor or sensory deficits, no focal weakness. SKIN: No rash, no jaundice, no diaphoresis. DIFFERENTIAL DIAGNOSIS: Sepsis, UTI, pneumonia, COVID-19, viral illness, metabolic abnormality, electrolyte abnormalities, cardiac sources, cellulitis, bacteremia, intracerebral event, toxicologic etiology, neurologic event, as well as other pathologies. EMERGENCY DEPARTMENT COURSE/PROCEDURES: ECG: Indication was possible sepsis. The ECG shows a normal sinus rhythm with LVH. The rate is 66. There is no ST elevation, no PVCs. The QTc is 392. Continuous Cardiac Monitoring: An order was placed for continuous cardiac monitoring. The monitor shows a rate of 67 with normal sinus rhythm. MEDICAL DECISION MAKING: There is no leukocytosis. A mild anemia was seen. There is a normal platelet count. No coagulopathy. No renal failure or significant electrolyte a bnormality. Lactic acid level is not elevated making severe sepsis less likely. No concerning liver enzyme elevation. No evidence for pancreatitis. Urinalysis does not show infection. Lyme disease was positive for IgG, IgM was normal. Respiratory bio fire was completely negative. Chest x-ray does not show pneumonia or CHF. Abdominal and pelvis CT shows improvement in the area of the right upper quadrant, the stent was in proper position. No obvious infectious source by CT imaging. On exam, the patient was febrile, he had episodes of rigors while here in the ED. The patient is given IV saline, IV cefepime. He received oral Tylenol. I do think the patient requires a hospital stay. At this point, the source for his fever is unclear. Bacteremia/early sepsis is certainly a concern. I spoke with Dr. Villarreal of [facility]. He did recommend a hospital stay and IV antibiotic therapy. I spoke with case management, I talked to the patient at length. The on-call hospitalist was consulted. 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 Diverticular disease Hearing deficit Kidney stones Liver cyst Right kidney stone Surgical History History of colonoscopy History of lithotripsy History of prostate biopsy malignant History of tonsillectomy and adenoidectomy History of tooth extraction S/P cholecystectomy 10/2021 Family History Other No family history of adverse response to anesthesia Social History Smoking Status: Never smoker Tobacco Type: Cigarettes Second Hand Exposure: No; Hx Alcohol Use: No Hx Substance Use: No Preferred Language: Portuguese Communication Ability: Effective Spring Tacker Required: No Beliefs That Will Affect Care: None marital status: Current Living Situation: Spouse and Family Current Living Situation Comment: , stepson, and grandson Feels Safe at Home: Yes Assistive Devices: Walker Allergies Allergies Allergy/AdvReac Type Severity Reaction Status Date / Time No Known Allergies Allergy Verified 02/12/22 18:09 Home Meds Home Medications Medication Instructions Recorded Confirmed allopurinol 300 mg tablet 300 mg PO QAM 09/24/18 02/12/22 linaclotide 145 mcg capsule 145 mcg PO QAM 09/24/18 02/12/22 (Linzess) lisinopril 10 mg tablet 10 mg PO QAM 09/24/18 02/12/22 Previous Rx's Medication Instructions Recorded cyanocobalamin (vitamin B-12) 500 1,000 mcg PO QAM #90 tabs 11/11/21 mcg tablet tamsulosin 0.4 mg capsule 0.4 mg PO DAILY #90 caps 03/15/22 Results & Data (ED) Vital Signs Vital Signs - 24 hr 03/19/22 13:03 03/19/22 13:43 03/19/22 13:45 Temperature 36.9 C 37.8 C H Temperature Source Oral Oral Pulse Rate 75 Pulse Rate [Finger] 67 Pulse Rate from SpO2 Sensor Respiratory Rate 16 17 Respiratory Effort / Characteristics Blood Pressure 124/72 Blood Pressure [Right Arm] 116/67 Blood Pressure Mean 89 Blood Pressure Mean [Right Arm] 83 Blood Pressure Position [Right Arm] Lying Pulse Oximetry 97 92 Oxygen Delivery Method Room Air Sepsis Recent Fever Within 48 Hours Yes Sepsis New/Unexplained Change in Mental Status No Sepsis Action Taken by Nursing No Action Required 03/19/22 14:18 03/19/22 14:18 03/19/22 14:18 Temperature 37.8 C H Temperature Source Oral Pulse Rate 67 Pulse Rate [Finger] 67 Pulse Rate from SpO2 Sensor Respiratory Rate 22 23 17 Respiratory Effort / Characteristics Non-Labored Spontaneous Blood Pressure Blood Pressure [Right Arm] 126/76 Blood Pressure Mean Blood Pressure Mean [Right Arm] 92 Blood Pressure Position [Right Arm] Lying Pulse Oximetry 94 94 94 Oxygen Delivery Method Room Air Room Air Room Air Sepsis Recent Fever Within 48 Hours Sepsis New/Unexplained Change in Mental Status Sepsis Action Taken by Nursing 03/19/22 15:02 03/19/22 15:00 Temperature Temperature Source Pulse Rate 65 Pulse Rate [Finger] Pulse Rate from SpO2 Sensor 65 Respiratory Rate 17 Respiratory Effort / Characteristics Non-Labored Spontaneous Blood Pressure 104/64 Blood Pressure [Right Arm] Blood Pressure Mean 77 Blood Pressure Mean [Right Arm] Blood Pressure Position [Right Arm] Pulse Oximetry 94 95 Oxygen Delivery Method Room Air Room Air Sepsis Recent Fever Within 48 Hours Sepsis New/Unexplained Change in Mental Status Sepsis Action Taken by Intermediate Medications Current Medication List: was personally reviewed by me Laboratory Data Attestation: I reviewed the patient's lab results. Result diagrams: 03/19/22 14:24 03/19/22 14:24 Lab Results 03/19/22 03/19/22 03/19/22 Range/Units 14:10 14:17 14:24 WBC 6.71 (4.8-10.8) K/ul RBC 4.24 L (4.63-6.08) M/uL Hgb 13.5 L (14.0-18.0) g/dl Hct 41.2 (40.1-51.0) % MCV 97.2 (80.0-100.0) fL MCH 31.8 (25.0-34.0) pg MCHC 32.8 (32.0-36.0) g/dL RDW Std Deviation 50.1 H (36.4-46.3) fL RDW Coeff of Kalani 14.1 (11.5-14.5) % Plt Count 165 (130-400) K/uL MPV 8.9 L (9.4-12.4) fL Immature Gran % (Auto) 0.3 % Neut % (Auto) 76.0 % Lymph % (Auto) 12.1 % [place] % (Auto) 11.2 % Eos % (Auto) 0.1 % Baso % (Auto) 0.3 % Neut # (Auto) 5.10 (1.4-6.5) K/uL Lymph # (Auto) 0.81 L (1.2-3.4) K/uL [place] # (Auto) 0.75 (0.24-0.82) K/uL Eos # (Auto) 0.01 (0-0.50) K/uL Baso # (Auto) 0.02 (0-0.2) K/uL Immature Gran # (Auto) 0.02 (0.00-0.02) K/uL PT (9.0-12.0) Seconds INR (0.9-1.1) APTT (21.0-31.0) Seconds PTT Ratio Sodium (136-145) mmol/L Potassium (3.5-5.1) mmol/L Chloride (98-107) mmol/L Carbon Dioxide (21-32) mmol/L Anion Gap (3-11) BUN (6-23) mg/dl Creatinine (0.6-1.4) mg/dl Est Cr Clr Drug Dosing ml/min Est GFR ( Amer) ml/min Est GFR (Non-Af Amer) ml/min BUN/Creatinine Ratio (10-20) Glucose (70-99(Fasting)) mg/dl Lactate (0.4-2.0) mmol/L Calcium (8.5-10.1) mg/dl Magnesium (1.7-2.4) mg/dl Total Bilirubin (0.2-1.0) mg/dl AST (13-39) U/L ALT (7-52) U/L Alkaline Phosphatase (34-104) U/L Total Protein (6.0-8.3) gm/dl Albumin (3.4-5.0) gm/dl Globulin (2.5-4.0) gm/dl Albumin/Globulin Ratio (0.9-2) Lipase (11-82) U/L Procalcitonin 0.15 (0-0.5) ng/ml Urine Color Urine Appearance (Clear) Urine pH (4.5-7.5) Ur Specific Milo (1.000-1.030) Urine Protein (Negative) Urine Glucose (UA) (Negative) Urine Ketones (Negative) Urine Blood (Negative) Urine Nitrite (Negative) Urine Bilirubin (Negative) Urine Urobilinogen (Negative) Ur Leukocyte Esterase (Negative) Urine WBC (Auto) (0-5) /hpf Urine RBC (Auto) (0-4) /hpf U Hyaline Cast (Auto) (0-5) /lpf U Epithel Cells (Auto) (0-5) /lpf Urine Bacteria (Auto) (Negative) Adenovirus (PCR) Not Detected (NotDetected) B. pertussis DNA (PCR) Not Detected (NotDetected) B.parapertussis DNA PCR Not Detected (NotDetected) Lyme Disease IgG Ab Positive A (Negative) Lyme Disease IgM Ab Negative (Negative) C. pneumoniae DNA (PCR) Not Detected (NotDetected) Coronavirus OC43 (PCR) Not Detected (NotDetected) Coronavirus HKU1 (PCR) Not Detected (NotDetected) Coronavirus 229E (PCR) Not Detected (NotDetected) SARS-CoV-2 (PCR) Not Detected (NotDetected) Coronavirus NL63 (PCR) Not Detected (NotDetected) Human Metapneumovir PCR Not Detected (NotDetected) Influenza Type A (PCR) Not Detected (NotDetected) Influenza Type B (PCR) Not Detected (NotDetected) M. pneumoniae (PCR) Not Detected (NotDetected) Parainfluenza 1 (PCR) Not Detected (NotDetected) Parainfluenza 2 (PCR) Not Detected (NotDetected) Parainfluenza 3 (PCR) Not Detected (NotDetected) Parainfluenza 4 (PCR) Not Detected (NotDetected) RSV (PCR) Not Detected (NotDetected) Entero/Rhino (PCR) Not Detected (NotDetected) 03/19/22 03/19/22 03/19/22 Range/Units 14:24 14:24 14:24 WBC (4.8-10.8) K/ul RBC (4.63-6.08) M/uL Hgb (14.0-18.0) g/dl Hct (40.1-51.0) % MCV (80.0-100.0) fL MCH (25.0-34.0) pg MCHC (32.0-36.0) g/dL RDW Std Deviation (36.4-46.3) fL RDW Coeff of Kalani (11.5-14.5) % Plt Count (130-400) K/uL MPV (9.4-12.4) fL Immature Gran % (Auto) % Neut % (Auto) % Lymph % (Auto) % [place] % (Auto) % Eos % (Auto) % Baso % (Auto) % Neut # (Auto) (1.4-6.5) K/uL Lymph # (Auto) (1.2-3.4) K/uL [place] # (Auto) (0.24-0.82) K/uL Eos # (Auto) (0-0.50) K/uL Baso # (Auto) (0-0.2) K/uL Immature Gran # (Auto) (0.00-0.02) K/uL PT 10.9 (9.0-12.0) Seconds INR 1.0 (0.9-1.1) APTT 30.8 (21.0-31.0) Seconds PTT Ratio 1.1 Sodium 137 (136-145) mmol/L Potassium 4.2 (3.5-5.1) mmol/L Chloride 103 (98-107) mmol/L Carbon Dioxide 29 (21-32) mmol/L Anion Gap 5 (3-11) BUN 16 (6-23) mg/dl Creatinine 0.83 (0.6-1.4) mg/dl Est Cr Clr Drug Dosing 85.8 ml/min Est GFR ( Amer) 96.3 ml/min Est GFR (Non-Af Amer) 83.1 ml/min BUN/Creatinine Ratio 19.3 (10-20) Glucose 107 H (70-99(Fasting)) mg/dl Lactate 0.8 (0.4-2.0) mmol/L Calcium 9.2 (8.5-10.1) mg/dl Magnesium 1.9 (1.7-2.4) mg/dl Total Bilirubin 0.6 (0.2-1.0) mg/dl AST 18 (13-39) U/L ALT 13 (7-52) U/L Alkaline Phosphatase 69 (34-104) U/L Total Protein 6.6 (6.0-8.3) gm/dl Albumin 3.8 (3.4-5.0) gm/dl Globulin 2.8 (2.5-4.0) gm/dl Albumin/Globulin Ratio 1.4 (0.9-2) Lipase 24 (11-82) U/L Procalcitonin (0-0.5) ng/ml Urine Color Urine Appearance (Clear) Urine pH (4.5-7.5) Ur Specific Milo (1.000-1.030) Urine Protein (Negative) Urine Glucose (UA) (Negative) Urine Ketones (Negative) Urine Blood (Negative) Urine Nitrite (Negative) Urine Bilirubin (Negative) Urine Urobilinogen (Negative) Ur Leukocyte Esterase (Negative) Urine WBC (Auto) (0-5) /hpf Urine RBC (Auto) (0-4) /hpf U Hyaline Cast (Auto) (0-5) /lpf U Epithel Cells (Auto) (0-5) /lpf Urine Bacteria (Auto) (Negative) Adenovirus (PCR) (NotDetected) B. pertussis DNA (PCR) (NotDetected) B.parapertussis DNA PCR (NotDetected) Lyme Disease IgG Ab (Negative) Lyme Disease IgM Ab (Negative) C. pneumoniae DNA (PCR) (NotDetected) Coronavirus OC43 (PCR) (NotDetected) Coronavirus HKU1 (PCR) (NotDetected) Coronavirus 229E (PCR) (NotDetected) SARS-CoV-2 (PCR) (NotDetected) Coronavirus NL63 (PCR) (NotDetected) Human Metapneumovir PCR (NotDetected) Influenza Type A (PCR) (NotDetected) Influenza Type B (PCR) (NotDetected) M. pneumoniae (PCR) (NotDetected) Parainfluenza 1 (PCR) (NotDetected) Parainfluenza 2 (PCR) (NotDetected) Parainfluenza 3 (PCR) (NotDetected) Parainfluenza 4 (PCR) (NotDetected) RSV (PCR) (NotDetected) Entero/Rhino (PCR) (NotDetected) 03/19/22 Range/Units 14:59 WBC (4.8-10.8) K/ul RBC (4.63-6.08) M/uL Hgb (14.0-18.0) g/dl Hct (40.1-51.0) % MCV (80.0-100.0) fL MCH (25.0-34.0) pg MCHC (32.0-36.0) g/dL RDW Std Deviation (36.4-46.3) fL RDW Coeff of Kalani (11.5-14.5) % Plt Count (130-400) K/uL MPV (9.4-12.4) fL Immature Gran % (Auto) % Neut % (Auto) % Lymph % (Auto) % [place] % (Auto) % Eos % (Auto) % Baso % (Auto) % Neut # (Auto) (1.4-6.5) K/uL Lymph # (Auto) (1.2-3.4) K/uL [place] # (Auto) (0.24-0.82) K/uL Eos # (Auto) (0-0.50) K/uL Baso # (Auto) (0-0.2) K/uL Immature Gran # (Auto) (0.00-0.02) K/uL PT (9.0-12.0) Seconds INR (0.9-1.1) APTT (21.0-31.0) Seconds PTT Ratio Sodium (136-145) mmol/L Potassium (3.5-5.1) mmol/L Chloride (98-107) mmol/L Carbon Dioxide (21-32) mmol/L Anion Gap (3-11) BUN (6-23) mg/dl Creatinine (0.6-1.4) mg/dl Est Cr Clr Drug Dosing ml/min Est GFR ( Amer) ml/min Est GFR (Non-Af Amer) ml/min BUN/Creatinine Ratio (10-20) Glucose (70-99(Fasting)) mg/dl Lactate (0.4-2.0) mmol/L Calcium (8.5-10.1) mg/dl Magnesium (1.7-2.4) mg/dl Total Bilirubin (0.2-1.0) mg/dl AST (13-39) U/L ALT (7-52) U/L Alkaline Phosphatase (34-104) U/L Total Protein (6.0-8.3) gm/dl Albumin (3.4-5.0) gm/dl Globulin (2.5-4.0) gm/dl Albumin/Globulin Ratio (0.9-2) Lipase (11-82) U/L Procalcitonin (0-0.5) ng/ml Urine Color Dark Yellow Urine Appearance Clear (Clear) Urine pH 5.0 (4.5-7.5) Ur Specific Milo 1.024 (1.000-1.030) Urine Protein Negative (Negative) Urine Glucose (UA) Negative (Negative) Urine Ketones Negative (Negative) Urine Blood Negative (Negative) Urine Nitrite Negative (Negative) Urine Bilirubin Negative (Negative) Urine Urobilinogen Negative (Negative) Ur Leukocyte Esterase Trace H (Negative) Urine WBC (Auto) 1-5 (0-5) /hpf Urine RBC (Auto) 0-4 (0-4) /hpf U Hyaline Cast (Auto) 0 (0-5) /lpf U Epithel Cells (Auto) 5-10 H (0-5) /lpf Urine Bacteria (Auto) Negative (Negative) Adenovirus (PCR) (NotDetected) B. pertussis DNA (PCR) (NotDetected) B.parapertussis DNA PCR (NotDetected) Lyme Disease IgG Ab (Negative) Lyme Disease IgM Ab (Negative) C. pneumoniae DNA (PCR) (NotDetected) Coronavirus OC43 (PCR) (NotDetected) Coronavirus HKU1 (PCR) (NotDetected) Coronavirus 229E (PCR) (NotDetected) SARS-CoV-2 (PCR) (NotDetected) Coronavirus NL63 (PCR) (NotDetected) Human Metapneumovir PCR (NotDetected) Influenza Type A (PCR) (NotDetected) Influenza Type B (PCR) (NotDetected) M. pneumoniae (PCR) (NotDetected) Parainfluenza 1 (PCR) (NotDetected) Parainfluenza 2 (PCR) (NotDetected) Parainfluenza 3 (PCR) (NotDetected) Parainfluenza 4 (PCR) (NotDetected) RSV (PCR) (NotDetected) Entero/Rhino (PCR) (NotDetected) Administered Medications Discontinued Medications Acetaminophen (Acetaminophen 500 Mg Tab) 1,000 mg PO NOW STA Stop: 03/19/22 17:47 Last Admin: 03/19/22 18:02 Dose: 1,000 mg Documented By: SANDRA Sodium Chloride (Nss 1000ml) 1,000 mls @ 999 mls/hr IV .Q1H1M GWEN Stop: 03/19/22 15:00 Last Infusion: 03/19/22 15:59 Dose: 0 mls/hr Documented By: Admin: 03/19/22 14:57 Dose: 999 mls/hr Documented By: DAI Cefepime HCl (Maxipime) 2,000 mg in 20 mls @ 5 mls/min IV NOW STA; Protocol Stop: 03/19/22 13:53 Last Admin: 03/19/22 14:57 Dose: 5 mls/min Documented By: DAI Ioversol (Optiray 300 100ml) 92 ml IV ONCE ONE Stop: 03/19/22 16:47 Last Admin: 03/19/22 16:46 Dose: 92 ml Documented By: SELAM Imaging Data Radiologist's Impression: Chest X-Ray 03/19/22 13:50 XR chest 1V portable CLINICAL HISTORY: SEPSIS COMPARISON STUDY: Chest CT February 12, 2022. FINDINGS: Elevation of the right hemidiaphragm is unchanged. No pneumothorax or pleural effusion is present. Cardiomediastinal silhouette is stable. There is no evidence for overt pulmonary edema. No consolidation to suggest pneumonia. IMPRESSION: No acute cardiopulmonary findings. No change in appearance of the chest. ACT 112: Negative or not required by law. Electronically signed by: Luis Vitale M.D. 03/19/2022 2:21 PM Abdomen/Pelvis CT 03/19/22 15:38 CT OF THE ABDOMEN AND PELVIS WITH CONTRAST CLINICAL HISTORY: Right upper quadrant pain, biliary stent COMPARISON STUDY: CT of the abdomen and pelvis February 12, 2022. MRCP February 13, 2022. TECHNIQUE: Following IV administration of 92 mL of Optiray, axial images of the abdomen and pelvis were obtained from the lung bases to the proximal femurs. Images were reviewed in the axial, sagittal, and coronal planes. IV contrast was administered without complication. Automated exposure control was utilized for the study. A dose lowering technique was utilized adhering to the principles of ALARA. CT DOSE: 1195.05 mGy.cm FINDINGS: A 10 cm right hepatic dome cyst is again noted. Biliary stents remain in place. As expected, there is pneumobilia. A mildly distended suspected gallbladder remnant is again noted. Mild adjacent stranding has improved since prior examination. The fluid collection extending toward the hepatic flexure of the colon has essentially resolved. No new fluid collections are present. There is no pancreatic ductal dilatation. There is no peripancreatic infiltration. Spleen, adrenal glands are unremarkable. There is a 5 m left renal calculus. There is no hydronephrosis. There are no ureteral calculi. Prostate is enlarged. There are several suspected renal cyst. A few subcentimeter renal lesions are too small to characterize. Colonic diverticulosis is noted without evidence for acute diverticulitis. IMPRESSION: 1. Biliary stents in place. Mildly distended suspected gallbladder remnant with mild adjacent stranding. This suggests residual cholecystitis although inflammation has decreased since CT of February 12, 2022. No significant biliary ductal dilatation. Pneumobilia, as expected. 2. No bowel obstruction. 3. Colonic diverticulosis without evidence for acute diverticulitis. ACT 112: Negative or not required by law. Electronically signed by: Luis Vitale M.D. 03/19/2022 5:25 PM Discharge Plan Visit Data Chief Complaint: Flu Like Symptoms Stated Complaint: FEVER 106, STINT, PRESSURE IN ABDOMIN, CHILLS ED Provider: Romain Pavon Discharge Problem: Fever, Rigors, History of biliary duct stent placement Patient Disposition: Admitted As Inpatient Condition: Fair Forms Stand Alone Forms: [facility] Prescriptions Prescriptions: No Action tamsulosin 0.4 mg capsule 0.4 mg PO DAILY Qty: 90 1RF allopurinol 300 mg Tablet 300 mg PO QAM Linzess 145 mcg Capsule 145 mcg PO QAM lisinopril 10 mg Tablet 10 mg PO QAM cyanocobalamin (vitamin B-12) 500 mcg Tablet 1,000 mcg PO QAM Qty: 90 0RF Referrals Referrals: Bobby Diaz PA-C [Primary Care Provider] -
[2022-03-19] MEDS ORDERED: SODIUM CHLORIDE 0.9% 1000ML 1,000 ML IV SCH (14:00)
--- NOTE | 2022-03-19 14:23 | XRay Report ---
XR chest 1V portable CLINICAL HISTORY: SEPSIS COMPARISON STUDY: Chest CT February 12, 2022. FINDINGS: Elevation of the right hemidiaphragm is unchanged. No pneumothorax or pleural effusion is p resent. Cardiomediastinal silhouette is stable. There is no evidence for overt pulmonary edema. No co nsolidation to suggest pneumonia. IMPRESSION: No acute cardiopulmonary findings. No change in appearance of the chest. ACT 112: Negative or not required by law. Electronically signed by: Luis Vitale M.D. 03/19/2022 2:21 PM
[2022-03-19 14:44] LABS: Basophils # (auto) 0.02 K/uL (0-0.2); Basophils % (auto) 0.3 %; Eosinophils # (auto) 0.01 K/uL (0-0.50); Eosinophils % (auto) 0.1 %; Hematocrit (blood only) 41.2 % (40.1-51.0); Hemoglobin 13.5 g/dl (14.0-18.0); Immature Granulocytes # (auto) 0.02 K/uL (0.00-0.02); Immature Granulocytes % (auto) 0.3 %; Lymphocytes # (auto) 0.81 K/uL (1.2-3.4); Lymphocytes % (auto) 12.1 %; Mean Corpuscular Hemoglobin 31.8 pg (25.0-34.0); Mean Corpuscular Hgb Conc 32.8 g/dL (32.0-36.0); Mean Corpuscular Volume 97.2 fL (80.0-100.0); Mean Platelet Volume 8.9 fL (9.4-12.4); Monocytes # (auto) 0.75 K/uL (0.24-0.82); Monocytes % (auto) 11.2 %; Platelet Count 165 K/uL (130-400); RDW Coefficient of Variation 14.1 % (11.5-14.5); RDW Standard Deviation 50.1 fL (36.4-46.3); Red Blood Count 4.24 M/uL (4.63-6.08); White Blood Count 6.71 K/ul (4.8-10.8)
[2022-03-19 15:01] LABS: Albumin Globulin Ratio 1.4 (0.9-2); Albumin Level 3.8 gm/dl (3.4-5.0); BUN Creatinine Ratio 19.3 (10-20); Bilirubin,Total 0.6 mg/dl (0.2-1.0); Calcium 9.2 mg/dl (8.5-10.1); Creatinine Clr Calc Pharmacy 85.8 ml/min; Est GFR (African American) 96.3 ml/min; Est GFR (Non-African American) 83.1 ml/min; Globulin 2.8 gm/dl (2.5-4.0); Magnesium 1.9 mg/dl (1.7-2.4); Potassium 4.2 mmol/L (3.5-5.1); Total Protein 6.6 gm/dl (6.0-8.3)
[2022-03-19 15:03] LABS: Partial Thromboplastin Ratio 1.1; Partial Thromboplastin Time 30.8 Seconds (21.0-31.0); Prothrombin Time 10.9 Seconds (9.0-12.0)
[2022-03-19 15:12] LABS: Appearance Urine Clear (Clear); Bacteria Urine Automated Negative (Negative); Bilirubin Urine Negative (Negative); Blood Urine Negative (Negative); Cast Urine Automated 0 /lpf (0-5); Color Urine Dark Yellow; Glucose Urine UA Negative (Negative); Ketones Urine Negative (Negative); Leukocyte Esterase Urine Trace (Negative); Nitrite Urine Negative (Negative); Protein Urine Negative (Negative); RBC Urine Automated 0-4 /hpf (0-4); Specific Gravity Urine 1.024 (1.000-1.030); Urobilinogen Urine Negative (Negative)
[2022-03-19 15:21] LABS: Procalcitonin 0.15 ng/ml (0-0.5)
[2022-03-19 15:27] LABS: Lyme Ab IgM w/WB Rflx Negative (Negative)
[2022-03-19 15:31] LABS: Adenovirus PCR Not Detected (NotDetected); Bordetella parapertussis PCR Not Detected (NotDetected); Bordetella pertussis PCR Not Detected (NotDetected); Chlamydia pneumoniae PCR Not Detected (NotDetected); Coronavirus 229E PCR Not Detected (NotDetected); Coronavirus CoV-2 (COVID19)PCR Not Detected (NotDetected); Coronavirus HKU1 PCR Not Detected (NotDetected); Coronavirus NL63 PCR Not Detected (NotDetected); Coronavirus OC43PCR Not Detected (NotDetected); Human Metapneumovirus PCR Not Detected (NotDetected); Influenza A PCR Not Detected (NotDetected); Influenza B PCR Not Detected (NotDetected); Mycoplasma pneumoniae PCR Not Detected (NotDetected); Parainfluenza Virus 1 PCR Not Detected (NotDetected); Parainfluenza Virus 2 PCR Not Detected (NotDetected); Parainfluenza Virus 3 PCR Not Detected (NotDetected); Parainfluenza Virus 4 PCR Not Detected (NotDetected); Respiratory Syncytial VirusPCR Not Detected (NotDetected); Rhinovirus/Enterovirus PCR Not Detected (NotDetected)
[2022-03-19 15:34] LABS: Lyme Ab IgG w/WB Rflx Positive (Negative)
[2022-03-19] MEDS ORDERED: OPTIRAY 300 100mL IV ONE (16:46)
--- NOTE | 2022-03-19 17:27 | CT Scan Report ---
CT OF THE ABDOMEN AND PELVIS WITH CONTRAST CLINICAL HISTORY: Right upper quadrant pain, biliary stent COMPARISON STUDY: CT of the abdomen and pelvis February 12, 2022. MRCP February 13, 2022. TECHNIQUE: Following IV administration of 92 mL of Optiray, axial images of the abdomen and pelvis we re obtained from the lung bases to the proximal femurs. Images were reviewed in the axial, sagittal, and coronal planes. IV contrast was administered without complication. Automated exposure control wa s utilized for the study. A dose lowering technique was utilized adhering to the principles of ALARA . CT DOSE: 1195.05 mGy.cm FINDINGS: A 10 cm right hepatic dome cyst is again noted. Biliary stents remain in place. As expected , there is pneumobilia. A mildly distended suspected gallbladder remnant is again noted. Mild adjacen t stranding has improved since prior examination. The fluid collection extending toward the hepatic f lexure of the colon has essentially resolved. No new fluid collections are present. There is no pancr eatic ductal dilatation. There is no peripancreatic infiltration. Spleen, adrenal glands are unremark able. There is a 5 m left renal calculus. There is no hydronephrosis. There are no ureteral calculi. Prostate is enlarged. There are several suspected renal cyst. A few subcentimeter renal lesions are t oo small to characterize. Colonic diverticulosis is noted without evidence for acute diverticulitis. IMPRESSION: 1. Biliary stents in place. Mildly distended suspected gallbladder remnant with mild adjacent strandi ng. This suggests residual cholecystitis although inflammation has decreased since CT of February 12 22. No significant biliary ductal dilatation. Pneumobilia, as expected. 2. No bowel obstruction. 3. Colonic diverticulosis without evidence for acute diverticulitis. ACT 112: Negative or not required by law. Electronically signed by: Luis Vitale M.D. 03/19/2022 5:25 PM
[2022-03-19] MEDS ORDERED: ACETAMINOPHEN 500 MG TAB PO STA (17:46)
--- NOTE | 2022-03-19 18:23 | History & Physical Report ---
Date of Service March 19, 2022 Assessment & Plan (1) Fever: Plan: -Admit to med/surge under observation -Patient is currently afebrile, hemodynamically stable, and stable on 2L NC -No leukocytosis, procal negative, GI requesting observation admission with IV antibiotics -Was given cefepime in the ED, will continue with Zosyn for now -Follow blood cultures -Will place GI consult -AM CBC and CMP (2) Hypoxia: Plan: -Patient was placed on 2L NC by ED staff -Asymptomatic, procal negative, chest xray looks like he has some interstitial edema + LE pitting edema -No history of heart failure but will give 20 mg IV Lasix now and repeat an echo to confirm -Wean O2 as able (3) History of biliary duct stent placement: Plan: -See fever (4) MARIBEL treated with BiPAP: Plan: -HS Bipap ordered (5) Hypertension: Plan: -Hold [employer]PECTOR lisinopril for now until infection is ruled out with his low-normal BP Plan The patient was discussed with Dr. Phillips at the time of admission History of Present Illness Chief Complaint: Flu Like Symptoms Primary Care Provider: Bobby Madrid Joe Fink is an 81-year-old male with a past medical history of hypertension, IBSC, MARIBEL, vitamin B12 deficiency, BPH, prostate CA's s/p radiation therapy, and cholecystectomy in October for gangrenous cholecystitis, and recent ERCP with biliary stent placement on 02/16/22 for choledocholithiasis and infected retained products of of his prior cholecystectomy who presented to the [facility] ED on 03/19/22 with a chief complaint of flu-like symptoms. In the [facility] the patient was found to have a temperature of 37.8 C, remained hemodynamically stable and stable on RA. He was without a leukocytosis and procal was negative at 0.15. Of note, the patient's Lyme IgG antibody was positive and a western blot was sent for confirmation. Chest xray was negative for acute findings. CT of the abdomen and pelvis with contrast showed "Biliary stents in place. Mildly distended suspected gallbladder remnant with mild adjac ent stranding. This suggests residual cholecystitis although inflammation has decreased since CT of February 12, 2022. No significant biliary ductal dilatation. Pneumobilia, as expected. No bowel obstruction. Colonic diverticulosis without evidence for acute diverticulitis". GI was contacted by the ED staff who recommended brining the patient in under observation with IV antibiotics. In the ED the patient was given 1L NSS bolus, tylenol, and one dose of Cefepime. At the time of the exam the patient was resting comfortably in bed with his sitting bedside. He states that he had been doing well after his stent placement last month and even went deer hunting within the past week. He states that he developed "fevers" (highest was 100.2 F) and a runny nose approximately 3 days ago. He denies any abdominal pain, nausea, vomiting, changes in bowel habits, dysuria, hematuria, melena, or bloody bowel movements. He states that his PCP had prescribed him Cipro and Flagyl in case he would develop fevers after his stent placement and he started both last night. He denies any recent rashes or finding any ticks on himself recently and does note that he had Lyme Disease in the past and completed a 90 day course of Doxycycline. Of note, the patient was on 2L NC at the start of my exam, I attempted to turn his oxygen off during my exam but he desaturated into the high 80's on RA. He denies any shortness of breath and states that he is on nightly CPAP but does not use oxygen at home. He is not taking deep breaths as he is sitll getting some RUQ pain with deep inspiration. Allergies Allergy/AdvReac Type Severity Reaction Status Date / Time No Known Allergies Allergy Verified 03/19/22 19:34 Home Medications Medication Instructions Recorded Confirmed Type allopurinol 300 mg tablet 300 mg PO QAM 09/24/18 03/19/22 History linaclotide 145 mcg capsule 145 mcg PO QAM 09/24/18 03/19/22 History (Linzess) lisinopril 10 mg tablet 10 mg PO QAM 09/24/18 03/19/22 History cyanocobalamin (vitamin B-12) 500 1,000 mcg PO QAM #90 tabs 11/11/21 03/19/22 Rx mcg tablet tamsulosin 0.4 mg capsule 0.4 mg PO DAILY #90 caps 03/15/22 03/19/22 Rx ciprofloxacin HCl 500 mg tablet 500 mg PO BID 03/19/22 03/19/22 History ibuprofen 200 mg tablet 600 mg PO Q6H PRN Pain 03/19/22 03/19/22 History metronidazole 250 mg tablet 250 mg PO BID 03/19/22 03/19/22 History ursodiol 500 mg tablet 500 mg PO BID 03/19/22 03/19/22 History Past Med/Surg History Medical History Cardiac murmur FOLLOWS WITH PCP FOR MURMUR NO COST SPECIALIST Diverticular disease Hearing deficit Kidney stones Liver cyst Right kidney stone Surgical History History of colonoscopy History of lithotripsy History of prostate biopsy malignant History of tonsillectomy and adenoidectomy History of tooth extraction S/P cholecystectomy 10/2021 Family History Other No family history of adverse response to anesthesia Social History Smoking Status: Never smoker Tobacco Type: Cigarettes Second Hand Exposure: No; Hx Alcohol Use: No Hx Substance Use: No Preferred Language: Turkmen Communication Ability: Effective Escalator Mechanic Required: No Beliefs That Will Affect Care: None marital status: Current Living Situation: Spouse and Family Current Living Situation Comment: , stepson, and grandson Feels Safe at Home: Yes Assistive Devices: Walker Review of Systems Review of Systems: Denies current headache, changes in vision, hearing, taste, and smell, chest pain, SOB, cough, abdominal pain, rash, nausea, vomiting, diarrhea, hematemesis, melena, dysuria, hematuria, and recent falls. All systems have been reviewed and are otherwise negative. Physical Exam Physical Exam: Physical Exam: General: In no acute distress, stated age, non-toxic appearing HEENT: Normocephalic, atraumatic, no scleral icterus, pupils around round, symmetrical, and reactive to light, moist mucus membranes, +telangiectasias on the nose and BL cheeks, trachea midline, no thyromegaly Chest/Pulm: No respiratory distress, symmetrical chest expansion, clear breath sounds throughout Cardiac: RRR, no murmurs noted Abdomen: Negative for ascites and bruising, normoactive bowel sounds, soft, mildly tender to palpation in the RUQ, + Alaniz's sign Musculoskeletal: Symmetrical and without signs of acute trauma, upper and lower extremities with full ROM, no atrophy, spasticity, or flaccidity Extremities: Radial, dorsalis pedis, and posterior tibial pulses are intact and symmetrical, +1 pitting edema in the BL LE's Skin: Warm, dry, no rashes , lesions, or scars noted Neuro: Alert and oriented to person, place, month, year, and president, no focal defects, CN II-XII tested and intact, finger to nose test negative, no tremors noted Psych: No acute distress, calm and cooperative during the exam Results & Data Results & Data ([facility]) Vital Signs (Past 12 Hours) Vital Signs Temp Pulse Pulse Resp BP BP Pulse Ox 03/19/22 15:00 65 104/64 95 03/19/22 15:02 17 94 03/19/22 14:18 37.8 C H 67 17 126/76 94 03/19/22 14:18 67 23 94 03/19/22 14:18 22 94 03/19/22 13:45 37.8 C H 03/19/22 13:43 67 17 116/67 92 03/19/22 13:03 36.9 C 75 16 124/72 97 O2 Del Method 03/19/22 15:00 Room Air 03/19/22 15:02 Room Air 03/19/22 14:18 Room Air 03/19/22 14:18 Room Air 03/19/22 14:18 Room Air 03/19/22 13:45 03/19/22 13:43 Room Air 03/19/22 13:03 Laboratory Results Abnormal lab results 03/19/22 03/19/22 03/19/22 Range/Units 14:10 14:24 14:24 RBC 4.24 L (4.63-6.08) M/uL Hgb 13.5 L (14.0-18.0) g/dl RDW Std Deviation 50.1 H (36.4-46.3) fL MPV 8.9 L (9.4-12.4) fL Lymph # (Auto) 0.81 L (1.2-3.4) K/uL Glucose 107 H (70-99(Fasting)) mg/dl Ur Leukocyte Esterase (Negative) U Epithel Cells (Auto) (0-5) /lpf Lyme Disease IgG Ab Positive A (Negative) 03/19/22 Range/Units 14:59 RBC (4.63-6.08) M/uL Hgb (14.0-18.0) g/dl RDW Std Deviation (36.4-46.3) fL MPV (9.4-12.4) fL Lymph # (Auto) (1.2-3.4) K/uL Glucose (70-99(Fasting)) mg/dl Ur Leukocyte Esterase Trace H (Negative) U Epithel Cells (Auto) 5-10 H (0-5) /lpf Lyme Disease IgG Ab (Negative) Diagnostic Findings Chest X-Ray 03/19/22 13:50 XR chest 1V portable CLINICAL HISTORY: SEPSIS COMPARISON STUDY: Chest CT February 12, 2022. FINDINGS: Elevation of the right hemidiaphragm is unchanged. No pneumothorax or pleural effusion is present. Cardiomediastinal silhouette is stable. There is no evidence for overt pulmonary edema. No consolidation to suggest pneumonia. IMPRESSION: No acute cardiopulmonary findings. No change in appearance of the chest. ACT 112: Negative or not required by law. Electronically signed by: Luis Vitale M.D. 03/19/2022 2:21 PM Abdomen/Pelvis CT 03/19/22 15:38 CT OF THE ABDOMEN AND PELVIS WITH CONTRAST CLINICAL HISTORY: Right upper quadrant pain, biliary stent COMPARISON STUDY: CT of the abdomen and pelvis February 12, 2022. MRCP February 13, 2022. TECHNIQUE: Following IV administration of 92 mL of Optiray, axial images of the abdomen and pelvis were obtained from the lung bases to the proximal femurs. Images were reviewed in the axial, sagittal, and coronal planes. IV contrast was administered without complication. Automated exposure control was utilized for the study. A dose lowering technique was utilized adhering to the principles of ALARA. CT DOSE: 1195.05 mGy.cm FINDINGS: A 10 cm right hepatic dome cyst is again noted. Biliary stents remain in place. As expected, there is pneumobilia. A mildly distended suspected gallbladder remnant is again noted. Mild adjacent stranding has improved since prior examination. The fluid collection extending toward the hepatic flexure of the colon has essentially resolved. No new fluid collections are present. There is no pancreatic ductal dilatation. There is no peripancreatic infiltration. Spleen, adrenal glands are unremarkable. There is a 5 m left renal calculus. There is no hydronephrosis. There are no ureteral calculi. Prostate is enlarged. There are several suspected renal cyst. A few subcentimeter renal lesions are t oo small to characterize. Colonic diverticulosis is noted without evidence for acute diverticulitis. IMPRESSION: 1. Biliary stents in place. Mildly distended suspected gallbladder remnant with mild adjacent stranding. This suggests residual cholecystitis although inflammation has decreased since CT of February 12, 2022. No significant biliary ductal dilatation. Pneumobilia, as expected. 2. No bowel obstruction. 3. Colonic diverticulosis without evidence for acute diverticulitis. ACT 112: Negative or not required by law. Electronically signed by: Luis Vitale M.D. 03/19/2022 5:25 PM ECG Additional Comments: Normal sinus rhythm Minimal voltage criteria for LVH, may be normal variant Nonspecific ST abnormality Abnormal ECG When compared with ECG of 06-NOV-2021 14:29, Previous ECG has undetermined rhythm, needs review Code Status & VTE Plan Code Status Full code VTE Prophylaxis Plan VTE Prophylaxis will be ordered: Yes Supervising Physician Co-Signing Physician Notes I supervised Uriel Gold PA-C on this admission. I interviewed and examined the patient independently of him. The plan is as written in his note except for any following changes/exceptions: None 81yo M w/ hx of cholecystis of his gallbladder remnant who presents with fever. Was admitted about 1 month ago with cholecystitis and required biliary stents for this. Had been doing well overall, but had a fever today. His GI physician told him to come to the hospital if so. Imaging remains stable or improved. Will follow cultures, add full tick-borne panel, and use empiric abx until cultures return. PG Care Time/CCT Total # of Minutes Spent Total Time Spent with Patient: Total time spent is greater than 50% in coordination of care (as documented) at patient's floor/unit and/or counseling patient: Coding Level of Care Code Established Pt INT OBSERVATION CARE 70M LVL 3 Patient Type Established Medical Decision Making Moderate Complexity Diagnoses Fever R50.9 Fever type: unspecified Hypoxia R09.02 History of biliary duct stent placement Z98.890 MARIBEL treated with BiPAP G47.33 Hypertension I10 (1) Fever Fever type: unspecified Qualified Code(s): R50.9 - Fever, unspecified
[2022-03-19] MEDS ORDERED: PIPERACILLIN/TAZOBACTAM 3.375 GM in DEXTROSE 5% 100 ML IV ONE (23:00)
[2022-03-19] MEDS: ENOXAPARIN INJ 40 MG/0.4 ML SYR SQ SCH (23:36)
[2022-03-20 04:47] LABS: A calco-baum cmplx NotReported Not Detected (NotDetected); Bact fragilis Not Reported Not Detected (NotDetected); C auris Not Reported Not Detected (NotDetected); CTX-M Resistant Gene Not Detected (NotDetected); Calbicans Not Reported Not Detected (NotDetected); Candida glabrata Not Reported Not Detected (NotDetected); Candida krusei Not Reported Not Detected (NotDetected); Cneoformans/gatti Not Reported Not Detected (NotDetected); Cparapsilosis Not Reported Not Detected (NotDetected); Ctropicalis Not Reported Not Detected (NotDetected); E cloacae compx Not Reported Not Detected (NotDetected); Efaecalis Not Reported Not Detected (NotDetected); Efaecium Not Reported Not Detected (NotDetected); Enterobacterales DETECTED (NotDetected); Enterobacterales Not Reported DETECTED (NotDetected); Escherichia coli Not Reported DETECTED (NotDetected); H influenzae Not Reported Not Detected (NotDetected); IMP Resistant Gene Not Detected (NotDetected); K aerogenes Not Reported Not Detected (NotDetected); KPC Resistant Gene Not Detected (NotDetected); Koxytoca Not Reported Not Detected (NotDetected); Kpneumoniae grp Not Reported Not Detected (NotDetected); Lmonocyt Not Reported Not Detected (NotDetected); N meningitidis Not Reported Not Detected (NotDetected); NDM Resistant Gene Not Detected (NotDetected); OXA 48 Like Resistant Gene Not Detected (NotDetected); P aeruginosa Not Reported Not Detected (NotDetected); Proteus spp Not Reported Not Detected (NotDetected); Salmonella spp Not Reported Not Detected (NotDetected); Smarcescens Not Reported Not Detected (NotDetected); Staph lugdunensis Not Reported Not Detected (NotDetected); Staph spp. Not Reported Not Detected (NotDetected); Staphaureus Not Reported Not Detected (NotDetected); Staphepi Not Reported Not Detected (NotDetected); Stenmaltophilia Not Reported Not Detected (NotDetected); Strep agal(GrpB) Not Reported Not Detected (NotDetected); Strep pneum Not Reported Not Detected (NotDetected); Strep pyog (GrpA) Not Reported Not Detected (NotDetected); Strep spp Not Reported Not Detected (NotDetected); VIM Resistant Gene Not Detected (NotDetected); mcr-1 Colistin Resistant Gene Not Detected (NotDetected)
[2022-03-20] MEDS: PIPERACILLIN/TAZOBACTAM 3.375 GM in DEXTROSE 5% 100 ML IV SCH ×3 (06:13→21:33)
[2022-03-20 06:23] LABS: Hematocrit (blood only) 37.8 % (40.1-51.0); Hemoglobin 12.6 g/dl (14.0-18.0); Mean Corpuscular Hemoglobin 31.7 pg (25.0-34.0); Mean Corpuscular Hgb Conc 33.3 g/dL (32.0-36.0); Mean Platelet Volume 9.3 fL (9.4-12.4); Platelet Count 147 K/uL (130-400); RDW Coefficient of Variation 14.1 % (11.5-14.5); Red Blood Count 3.98 M/uL (4.63-6.08)
[2022-03-20 06:46] LABS: Albumin Globulin Ratio 1.3 (0.9-2); Albumin Level 3.2 gm/dl (3.4-5.0); BUN Creatinine Ratio 20.3 (10-20); Bilirubin,Total 0.9 mg/dl (0.2-1.0); Creatinine Clr Calc Pharmacy 89.4 ml/min; Est GFR (African American) 98.3 ml/min; Est GFR (Non-African American) 84.8 ml/min; Globulin 2.5 gm/dl (2.5-4.0); Potassium 4.2 mmol/L (3.5-5.1); Total Protein 5.7 gm/dl (6.0-8.3)
--- NOTE | 2022-03-20 07:50 | Hospitalist Progress Note ---
Date of Service March 20, 2022 Assessment & Plan (1) Fever: Plan: -blood cultures positive for possible gram negative and enterobacter in both bottles -Was given cefepime in the ED, will continue with Zosyn for now - -Will place GI consult, General surgery feels best approach would be consider stent pt was seen in [facility] 02/16 had endoscopy with balloon extraction of cholelithiasis and one stent placed, reports of 10 post procedure antibiotics (2) Hypoxia: Plan: -likley due to sepsis ->resolved (3) History of biliary duct stent placement: Plan: -fever, Pt has persistent gall bladder reminent, with adjacent fat stranding, pneumobilia and biliary stents in place, no significant ductal dilatation. 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 for now until infection is ruled out with his low-normal BP Plan lovenox for dvt prevention Admission and Anticipated Discharge Date Admission Date: March 19, 2022 Subjective pt is in good spirits, eating, pt state he just started to feel illl with fevers at home Review of Systems Review of Systems: Mild distress and fatigue no headache, no visual changes no speech or swallowing issues no chest pain, pressure or palpitations no shortness of breath, cough or wheezes very mild abdominal pain, nausea or vomiting, diarrhea or constipation no dysuria, hematuria or frequency no focal joint pain or swelling no back pain, CVA tenderness or radicular pain no bruising, bleeding or rashes no focal signs of weakness or numbness or altered sensation no complaints of anxiety or depression.. Physical Exam Physical Exam: The patient appeared well nourished and normally developed. Vital signs as documented. Head exam is normocephalic atraumatic Neck is without JVD, thyromegaly, or carotid bruits. Lungs are clear to auscultation, no focal loss of breath sounds Cardiac exam, Rhythm is regular.. No murmurs, rubs or gallops. Abdominal exam reveals normal bowel sounds, soft mild RUQ tenderness Extremities are nonedematous and both pedal pulses are present Neurologic exam is alert and oriented, no focal loss of strength or sensation Skin is without bruises or rashes Psychologically is without concerns for anxiety or depression.. Results & Data Results & Data ([facility]) Vital Signs (Past 12 Hours) Vital Signs Temp Pulse Pulse Resp BP BP Pulse Ox 03/20/22 07:20 98.6 F 72 18 97/58 L 95 03/19/22 23:55 86 30 H 94 03/19/22 22:00 03/19/22 22:00 03/19/22 22:00 03/19/22 22:00 98.4 F 86 16 104/62 91 03/19/22 21:50 85 24 93 03/19/22 21:40 83 96 03/19/22 21:30 82 96 03/19/22 21:20 84 28 H 95 03/19/22 21:10 82 27 H 95 03/19/22 21:00 83 94 03/19/22 21:00 109/59 L 03/19/22 20:50 94 H 18 95 03/19/22 20:40 87 24 95 03/19/22 20:30 88 27 H 95 03/19/22 21:56 03/19/22 20:20 94 H 26 H 89 L 03/19/22 20:10 92 H 28 H 89 L 03/19/22 20:00 89 89 L 03/19/22 20:00 107/59 L 03/19/22 19:50 90 24 90 03/19/22 20:22 Pulse Ox O2 Del Method O2 Del Method O2 Flow Rate O2 Flow Rate 03/20/22 07:20 Room Air 03/19/22 23:55 03/19/22 22:00 Room Air, Nasal Cannula, BiPAP 2 03/19/22 22:00 Room Air, Nasal Cannula, BiPAP 2 03/19/22 22:00 91 Room Air, Nasal Cannula 2 03/19/22 22:00 Room Air 03/19/22 21:50 Nasal Cannula 2 03/19/22 21:40 Nasal Cannula 2 03/19/22 21:30 Nasal Cannula 2 03/19/22 21:20 Nasal Cannula 2 03/19/22 21:10 Nasal Cannula 2 03/19/22 21:00 Nasal Cannula 2 03/19/22 21:00 Nasal Cannula 2 03/19/22 20:50 Nasal Cannula 2 03/19/22 20:40 Nasal Cannula 2 03/19/22 20:30 Nasal Cannula 2 03/19/22 21:56 Nasal Cannula 2 03/19/22 20:20 Room Air 03/19/22 20:10 Room Air 03/19/22 20:00 Room Air 03/19/22 20:00 Room Air 03/19/22 19:50 Room Air 03/19/22 20:22 Nasal Cannula 2 PG Care Time/CCT Total # of Minutes Spent Total Time Spent with Patient: Total time spent is greater than 50% in coordination of care (as documented) at patient's floor/unit and/or counseling patient: Coding Level of Care Code 39797 Subseq Hosp Care Lvl 2 Diagnoses Fever R50.9 Fever type: unspecified Hypoxia R09.02 History of biliary duct stent placement Z98.890 MARIBEL treated with BiPAP G47.33 Hypertension I10 (1) Fever Fever type: unspecified Qualified Code(s): R50.9 - Fever, unspecified
[2022-03-20] MEDS: LINACLOTIDE 145 MCG CAPSULE PO SCH (08:26)
[2022-03-20] MEDS: allopurinoL 300 MG TAB PO SCH (08:27)
[2022-03-20] MEDS: TAMSULOSIN HCL 0.4 MG CAP PO SCH (08:27)
[2022-03-20] MEDS: CYANOCOBALAMIN (B-12) 500 MCG TABLET PO SCH (08:27)
--- NOTE | 2022-03-20 09:56 | Surgery Consultation ---
Date of Consultation March 20, 2022 Assessment & Plan (1) Fever: (2) Rigors: (3) History of biliary duct stent placement: (4) Cholecystitis: Plan 81-year-old gentleman presents with fever and rigors. He has a remnant gallbladder from a subtotal cholecystectomy 4 months ago. He has biliary stents in place. There is some inflammation around the gallbladder remnant. Surgery would be incredibly difficult in this situation and would have a high rate of complication and risk associated with it, especially in an 81-year-old gentleman. He is significantly improving on IV antibiotics, however this is the third time he has been in the hospital for this problem. I discussed this with Dr. Pritchard. I would recommend GI consultation for possible consideration of axial stent to the gallbladder remnant. Surgery would remain an option of last resort. We will continue to follow. History of Present Illness Reason for Consultation: Remnant gallbladder with inflammation Requesting Physician: Anupam Pritchard MD Attending Physician: Anupam Pritchard MD History of Present Illness 81-year-old gentleman presents the hospital with fever and rigors. He has an extensive history over the past few months. He was first seen in October for acute cholecystitis, at which time he underwent subtotal fenestrated cholecystectomy for severe necrotic gangrenous cholecystitis. He subsequently had a stent placed in his bile duct and then removed. He returned to the hospital in February with increasing right upper quadrant pain and fevers. At that time he was noted to have what appeared to be an inflamed remnant gallbladder. Biliary stents were replaced at that time and he was replaced on antibiotics. He improved and went home. He now presents with 1 day history of fever and rigors. He denies any abdominal pain. He denies nausea and vomiting. CT scan redemonstrates the remnant gallbladder with mild inflammation around it. There is biliary stent and pneumobilia. He is currently on Zosyn. Seeing him this morning, he denies any abdominal pain and is eating a regular breakfast. He states he feels significant improvement. Allergies Allergy/AdvReac Type Severity Reaction Status Date / Time No Known Allergies Allergy Verified 03/19/22 19:34 Home Medications Medication Instructions Recorded Confirmed Type allopurinol 300 mg tablet 300 mg PO QAM 09/24/18 03/19/22 History linaclotide 145 mcg capsule 145 mcg PO QAM 09/24/18 03/19/22 History (Linzess) lisinopril 10 mg tablet 10 mg PO QAM 09/24/18 03/19/22 History cyanocobalamin (vitamin B-12) 500 1,000 mcg PO QAM #90 tabs 11/11/21 03/19/22 Rx mcg tablet tamsulosin 0.4 mg capsule 0.4 mg PO DAILY #90 caps 03/15/22 03/19/22 Rx ciprofloxacin HCl 500 mg tablet 500 mg PO BID 03/19/22 03/19/22 History ibuprofen 200 mg tablet 600 mg PO Q6H PRN Pain 03/19/22 03/19/22 History metronidazole 250 mg tablet 250 mg PO BID 03/19/22 03/19/22 History ursodiol 500 mg tablet 500 mg PO BID 03/19/22 03/19/22 History Patient History Medical History Cardiac murmur FOLLOWS WITH PCP 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 Diverticular disease Hearing deficit Kidney stones Liver cyst Right kidney stone Surgical History History of colonoscopy History of lithotripsy History of prostate biopsy malignant History of tonsillectomy and adenoidectomy History of tooth extraction S/P cholecystectomy 10/2021 Family History Other No family history of adverse response to anesthesia Social History Smoking Status: Former smoker Tobacco Type: Cigarettes Cigarettes Per Day: 5; Second Hand Exposure: No; Do You Dip or Chew Tobacco: No; Tobacco Cessation Education Requested by Patient: No Hx Alcohol Use: Yes Alcohol type: beer Hx Substance Use: No Preferred Language: Bulgarian Communication Ability: Effective Sanitary Inspector Required: No Beliefs That Will Affect Care: None marital status: Current Living Situation: Family Current Living Situation Comment: , stepson, and grandson Feels Safe at Home: Yes Safety Concerns: Feels Safe At This Time Assistive Devices: BiPap, Glasses and Hearing Aid - Bilateral Assistive Devices Comment: Glasses are readers. Review of Systems Review of Systems: All systems reviewed & are unremarkable except as noted in HPI & below Physical Exam Constitutional: WD/WN, vitals as above Neck: trachea midline, no thyromegaly Respiratory: normal respiratory effort; no respiratory distress and no labored breathing Cardiovascular: Rate/Rhythm: regular rate and regular rhythm Gastrointestinal (Abdomen): Inspection/Auscultation: abdomen normal to inspection; abdomen not distended Percussion/Palpation: abdomen soft; abdomen nontender, no guarding and abdomen not rigid Skin: no rashes, warm and dry Psychiatric: A+Ox3, euthymic affect Results & Data ([facility]) Vital Signs (Past 12 Hours) Vital Signs Temp Pulse Pulse Resp BP Pulse Ox Pulse Ox 03/20/22 07:20 37.0 C 72 18 97/58 L 95 03/19/22 23:55 86 30 H 94 03/19/22 22:00 03/19/22 22:00 03/19/22 22:00 91 03/19/22 22:00 36.9 C 86 16 104/62 91 03/19/22 21:56 O2 Del Method O2 Del Method O2 Flow Rate O2 Flow Rate 03/20/22 07:20 Room Air 03/19/22 23:55 03/19/22 22:00 Room Air, Nasal Cannula, BiPAP 2 03/19/22 22:00 Room Air, Nasal Cannula, BiPAP 2 03/19/22 22:00 Room Air, Nasal Cannula 2 03/19/22 22:00 Room Air 03/19/22 21:56 Nasal Cannula 2 Laboratory Results 03/20/22 03/20/22 03/19/22 Range/Units 05:17 05:17 19:02 WBC 10.60 (4.8-10.8) K/ul RBC 3.98 L (4.63-6.08) M/uL Hgb 12.6 L (14.0-18.0) g/dl Hct 37.8 L (40.1-51.0) % MCV 95.0 (80.0-100.0) fL MCH 31.7 (25.0-34.0) pg MCHC 33.3 (32.0-36.0) g/dL RDW Std Deviation 49.0 H (36.4-46.3) fL RDW Coeff of Kalani 14.1 (11.5-14.5) % Plt Count 147 (130-400) K/uL MPV 9.3 L (9.4-12.4) fL Immature Gran % (Auto) % Neut % (Auto) % Lymph % (Auto) % Yates % (Auto) % Eos % (Auto) % Baso % (Auto) % Neut # (Auto) (1.4-6.5) K/uL Lymph # (Auto) (1.2-3.4) K/uL Yates # (Auto) (0.24-0.82) K/uL Eos # (Auto) (0-0.50) K/uL Baso # (Auto) (0-0.2) K/uL Immature Gran # (Auto) (0.00-0.02) K/uL PT (9.0-12.0) Seconds INR (0.9-1.1) APTT (21.0-31.0) Seconds PTT Ratio Sodium 137 (136-145) mmol/L Potassium 4.2 (3.5-5.1) mmol/L Chloride 106 (98-107) mmol/L Carbon Dioxide 26 (21-32) mmol/L Anion Gap 5 (3-11) BUN 16 (6-23) mg/dl Creatinine 0.79 (0.6-1.4) mg/dl Est Cr Clr Drug Dosing 89.4 ml/min Est GFR ( Amer) 98.3 ml/min Est GFR (Non-Af Amer) 84.8 ml/min BUN/Creatinine Ratio 20.3 H (10-20) Glucose 113 H (70-99(Fasting)) mg/dl Lactate (0.4-2.0) mmol/L Calcium 9.0 (8.5-10.1) mg/dl Magnesium (1.7-2.4) mg/dl Total Bilirubin 0.9 (0.2-1.0) mg/dl AST 18 (13-39) U/L ALT 13 (7-52) U/L Alkaline Phosphatase 55 (34-104) U/L B-Natriuretic Peptide 24 (0-100) pg/ml Total Protein 5.7 L (6.0-8.3) gm/dl Albumin 3.2 L (3.4-5.0) gm/dl Globulin 2.5 (2.5-4.0) gm/dl Albumin/Globulin Ratio 1.3 (0.9-2) Lipase (11-82) U/L Procalcitonin (0-0.5) ng/ml Urine Color Urine Appearance (Clear) Urine pH (4.5-7.5) Ur Specific High View (1.000-1.030) Urine Protein (Negative) Urine Glucose (UA) (Negative) Urine Ketones (Negative) Urine Blood (Negative) Urine Nitrite (Negative) Urine Bilirubin (Negative) Urine Urobilinogen (Negative) Ur Leukocyte Esterase (Negative) Urine WBC (Auto) (0-5) /hpf Urine RBC (Auto) (0-4) /hpf U Hyaline Cast (Auto) (0-5) /lpf U Epithel Cells (Auto) (0-5) /lpf Urine Bacteria (Auto) (Negative) Adenovirus (PCR) (NotDetected) Anaplasma Smear A. phagocytophilum DNA Babesia Smear Babesia microti DNA PCR B. pertussis DNA (PCR) (NotDetected) B.parapertussis DNA PCR (NotDetected) Lyme Disease IgG Ab (Negative) Lyme IgG (Western Blot) Lyme IgG 18 kDa Band Lyme IgG 23 kDa Band Lyme IgG 28 kDa Band Lyme IgG 30 kDa Band Lyme IgG 39 kDa Band Lyme IgG 41 kDa Band Lyme IgG 45 kDa Band Lyme IgG 58 kDa Band Lyme IgG 66 kDa Band Lyme IgG 93 kDa Band Lyme IgM Ab (WB) Lyme Disease IgM Ab (Negative) Lyme IgM 23 kDa Band Lyme IgM 39 kDa Band Lyme IgM 41 kDa Band C. pneumoniae DNA (PCR) (NotDetected) Coronavirus OC43 (PCR) (NotDetected) Coronavirus HKU1 (PCR) (NotDetected) Coronavirus 229E (PCR) (NotDetected) SARS-CoV-2 (PCR) (NotDetected) Coronavirus NL63 (PCR) (NotDetected) E.chaffeensis DNA (PCR) Enterobacterales (PCR) (NotDetected) E. coli (PCR) (NotDetected) Human Metapneumovir PCR (NotDetected) Influenza Type A (PCR) (NotDetected) Influenza Type B (PCR) (NotDetected) M. pneumoniae (PCR) (NotDetected) Parainfluenza 1 (PCR) (NotDetected) Parainfluenza 2 (PCR) (NotDetected) Parainfluenza 3 (PCR) (NotDetected) Parainfluenza 4 (PCR) (NotDetected) Q Fever Phase I IgG Ab Q Fever Phase I IgM Ab Q Fever Phase II IgG Ab Q Fever Phase II IgM Ab RSV (PCR) (NotDetected) Entero/Rhino (PCR) (NotDetected) Rickettsia IgG Ab Rickettsia IgM Ab mcr-1 Colistin Res Gene PCR (NotDetected) Typhus Fever IgG Ab Typhus Fever IgM Ab blaIMP Car res Gene PCR (NotDetected) KPC-Carbap Res Gene PCR (NotDetected) blaNDM Car Res Gene PCR (NotDetected) OXA-48 Carbapenem Resis Gene (PCR) (NotDetected) blaVIM Car Res Gene PCR (NotDetected) CTX-M Gene Resistance (PCR) (NotDetected) Bld Cult ID Panel PCR (NotDetected) 03/19/22 03/19/22 03/19/22 Range/Units 19:02 19:02 19:02 WBC (4.8-10.8) K/ul RBC (4.63-6.08) M/uL Hgb (14.0-18.0) g/dl Hct (40.1-51.0) % MCV (80.0-100.0) fL MCH (25.0-34.0) pg MCHC (32.0-36.0) g/dL RDW Std Deviation (36.4-46.3) fL RDW Coeff of Kalani (11.5-14.5) % Plt Count (130-400) K/uL MPV (9.4-12.4) fL Immature Gran % (Auto) % Neut % (Auto) % Lymph % (Auto) % Yates % (Auto) % Eos % (Auto) % Baso % (Auto) % Neut # (Auto) (1.4-6.5) K/uL Lymph # (Auto) (1.2-3.4) K/uL Yates # (Auto) (0.24-0.82) K/uL Eos # (Auto) (0-0.50) K/uL Baso # (Auto) (0-0.2) K/uL Immature Gran # (Auto) (0.00-0.02) K/uL PT (9.0-12.0) Seconds INR (0.9-1.1) APTT (21.0-31.0) Seconds PTT Ratio Sodium (136-145) mmol/L Potassium (3.5-5.1) mmol/L Chloride (98-107) mmol/L Carbon Dioxide (21-32) mmol/L Anion Gap (3-11) BUN (6-23) mg/dl Creatinine (0.6-1.4) mg/dl Est Cr Clr Drug Dosing ml/min Est GFR ( Amer) ml/min Est GFR (Non-Af Amer) ml/min BUN/Creatinine Ratio (10-20) Glucose (70-99(Fasting)) mg/dl Lactate (0.4-2.0) mmol/L Calcium (8.5-10.1) mg/dl Magnesium (1.7-2.4) mg/dl Total Bilirubin (0.2-1.0) mg/dl AST (13-39) U/L ALT (7-52) U/L Alkaline Phosphatase (34-104) U/L B-Natriuretic Peptide (0-100) pg/ml Total Protein (6.0-8.3) gm/dl Albumin (3.4-5.0) gm/dl Globulin (2.5-4.0) gm/dl Albumin/Globulin Ratio (0.9-2) Lipase (11-82) U/L Procalcitonin (0-0.5) ng/ml Urine Color Urine Appearance (Clear) Urine pH (4.5-7.5) Ur Specific High View (1.000-1.030) Urine Protein (Negative) Urine Glucose (UA) (Negative) Urine Ketones (Negative) Urine Blood (Negative) Urine Nitrite (Negative) Urine Bilirubin (Negative) Urine Urobilinogen (Negative) Ur Leukocyte Esterase (Negative) Urine WBC (Auto) (0-5) /hpf Urine RBC (Auto) (0-4) /hpf U Hyaline Cast (Auto) (0-5) /lpf U Epithel Cells (Auto) (0-5) /lpf Urine Bacteria (Auto) (Negative) Adenovirus (PCR) (NotDetected) Anaplasma Smear A. phagocytophilum DNA Pending Babesia Smear Babesia microti DNA PCR Pending B. pertussis DNA (PCR) (NotDetected) B.parapertussis DNA PCR (NotDetected) Lyme Disease IgG Ab (Negative) Lyme IgG (Western Blot) Lyme IgG 18 kDa Band Lyme IgG 23 kDa Band Lyme IgG 28 kDa Band Lyme IgG 30 kDa Band Lyme IgG 39 kDa Band Lyme IgG 41 kDa Band Lyme IgG 45 kDa Band Lyme IgG 58 kDa Band Lyme IgG 66 kDa Band Lyme IgG 93 kDa Band Lyme IgM Ab (WB) Lyme Disease IgM Ab (Negative) Lyme IgM 23 kDa Band Lyme IgM 39 kDa Band Lyme IgM 41 kDa Band C. pneumoniae DNA (PCR) (NotDetected) Coronavirus OC43 (PCR) (NotDetected) Coronavirus HKU1 (PCR) (NotDetected) Coronavirus 229E (PCR) (NotDetected) SARS-CoV-2 (PCR) (NotDetected) Coronavirus NL63 (PCR) (NotDetected) E.chaffeensis DNA (PCR) Pending Enterobacterales (PCR) (NotDetected) E. coli (PCR) (NotDetected) Human Metapneumovir PCR (NotDetected) Influenza Type A (PCR) (NotDetected) Influenza Type B (PCR) (NotDetected) M. pneumoniae (PCR) (NotDetected) Parainfluenza 1 (PCR) (NotDetected) Parainfluenza 2 (PCR) (NotDetected) Parainfluenza 3 (PCR) (NotDetected) Parainfluenza 4 (PCR) (NotDetected) Q Fever Phase I IgG Ab Pending Q Fever Phase I IgM Ab Pending Q Fever Phase II IgG Ab Pending Q Fever Phase II IgM Ab Pending RSV (PCR) (NotDetected) Entero/Rhino (PCR) (NotDetected) Rickettsia IgG Ab Pending Rickettsia IgM Ab Pending mcr-1 Colistin Res Gene PCR (NotDetected) Typhus Fever IgG Ab Pending Typhus Fever IgM Ab Pending blaIMP Car res Gene PCR (NotDetected) KPC-Carbap Res Gene PCR (NotDetected) blaNDM Car Res Gene PCR (NotDetected) OXA-48 Carbapenem Resis Gene (PCR) (NotDetected) blaVIM Car Res Gene PCR (NotDetected) CTX-M Gene Resistance (PCR) (NotDetected) Bld Cult ID Panel PCR (NotDetected) 03/19/22 03/19/22 03/19/22 Range/Units 14:59 14:24 14:24 WBC (4.8-10.8) K/ul RBC (4.63-6.08) M/uL Hgb (14.0-18.0) g/dl Hct (40.1-51.0) % MCV (80.0-100.0) fL MCH (25.0-34.0) pg MCHC (32.0-36.0) g/dL RDW Std Deviation (36.4-46.3) fL RDW Coeff of Kalani (11.5-14.5) % Plt Count (130-400) K/uL MPV (9.4-12.4) fL Immature Gran % (Auto) % Neut % (Auto) % Lymph % (Auto) % Yates % (Auto) % Eos % (Auto) % Baso % (Auto) % Neut # (Auto) (1.4-6.5) K/uL Lymph # (Auto) (1.2-3.4) K/uL Yates # (Auto) (0.24-0.82) K/uL Eos # (Auto) (0-0.50) K/uL Baso # (Auto) (0-0.2) K/uL Immature Gran # (Auto) (0.00-0.02) K/uL PT (9.0-12.0) Seconds INR (0.9-1.1) APTT (21.0-31.0) Seconds PTT Ratio Sodium (136-145) mmol/L Potassium (3.5-5.1) mmol/L Chloride (98-107) mmol/L Carbon Dioxide (21-32) mmol/L Anion Gap (3-11) BUN (6-23) mg/dl Creatinine (0.6-1.4) mg/dl Est Cr Clr Drug Dosing ml/min Est GFR ( Amer) ml/min Est GFR (Non-Af Amer) ml/min BUN/Creatinine Ratio (10-20) Glucose (70-99(Fasting)) mg/dl Lactate 0.8 (0.4-2.0) mmol/L Calcium (8.5-10.1) mg/dl Magnesium (1.7-2.4) mg/dl Total Bilirubin (0.2-1.0) mg/dl AST (13-39) U/L ALT (7-52) U/L Alkaline Phosphatase (34-104) U/L B-Natriuretic Peptide (0-100) pg/ml Total Protein (6.0-8.3) gm/dl Albumin (3.4-5.0) gm/dl Globulin (2.5-4.0) gm/dl Albumin/Globulin Ratio (0.9-2) Lipase (11-82) U/L Procalcitonin (0-0.5) ng/ml Urine Color Dark Yellow Urine Appearance Clear (Clear) Urine pH 5.0 (4.5-7.5) Ur Specific High View 1.024 (1.000-1.030) Urine Protein Negative (Negative) Urine Glucose (UA) Negative (Negative) Urine Ketones Negative (Negative) Urine Blood Negative (Negative) Urine Nitrite Negative (Negative) Urine Bilirubin Negative (Negative) Urine Urobilinogen Negative (Negative) Ur Leukocyte Esterase Trace H (Negative) Urine WBC (Auto) 1-5 (0-5) /hpf Urine RBC (Auto) 0-4 (0-4) /hpf U Hyaline Cast (Auto) 0 (0-5) /lpf U Epithel Cells (Auto) 5-10 H (0-5) /lpf Urine Bacteria (Auto) Negative (Negative) Adenovirus (PCR) (NotDetected) Anaplasma Smear See Comment A. phagocytophilum DNA Babesia Smear See Comment Babesia microti DNA PCR B. pertussis DNA (PCR) (NotDetected) B.parapertussis DNA PCR (NotDetected) Lyme Disease IgG Ab (Negative) Lyme IgG (Western Blot) Lyme IgG 18 kDa Band Lyme IgG 23 kDa Band Lyme IgG 28 kDa Band Lyme IgG 30 kDa Band Lyme IgG 39 kDa Band Lyme IgG 41 kDa Band Lyme IgG 45 kDa Band Lyme IgG 58 kDa Band Lyme IgG 66 kDa Band Lyme IgG 93 kDa Band Lyme IgM Ab (WB) Lyme Disease IgM Ab (Negative) Lyme IgM 23 kDa Band Lyme IgM 39 kDa Band Lyme IgM 41 kDa Band C. pneumoniae DNA (PCR) (NotDetected) Coronavirus OC43 (PCR) (NotDetected) Coronavirus HKU1 (PCR) (NotDetected) Coronavirus 229E (PCR) (NotDetected) SARS-CoV-2 (PCR) (NotDetected) Coronavirus NL63 (PCR) (NotDetected) E.chaffeensis DNA (PCR) Enterobacterales (PCR) (NotDetected) E. coli (PCR) (NotDetected) Human Metapneumovir PCR (NotDetected) Influenza Type A (PCR) (NotDetected) Influenza Type B (PCR) (NotDetected) M. pneumoniae (PCR) (NotDetected) Parainfluenza 1 (PCR) (NotDetected) Parainfluenza 2 (PCR) (NotDetected) Parainfluenza 3 (PCR) (NotDetected) Parainfluenza 4 (PCR) (NotDetected) Q Fever Phase I IgG Ab Q Fever Phase I IgM Ab Q Fever Phase II IgG Ab Q Fever Phase II IgM Ab RSV (PCR) (NotDetected) Entero/Rhino (PCR) (NotDetected) Rickettsia IgG Ab Rickettsia IgM Ab mcr-1 Colistin Res Gene PCR (NotDetected) Typhus Fever IgG Ab Typhus Fever IgM Ab blaIMP Car res Gene PCR (NotDetected) KPC-Carbap Res Gene PCR (NotDetected) blaNDM Car Res Gene PCR (NotDetected) OXA-48 Carbapenem Resis Gene (PCR) (NotDetected) blaVIM Car Res Gene PCR (NotDetected) CTX-M Gene Resistance (PCR) (NotDetected) Bld Cult ID Panel PCR (NotDetected) 03/19/22 03/19/22 03/19/22 Range/Units 14:24 14:24 14:24 WBC 6.71 (4.8-10.8) K/ul RBC 4.24 L (4.63-6.08) M/uL Hgb 13.5 L (14.0-18.0) g/dl Hct 41.2 (40.1-51.0) % MCV 97.2 (80.0-100.0) fL MCH 31.8 (25.0-34.0) pg MCHC 32.8 (32.0-36.0) g/dL RDW Std Deviation 50.1 H (36.4-46.3) fL RDW Coeff of Kalani 14.1 (11.5-14.5) % Plt Count 165 (130-400) K/uL MPV 8.9 L (9.4-12.4) fL Immature Gran % (Auto) 0.3 % Neut % (Auto) 76.0 % Lymph % (Auto) 12.1 % Yates % (Auto) 11.2 % Eos % (Auto) 0.1 % Baso % (Auto) 0.3 % Neut # (Auto) 5.10 (1.4-6.5) K/uL Lymph # (Auto) 0.81 L (1.2-3.4) K/uL Yates # (Auto) 0.75 (0.24-0.82) K/uL Eos # (Auto) 0.01 (0-0.50) K/uL Baso # (Auto) 0.02 (0-0.2) K/uL Immature Gran # (Auto) 0.02 (0.00-0.02) K/uL PT 10.9 (9.0-12.0) Seconds INR 1.0 (0.9-1.1) APTT 30.8 (21.0-31.0) Seconds PTT Ratio 1.1 Sodium 137 (136-145) mmol/L Potassium 4.2 (3.5-5.1) mmol/L Chloride 103 (98-107) mmol/L Carbon Dioxide 29 (21-32) mmol/L Anion Gap 5 (3-11) BUN 16 (6-23) mg/dl Creatinine 0.83 (0.6-1.4) mg/dl Est Cr Clr Drug Dosing 85.8 ml/min Est GFR ( Amer) 96.3 ml/min Est GFR (Non-Af Amer) 83.1 ml/min BUN/Creatinine Ratio 19.3 (10-20) Glucose 107 H (70-99(Fasting)) mg/dl Lactate (0.4-2.0) mmol/L Calcium 9.2 (8.5-10.1) mg/dl Magnesium 1.9 (1.7-2.4) mg/dl Total Bilirubin 0.6 (0.2-1.0) mg/dl AST 18 (13-39) U/L ALT 13 (7-52) U/L Alkaline Phosphatase 69 (34-104) U/L B-Natriuretic Peptide (0-100) pg/ml Total Protein 6.6 (6.0-8.3) gm/dl Albumin 3.8 (3.4-5.0) gm/dl Globulin 2.8 (2.5-4.0) gm/dl Albumin/Globulin Ratio 1.4 (0.9-2) Lipase 24 (11-82) U/L Procalcitonin (0-0.5) ng/ml Urine Color Urine Appearance (Clear) Urine pH (4.5-7.5) Ur Specific High View (1.000-1.030) Urine Protein (Negative) Urine Glucose (UA) (Negative) Urine Ketones (Negative) Urine Blood (Negative) Urine Nitrite (Negative) Urine Bilirubin (Negative) Urine Urobilinogen (Negative) Ur Leukocyte Esterase (Negative) Urine WBC (Auto) (0-5) /hpf Urine RBC (Auto) (0-4) /hpf U Hyaline Cast (Auto) (0-5) /lpf U Epithel Cells (Auto) (0-5) /lpf Urine Bacteria (Auto) (Negative) Adenovirus (PCR) (NotDetected) Anaplasma Smear A. phagocytophilum DNA Babesia Smear Babesia microti DNA PCR B. pertussis DNA (PCR) (NotDetected) B.parapertussis DNA PCR (NotDetected) Lyme Disease IgG Ab (Negative) Lyme IgG (Western Blot) Lyme IgG 18 kDa Band Lyme IgG 23 kDa Band Lyme IgG 28 kDa Band Lyme IgG 30 kDa Band Lyme IgG 39 kDa Band Lyme IgG 41 kDa Band Lyme IgG 45 kDa Band Lyme IgG 58 kDa Band Lyme IgG 66 kDa Band Lyme IgG 93 kDa Band Lyme IgM Ab (WB) Lyme Disease IgM Ab (Negative) Lyme IgM 23 kDa Band Lyme IgM 39 kDa Band Lyme IgM 41 kDa Band C. pneumoniae DNA (PCR) (NotDetected) Coronavirus OC43 (PCR) (NotDetected) Coronavirus HKU1 (PCR) (NotDetected) Coronavirus 229E (PCR) (NotDetected) SARS-CoV-2 (PCR) (NotDetected) Coronavirus NL63 (PCR) (NotDetected) E.chaffeensis DNA (PCR) Enterobacterales (PCR) (NotDetected) E. coli (PCR) (NotDetected) Human Metapneumovir PCR (NotDetected) Influenza Type A (PCR) (NotDetected) Influenza Type B (PCR) (NotDetected) M. pneumoniae (PCR) (NotDetected) Parainfluenza 1 (PCR) (NotDetected) Parainfluenza 2 (PCR) (NotDetected) Parainfluenza 3 (PCR) (NotDetected) Parainfluenza 4 (PCR) (NotDetected) Q Fever Phase I IgG Ab Q Fever Phase I IgM Ab Q Fever Phase II IgG Ab Q Fever Phase II IgM Ab RSV (PCR) (NotDetected) Entero/Rhino (PCR) (NotDetected) Rickettsia IgG Ab Rickettsia IgM Ab mcr-1 Colistin Res Gene PCR (NotDetected) Typhus Fever IgG Ab Typhus Fever IgM Ab blaIMP Car res Gene PCR (NotDetected) KPC-Carbap Res Gene PCR (NotDetected) blaNDM Car Res Gene PCR (NotDetected) OXA-48 Carbapenem Resis Gene (PCR) (NotDetected) blaVIM Car Res Gene PCR (NotDetected) CTX-M Gene Resistance (PCR) (NotDetected) Bld Cult ID Panel PCR (NotDetected) 03/19/22 03/19/22 03/19/22 Range/Units 14:23 14:17 14:10 WBC (4.8-10.8) K/ul RBC (4.63-6.08) M/uL Hgb (14.0-18.0) g/dl Hct (40.1-51.0) % MCV (80.0-100.0) fL MCH (25.0-34.0) pg MCHC (32.0-36.0) g/dL RDW Std Deviation (36.4-46.3) fL RDW Coeff of Kalani (11.5-14.5) % Plt Count (130-400) K/uL MPV (9.4-12.4) fL Immature Gran % (Auto) % Neut % (Auto) % Lymph % (Auto) % Yates % (Auto) % Eos % (Auto) % Baso % (Auto) % Neut # (Auto) (1.4-6.5) K/uL Lymph # (Auto) (1.2-3.4) K/uL Yates # (Auto) (0.24-0.82) K/uL Eos # (Auto) (0-0.50) K/uL Baso # (Auto) (0-0.2) K/uL Immature Gran # (Auto) (0.00-0.02) K/uL PT (9.0-12.0) Seconds INR (0.9-1.1) APTT (21.0-31.0) Seconds PTT Ratio Sodium (136-145) mmol/L Potassium (3.5-5.1) mmol/L Chloride (98-107) mmol/L Carbon Dioxide (21-32) mmol/L Anion Gap (3-11) BUN (6-23) mg/dl Creatinine (0.6-1.4) mg/dl Est Cr Clr Drug Dosing ml/min Est GFR ( Amer) ml/min Est GFR (Non-Af Amer) ml/min BUN/Creatinine Ratio (10-20) Glucose (70-99(Fasting)) mg/dl Lactate (0.4-2.0) mmol/L Calcium (8.5-10.1) mg/dl Magnesium (1.7-2.4) mg/dl Total Bilirubin (0.2-1.0) mg/dl AST (13-39) U/L ALT (7-52) U/L Alkaline Phosphatase (34-104) U/L B-Natriuretic Peptide (0-100) pg/ml Total Protein (6.0-8.3) gm/dl Albumin (3.4-5.0) gm/dl Globulin (2.5-4.0) gm/dl Albumin/Globulin Ratio (0.9-2) Lipase (11-82) U/L Procalcitonin (0-0.5) ng/ml Urine Color Urine Appearance (Clear) Urine pH (4.5-7.5) Ur Specific High View (1.000-1.030) Urine Protein (Negative) Urine Glucose (UA) (Negative) Urine Ketones (Negative) Urine Blood (Negative) Urine Nitrite (Negative) Urine Bilirubin (Negative) Urine Urobilinogen (Negative) Ur Leukocyte Esterase (Negative) Urine WBC (Auto) (0-5) /hpf Urine RBC (Auto) (0-4) /hpf U Hyaline Cast (Auto) (0-5) /lpf U Epithel Cells (Auto) (0-5) /lpf Urine Bacteria (Auto) (Negative) Adenovirus (PCR) Not Detected (NotDetected) Anaplasma Smear A. phagocytophilum DNA Babesia Smear Babesia microti DNA PCR B. pertussis DNA (PCR) Not Detected (NotDetected) B.parapertussis DNA PCR Not Detected (NotDetected) Lyme Disease IgG Ab (Negative) Lyme IgG (Western Blot) Pending Lyme IgG 18 kDa Band Pending Lyme IgG 23 kDa Band Pending Lyme IgG 28 kDa Band Pending Lyme IgG 30 kDa Band Pending Lyme IgG 39 kDa Band Pending Lyme IgG 41 kDa Band Pending Lyme IgG 45 kDa Band Pending Lyme IgG 58 kDa Band Pending Lyme IgG 66 kDa Band Pending Lyme IgG 93 kDa Band Pending Lyme IgM Ab (WB) Pending Lyme Disease IgM Ab (Negative) Lyme IgM 23 kDa Band Pending Lyme IgM 39 kDa Band Pending Lyme IgM 41 kDa Band Pending C. pneumoniae DNA (PCR) Not Detected (NotDetected) Coronavirus OC43 (PCR) Not Detected (NotDetected) Coronavirus HKU1 (PCR) Not Detected (NotDetected) Coronavirus 229E (PCR) Not Detected (NotDetected) SARS-CoV-2 (PCR) Not Detected (NotDetected) Coronavirus NL63 (PCR) Not Detected (NotDetected) E.chaffeensis DNA (PCR) Enterobacterales (PCR) DETECTED A (NotDetected) E. coli (PCR) DETECTED A (NotDetected) Human Metapneumovir PCR Not Detected (NotDetected) Influenza Type A (PCR) Not Detected (NotDetected) Influenza Type B (PCR) Not Detected (NotDetected) M. pneumoniae (PCR) Not Detected (NotDetected) Parainfluenza 1 (PCR) Not Detected (NotDetected) Parainfluenza 2 (PCR) Not Detected (NotDetected) Parainfluenza 3 (PCR) Not Detected (NotDetected) Parainfluenza 4 (PCR) Not Detected (NotDetected) Q Fever Phase I IgG Ab Q Fever Phase I IgM Ab Q Fever Phase II IgG Ab Q Fever Phase II IgM Ab RSV (PCR) Not Detected (NotDetected) Entero/Rhino (PCR) Not Detected (NotDetected) Rickettsia IgG Ab Rickettsia IgM Ab mcr-1 Colistin Res Gene PCR Not Detected (NotDetected) Typhus Fever IgG Ab Typhus Fever IgM Ab blaIMP Car res Gene PCR Not Detected (NotDetected) KPC-Carbap Res Gene PCR Not Detected (NotDetected) blaNDM Car Res Gene PCR Not Detected (NotDetected) OXA-48 Carbapenem Resis Gene (PCR) Not Detected (NotDetected) blaVIM Car Res Gene PCR Not Detected (NotDetected) CTX-M Gene Resistance (PCR) Not Detected (NotDetected) Bld Cult ID Panel PCR See PCR Comment (NotDetected) 03/19/22 Range/Units 14:10 WBC (4.8-10.8) K/ul RBC (4.63-6.08) M/uL Hgb (14.0-18.0) g/dl Hct (40.1-51.0) % MCV (80.0-100.0) fL MCH (25.0-34.0) pg MCHC (32.0-36.0) g/dL RDW Std Deviation (36.4-46.3) fL RDW Coeff of Kalani (11.5-14.5) % Plt Count (130-400) K/uL MPV (9.4-12.4) fL Immature Gran % (Auto) % Neut % (Auto) % Lymph % (Auto) % Yates % (Auto) % Eos % (Auto) % Baso % (Auto) % Neut # (Auto) (1.4-6.5) K/uL Lymph # (Auto) (1.2-3.4) K/uL Yates # (Auto) (0.24-0.82) K/uL Eos # (Auto) (0-0.50) K/uL Baso # (Auto) (0-0.2) K/uL Immature Gran # (Auto) (0.00-0.02) K/uL PT (9.0-12.0) Seconds INR (0.9-1.1) APTT (21.0-31.0) Seconds PTT Ratio Sodium (136-145) mmol/L Potassium (3.5-5.1) mmol/L Chloride (98-107) mmol/L Carbon Dioxide (21-32) mmol/L Anion Gap (3-11) BUN (6-23) mg/dl Creatinine (0.6-1.4) mg/dl Est Cr Clr Drug Dosing ml/min Est GFR ( Amer) ml/min Est GFR (Non-Af Amer) ml/min BUN/Creatinine Ratio (10-20) Glucose (70-99(Fasting)) mg/dl Lactate (0.4-2.0) mmol/L Calcium (8.5-10.1) mg/dl Magnesium (1.7-2.4) mg/dl Total Bilirubin (0.2-1.0) mg/dl AST (13-39) U/L ALT (7-52) U/L Alkaline Phosphatase (34-104) U/L B-Natriuretic Peptide (0-100) pg/ml Total Protein (6.0-8.3) gm/dl Albumin (3.4-5.0) gm/dl Globulin (2.5-4.0) gm/dl Albumin/Globulin Ratio (0.9-2) Lipase (11-82) U/L Procalcitonin 0.15 (0-0.5) ng/ml Urine Color Urine Appearance (Clear) Urine pH (4.5-7.5) Ur Specific High View (1.000-1.030) Urine Protein (Negative) Urine Glucose (UA) (Negative) Urine Ketones (Negative) Urine Blood (Negative) Urine Nitrite (Negative) Urine Bilirubin (Negative) Urine Urobilinogen (Negative) Ur Leukocyte Esterase (Negative) Urine WBC (Auto) (0-5) /hpf Urine RBC (Auto) (0-4) /hpf U Hyaline Cast (Auto) (0-5) /lpf U Epithel Cells (Auto) (0-5) /lpf Urine Bacteria (Auto) (Negative) Adenovirus (PCR) (NotDetected) Anaplasma Smear A. phagocytophilum DNA Babesia Smear Babesia microti DNA PCR B. pertussis DNA (PCR) (NotDetected) B.parapertussis DNA PCR (NotDetected) Lyme Disease IgG Ab Positive A (Negative) Lyme IgG (Western Blot) Lyme IgG 18 kDa Band Lyme IgG 23 kDa Band Lyme IgG 28 kDa Band Lyme IgG 30 kDa Band Lyme IgG 39 kDa Band Lyme IgG 41 kDa Band Lyme IgG 45 kDa Band Lyme IgG 58 kDa Band Lyme IgG 66 kDa Band Lyme IgG 93 kDa Band Lyme IgM Ab (WB) Lyme Disease IgM Ab Negative (Negative) Lyme IgM 23 kDa Band Lyme IgM 39 kDa Band Lyme IgM 41 kDa Band C. pneumoniae DNA (PCR) (NotDetected) Coronavirus OC43 (PCR) (NotDetected) Coronavirus HKU1 (PCR) (NotDetected) Coronavirus 229E (PCR) (NotDetected) SARS-CoV-2 (PCR) (NotDetected) Coronavirus NL63 (PCR) (NotDetected) E.chaffeensis DNA (PCR) Enterobacterales (PCR) (NotDetected) E. coli (PCR) (NotDetected) Human Metapneumovir PCR (NotDetected) Influenza Type A (PCR) (NotDetected) Influenza Type B (PCR) (NotDetected) M. pneumoniae (PCR) (NotDetected) Parainfluenza 1 (PCR) (NotDetected) Parainfluenza 2 (PCR) (NotDetected) Parainfluenza 3 (PCR) (NotDetected) Parainfluenza 4 (PCR) (NotDetected) Q Fever Phase I IgG Ab Q Fever Phase I IgM Ab Q Fever Phase II IgG Ab Q Fever Phase II IgM Ab RSV (PCR) (NotDetected) Entero/Rhino (PCR) (NotDetected) Rickettsia IgG Ab Rickettsia IgM Ab mcr-1 Colistin Res Gene PCR (NotDetected) Typhus Fever IgG Ab Typhus Fever IgM Ab blaIMP Car res Gene PCR (NotDetected) KPC-Carbap Res Gene PCR (NotDetected) blaNDM Car Res Gene PCR (NotDetected) OXA-48 Carbapenem Resis Gene (PCR) (NotDetected) blaVIM Car Res Gene PCR (NotDetected) CTX-M Gene Resistance (PCR) (NotDetected) Bld Cult ID Panel PCR (NotDetected) Diagnostic Findings CT OF THE ABDOMEN AND PELVIS WITH CONTRAST CLINICAL HISTORY: Right upper quadrant pain, biliary stent COMPARISON STUDY: CT of the abdomen and pelvis February 12, 2022. MRCP February 13, 2022. TECHNIQUE: Following IV administration of 92 mL of Optiray, axial images of the abdomen and pelvis were obtained from the lung bases to the proximal femurs. Images were reviewed in the axial, sagittal, and coronal planes. IV contrast was administered without complication. Automated exposure control was utilized for the study. A dose lowering technique was utilized adhering to the principles of ALARA. CT DOSE: 1195.05 mGy.cm FINDINGS: A 10 cm right hepatic dome cyst is again noted. Biliary stents remain in place. As expected, there is pneumobilia. A mildly distended suspected gallbladder remnant is again noted. Mild adjacent stranding has improved since prior examination. The fluid collection extending toward the hepatic flexure of the colon has essentially resolved. No new fluid collections are present. There is no pancreatic ductal dilatation. There is no peripancreatic infiltration. Spleen, adrenal glands are unremarkable. There is a 5 m left renal calculus. There is no hydronephrosis. There are no ureteral calculi. Prostate is enlarged. There are several suspected renal cyst. A few subcentimeter renal lesions are too small to characterize. Colonic diverticulosis is noted without evidence for acute diverticulitis. IMPRESSION: 1. Biliary stents in place. Mildly distended suspected gallbladder remnant with mild adjacent stranding. This suggests residual cholecystitis although inflammation has decreased since CT of February 12, 2022. No significant biliary ductal dilatation. Pneumobilia, as expected. 2. No bowel obstruction. 3. Colonic diverticulosis without evidence for acute diverticulitis. (1) Fever Fever type: unspecified Qualified Code(s): R50.9 - Fever, unspecified
--- NOTE | 2022-03-20 14:13 | Billing Data ---
Date of Service March 20, 2022 Coding Level of Care Code 18950 Initial Inpt Care Lvl 3
--- NOTE | 2022-03-20 14:57 | Electrocardiogram Report ---
Test Reason : Blood Pressure : / mmHG Vent. Rate : 066 BPM Atrial Rate : 066 BPM P-R Int : 190 ms QRS Dur : 112 ms QT Int : 374 ms P-R-T Axes : -12 -28 020 degrees QTc Int : 392 ms Normal sinus rhythm lvh with QRS widening Nonspecific ST abnormality Abnormal ECG When compared with ECG of 06-NOV-2021 14:29, nsr has replaced mAT Confirmed by Lenard Gomez ([id number]) on 03/20/2022 2:57:03 PM Referred By: REFERRED SELF Confirmed By:Lenard Gomez
--- NOTE | 2022-03-20 17:16 | Consultation Report ---
DATE OF SERVICE: 03/20/2022 GASTROENTEROLOGY CONSULTATION RACE: . ATTENDING PHYSICIAN: Dr. Pritchard. CONSULTING PHYSICIAN: Dr. Villarreal. REASON FOR CONSULTATION: Abdominal pain. History of biliary stent placement. HISTORY OF PRESENT ILLNESS: Aleks Roman is an 81-year-old male with a past medical his tory that includes a complicated acute cholecystitis in 11/2021, which subsequently he developed a bi le leak and underwent an ERCP by Dr. Sanchez who did place a biliary stent as well as a pancreatic monica nt and performed a biliary sphincterotomy. He was recommended to undergo a stent removal in 8 weeks a nd did undergo this procedure with Dr. Sanchez. However, choledocholithiasis was found at that time a nd he did undergo extraction of gallstones and a biliary stent was placed into the common bile duct. He presented to the Department of Emergency Medicine last evening with complaints of fever and right -sided abdominal pain. Upon arrival to the Department of Emergency Medicine, he was noted to have a white blood cell count of 6.71. His lipase was normal as well as the remainder of his liver panel. He did undergo a CT scan of the abdomen and pelvis, which showed a biliary stent in place with a mild ly distended gallbladder remnant. There was no bowel obstruction noted. He did have blood cultures performed, which showed gram-negative bacilli. He was subsequently admitted and started on cefepime initially and is currently receiving Zosyn therapy. At the time that I saw the patient, he was feelin g better than when he had arrived at the hospital. He denied any fevers, chills, nausea, vomiting or abdominal pain. He states that he is not currently having any hematemesis, melena or hematochezia a nd did state that he would like to try to eat. He denied any further complaints. PAST MEDICAL HISTORY: Significant for an elevated hemidiaphragm, obstructive sleep apnea, gout, B12 deficiency, hypertension, nephrolithiasis, diverticulitis. PAST SURGICAL HISTORY: Includes history of prostate biopsy, T and A, cholecystectomy complicated by bile leak, ERCP x2. ALLERGIES: None. CURRENT MEDICATIONS: Include Tylenol 650 mg p.o. q.4 p.r.n., Zyloprim 300 mg p.o. q.a.m., vitamin B1 2 1000 mcg p.o. q.a.m., Lovenox 40 mg subcutaneously q.24 hours, Linzess 145 mcg p.o. q.a.m., Zosyn 3 .375 grams IV q.8, Flomax 0.4 mg p.o. daily. SOCIAL HISTORY: He is and lives with his family. He denies any tobacco or illicit drug use. He does have an occasional alcoholic beverage. FAMILY HISTORY: Negative for GI malignancy or inflammatory bowel disease. REVIEW OF SYSTEMS: Negative x12 systems review other than pertinent positives. PHYSICAL EXAMINATION: GENERAL: He is awake, cooperative, chronic ill-appearing, but in no acute distress. HEAD: Normocephalic, atraumatic. EYES: Pupils equal, round. Extraocular muscles are intact. ENT: External evaluation of ears and nose are normal. Oropharynx is clear. NECK: Soft and supple. There is no JVD or lymphadenopathy. CHEST: Clear to auscultation bilaterally. CARDIOVASCULAR: Regular rate and rhythm. ABDOMEN: Soft, nontender, nondistended, positive bowel sounds. There is no hepatosplenomegaly or st igmata of chronic liver disease. EXTREMITIES: No clubbing, cyanosis or edema. SKIN: Soft and pink. PSYCHIATRIC: He has normal affect and normal mood. LABORATORY STUDIES AND RADIOGRAPHIC STUDIES: Reviewed in the HPI. IMPRESSION: An 81-year-old male presenting with right upper quadrant abdominal pain and fe vers, who is noted to have Escherichia coli bacteremia. PLAN: I discussed this case in detail with Dr. Anne of gastroenterology who performs ERCP and EUS as well as Dr. Phillips, who is the general surgeon who saw the patient as well. At this time, the patient does not have any need for an acute surgical or GI procedure. Dr. Anne would like to p erform an ERCP as an outpatient next week and his office will arrange for this. I would recommend th at the patient will be kept on antibiotics until this time as the stent could be the source of the in fection at present. I would recommend advancing his diet as he tolerates, and I will defer to Dr. Ab darby and Dr. Phillips regarding his further care. Once again, thanks for allowing me to participate in the care of this patient. If you have any furth er questions, please do not hesitate in contacting me. Job ID: [id number]
[2022-03-20] MEDS: ACETAMINOPHEN 325 MG TAB PO PRN (23:00)
[2022-03-20] MEDS: ENOXAPARIN INJ 40 MG/0.4 ML SYR SQ SCH (23:01)
[2022-03-20] MEDS ORDERED: FAMOTIDINE 20 MG in SYRINGE 3 ML IV ONE (23:30)
[2022-03-21] MEDS: PIPERACILLIN/TAZOBACTAM 3.375 GM in DEXTROSE 5% 100 ML IV SCH ×3 (06:03→21:59)
[2022-03-21 06:26] LABS: Hematocrit (blood only) 38.4 % (40.1-51.0); Hemoglobin 12.5 g/dl (14.0-18.0); Mean Corpuscular Hemoglobin 31.7 pg (25.0-34.0); Mean Corpuscular Hgb Conc 32.6 g/dL (32.0-36.0); Mean Corpuscular Volume 97.5 fL (80.0-100.0); Mean Platelet Volume 8.8 fL (9.4-12.4); Platelet Count 142 K/uL (130-400); RDW Coefficient of Variation 14.3 % (11.5-14.5); RDW Standard Deviation 51.1 fL (36.4-46.3); Red Blood Count 3.94 M/uL (4.63-6.08); White Blood Count 5.79 K/ul (4.8-10.8)
[2022-03-21 06:59] LABS: Albumin Globulin Ratio 1.2 (0.9-2); Albumin Level 3.1 gm/dl (3.4-5.0); BUN Creatinine Ratio 20.8 (10-20); Bilirubin,Total 0.5 mg/dl (0.2-1.0); Calcium 9.2 mg/dl (8.5-10.1); Creatinine Clr Calc Pharmacy 98.1 ml/min; Est GFR (African American) 102.1 ml/min; Est GFR (Non-African American) 88.1 ml/min; Globulin 2.6 gm/dl (2.5-4.0); Potassium 4.2 mmol/L (3.5-5.1); Total Protein 5.7 gm/dl (6.0-8.3)
[2022-03-21] MEDS: FAMOTIDINE 20 MG in SYRINGE 3 ML IV SCH (07:56)
[2022-03-21] MEDS: LINACLOTIDE 145 MCG CAPSULE PO SCH (07:56)
[2022-03-21] MEDS: TAMSULOSIN HCL 0.4 MG CAP PO SCH (07:57)
[2022-03-21] MEDS: CYANOCOBALAMIN (B-12) 500 MCG TABLET PO SCH (07:57)
[2022-03-21] MEDS: allopurinoL 300 MG TAB PO SCH (07:57)
--- NOTE | 2022-03-21 08:25 | Communication Note ---
Date of Service: March 21, 2022 Jonathan RUFF asked to follow up, case was discussed with biliary staff. Will plan for OP axios, gallbladder remnant. Will arrange at [facility] next week. He should be discharged on a course of PO ABX. Aleks is in agreement with the plan. Will sign off. Thank you for allowing us to participate in the care of this patient. Please call with any acute changes, questions or concerns. Please see addendum below with additional recommendation from my supervising physician.
--- NOTE | 2022-03-21 09:18 | Surgery Progress Note ---
Date of Service March 21, 2022 Assessment & Plan (1) Fever: Plan: Patient here with fevers/chills, h/o lap fenestrated cholecystectomy on 11/06, CT a/p with evidence of improving inflammation surrounding remnant GB Labs today show WBC 5.7, LFTs WNL. Temp 99F ~10pm yesterday, afebrile this AM Currently tolerating diet, no abdominal complaints this AM Recommending continuing on course of abx Surgery would be last resort in this pt given prior difficulty with lap kurt Appreciate GI recommendations and input...planning on outpt axios stent next week Plan discussed with Dr. Ohara. We will sign off, please call with any questions/concerns (2) S/P laparoscopic cholecystectomy: (3) History of biliary duct stent placement: Admission and Anticipated Discharge Date Admission Date: March 20, 2022 Subjective Patient feeling well this AM. Currently eating a regular bfast without issue. Reported low grade temp last night and some nausea. Both improved currently. Denies abdominal pain. Physical Exam Physical Exam: awake/alert, no distress Respiratory: normal respiratory effort Gastrointestinal (Abdomen): Percussion/Palpation: abdomen soft; abdomen nontender Results & Data ([facility]) Vital Signs (Past 12 Hours) Vital Signs Temp Pulse Resp BP Pulse Ox Pulse Ox O2 Del Method 03/21/22 07:41 36.6 C 64 18 128/74 93 Room Air 03/20/22 21:30 Room Air, Nasal Cannula, BiPAP 03/20/22 21:30 90 03/20/22 23:55 37.1 C 03/20/22 22:02 37.6 C H 80 18 123/73 90 Room Air 03/20/22 21:30 37.4 C 75 16 113/68 90 Room Air O2 Del Method O2 Flow Rate O2 Flow Rate 03/21/22 07:41 03/20/22 21:30 2 03/20/22 21:30 Room Air, Nasal Cannula 2 03/20/22 23:55 03/20/22 22:02 03/20/22 21:30 PG Care Time/CCT Total # of Minutes Spent Total Time Spent with Patient: Total time spent is greater than 50% in coordination of care (as documented) at patient's floor/unit and/or counseling patient: Coding Level of Care Code 69609 Subseq Hosp Care Lvl 1 Diagnoses Fever R50.9 Fever type: unspecified S/P laparoscopic cholecystectomy Z90.49 History of biliary duct stent placement Z98.890 (1) Fever Fever type: unspecified Qualified Code(s): R50.9 - Fever, unspecified
--- NOTE | 2022-03-21 19:00 | Hospitalist Progress Note ---
Date of Service March 21, 2022 Assessment & Plan (1) Fever: Plan: -blood cultures positive for possible gram negative and enterobacter in both bottles -Was given cefepime in the ED, will continue with Zosyn for now - -Did discuss with [facility] Refrigeration Tech, Dr Anne Will plan for OP axios, gallbladder remnant. Will arrange at [facility] next week. He should be discharged on a course of PO ABX. General surgery feels best approach would be consider stent will hopefully have negative repeat blood cultures and then use sensitivities to guage home antibiotics (2) Hypoxia: Plan: -likley due to sepsis ->resolved (3) History of biliary duct stent placement: Plan: -fever, Pt has persistent gall bladder reminent, with adjacent fat stranding, pneumobilia and biliary stents in place, no significant ductal dilatation. on Zosyn (4) MARIBEL treated with BiPAP: Plan: -HS Bipap ordered (5) Hypertension: Plan: -Hold OTR [employer] lisinopril for now until infection is ruled out with his low-normal BP Plan lovenox for dvt prevention Admission and Anticipated Discharge Date Admission Date: March 20, 2022 Subjective Patient feeling well this AM. Currently eating a regular bfast without issue. Symptoms improved currently. Denies abdominal pain. Review of Systems Review of Systems: Mild distress and fatigue no headache, no visual changes no speech or swallowing issues no chest pain, pressure or palpitations no shortness of breath, cough or wheezes very mild abdominal pain, nausea or vomiting, diarrhea or constipation no dysuria, hematuria or frequency no focal joint pain or swelling no back pain, CVA tenderness or radicular pain no bruising, bleeding or rashes no focal signs of weakness or numbness or altered sensation no complaints of anxiety or depression.. Physical Exam Physical Exam: The patient appeared well nourished and normally developed. Vital signs as documented. Head exam is normocephalic atraumatic Neck is without JVD, thyromegaly, or carotid bruits. Lungs are clear to auscultation, no focal loss of breath sounds Cardiac exam, Rhythm is regular.. No murmurs, rubs or gallops. Abdominal exam reveals normal bowel sounds, soft mild RUQ tenderness Extremities are nonedematous and both pedal pulses are present Neurologic exam is alert and oriented, no focal loss of strength or sensation Skin is without bruises or rashes Psychologically is without concerns for anxiety or depression.. Results & Data Results & Data ([facility]) Vital Signs (Past 12 Hours) Vital Signs Temp Pulse Resp BP Pulse Ox O2 Del Method 03/21/22 14:45 98.4 F 72 18 107/69 92 Room Air 03/21/22 07:41 97.9 F 64 18 128/74 93 Room Air PG Care Time/CCT Total # of Minutes Spent Total Time Spent with Patient: Total time spent is greater than 50% in coordination of care (as documented) at patient's floor/unit and/or counseling patient: Coding Level of Care Code 37357 Subseq Hosp Care Lvl 2 Diagnoses Fever R50.9 Fever type: unspecified Hypoxia R09.02 History of biliary duct stent placement Z98.890 MARIBEL treated with BiPAP G47.33 Hypertension I10 (1) Fever Fever type: unspecified Qualified Code(s): R50.9 - Fever, unspecified
[2022-03-21] MEDS: ACETAMINOPHEN 325 MG TAB PO PRN (22:00)
[2022-03-21] MEDS: ENOXAPARIN INJ 40 MG/0.4 ML SYR SQ SCH (22:01)
[2022-03-22] MEDS: PIPERACILLIN/TAZOBACTAM 3.375 GM in DEXTROSE 5% 100 ML IV SCH ×3 (06:19→21:11)
[2022-03-22] MEDS: LINACLOTIDE 145 MCG CAPSULE PO SCH (07:33)
[2022-03-22] MEDS: FAMOTIDINE 20 MG in SYRINGE 3 ML IV SCH (08:02)
[2022-03-22] MEDS: allopurinoL 300 MG TAB PO SCH (08:02)
[2022-03-22] MEDS: TAMSULOSIN HCL 0.4 MG CAP PO SCH (08:02)
[2022-03-22] MEDS: CYANOCOBALAMIN (B-12) 500 MCG TABLET PO SCH (08:02)
[2022-03-22 08:19] LABS: Hematocrit (blood only) 36.5 % (40.1-51.0); Hemoglobin 12.3 g/dl (14.0-18.0); Mean Corpuscular Hemoglobin 31.8 pg (25.0-34.0); Mean Corpuscular Hgb Conc 33.7 g/dL (32.0-36.0); Mean Corpuscular Volume 94.3 fL (80.0-100.0); Mean Platelet Volume 8.9 fL (9.4-12.4); Platelet Count 161 K/uL (130-400); RDW Standard Deviation 48.1 fL (36.4-46.3); Red Blood Count 3.87 M/uL (4.63-6.08); White Blood Count 5.82 K/ul (4.8-10.8)
[2022-03-22 08:43] LABS: Albumin Globulin Ratio 1.1 (0.9-2); Albumin Level 3.1 gm/dl (3.4-5.0); BUN Creatinine Ratio 18.6 (10-20); Bilirubin,Total 0.6 mg/dl (0.2-1.0); Calcium 9.2 mg/dl (8.5-10.1); Creatinine Clr Calc Pharmacy 100.9 ml/min; Est GFR (African American) 103.3 ml/min; Est GFR (Non-African American) 89.1 ml/min; Globulin 2.7 gm/dl (2.5-4.0); Potassium 3.8 mmol/L (3.5-5.1); Total Protein 5.8 gm/dl (6.0-8.3)
[2022-03-22] MEDS: ACETAMINOPHEN 325 MG TAB PO PRN ×3 (11:48→21:14)
--- NOTE | 2022-03-22 18:08 | Hospitalist Progress Note ---
Date of Service March 22, 2022 Assessment & Plan (1) Fever: Plan: -blood cultures positive for possible gram negative and enterobacter in both bottles -Was given cefepime in the ED, will continue with Zosyn for now - -Did discuss with [facility] Security Escort, Dr Anne Will plan for OP axios, gallbladder remnant. Will arrange at [facility] next week. He should be discharged on a course of PO ABX. General surgery feels best approach would be consider stent, gi medincine agrees, repeat blood cultures negative, is no sx and blood work is stable consider Dc 03/23/22 (2) Hypoxia: Plan: -likley due to sepsis ->resolved (3) History of biliary duct stent placement: Plan: -fever, Pt has persistent gall bladder reminent, with adjacent fat stranding, pneumobilia and biliary stents in place, no significant ductal dilatation. on Zosyn (4) MARIBEL treated with BiPAP: Plan: -HS Bipap ordered (5) Hypertension: Plan: resum e lisinopril for now until infection is ruled out with his low-normal BP Plan lovenox for dvt prevention Admission and Anticipated Discharge Date Admission Date: March 20, 2022 Subjective Patient not feeling well this AM. Currently eating a regular diet without issue. Symptoms improved currently. Denies abdominal pain. feels that something just is not settling with him, concerned about oging home Review of Systems Review of Systems: Mild distress and fatigue no headache, no visual changes no speech or swallowing issues no chest pain, pressure or palpitations no shortness of breath, cough or wheezes very mild abdominal pain, nausea or vomiting, diarrhea or constipation no dysuria, hematuria or frequency no focal joint pain or swelling no back pain, CVA tenderness or radicular pain no bruising, bleeding or rashes no focal signs of weakness or numbness or altered sensation no complaints of anxiety or depression.. Physical Exam Physical Exam: The patient appeared well nourished and normally developed. Vital signs as documented. Head exam is normocephalic atraumatic Neck is without JVD, thyromegaly, or carotid bruits. Lungs are clear to auscultation, no focal loss of breath sounds Cardiac exam, Rhythm is regular.. No murmurs, rubs or gallops. Abdominal exam reveals normal bowel sounds, soft mild RUQ tenderness Extremities are nonedematous and both pedal pulses are present Neurologic exam is alert and oriented, no focal loss of strength or sensation Skin is without bruises or rashes Psychologically is without concerns for anxiety or depression.. Results & Data Results & Data ([facility]) Vital Signs (Past 12 Hours) Vital Signs Temp Pulse Resp BP Pulse Ox O2 Del Method 03/22/22 14:49 97.5 F L 68 16 132/77 94 Room Air 03/22/22 07:09 98.2 F 74 17 143/79 H 91 Room Air PG Care Time/CCT Total # of Minutes Spent Total Time Spent with Patient: Total time spent is greater than 50% in coordination of care (as documented) at patient's floor/unit and/or counseling patient: Coding Level of Care Code 91325 Subseq Hosp Care Lvl 2 Diagnoses Fever R50.9 Fever type: unspecified Hypoxia R09.02 History of biliary duct stent placement Z98.890 MARIBEL treated with BiPAP G47.33 Hypertension I10 (1) Fever Fever type: unspecified Qualified Code(s): R50.9 - Fever, unspecified
[2022-03-22 23:27] LABS: 18KDIGG Band REACTIVE; 23KDIGG Band REACTIVE; 23KDIGM Band REACTIVE; 28KDIGG Band NON-REACTIVE; 30KDIGG Band NON-REACTIVE; 39KDIGG Band REACTIVE; 39KDIGM Band NON-REACTIVE; 41KDIGG Band NON-REACTIVE; 41KDIGM Band NON-REACTIVE; 45KDIGG Band NON-REACTIVE; 58KDIGG Band REACTIVE; 66KDIGG Band NON-REACTIVE; 93KDIGG Band NON-REACTIVE; Lyme Antibodies, WB IgG NEGATIVE (NEGATIVE); Lyme Antibodies, WB IgM NEGATIVE (NEGATIVE)
[2022-03-22] MEDS ORDERED: POLYETHYLENE (MIRALAX) 17 GM PACK PO PRN (23:34)
[2022-03-22] MEDS: ENOXAPARIN INJ 40 MG/0.4 ML SYR SQ SCH (23:56)
[2022-03-23] MEDS: PIPERACILLIN/TAZOBACTAM 3.375 GM in DEXTROSE 5% 100 ML IV SCH ×2 (06:11→14:05)
[2022-03-23 07:40] LABS: Basophils # (auto) 0.01 K/uL (0-0.2); Basophils % (auto) 0.2 %; Eosinophils # (auto) 0.07 K/uL (0-0.50); Eosinophils % (auto) 1.2 %; Hematocrit (blood only) 37.6 % (40.1-51.0); Hemoglobin 12.2 g/dl (14.0-18.0); Immature Granulocytes # (auto) 0.02 K/uL (0.00-0.02); Immature Granulocytes % (auto) 0.3 %; Lymphocytes # (auto) 0.89 K/uL (1.2-3.4); Lymphocytes % (auto) 14.6 %; Mean Corpuscular Hemoglobin 31.2 pg (25.0-34.0); Mean Corpuscular Hgb Conc 32.4 g/dL (32.0-36.0); Mean Corpuscular Volume 96.2 fL (80.0-100.0); Mean Platelet Volume 8.7 fL (9.4-12.4); Monocytes # (auto) 0.66 K/uL (0.24-0.82); Monocytes % (auto) 10.9 %; Neutrophils # (auto) 4.43 K/uL (1.4-6.5); Neutrophils % (auto) 72.8 %; Platelet Count 181 K/uL (130-400); RDW Coefficient of Variation 13.7 % (11.5-14.5); RDW Standard Deviation 48.4 fL (36.4-46.3); Red Blood Count 3.91 M/uL (4.63-6.08); White Blood Count 6.08 K/ul (4.8-10.8)
[2022-03-23 08:02] LABS: Albumin Globulin Ratio 1.1 (0.9-2); Albumin Level 3.2 gm/dl (3.4-5.0); BUN Creatinine Ratio 17.9 (10-20); Bilirubin,Total 0.6 mg/dl (0.2-1.0); Calcium 9.4 mg/dl (8.5-10.1); Creatinine Clr Calc Pharmacy 105.4 ml/min; Est GFR (African American) 105.2 ml/min; Est GFR (Non-African American) 90.8 ml/min; Globulin 2.8 gm/dl (2.5-4.0); Potassium 4.2 mmol/L (3.5-5.1)
[2022-03-23] MEDS: LINACLOTIDE 145 MCG CAPSULE PO SCH (08:36)
[2022-03-23] MEDS: TAMSULOSIN HCL 0.4 MG CAP PO SCH (08:37)
[2022-03-23] MEDS: allopurinoL 300 MG TAB PO SCH (08:37)
[2022-03-23] MEDS: CYANOCOBALAMIN (B-12) 500 MCG TABLET PO SCH (08:37)
[2022-03-23] MEDS: FAMOTIDINE 20 MG in SYRINGE 3 ML IV SCH (08:39)
[2022-03-23] MEDS ORDERED: bisacodyL 10 MG SUPP PR STA (09:49)
--- NOTE | 2022-03-23 11:26 | Discharge Summary ---
Date of Service March 23, 2022 Admission HPI Per Admitting Provider Aleks is an 81-year-old male with a past medical history of hypertension, IBSC, MARIBEL, vitamin B12 deficiency, BPH, prostate CA's s/p radiation therapy, and cholecystectomy in October for gangrenous cholecystitis, and recent ERCP with biliary stent placement on 02/16/22 for choledocholithiasis and infected retained products of of his prior cholecystectomy who presented to the [facility] ED on 03/19/22 with a chief complaint of flu-like symptoms. In the [facility] the patient was found to have a temperature of 37.8 C, remained hemodynamically stable and stable on RA. He was without a leukocytosis and procal was negative at 0.15. Of note, the patient's Lyme IgG antibody was positive and a western blot was sent for confirmation. Chest xray was negative for acute findings. CT of the abdomen and pelvis with contrast showed "Biliary stents in place. Mildly distended suspected gallbladder remnant with mild adjacent stranding. This suggests residual cholecystitis although inflammation has decreased since CT of February 12, 2022. No significant biliary ductal dilatation. Pneumobilia, as expected. No bowel obstruction. Colonic diverticulosis without evidence for acute diverticulitis". GI was contacted by the ED staff who recommended brining the patient in under observation with IV antibiotics. In the ED the patient was given 1L NSS bolus, tylenol, and one dose of Cefepime. At the time of the exam the patient was resting comfortably in bed with his sitting bedside. He states that he had been doing well after his stent placement last month and even went deer hunting within the past week. He states that he developed "fevers" (highest was 100.2 F) and a runny nose approximately 3 days ago. He denies any abdominal pain, nausea, vomiting, changes in bowel habits, dysuria, hematuria, melena, or bloody bowel movements. He states that his PCP had prescribed him Cipro and Flagyl in case he would develop fevers after his stent placement and he started both last night. He denies any recent rashes or finding any ticks on himself recently and does note that he had Lyme Disease in the past and completed a 90 day course of Doxycycline. Of note, the patient was on 2L NC at the start of my exam, I attempted to turn his oxygen off during my exam but he desaturated into the high 80's on RA. He denies any shortness of breath and states that he is on nightly CPAP but does not use oxygen at home. He is not taking deep breaths as he is sitll getting some RUQ pain with deep inspiration. Principal Diagnosis E. coli bacteremia suspected secondary to biliary stent Discharge Exam GENERAL: 81 yo Well-developed, well-nourished WM. NAD. LUNGS: Clear to auscultation bilaterally. No W/R/R. CARDIOVASCULAR: Regular rate and rhythm. ABDOMEN: Soft, non-tender and non-distended. BS normoactive x 4 quad. EXTREMITIES: No edema. Non-tender. Peripheral pulses +2/4. NEUROLOGIC: A&O x3. Nonfocal PSYCHIATRIC: Cooperative. Appropriate mood and affect. SKIN: Warm, dry, intact. No rashes or lesions. Discharge Data Allergies Allergy/AdvReac Type Severity Reaction Status Date / Time No Known Allergies Allergy Verified 03/19/22 19:34 Consultations 03/19/22 18:10 ED Decision to Admit Stat 03/20/22 07:50 Consult General Surgery Routine Ordered Studies Chest X-Ray 03/19/22 13:50 XR chest 1V portable CLINICAL HISTORY: SEPSIS COMPARISON STUDY: Chest CT February 12, 2022. FINDINGS: Elevation of the right hemidiaphragm is unchanged. No pneumothorax or pleural effusion is present. Cardiomediastinal silhouette is stable. There is no evidence for overt pulmonary edema. No consolidation to suggest pneumonia. IMPRESSION: No acute cardiopulmonary findings. No change in appearance of the chest. ACT 112: Negative or not required by law. Electronically signed by: Luis Vitale M.D. 03/19/2022 2:21 PM Abdomen/Pelvis CT 03/19/22 15:38 CT OF THE ABDOMEN AND PELVIS WITH CONTRAST CLINICAL HISTORY: Right upper quadrant pain, biliary stent COMPARISON STUDY: CT of the abdomen and pelvis February 12, 2022. MRCP February 13, 2022. TECHNIQUE: Following IV administration of 92 mL of Optiray, axial images of the abdomen and pelvis were obtained from the lung bases to the proximal femurs. Images were reviewed in the axial, sagittal, and coronal planes. IV contrast was administered without complication. Automated exposure control was utilized for the study. A dose lowering technique was utilized adhering to the principles of ALARA. CT DOSE: 1195.05 mGy.cm FINDINGS: A 10 cm right hepatic dome cyst is again noted. Biliary stents remain in place. As expected, there is pneumobilia. A mildly distended suspected gallbladder remnant is again noted. Mild adjacent stranding has improved since prior examination. The fluid collection extending toward the hepatic flexure of the colon has essentially resolved. No new fluid collections are present. There is no pancreatic ductal dilatation. There is no peripancreatic infiltration. Spleen, adrenal glands are unremarkable. There is a 5 m left renal calculus. There is no hydronephrosis. There are no ureteral calculi. Prostate is enlarged. There are several suspected renal cyst. A few subcentimeter renal lesions are too small to characterize. Colonic diverticulosis is noted without evidence for acute diverticulitis. IMPRESSION: 1. Biliary stents in place. Mildly distended suspected gallbladder remnant with mild adjacent stranding. This suggests residual cholecystitis although inflammation has decreased since CT of February 12, 2022. No significant biliary ductal dilatation. Pneumobilia, as expected. 2. No bowel obstruction. 3. Colonic diverticulosis without evidence for acute diverticulitis. ACT 112: Negative or not required by law. Electronically signed by: Luis Vitale M.D. 03/19/2022 5:25 PM Blood Culture Aerobic Final 03/22/22-0832 Organism 1 Escherichia coli Sens Sensitivities to Follow Blood Culture PCR Panel If viewing in EMR, results available under LAB Serology tab. Phoned positive Blood Culture Gram Stain report to JARED DELGADO on 03/20/22 at [id number] [place] [id number]. [place] [id number]. E coli RX M.I.C. --- --------- Amox/Clav S <=8/4 Ampicillin S <=8 Amp/Sul S <=8/4 Cefazolin S <=2 Cefepime S <=2 Ceftriaxone S <=1 Ciprofloxacin R >2 Ertapenem S <=0.5 Gentamicin S <=4 Levofloxacin R >4 Meropenem S <=1 Tobramycin S <=4 Trimeth/Sulfa R >2/38 Pip/Tazo S <=16 S = SENSITIVE I = INTERMEDIATE R = RESISTANT Hospital Course (1) Fever: -blood cultures positive for possible gram negative which isolated out to E. coli -Was given cefepime in the ED, was placed on Zosyn upon admission -Did discuss with [facility] Automotive Mechanical Engineer, Dr Anne- plan for OP axios, gallbladder remnant. Will go to [facility] next Mon. -General surgery feels best approach would be consider stent, gi medicine agrees, -repeat blood cultures negative from 03/21, afebrile >48 hrs -Plan for d/c home today, will continue antibiotics until he is seen next week * E. coli sensitive to 3rd gen cephalosporin, dc on Cefdinir 300mg BID x 7 days (2) Hypoxia: -possibly due to sepsis ->resolved (3) History of biliary duct stent placement: -fever, Pt has persistent gallbladder remnant, with adjacent fat stranding, pneumobilia and biliary stents in place, no significant ductal dilatation -antibiotics as outlined above, for stent exchange next week at [facility] (4) MARIBEL treated with BiPAP: -HS Bipap ordered (5) Hypertension: -continue lisinopril Plan Patient is medically and hemodynamically stable for discharge home today. Will plan for course of Cefdinir as outlined above. Has scheduled f/u with [facility] for next Monday for stent exchange. Plan d/w Dr. Burt who agrees with aforementioned. Total Time Total Time Spent Total Time Spent (In Minutes): >30 minutes Discharge Plan Discharge Items Patient Disposition: Home - Self-Care Reason For Visit: FEVER Discharge Diagnosis: bloodstream infection possibly from gallbladder stent Condition on Discharge: Fair Activity: Resume your previous activity Non-emergency contact: Primary Care Provider and Automotive Mechanical Engineer Call non-emergency contact if: you have any medication questions, your symptoms worsen and you have a fever Follow-up/Referrals: Bobby Diaz PA-C [Primary Care Provider] - 03/28/22 10:00 am Diet: Regular and Heart Healthy Addtl Attending Provider Instructions: You were hospitalized due to fever and found to have a bloodstream infection. The source of your infection is possibly related to your gallbladder stent. You have been arranged to follow up at [facility] to have your stent exchanged. In the meantime, you will be discharged home on a course of antibiotics (Cefdinir). Please continue to take as directed, do not miss or skip any doses. You are to take the Cefdinir twice a day until gone. Your next dose is due on 03/23/22 before bed. You may take a probiotic while you are the antibiotics. This can be purchased over the counter. It is recommended that you follow up with your primary care provider within 1 week of discharge. Follow up as scheduled with your established plastic boat patcher. In the event of any questions following your discharge, call the nonemergency number listed on your discharge paperwork. In the event of a medical emergency, call 911. Pending Studies at Discharge: No Stand-Alone Forms: My [facility], Smoking Cessation Medications and DC Order Prescriptions: New cefdinir 300 mg capsule 300 mg PO BID Qty: 14 0RF Continued tamsulosin 0.4 mg capsule 0.4 mg PO DAILY Qty: 90 1RF allopurinol 300 mg Tablet 300 mg PO QAM Linzess 145 mcg Capsule 145 mcg PO QAM lisinopril 10 mg Tablet 10 mg PO QAM cyanocobalamin (vitamin B-12) 500 mcg Tablet 1,000 mcg PO QAM Qty: 90 0RF ibuprofen 200 mg Tablet 600 mg PO Q6H PRN (Reason: Pain) ursodiol 500 mg tablet 500 mg PO BID Discontinued metronidazole 250 mg tablet 250 mg PO BID ciprofloxacin HCl 500 mg tablet 500 mg PO BID Discharge Orders: Discharge Order (Routine); Ordered 03/23/22 Ordered By: Eliza Curtis Admission Data Admit Date/Time: 03/20/22 07:54 Attending Provider: Tomas Burt Admit Provider: Anupam Pritchard Primary Care Provider: Bobby Diaz Other Providers: Randal Phillips ; Eder Phillips Coding Level of Care Code D/C DAY MANAGEMENT >30 MINS Diagnoses Fever R50.9 Fever type: unspecified Hypoxia R09.02 History of biliary duct stent placement Z98.890 MARIBEL treated with BiPAP G47.33 Hypertension I10
[2022-03-29 01:07] LABS: Ehrlichia chaff DNA Bld Negative (Negative)
[2022-03-30 19:01] LABS: Babesia microti DNA Not Detected (Not Detected); Q Fever IgG, Phase I NEGATIVE; Q Fever Phase I IgM Antibody NEGATIVE; Q Fever Phase II IgG Antibody POSITIVE; Q Fever Phase II IgM Antibody NEGATIVE; R. typhi IgG Ab NOT DETECTED; R. typhi IgM Ab NOT DETECTED; RMSF IgG Ab NOT DETECTED; RMSF IgM Ab NOT DETECTED
[2022-03-31 14:35] LABS: Q Fever IgG Phase II Ttr Rflx 1:16 titer
== END 2022-03-23 14:31 | disposition home or self-care (01) | DRG 919 ==
LOC: 3E 13:02 → ED 13:02 → SUATTDRO 18:52 → 3E 21:56 → SUATTDRO 03-20 07:54